=== PATIENT | female | born 1965 | race Caucasian/White ===

== ENCOUNTER → 2017-07-16 | Outpatient (CLI) | payer OTHER ==
--- NOTE | 2017-07-16 17:56 | XR ---
EXAMINATION TYPE: XR knee 4V LT DATE OF EXAM: 07/16/2017 COMPARISON: NONE HISTORY: Contusion and pain TECHNIQUE: 4 views FINDINGS: There is spurring on the patella. There is mild spurring of the medial femoral and tibial c ondyles. I see no fracture nor dislocation. There is no sign of joint effusion. IMPRESSION: Mild osteoarthritis. No fracture.
--- NOTE | 2017-07-16 17:57 | XR ---
EXAMINATION TYPE: XR hand complete RT DATE OF EXAM: 07/16/2017 COMPARISON: NONE HISTORY: Contusion TECHNIQUE: 3 views FINDINGS: I see no fracture nor dislocation. Metacarpals are intact. There is spurring at the first c arpal metacarpal joint. There are no erosions. There is mild spurring at the IP joints. IMPRESSION: Mild osteoarthritis. No fracture.
--- NOTE | 2017-07-16 17:58 | XR ---
EXAMINATION TYPE: XR wrist complete RT DATE OF EXAM: 07/16/2017 COMPARISON: NONE HISTORY: Pain TECHNIQUE: 4 views FINDINGS: I see no fracture nor dislocation. Scaphoid is intact. There is spurring at the first carpo metacarpal joint. IMPRESSION: Mild osteoarthritis. No fracture.
== END ==
LOC: RADXRMAIN 17:23
PROVIDERS: ATTEND Emergency Medicine
DX: M17.12 Unilateral primary osteoarthritis, left knee (principal); M19.041 Primary osteoarthritis, right hand; M19.031 Primary osteoarthritis, right wrist

== ENCOUNTER 2018-04-28 17:31 | Inpatient (IN) | payer BC, OTHER ==
[2018-04-28] MEDS ORDERED: IPRATROPIUM-ALBUTEROL 3 ML NEB INHALATION STA (17:50)
--- NOTE | 2018-04-28 17:51 | ED ---
General Adult HPI - General Stated complaint: ROMANA Time Seen by Provider: 04/28/18 17:35 Source: patient, EMS, RN notes reviewed Mode of arrival: EMS Limitations: no limitations - History of Present Illness Initial comments: Patient is a pleasant 52-year-old female presenting to the emergency department with difficulty in breathing. Patient did have some symptoms yesterday but worse today. Symptoms have progressively worsened. Symptoms are starting to become severe. Patient does have a history of smoking. Patient also has a history of previous PE and DVT. Patient stopped taking her medication secondary to noncompliance. Patient denies ever having any chest discomfort. Patient states she has felt somewhat feverish and had a temperature of 100 last night. Patient does have occasional cough. - Related Data Home Medications Medication Instructions Recorded Confirmed Ondansetron [Zofran] 4 mg PO Q8HR PRN 04/28/18 04/28/18 Previous Rx's Medication Instructions Recorded Aspirin 81 mg PO DAILY chew 04/15/16 Allergies Allergy/AdvReac Type Severity Reaction Status Date / Time acetaminophen [From Tylenol] Allergy Anaphylaxis Verified 04/28/18 18:53 morphine Allergy Swelling Verified 04/28/18 18:53 Penicillins Allergy Rash/Hives Verified 04/28/18 18:53 all citrus Allergy Anaphylaxis Uncoded 04/28/18 17:57 Review of Systems ROS Statement: Those systems with pertinent positive or pertinent negative responses have been documented in the HPI. ROS Other: All systems not noted in ROS Statement are negative. Constitutional: Reports: fever, chills Eyes: Denies: eye pain ENT: Denies: ear pain Respiratory: Reports: cough, dyspnea Cardiovascular: Denies: chest pain Endocrine: Reports: fatigue Gastrointestinal: Denies: abdominal pain Genitourinary: Denies: dysuria Musculoskeletal: Denies: back pain Skin: Denies: rash Neurological: Denies: weakness Past Medical History Past Medical History: Diabetes Mellitus, GERD/Reflux, Hypertension, Pulmonary Embolus (PE) Additional Past Medical History / Comment(s): BACK PAIN, STATES MULTIPLE PE'S History of Any Multi-Drug Resistant Organisms: None Reported Past Surgical History: Orthopedic Surgery Additional Past Surgical History / Comment(s): Rt shoulder rotator cuff repair Past Anesthesia/Blood Transfusion Reactions: No Reported Reaction Additional Past Anesthesia/Blood Transfusion Reaction / Comment(s): STATES HAS BEHAVIOR CHANGES POST OP Past Psychological History: No Psychological Hx Reported Smoking Status: Current every day smoker Past Alcohol Use History: None Reported Past Drug Use History: None Reported - Past Family History Father Family Medical History: No Reported History Mother Family Medical History: No Reported History General Exam Limitations: no limitations General appearance: alert, in distress (Patient does appear to be in mild respiratory distress) Head exam: Present: atraumatic Eye exam: Present: normal appearance, PERRL ENT exam: Present: normal oropharynx Neck exam: Present: normal inspection Respiratory exam: Present: decreased breath sounds Cardiovascular Exam: Present: tachycardia Expanded Peripheral pulses: 2+: Radial (R), Radial (L), Dorsalis Pedis (R), Dorsalis Pedis (L) GI/Abdominal exam: Present: soft. Absent: tenderness Extremities exam: Present: normal inspection. Absent: pedal edema, calf tenderness Back exam: Present: normal inspection Neurological exam: Present: alert Psychiatric exam: Present: anxious (Patient does appear somewhat anxious) Skin exam: Present: normal color. Absent: rash Course Vital Signs 04/28/18 04/28/18 04/28/18 17:54 18:03 18:08 Temperature 99.3 F Pulse Rate 120 H 117 H Respiratory 24 24 18 Rate Blood Pressure 160/93 O2 Sat by Pulse 93 L Oximetry 04/28/18 04/28/18 04/28/18 18:14 18:35 19:22 Temperature Pulse Rate 118 H 119 H 120 H Respiratory 18 23 22 Rate Blood Pressure 162/78 160/95 O2 Sat by Pulse 93 L 94 L Oximetry - Reevaluation(s) Reevaluation #1: 04/28/18 19:41 There is questionable infiltrate on computed tomography scan. Abnormal vital signs are felt to be related to pulmonary embolism and therefore patient does not meet sepsis criteria. EKG Findings - EKG Comments: EKG Findings:: Sinus tachycardia 120. FL 154. QRS 86. QT 334. QTC 472. Normal axis. Borderline inferior Q waves. Poor R-wave progression. No acute ST change. Medical Decision Making - Medical Decision Making Patient reevaluated and slightly improved. Heparin was started prior cT results. Patient and family are updated on results and plan and severity. Case was discussed with Dr. Galeana, who is covering for Dr. Vazquez, who admits for Dr. Butler. Case is also discussed in detail with Dr. Devries, who will admit to ICU. - Lab Data Result diagrams: 04/28/18 17:53 04/28/18 17:53 Lab Results 04/28/1818 04/28/18 Range/Units 17:53 17:53 17:53 WBC 15.4 H (3.8-10.6) k/uL RBC 4.98 (3.80-5.40) m/uL Hgb 13.7 (11.4-16.0) gm/dL Hct 41.2 (34.0-46.0) % MCV 82.7 (80.0-100.0) fL MCH 27.5 (25.0-35.0) pg MCHC 33.3 (31.0-37.0) g/dL RDW 15.5 (11.5-15.5) % Plt Count 141 L (150-450) k/uL Neutrophils % 82 % Lymphocytes % 10 % Monocytes % 6 % Eosinophils % 0 % Basophils % 0 % Neutrophils # 12.6 H (1.3-7.7) k/uL Lymphocytes # 1.5 (1.0-4.8) k/uL Monocytes # 0.9 (0-1.0) k/uL Eosinophils # 0.0 (0-0.7) k/uL Basophils # 0.0 (0-0.2) k/uL Hypochromasia Slight PT (9.0-12.0) sec INR (<1.2) APTT (22.0-30.0) sec Sodium 136 L (137-145) mmol/L Potassium 4.3 (3.5-5.1) mmol/L Chloride 98 (98-107) mmol/L Carbon Dioxide 26 (22-30) mmol/L Anion Gap 12 mmol/L BUN 24 H (7-17) mg/dL Creatinine 1.29 H (0.52-1.04) mg/dL Est GFR (CKD-EPI)AfAm 56 (>60 ml/min/1.73 sqM) Est GFR (CKD-EPI)NonAf 48 (>60 ml/min/1.73 sqM) Glucose 192 H (74-99) mg/dL Calcium 9.3 (8.4-10.2) mg/dL Total Bilirubin 0.6 (0.2-1.3) mg/dL AST 1357 H (14-36) U/L ALT 735 H (9-52) U/L Alkaline Phosphatase 115 (38-126) U/L Total Creatine Kinase 174 H (30-135) U/L CK-MB (CK-2) 5.4 H* (0.0-2.4) ng/mL CK-MB (CK-2) Rel Index 3.1 Troponin I 0.886 H* (0.000-0.034) ng/mL NT-Pro-B Natriuret Pep pg/mL Total Protein 7.3 (6.3-8.2) g/dL Albumin 3.7 (3.5-5.0) g/dL 04/28/18 04/28/18 Range/Units 17:53 17:53 WBC (3.8-10.6) k/uL RBC (3.80-5.40) m/uL Hgb (11.4-16.0) gm/dL Hct (34.0-46.0) % MCV (80.0-100.0) fL MCH (25.0-35.0) pg MCHC (31.0-37.0) g/dL RDW (11.5-15.5) % Plt Count (150-450) k/uL Neutrophils % % Lymphocytes % % Monocytes % % Eosinophils % % Basophils % % Neutrophils # (1.3-7.7) k/uL Lymphocytes # (1.0-4.8) k/uL Monocytes # (0-1.0) k/uL Eosinophils # (0-0.7) k/uL Basophils # (0-0.2) k/uL Hypochromasia PT 12.7 H (9.0-12.0) sec INR 1.3 H (<1.2) APTT 24.0 (22.0-30.0) sec Sodium (137-145) mmol/L Potassium (3.5-5.1) mmol/L Chloride (98-107) mmol/L Carbon Dioxide (22-30) mmol/L Anion Gap mmol/L BUN (7-17) mg/dL Creatinine (0.52-1.04) mg/dL Est GFR (CKD-EPI)AfAm (>60 ml/min/1.73 sqM) Est GFR (CKD-EPI)NonAf (>60 ml/min/1.73 sqM) Glucose (74-99) mg/dL Calcium (8.4-10.2) mg/dL Total Bilirubin (0.2-1.3) mg/dL AST (14-36) U/L ALT (9-52) U/L Alkaline Phosphatase (38-126) U/L Total Creatine Kinase (30-135) U/L CK-MB (CK-2) (0.0-2.4) ng/mL CK-MB (CK-2) Rel Index Troponin I (0.000-0.034) ng/mL NT-Pro-B Natriuret Pep 9880 pg/mL Total Protein (6.3-8.2) g/dL Albumin (3.5-5.0) g/dL - Radiology Data Radiology results: image reviewed (Computed tomography scan chest shows multiple pulmonary embolism and saddle embolism. Possible pulmonary infarct versus infiltrate.) Critical Care Time Critical Care Time: Yes Total Critical Care Time: 33 Disposition Clinical Impression: Saddle embolism of pulmonary artery Disposition: ADMITTED IP TO THIS HOSP Condition: Critical Is patient prescribed a controlled substance at d/c from ED?: No Referrals: Delbert Butler DO [Primary Care Provider] - 1-2 days Decision Time: 19:41
[2018-04-28] MEDS ORDERED: HEPARIN SODIUM,PORCINE 10,000 UNIT/ML 1 ML VIAL IV ONE (17:58)
[2018-04-28 18:11] LABS: Basophils % (A) 0 %; Eosinophils % (A) 0 %; HCT 41.2 % (34.0-46.0); HGB 13.7 gm/dL (11.4-16.0); Hypochromasia Slight; Lymphocytes # (A) 1.5 k/uL (1.0-4.8); Lymphocytes % (A) 10 %; MCH 27.5 pg (25.0-35.0); MCHC 33.3 g/dL (31.0-37.0); MCV 82.7 fL (80.0-100.0); Mean Platelet Volume 7.5; Monocytes # (A) 0.9 k/uL (0-1.0); Monocytes % (A) 6 %; Neutrophils # (A) 12.6 k/uL (1.3-7.7); Neutrophils % (A) 82 %; Platelet Count 141 k/uL (150-450); RBC 4.98 m/uL (3.80-5.40); RDW 15.5 % (11.5-15.5); WBC 15.4 k/uL (3.8-10.6)
[2018-04-28 18:18] LABS: INR 1.3 (<1.2); Prothrombin Time 12.7 sec (9.0-12.0)
[2018-04-28 18:23] LABS: Albumin 3.7 g/dL (3.5-5.0); Calcium 9.3 mg/dL (8.4-10.2); Potassium 4.3 mmol/L (3.5-5.1); Total Bilirubin 0.6 mg/dL (0.2-1.3); Total Protein 7.3 g/dL (6.3-8.2)
[2018-04-28] MEDS: HEPARIN SODIUM,PORCINE 5,000 UNIT/ML 1 ML VIAL IV PRN (18:23)
[2018-04-28] MEDS: HEPARIN SOD,PORK IN 0.45% NACL 25,000 UNIT in 0.45% NACL 1 500ML.BAG IV SCH (18:24)
[2018-04-28] MEDS ORDERED: SODIUM CHLORIDE 0.9% 500 ML IV ONE (18:32)
[2018-04-28 18:57] LABS: Creatine Kinase MB 5.4 ng/mL (0.0-2.4); Troponin I 0.886 ng/mL (0.000-0.034)
--- NOTE | 2018-04-28 19:34 | CT ---
EXAMINATION TYPE: CT angio chest DATE OF EXAM: 04/28/2018 7:21 PM COMPARISON: 05/13/2015 HISTORY: Shortness of breath. CT DLP: 607 mGycm Automated exposure control for dose reduction was used. CONTRAST: CTA scan of the thorax is performed with IV Contrast, patient injected with 80 mL of Isovue 370, pulm onary embolism protocol. There are 3-D post processed images.. FINDINGS: There is some patchy consolidation in the superior segment right lower lobe. There is some mild groun dglass interstitial density in the lungs. There are numerous large filling defects in the lower lobe pulmonary arteries bilaterally. Embolism e xtends across the main pulmonary artery. Thoracic aorta has normal size. The bony thorax is intact. IMPRESSION: EXTENSIVE BILATERAL PULMONARY EMBOLI WITH SADDLE EMBOLISM. THIS EXAM WAS DISCUSSED WITH ER PHYSICIAN AT 7:30 PM. RIGHT LOWER LOBE FOCAL CONSOLIDATION COULD RELATE TO PULMONARY INFARCT. EMBOLI APPEAR NEW COMPARED TO OLD EXAM. INTERSTITIAL PULMONARY FIBROTIC CHANGES.
[2018-04-28] MEDS ORDERED: NALOXONE 0.4 MG/ML 1 ML VIAL IV PRN (19:42)
[2018-04-28] MEDS ORDERED: IPRATROPIUM-ALBUTEROL 3 ML NEB INHALATION PRN (19:42)
[2018-04-28] MEDS ORDERED: PNEUMONIA PROTOCOL UTILIZED 1 EACH MISC PO PRN (19:44)
[2018-04-28] MEDS ORDERED: AZITHROMYCIN 500 MG in DEXTROSE 5% IN WATER 250 ML IVPB STA ×2 (19:45)
[2018-04-28] MEDS ORDERED: cefTRIAXone IN SWFI 1,000 MG/10 ML SYRINGE IVP STA (19:45)
[2018-04-28] MEDS: SODIUM CHLORIDE 0.9% 1,000 ML IV SCH (20:30)
--- NOTE | 2018-04-28 20:44 | US ---
EXAMINATION TYPE: US venous doppler duplex LE DATE OF EXAM: 04/28/2018 8:31 PM COMPARISON: NONE CLINICAL HISTORY: Dyspnea, rule out DVT. Hx of DVT has a PE from CT Scan tonight. SIDE PERFORMED: Bilateral TECHNIQUE: The lower extremity deep venous system is examined utilizing real time linear array sonog gege with graded compression, doppler sonography and color-flow sonography. VESSELS IMAGED: External Iliac Vein (EIV) Common Femoral Vein Deep Femoral Vein Greater Saphenous Vein * Femoral Vein Popliteal Vein Small Saphenous Vein * Proximal Calf Veins (* superficial vessels) Right Leg: Positive for DVT in distal Femoral Vein to the Popliteal Vein. Left Leg: Negative for DVT. Non occluding chronic thrombus seen in the Femoral and Popliteal Veins. IMPRESSION: There is evidence of chronic deep venous thrombosis in the left leg. No evidence of acute deep venous thrombosis in the left leg. There is acute deep venous thrombosis in the right femoral vein.
[2018-04-28] MEDS ORDERED: ALPRAZolam 0.25 MG TAB PO PRN (20:48)
[2018-04-28] MEDS ORDERED: traMADol 50 MG TAB PO PRN (20:50)
[2018-04-28] MEDS ORDERED: ONDANSETRON 4 MG TAB PO PRN (20:50)
[2018-04-28 21:10] LABS: Glucose,Whole Blood 220 mg/dL (75-99)
--- NOTE | 2018-04-28 21:16 | XR ---
EXAMINATION TYPE: XR chest 1V portable DATE OF EXAM: 04/28/2018 COMPARISON: 04/14/2016 HISTORY: Heart failure TECHNIQUE: Single frontal view of the chest is obtained. FINDINGS: Portable exam shows no heart failure. Heart appears enlarged. There is no pleural effusion . There are chest leads. IMPRESSION: No heart failure seen. There is probably cardiomegaly. No pleural effusion.
[2018-04-28] MEDS: NICOTINE 14MG/24HR PATCH TRANSDERM SCH (21:47)
[2018-04-28 21:56] VITALS: BMI 36.2
--- NOTE | 2018-04-28 22:16 | HP ---
HISTORY AND PHYSICAL CHIEF COMPLAINT: Shortness of breath. HISTORY OF PRESENT ILLNESS: This 52-year-old woman with a past medical history of diabetes mellitus, GERD, history of hypertension, history of pulmonary embolism, being followed by Dr. Butler in the outpatient setting, was apparently not taking anticoagulation. The patient does take some natural medications. Yesterday the patient had significant shortness of breath which has worsened today, and the patient came to [facility] and was admitted for further evaluation and treatment. The patient had troponin elevated up to 0.886. Patient also has a previous history of CHF and the patient underwent a chest CTA which showed extensive bilateral pulmonary emboli with saddle embolism and possibly pulmonary infarct, also. The patient was admitted for further evaluation and treatment. There is no history of any fever, rigors. No history of headache, loss of consciousness, seizures at this time. PAST MEDICAL HISTORY: 1. History of CHF. 2. History of diabetes mellitus. 3. GERD. 4. History of pulmonary embolism. 5. History of back pain. 6. DJD. HOME MEDICATIONS: 1. Zofran. 2. Aspirin 81 mg p.o. daily. ALLERGIES: 1. TYLENOL. 2. MORPHINE. 3. PENICILLIN. 4. ALL CITRUS. FAMILY HISTORY: No history of heart disease or strokes in the family. SOCIAL HISTORY: History of smoking. No history of alcohol intake. REVIEW OF SYSTEMS: ENT: No diminished hearing. No diminished vision. CARDIOVASCULAR SYSTEM: No angina, palpitations. RESPIRATORY SYSTEM: As mentioned earlier. GI: No nausea, vomiting. : No dysuria or retention. NERVOUS SYSTEM: No numbness, weakness. ALLERGY/IMMUNOLOGY: No asthma, hayfever. MUSCULOSKELETAL: As mentioned earlier. HEMATOLOGY/ONCOLOGY: No history of anemia. ENDOCRINE: No history of diabetes, hypothyroidism. CONSTITUTIONAL: As mentioned earlier. DERMATOLOGY: Negative. RHEUMATOLOGY: Negative. PSYCHIATRY: As mentioned earlier. PHYSICAL EXAMINATION: Patient is alert and oriented x3. Pulse 117, blood pressure 172/96, respiration 24, temperature 98.4, pulse ox 95% on 4 L. HEENT: Conjunctivae normal. Oral mucosa moist. NECK: No jugular venous distention. No carotid bruit. No lymph node enlargement. CARDIOVASCULAR SYSTEM: S1, S2 muffled. RESPIRATORY SYSTEM: Breath sounds diminished at the bases. A few scattered rhonchi and crackles. ABDOMEN: Soft, obese, nontender. No mass palpable. LEGS: No edema. No swelling. NERVOUS SYSTEM: Higher functions as mentioned earlier. Moves all 4 limbs. No focal motor or sensory deficit. LYMPHATICS: No lymph node palpable in neck, axillae or groin. SKIN: No ulcer, rash, bleeding. LABS AT THIS TIME: WBC 15.5, hemoglobin 13.7, platelets 141. Sodium is 136, creatinine 1.29. AST is 1357, ALT 735. CK-MB is 5.4, troponin 0.886. ASSESSMENT: 1. Shortness of breath with acute saddle embolism. 2. History of previous pulmonary embolism. 3. Increased creatinine with mild acute renal failure. 4. Increased AST, ALT, possibly hepatitis. 5. Increased white count. 6. Possible pneumonia. 7. History of hypertension. 8. History of gastroesophageal reflux disease. 9. Diabetes mellitus, type 2. 10.History of degenerative joint disease. 11.History of nicotine dependence. 12.Obesity with body mass index of 34.4. RECOMMENDATIONS AND DISCUSSION: In this 52-year-old woman who presented with multiple complex medical issues, we will monitor the patient closely, continue the current medications, continue with symptomatic treatment. We will initiate IV heparin. I recommend close monitoring in the ICU. Consult Dr. Devries. I would also recommend empiric antibiotics at this point. Will repeat chest x-ray. Monitor fluid/electrolyte balance closely. I would also recommend a cardiology consultation to rule out the possibility of CHF in this patient. The importance of compliance also was stressed with the patient. We will continue to monitor. The patient is probably a candidate for lifelong anticoagulation. See orders for further details. Further recommendations to follow. A copy of this dictation is being forwarded to Dr. Butler, who is the primary physician. MMODL / IJN: [id number] / JASMYNE
[2018-04-28] MEDS: INSULIN ASPART 100 UNIT/ML 1 ML 10 ML VIAL SQ SCH (22:17)
[2018-04-28] MEDS: TEMAZEPAM 15 MG CAP PO PRN (22:29)
[2018-04-29 05:04] LABS: Basophils % (A) 0 %; Eosinophils % (A) 0 %; HCT 44.8 % (34.0-46.0); HGB 13.7 gm/dL (11.4-16.0); Hypochromasia Moderate; Lymphocytes # (A) 1.3 k/uL (1.0-4.8); Lymphocytes % (A) 8 %; MCHC 30.6 g/dL (31.0-37.0); Mean Platelet Volume 8.2; Monocytes # (A) 0.8 k/uL (0-1.0); Monocytes % (A) 5 %; Neutrophils % (A) 86 %; Platelet Count 147 k/uL (150-450); RBC 5.27 m/uL (3.80-5.40); WBC 16.4 k/uL (3.8-10.6)
[2018-04-29 05:20] LABS: INR 1.5 (<1.2); Prothrombin Time 13.6 sec (9.0-12.0)
[2018-04-29 05:26] LABS: Albumin 3.6 g/dL (3.5-5.0); Calcium 8.7 mg/dL (8.4-10.2); Magnesium 2.2 mg/dL (1.6-2.3); Potassium 5.3 mmol/L (3.5-5.1); Total Bilirubin 0.6 mg/dL (0.2-1.3); Total Protein 7.3 g/dL (6.3-8.2)
--- NOTE | 2018-04-29 07:34 | XR ---
EXAMINATION TYPE: XR chest 1V DATE OF EXAM: 04/29/2018 COMPARISON: 04/28/2018 HISTORY: Shortness of breath TECHNIQUE: Single frontal view of the chest is obtained. FINDINGS: The heart is enlarged. There are subsegmental changes involving both lung. No pneumothorax . No pleural effusion. No failure. IMPRESSION: Cardiomegaly with subsegmental areas of atelectasis or infiltrate
[2018-04-29 07:42] LABS: Glucose,Whole Blood 210 mg/dL (75-99)
[2018-04-29] MEDS: HEPARIN SOD,PORK IN 0.45% NACL 25,000 UNIT in 0.45% NACL 1 500ML.BAG IV SCH ×2 (08:02→21:37)
[2018-04-29] MEDS: INSULIN ASPART 100 UNIT/ML 1 ML 10 ML VIAL SQ SCH ×4 (08:21→20:11)
[2018-04-29] MEDS ORDERED: AZITHROMYCIN 500 MG TAB PO SCH (09:00)
[2018-04-29] MEDS ORDERED: cefTRIAXone IN SWFI 1,000 MG/10 ML SYRINGE IVP SCH (09:00)
[2018-04-29] MEDS: PANTOPRAZOLE 40 MG/10 ML VIAL IV SCH (09:48)
[2018-04-29] MEDS: ASPIRIN 81 MG PO SCH (09:48)
[2018-04-29 10:09] LABS: Appearance,Urine Cloudy (Clear); Bacteria,Urine Few /hpf; Bilirubin,Urine Negative (Negative); Blood,Urine Moderate (Negative); Color,Urine Yellow; Glucose,Urine (UA) Negative (Negative); Hyaline Casts,Urine 36 /lpf (0-2); Ketones,Urine Negative (Negative); Leukocyte Esterase,Urine Large (Negative); Mucus,Urine Few /hpf; Nitrite,Urine Negative (Negative); Protein,Urine 2+ (Negative); RBC,Urine 137 /hpf (0-5); Specific Gravity,Urine 1.028 (1.001-1.035); Urobilinogen,Urine <2.0 mg/dL (<2.0); WBC,Urine >182 /hpf (0-5)
[2018-04-29] MEDS: guaiFENesin-DM 100-10MG/5ML 10 ML CUP PO PRN (11:58)
[2018-04-29 12:19] LABS: Glucose,Whole Blood 235 mg/dL (75-99)
--- NOTE | 2018-04-29 14:02 | ECHOF ---
Referral Reason:pe MEASUREMENTS -------- HEIGHT: 172.7 cm WEIGHT: 108.0 kg BP: 164/103 RVIDd: 3.5 cm (< 3.3) IVSd: 1.1 cm (0.6 - 1.1) LVIDd: 4.3 cm (3.9 - 5.3) LVPWd: 1.2 cm (0.6 - 1.1) IVSs: 1.9 cm LVIDs: 2.6 cm LVPWs: 1.5 cm Ao Diam: 3.1 cm (2.0 - 3.7) AV Cusp: 1.8 cm (1.5 - 2.6) LA Diam: 3.6 cm (2.7 - 3.8) MV EXCURSION: 16.659 mm (> 18.000) MV EF SLOPE: 41 mm/s (70 - 150) EPSS: 0.3 cm MV E Chaka: 1.11 m/s MV DecT: 204 ms MV A Chaka: 0.31 m/s MV E/A Ratio: 3.56 RAP: 5.00 mmHg RVSP: 47.82 mmHg FINDINGS -------- Resting tachycardia (HR>100bpm). This was a technically difficult study with suboptimal views. The left ventricular size is normal. There is borderline concentric left ventricular hypertrophy. There is moderate global hypokinesis of LV . Overall left ventricular systolic function is moderat e-severely impaired with, an EF between 30 - 35 %. The right ventricle is mildly enlarged. The left atrium is normal in size. The right atrium is normal in size. Lumason used Aortic valve is trileaflet and is mildly thickened. The mitral valve leaflets are mildly thickened. Mild mitral regurgitation is present. Mild tricuspid regurgitation present. There is mild pulmonary hypertension. The right ventricular systolic pressure, as measured by Doppler, is 47.82mmHg. Pulmonic valve appears structurally normal. CONCLUSIONS -------- 1. Resting tachycardia (HR>100bpm). 2. This was a technically difficult study with suboptimal views. 3. The left ventricular size is normal. 4. There is borderline concentric left ventricular hypertrophy. 5. There is moderate global hypokinesis of LV . 6. Overall left ventricular systolic function is moderate-severely impaired with, an EF between 30 - 35 %. 7. The right ventricle is mildly enlarged. 8. The left atrium is normal in size. 9. The right atrium is normal in size. 10. Lumason used 11. Aortic valve is trileaflet and is mildly thickened. 12. The mitral valve leaflets are mildly thickened. 13. Mild mitral regurgitation is present. 14. Mild tricuspid regurgitation present. 15. There is mild pulmonary hypertension. 16. The right ventricular systolic pressure, as measured by Doppler, is 47.82mmHg. 17. Pulmonic valve appears structurally normal. [employer]OR: Jeri Virgen RDCS
--- NOTE | 2018-04-29 14:20 | CONS ---
CONSULTATION Margaret Alves is a 52-year-old female who was admitted with shortness of breath. She was found to have pulmonary embolism. She does not take anticoagulants. She was taking some natural medications instead. Cardiology was consulted on account of abnormal troponin of 0.886. She is mildly short of breath at rest, but denies any chest discomfort. She has documented pulmonary embolism with extensive bilateral pulmonary emboli with saddle embolism and pulmonary infarct. PAST MEDICAL HISTORY: Past medical history of diabetes, GERD, pulmonary embolism, back pain, and noncompliance with medications with anticoagulation. HOME MEDICATIONS: Zofran and aspirin. ALLERGIES: Allergies to TYLENOL, MORPHINE, PENICILLIN. FAMILY HISTORY: Noncontributory. SOCIAL HISTORY: History of smoking. REVIEW OF SYSTEMS: Shortness of breath on exertion and shortness of breath at rest. No chest pain. No nausea, vomiting, or diarrhea. No hematuria or dysuria. No strokes or seizures. No skin lesions. No musculoskeletal complaints. PHYSICAL EXAMINATION: On examination, her blood pressure was initially elevated. Pulse, she had sinus tachycardia. Head and neck examinations was normal. Breath sounds are reduced bilaterally. Heart sounds tachycardic. Abdomen is soft. EXTREMITIES: Bilateral edema. IMPRESSION: Abnormal troponins in the setting of extensive bilateral pulmonary emboli including saddle embolus and pulmonary infarction. This is an expected finding and does not represent an acute myocardial infarction. From a cardiac standpoint, I will get a 2D echo and Doppler study to assess right ventricular size and function and PA pressures. No further cardiac workup indicated at this point. Thank you for the consultation. MMODL / IJN: [id number] /
--- NOTE | 2018-04-29 14:26 | P.CNPUL ---
History of Present Illness Consult date: 04/29/18 Reason for consult: pulmonary embolism History of present illness: 52-year-old female patient, obese with a BMI of 36.8, with known history of previous DVT and pulmonary embolism, as the patient had a bilateral pulmonary embolism back in 2013 treated with anticoagulation yet the patient opted to stop anticoagulation and proceed with homeopathic and natural products. Note that prior to 2013 the patient also has had previous history of DVTs. The patient came in yesterday because of an acute shortness of breath and pain across the right chest which was pleuritic in nature. CT angios the chest was done on admission and the patient was found to have extensive bilateral pulmonary embolism with incentive embolism. There was also right lower lobe consolidation related to the pulmonary infarction. Note that the time of admission the patient was normotensive. She was however tachycardic and she was in sinus tachycardia with a heart rate being as high as 120. She was hypoxic and she was placed on 4-6 L of oxygen nasal cannula to bring his saturation above 90%. She was started on IV heparin. Troponin was positive. Her proBNP level was 9880. The Doppler of the lower extremity showed a right sided DVT involving the distal femoral vein and the popliteal vein. Left lower extremity shows nonoccluding chronic thrombus and the femoral and popliteal vein. The patient stayed hemodynamically stable throughout the night and earlier this morning the patient was seen and evaluated in the intensive care unit. A echocardiogram was done this morning and it showed a left ventricle ejection fraction of 30-35% and the right ventricular is mildly enlarged and the right atrium is normal in size with a right ventricular systolic pressure of 47 mmHg. Note that the patient had a normal echocardiogram back in 2013. She also had a cardiac catheterization back in [address] Lira and the coronaries were also within normal limits. On today's evaluation she is less short of breath compared to yesterday. Her pleurisy has subsided. No active chest pain. Her PTT is therapeutic on IV heparin. Creatinine is up to 1.2. I've no also noted some abnormalities in liver function tests with AST is up to 1000. 75 and ALP is up to 1015. Normal ocular phosphatase. Normal bilirubin. Urinalysis is abnormal and the patient has extensive amount of white cells and the patient was given a dose of Rocephin. Cultures still pending for now. She is afebrile. Review of Systems Constitutional: Denies chills, Denies fever Eyes: denies blurred vision, denies bulging eye, denies decreased vision Ears: deny: decreased hearing, ear discharge, earache Ears, nose, mouth and throat: Denies headache, Denies sore throat Cardiovascular: Reports dyspnea on exertion, Reports shortness of breath Respiratory: Reports dyspnea, Reports pleurisy Gastrointestinal: Denies abdominal pain, Denies diarrhea, Denies nausea, Denies vomiting Genitourinary: Denies dysuria, Denies hematuria Menstruation: Reports as per HPI Musculoskeletal: Reports as per HPI Musculoskeletal: absent: ankle pain, ankle stiffness, ankle swelling Integumentary: Reports acne Neurological: Reports as per HPI Psychiatric: Reports as per HPI Endocrine: Reports as per HPI Hematologic/Lymphatic: Reports as per HPI Allergic/Immunologic: Reports as per HPI Past Medical History Past Medical History: Diabetes Mellitus, GERD/Reflux, Hypertension, Pulmonary Embolus (PE) Additional Past Medical History / Comment(s): Previous history of pulmonary embolism in 2013, obesity, previous history of DVT involving the left lower extremity, diabetes mellitus, hypertension, acid reflux, chronic back pain, normal coronaries based on a cardiac catheterization from June 2015 History of Any Multi-Drug Resistant Organisms: None Reported Past Surgical History: Orthopedic Surgery Additional Past Surgical History / Comment(s): Rt shoulder rotator cuff repair Past Anesthesia/Blood Transfusion Reactions: No Reported Reaction Additional Past Anesthesia/Blood Transfusion Reaction / Comment(s): STATES HAS BEHAVIOR CHANGES POST OP Past Psychological History: No Psychological Hx Reported Smoking Status: Current every day smoker Past Alcohol Use History: None Reported Past Drug Use History: None Reported - Past Family History Father Family Medical History: No Reported History Mother Family Medical History: No Reported History Medications and Allergies Home Medications Medication Instructions Recorded Confirmed Type Aspirin 81 mg PO DAILY chew 04/15/16 04/29/18 Rx Ondansetron [Zofran] 4 mg PO Q8HR PRN 04/28/18 04/29/18 History Cinnamon Bark [Cinnamon] 2,000 mg PO DAILY 04/29/18 04/29/18 History Reedy-3 Fatty Acids/Fish Oil [Fish 2,000 mg PO DAILY 04/29/18 04/29/18 History Oil 1,000 mg Softgel] Vitamin E 2,000 units PO DAILY 04/29/18 04/29/18 History Allergies Allergy/AdvReac Type Severity Reaction Status Date / Time acetaminophen [From Tylenol] Allergy Anaphylaxis Verified 04/28/18 18:53 morphine Allergy Swelling Verified 04/28/18 18:53 Penicillins Allergy Rash/Hives Verified 04/28/18 18:53 all citrus Allergy Anaphylaxis Uncoded 04/28/18 17:57 Physical Exam Vitals: Vital Signs Temp Pulse Resp BP Pulse Ox 04/29/18 13:00 109 H 33 H 162/90 94 L 04/29/18 12:00 105 H 30 H 169/92 93 L 04/29/18 11:00 103 H 20 179/92 91 L 04/29/18 10:00 111 H 23 111/78 93 L 04/29/18 09:00 107 H 29 H 155/85 92 L 04/29/18 08:00 97.6 F 103 H 21 165/97 93 L 04/29/18 07:32 92 L 04/29/18 07:00 104 H 25 H 164/103 92 L 04/29/18 06:30 102 H 21 137/83 98 04/29/18 06:00 106 H 24 137/83 83 L 04/29/18 05:30 106 H 42 H 137/85 100 04/29/18 05:00 107 H 44 H 137/85 100 04/29/18 04:30 108 H 28 H 150/94 99 04/29/18 04:00 98.4 F 109 H 32 H 150/94 100 04/29/18 03:30 107 H 31 H 128/77 93 L 04/29/18 03:00 112 H 22 128/77 100 04/29/18 02:30 112 H 32 H 158/93 90 L 04/29/18 02:00 110 H 18 136/76 97 04/29/18 01:30 114 H 36 H 136/76 91 L 04/29/18 01:00 100 33 H 136/76 96 04/29/18 00:30 115 H 33 H 142/57 93 L 04/29/18 00:00 99.2 F 116 H 36 H 142/57 91 L 04/28/18 23:30 111 H 28 H 161/75 81 L 04/28/18 23:00 108 H 35 H 161/75 97 04/28/18 22:30 109 H 31 H 199/93 95 04/28/18 22:00 111 H 31 H 173/110 93 L 04/28/18 21:30 112 H 40 H 155/76 94 L 04/28/18 21:00 115 H 178/79 93 L 04/28/18 20:57 0 L 94 L 04/28/18 20:33 98.5 F 117 H 24 172/96 95 04/28/18 19:22 120 H 22 160/95 94 L 04/28/18 18:35 119 H 23 162/78 93 L 04/28/18 18:14 118 H 18 04/28/18 18:08 117 H 18 04/28/18 18:03 24 04/28/18 17:54 99.3 F 120 H 24 160/93 93 L Intake and Output 04/28/18 04/29/18 04/29/18 22:59 06:59 14:59 Intake Total 410 840 Output Total 775 Balance 410 65 Intake: IV 160 140 Sodium Chloride 0.9% 1, 160 140 000 ml @ 20 mls/hr IV . Q24H FILOMENA Rx#:[id number] Intake, IV Titration 500 Amount Heparin Sod,Pork in 0.45% 500 NaCl 25,000 unit In 0.45 % NaCl 1 500ml.bag @ 18 UNITS/KG/HR 36.9 mls/hr IV .[id number] FILOMENA Rx#: [id number] Oral 250 200 Output: Urine 775 Other: Voiding Method Bedpan Indwelling Catheter # Voids 1 1 Weight 108.1 kg 108.1 kg 108.1 kg Obese, comfortable likely distress. Resting comfortably in bed. There is no use of accessory muscles of breathing. Head exam was generally normal. There was no scleral icterus or corneal arcus. Mucous membranes were moist. Neck is supple and there is no JVDs no goiter or neck masses at this point. There is significant crowding of the posterior oropharynx. Lungs sounds are diminished bilaterally especially lung bases otherwise breath sounds are equal and symmetrical. No wheezes or rhonchi. No crackles. Cardiac exam revealed the PMI to be normally situated and sized. The rhythm was regular and no extrasystoles were noted during several minutes of auscultation. The first and second heart sounds were normal and physiologic splitting of the second heart sound was noted. There were no murmurs, rubs, clicks, or gallops. Abdomen is obese and orders cannot be accurately palpated. There is no direct tenderness rebound tensile guarding. No ascites. Extremities revealed some swelling in the right lower extremity compared to the left. No was or ulceration. Trace edema. No cyanosis or clubbing. Neurologic awake and alert and is no focal neurological deficit. Examination of the skin revealed no evidence of significant rashes, suspicious appearing nevi or other concerning lesions. Results - Laboratory Findings CBC and BMP: 04/29/18 04:52 04/29/18 04:52 PT/INR, D-dimer PT 13.6 sec (9.0-12.0) H 04/29/18 04:52 INR 1.5 (<1.2) H 04/29/18 04:52 Abnormal lab findings: Abnormal Labs 04/28/18 04/28/18 04/28/18 17:53 17:53 17:53 WBC 15.4 H MCHC Plt Count 141 L Neutrophils # 12.6 H PT INR APTT Sodium 136 L Potassium Carbon Dioxide BUN 24 H Creatinine 1.29 H Glucose 192 H POC Glucose (mg/dL) Phosphorus AST 1357 H ALT 735 H Alkaline Phosphatase Total Creatine Kinase 174 H CK-MB (CK-2) 5.4 H* Troponin I 0.886 H* Urine Appearance Urine Protein Urine Blood Ur Leukocyte Esterase Urine RBC Urine WBC Urine WBC Clumps Urine Bacteria Hyaline Casts Urine Mucus 04/28/18 04/28/18 04/29/18 17:53 21:08 00:28 WBC MCHC Plt Count Neutrophils # PT 12.7 H INR 1.3 H APTT 60.7 H Sodium Potassium Carbon Dioxide BUN Creatinine Glucose POC Glucose (mg/dL) 220 H Phosphorus AST ALT Alkaline Phosphatase Total Creatine Kinase CK-MB (CK-2) Troponin I Urine Appearance Urine Protein Urine Blood Ur Leukocyte Esterase Urine RBC Urine WBC Urine WBC Clumps Urine Bacteria Hyaline Casts Urine Mucus 04/29/18 04/29/18 04/29/18 04:52 04:52 04:52 WBC 16.4 H MCHC 30.6 L Plt Count 147 L Neutrophils # 14.0 H PT 13.6 H INR 1.5 H APTT Sodium 136 L Potassium 5.3 H Carbon Dioxide 20 L BUN 28 H Creatinine 1.20 H Glucose 267 H POC Glucose (mg/dL) Phosphorus 5.0 H AST 1375 H ALT 1015 H Alkaline Phosphatase 136 H Total Creatine Kinase CK-MB (CK-2) Troponin I Urine Appearance Urine Protein Urine Blood Ur Leukocyte Esterase Urine RBC Urine WBC Urine WBC Clumps Urine Bacteria Hyaline Casts Urine Mucus 04/29/18 04/29/18 04/29/18 07:30 09:11 12:16 WBC MCHC Plt Count Neutrophils # PT INR APTT Sodium Potassium Carbon Dioxide BUN Creatinine Glucose POC Glucose (mg/dL) 210 H 235 H Phosphorus AST ALT Alkaline Phosphatase Total Creatine Kinase CK-MB (CK-2) Troponin I Urine Appearance Cloudy H Urine Protein 2+ H Urine Blood Moderate H Ur Leukocyte Esterase Large H Urine RBC 137 H Urine WBC >182 H Urine WBC Clumps Many H Urine Bacteria Few H Hyaline Casts 36 H Urine Mucus Few H - Diagnostic Findings Chest x-ray: image reviewed CT scan - chest: image reviewed Assessment and Plan Plan: Assessment 1 large massive pulmonary embolism, with extensive clotting of the right lung although the patient has bilateral pulmonary embolism with a saddle clot as visualized on the CT angios the chest. Hemodynamically stable. The patient is slightly tachycardic with sinus tachycardia in the low 100s. There is positive troponin and there is some mild to moderate pulmonary hypertension based on today's echocardiogram. The patient is currently at 4 L of oxygen nasal cannula saturations around 90-94%. The patient is currently on IV heparin. The patient has a femoral/popliteal DVT of the right lower extremity. This is a recurrent event. Less poor embolism was in 2013. Prior to that the patient has had DVTs of the lower extremity and the patient has a chronic nonocclusive clot in the left lower extremity. 2 troponin leak secondary to above 3 CHF with an ejection fraction of 30-35% 4 obesity 5 normal coronaries based on a catheterization from June 2015 6 abnormal LFTs, will need further investigation. AST and ALT are elevated and there is no obstructive pattern as the patient has a normal alkaline phosphatase and bilirubin levels. 7 diabetes mellitus currently on no treatment 8 hypertension 9 history of diverticulosis 10 acid reflux 11 smoker Plan Continue with IV heparin. Would run this case with the vascular surgeons add [facility] to see if she will be a candidate for EKOS, intra- arterial thrombolytic therapy. Meanwhile she'll be kept in the intensive care unit. Monitor hemodynamics. Continue IV heparin. Echocardiogram was noted. Doppler of lower extremity was noted. Proceed with ultrasound of the liver. Monitor liver function tests. Obtain a hepatitis profile. Rule out is a need long-term anticoagulation probably with a new agent oral anticoagulants and the patient will be transitioned to oral anticoagulation at a later stage once more stable. We'll continue to follow. We'll make further recommendations based on her progress.
[2018-04-29] MEDS: amLODIPine 5 MG TAB PO SCH (14:30)
[2018-04-29 17:22] LABS: Glucose,Whole Blood 181 mg/dL (75-99)
--- NOTE | 2018-04-29 18:31 | P.PN ---
Subjective Progress Note Date: 04/29/18 Progress note being dictated for Dr. Galeana. Interval history: A 52-year-old female admitted with acute saddle PE, history of noncompliance with prior DVTs and PEs. Maintained on IV heparin drip. Hypertensive. Telemetry sinus tachycardia. Currently on 4 L maintaining O2 sats in the low 90s. Complains of shortness of breath with minimal exertion. Denies chest pain. Echo reporting severely impaired LV function, EF 30-35, moderate global hypokinesis. Chest x-ray reporting cardiomegaly, subsegmental atelectasis/infiltrate. Elevated creatinine and LFTs. Afebrile. Urine culture pending. Review of systems: CONSTITUTIONAL: No fever, positive fatigue. HEENT: No recent visual problems or hearing problems. Denied any sore throat. CARDIOVASCULAR: No chest pain, no palpitations, no syncope. PULMONARY: Positive shortness of breath, no hemoptysis. GASTROINTESTINAL: No diarrhea, no nausea, no vomiting, no abdominal pain. Normoactive bowel sounds. NEUROLOGICAL: No headaches, no weakness, no numbness. HEMATOLOGICAL: Denies any bleeding or petechiae. GENITOURINARY: Denies any burning micturition, frequency, or urgency. MUSCULOSKELETAL/RHEUMATOLOGICAL: Denies any joint pain, or any muscle pain. ENDOCRINE: Denies any polyuria or polydipsia. PSYCHIATRIC: No anxiety, no depression The rest of the 14 point review of systems is negative Active Medications Generic Name Dose Route Start Last Admin Trade Name Freq PRN Reason Stop Dose Admin Albuterol/Ipratropium 3 ml 04/28/18 19:42 Duoneb 0.5 Mg-3 Mg/3 Ml Soln INHALATION RT-Q4H PRN Shortness Of Breath Or Wheezing Alprazolam 0.25 mg 04/28/18 20:48 Xanax PO TID PRN Anxiety Amlodipine Besylate 5 mg 04/29/18 13:30 04/29/18 14:30 Norvasc PO 5 mg DAILY FILOMENA Administration Aspirin 81 mg 04/29/18 09:00 04/29/18 09:48 Aspirin PO 81 mg DAILY FILOMENA Administration Guaifenesin/Dextromethorphan 10 ml 04/29/18 10:04 04/29/18 11:58 Robitussin Dm PO 10 ml Q6H PRN Administration Cough Heparin Sodium (Porcine) 0 unit 04/28/18 17:58 Heparin IV PER PROTOCOL PRN Low PTT Protocol Heparin Sodium/Sodium Chloride 500 mls @ 36.9 mls/hr 04/28/18 18:00 04/29/18 08:02 25,000 unit/ Sodium Chloride IV 18 units/kg/hr .[id number] FILOMENA 36.9 mls/hr Protocol Administration 18 UNITS/KG/HR Sodium Chloride 1,000 mls @ 20 mls/hr 04/28/18 19:45 04/28/18 20:30 Saline 0.9% IV 50 mls/hr .Q24H FILOMENA Administration Insulin Aspart 0 unit 04/28/18 22:00 04/29/18 12:55 Novolog SQ 5 unit ACHS FILOMENA Administration Protocol Miscellaneous Information 1 each 04/28/18 19:44 Pneumonia Protocol Utilized PO ONCE PRN Per Protocol Naloxone HCl 0.2 mg 04/28/18 19:42 Narcan IV Q2M PRN Opioid Reversal Nicotine 1 patch 04/28/18 21:00 04/28/18 21:47 Habitrol 14mg/24hr Patch TRANSDERM 1 patch HS FILOMENA Administration Ondansetron HCl 4 mg 04/28/18 20:50 Zofran PO Q8HR PRN Nausea Pantoprazole Sodium 40 mg 04/29/18 09:00 04/29/18 09:48 Protonix IV 40 mg DAILY FILOMENA Administration Temazepam 15 mg 04/28/18 20:48 04/28/18 22:29 Restoril PO 15 mg HS PRN Administration Insomnia Tramadol HCl 50 mg 04/28/18 20:50 Ultram PO QID PRN Breakthrough Pain Objective - Vital Signs Vital signs: Vital Signs Temp 97.6 F 04/29/18 08:00 Pulse 110 H 04/29/18 14:00 Resp 22 04/29/18 14:00 BP 151/80 04/29/18 14:00 Pulse Ox 93 L 04/29/18 14:00 Intake & Output 04/28/18 04/29/18 04/29/18 18:59 06:59 18:59 Intake Total 410 1100 Output Total 935 Balance 410 165 Weight 102.512 kg 108.1 kg 108.1 kg Intake: IV 160 200 Sodium Chloride 0.9% 1, 160 200 000 ml @ 20 mls/hr IV . Q24H FILOMENA Rx#:[id number] Intake, IV Titration 500 Amount Heparin Sod,Pork in 0.45% 500 NaCl 25,000 unit In 0.45 % NaCl 1 500ml.bag @ 18 UNITS/KG/HR 36.9 mls/hr IV .[id number] FILOMENA Rx#: [id number] Oral 250 400 Output: Urine 935 Other: Voiding Method Bedpan Indwelling Catheter # Voids 1 1 - Exam PHYSICAL EXAM: VITAL SIGNS: As above GENERAL: Sitting up in bed, respiratory effort increased HEENT: Conjunctivae normal. eyes normal. Oral mucosa dry NECK: No JVD. No thyroid enlargement. No LNs CARDIOVASCULAR: S1, S2 muffled. Tachycardic, No murmur RESPIRATION: Breath sounds diminished in the bases. No rhonchi or crackles. ABDOMEN: Obese, Soft, nontender . No guarding. no masses palpable.Bowel sounds heard. LEGS: Positive edema PSYCHIATRY: Alert and oriented -3, mood and affect normal. NERVOUS SYSTEM: Cranial N 2-12 grossly normal. Moves all 4 limbs. Diffuse weakness No focal deficits. Skin: no ulcer no rash Lymphatic system. No LN neck axilla or groin. - Labs CBC & Chem 7: 04/29/18 04:52 04/29/18 04:52 Labs: Abnormal Lab Results - Last 24 Hours (Table) 04/28/18 04/28/18 04/28/18 Range/Units 17:53 17:53 17:53 WBC 15.4 H (3.8-10.6) k/uL MCHC (31.0-37.0) g/dL Plt Count 141 L (150-450) k/uL Neutrophils # 12.6 H (1.3-7.7) k/uL PT (9.0-12.0) sec INR (<1.2) APTT (22.0-30.0) sec Sodium 136 L (137-145) mmol/L Potassium (3.5-5.1) mmol/L Carbon Dioxide (22-30) mmol/L BUN 24 H (7-17) mg/dL Creatinine 1.29 H (0.52-1.04) mg/dL Glucose 192 H (74-99) mg/dL POC Glucose (mg/dL) (75-99) mg/dL Phosphorus (2.5-4.5) mg/dL AST 1357 H (14-36) U/L ALT 735 H (9-52) U/L Alkaline Phosphatase (38-126) U/L Total Creatine Kinase 174 H (30-135) U/L CK-MB (CK-2) 5.4 H* (0.0-2.4) ng/mL Troponin I 0.886 H* (0.000-0.034) ng/mL Urine Appearance (Clear) Urine Protein (Negative) Urine Blood (Negative) Ur Leukocyte Esterase (Negative) Urine RBC (0-5) /hpf Urine WBC (0-5) /hpf Urine WBC Clumps (None) /hpf Urine Bacteria (None) /hpf Hyaline Casts (0-2) /lpf Urine Mucus (None) /hpf 04/28/18 04/28/18 04/29/18 Range/Units 17:53 21:08 00:28 WBC (3.8-10.6) k/uL MCHC (31.0-37.0) g/dL Plt Count (150-450) k/uL Neutrophils # (1.3-7.7) k/uL PT 12.7 H (9.0-12.0) sec INR 1.3 H (<1.2) APTT 60.7 H (22.0-30.0) sec Sodium (137-145) mmol/L Potassium (3.5-5.1) mmol/L Carbon Dioxide (22-30) mmol/L BUN (7-17) mg/dL Creatinine (0.52-1.04) mg/dL Glucose (74-99) mg/dL POC Glucose (mg/dL) 220 H (75-99) mg/dL Phosphorus (2.5-4.5) mg/dL AST (14-36) U/L ALT (9-52) U/L Alkaline Phosphatase (38-126) U/L Total Creatine Kinase (30-135) U/L CK-MB (CK-2) (0.0-2.4) ng/mL Troponin I (0.000-0.034) ng/mL Urine Appearance (Clear) Urine Protein (Negative) Urine Blood (Negative) Ur Leukocyte Esterase (Negative) Urine RBC (0-5) /hpf Urine WBC (0-5) /hpf Urine WBC Clumps (None) /hpf Urine Bacteria (None) /hpf Hyaline Casts (0-2) /lpf Urine Mucus (None) /hpf 04/29/18 04/29/18 04/29/18 Range/Units 04:52 04:52 04:52 WBC 16.4 H (3.8-10.6) k/uL MCHC 30.6 L (31.0-37.0) g/dL Plt Count 147 L (150-450) k/uL Neutrophils # 14.0 H (1.3-7.7) k/uL PT 13.6 H (9.0-12.0) sec INR 1.5 H (<1.2) APTT (22.0-30.0) sec Sodium 136 L (137-145) mmol/L Potassium 5.3 H (3.5-5.1) mmol/L Carbon Dioxide 20 L (22-30) mmol/L BUN 28 H (7-17) mg/dL Creatinine 1.20 H (0.52-1.04) mg/dL Glucose 267 H (74-99) mg/dL POC Glucose (mg/dL) (75-99) mg/dL Phosphorus 5.0 H (2.5-4.5) mg/dL AST 1375 H (14-36) U/L ALT 1015 H (9-52) U/L Alkaline Phosphatase 136 H (38-126) U/L Total Creatine Kinase (30-135) U/L CK-MB (CK-2) (0.0-2.4) ng/mL Troponin I (0.000-0.034) ng/mL Urine Appearance (Clear) Urine Protein (Negative) Urine Blood (Negative) Ur Leukocyte Esterase (Negative) Urine RBC (0-5) /hpf Urine WBC (0-5) /hpf Urine WBC Clumps (None) /hpf Urine Bacteria (None) /hpf Hyaline Casts (0-2) /lpf Urine Mucus (None) /hpf 04/29/18 04/29/18 04/29/18 Range/Units 07:30 09:11 12:16 WBC (3.8-10.6) k/uL MCHC (31.0-37.0) g/dL Plt Count (150-450) k/uL Neutrophils # (1.3-7.7) k/uL PT (9.0-12.0) sec INR (<1.2) APTT (22.0-30.0) sec Sodium (137-145) mmol/L Potassium (3.5-5.1) mmol/L Carbon Dioxide (22-30) mmol/L BUN (7-17) mg/dL Creatinine (0.52-1.04) mg/dL Glucose (74-99) mg/dL POC Glucose (mg/dL) 210 H 235 H (75-99) mg/dL Phosphorus (2.5-4.5) mg/dL AST (14-36) U/L ALT (9-52) U/L Alkaline Phosphatase (38-126) U/L Total Creatine Kinase (30-135) U/L CK-MB (CK-2) (0.0-2.4) ng/mL Troponin I (0.000-0.034) ng/mL Urine Appearance Cloudy H (Clear) Urine Protein 2+ H (Negative) Urine Blood Moderate H (Negative) Ur Leukocyte Esterase Large H (Negative) Urine RBC 137 H (0-5) /hpf Urine WBC >182 H (0-5) /hpf Urine WBC Clumps Many H (None) /hpf Urine Bacteria Few H (None) /hpf Hyaline Casts 36 H (0-2) /lpf Urine Mucus Few H (None) /hpf // Range/Units 17:21 WBC (3.8-10.6) k/uL MCHC (31.0-37.0) g/dL Plt Count (150-450) k/uL Neutrophils # (1.3-7.7) k/uL PT (9.0-12.0) sec INR (<1.2) APTT (22.0-30.0) sec Sodium (137-145) mmol/L Potassium (3.5-5.1) mmol/L Carbon Dioxide (22-30) mmol/L BUN (7-17) mg/dL Creatinine (0.52-1.04) mg/dL Glucose (74-99) mg/dL POC Glucose (mg/dL) 181 H (75-99) mg/dL Phosphorus (2.5-4.5) mg/dL AST (14-36) U/L ALT (9-52) U/L Alkaline Phosphatase (38-126) U/L Total Creatine Kinase (30-135) U/L CK-MB (CK-2) (0.0-2.4) ng/mL Troponin I (0.000-0.034) ng/mL Urine Appearance (Clear) Urine Protein (Negative) Urine Blood (Negative) Ur Leukocyte Esterase (Negative) Urine RBC (0-5) /hpf Urine WBC (0-5) /hpf Urine WBC Clumps (None) /hpf Urine Bacteria (None) /hpf Hyaline Casts (0-2) /lpf Urine Mucus (None) /hpf Microbiology - Last 24 Hours (Table) 04/29/18 09:11 Urine Culture - Preliminary Urine,Catheterized Assessment and Plan Assessment: 1. Acute saddle embolism 2. Troponin leak, secondary to the above. 3. History of previous PE, DVTs 4. Acute renal failure 5. Elevated LFTs, possibly hepatitis 6. Possible pneumonia 7. Obesity, BMI 36.2 8. Possible acute on chronic diastolic CHF, EF 30-35% 9. [id number] pulmonary hypertension Plan: Continue current medication regime ,monitoring and symptomatic treatment. Maintained on heparin drip; potential intra-arterial thrombolytic therapy currently being researched by concrete laborer in conjunction with Beatriz Grimm. Close monitoring of renal function and LFTs with repeat labs ordered for a.m. liver ultrasound pending hepatitis panel pending .urine culture pending. The impression and plan of care has been dictated as directed. : I performed a history and examination of this patient, discussed the same with the dictator. I agree with the dictator's note ,documented as a scribe. Any additional findings or plans will be noted.
[2018-04-29 19:35] LABS: Hepatitis A Antibody IgM Non-Reactive (Non-Reactive); Hepatitis B Core IgM Non-Reactive (Non-Reactive)
[2018-04-29] MEDS: SODIUM CHLORIDE 0.9% 1,000 ML IV SCH (20:00)
[2018-04-29] MEDS: NICOTINE 14MG/24HR PATCH TRANSDERM SCH (20:02)
[2018-04-29 20:05] LABS: Glucose,Whole Blood 180 mg/dL (75-99)
[2018-04-30] MEDS: HEPARIN SODIUM,PORCINE 5,000 UNIT/ML 1 ML VIAL IV PRN (02:37)
[2018-04-30] MEDS: guaiFENesin-DM 100-10MG/5ML 10 ML CUP PO PRN (04:51)
[2018-04-30 05:19] LABS: Basophils % (A) 0 %; Eosinophils # (A) 0.1 k/uL (0-0.7); Eosinophils % (A) 1 %; HCT 41.8 % (34.0-46.0); HGB 13.3 gm/dL (11.4-16.0); Hypochromasia Moderate; Lymphocytes # (A) 2.1 k/uL (1.0-4.8); Lymphocytes % (A) 13 %; MCHC 31.9 g/dL (31.0-37.0); MCV 84.7 fL (80.0-100.0); Monocytes # (A) 0.7 k/uL (0-1.0); Monocytes % (A) 4 %; Neutrophils # (A) 13.2 k/uL (1.3-7.7); Neutrophils % (A) 81 %; Platelet Count 158 k/uL (150-450); RBC 4.94 m/uL (3.80-5.40); RDW 15.5 % (11.5-15.5); WBC 16.4 k/uL (3.8-10.6)
[2018-04-30 05:26] LABS: INR 1.4 (<1.2); Prothrombin Time 12.8 sec (9.0-12.0)
[2018-04-30 05:35] LABS: Albumin 3.2 g/dL (3.5-5.0); Calcium 8.6 mg/dL (8.4-10.2); Magnesium 2.2 mg/dL (1.6-2.3); Phosphorus 2.4 mg/dL (2.5-4.5); Potassium 4.9 mmol/L (3.5-5.1); Total Bilirubin 0.4 mg/dL (0.2-1.3); Total Protein 6.6 g/dL (6.3-8.2)
[2018-04-30] MEDS: amLODIPine 5 MG TAB PO SCH ×2 (07:02→07:10)
--- NOTE | 2018-04-30 07:25 | XR ---
EXAMINATION TYPE: XR chest 1V DATE OF EXAM: 04/30/2018 COMPARISON: 04/29/2018 HISTORY: 52-year-old female patient with PE, ICU follow-up TECHNIQUE: Single frontal view of the chest is obtained. FINDINGS: Heart is borderline to mildly enlarged. Mild diffuse interstitial prominence. Some patchy right midlu ng opacity is stable to slightly increased. Additional strandy peripheral left midlung density. No si gnificant pleural effusion. IMPRESSION: Some scattered mild patchy densities in the peripheral lungs, similar to minimally increased, atelect asis versus small infiltrates possibly secondary to sequela of patient's pulmonary emboli.
[2018-04-30 07:34] LABS: Glucose,Whole Blood 123 mg/dL (75-99)
--- NOTE | 2018-04-30 08:49 | US ---
EXAMINATION TYPE: US liver DATE OF EXAM: 04/29/2018 COMPARISON: None CLINICAL HISTORY: 52-year-old female Elevated LFTs. NPO, No surgeries, elevated enzymes. TECHNIQUE: Multiple sonographic images of the right upper quadrant are obtained. FINDINGS: Exam was performed portable in the ICU EXAM MEASUREMENTS: Liver Length: 19.5 cm Gallbladder Wall: 0.3 cm CBD: 0.4 cm CHD: 0.4 cm Right Kidney: 11.0 x 5.0 x 4.6 cm Pancreas: Suboptimal visualization of the pancreatic tail secondary to shadowing from bowel gas. Liver: Mildly enlarged and echogenic. No focal lesion is seen. Gallbladder: Multiple mobile echogenic foci with shadowing. Nonshadowing 8mm mural-based echogenic focus anteriorly. No abnormal distention. Wall thickness is normal at 2.5 mm. Evidence for sonographic Ludwig's sign: neg CBD: wnl CHD: wnl Right Kidney: Medial echogenic focus near hilum with shadow = 1.6 x 1.1 cm . No hydronephrosis. IMPRESSION: 1. Hepatomegaly (19.5 cm) with echogenic appearance. Findings suggest hepatic steatosis. Correlate wi th LFTs, lipid profile, and patient risk factors. 2. Extensive cholelithiasis. No ancillary findings of acute cholecystitis. 3. Additional 8 mm echogenic nodule along the anterior gallbladder wall could represent an adherent c alculus or polyp. Six-month follow-up bladder ultrasound recommended. 4. Suspect a nonobstructive 1.6 cm mid right renal calculus.
[2018-04-30] MEDS ORDERED: FUROSEMIDE 10 MG/ML 2 ML VIAL IV ONE (09:24)
[2018-04-30] MEDS: INSULIN ASPART 100 UNIT/ML 1 ML 10 ML VIAL SQ SCH ×4 (09:48→20:02)
[2018-04-30] MEDS: ASPIRIN 81 MG PO SCH (09:49)
[2018-04-30] MEDS: cefTRIAXone IN SWFI 1,000 MG/10 ML SYRINGE IVP SCH (09:49)
[2018-04-30] MEDS: PANTOPRAZOLE 40 MG/10 ML VIAL IV SCH (09:49)
[2018-04-30] MEDS: METOPROLOL TARTRATE 25 MG TAB PO SCH ×2 (09:50→20:02)
[2018-04-30] MEDS: HEPARIN SOD,PORK IN 0.45% NACL 25,000 UNIT in 0.45% NACL 1 500ML.BAG IV SCH (10:31)
--- NOTE | 2018-04-30 11:56 | P.PN ---
Subjective Progress Note Date: 04/30/18 52-year-old female patient, obese with a BMI of 36.8, with known history of previous DVT and pulmonary embolism, as the patient had a bilateral pulmonary embolism back in 2013 treated with anticoagulation yet the patient opted to stop anticoagulation and proceed with homeopathic and natural products. Note that prior to 2013 the patient also has had previous history of DVTs. The patient came in yesterday because of an acute shortness of breath and pain across the right chest which was pleuritic in nature. CT angios the chest was done on admission and the patient was found to have extensive bilateral pulmonary embolism with incentive embolism. There was also right lower lobe consolidation related to the pulmonary infarction. Note that the time of admission the patient was normotensive. She was however tachycardic and she was in sinus tachycardia with a heart rate being as high as 120. She was hypoxic and she was placed on 4-6 L of oxygen nasal cannula to bring his saturation above 90%. She was started on IV heparin. Troponin was positive. Her proBNP level was 9880. The Doppler of the lower extremity showed a right sided DVT involving the distal femoral vein and the popliteal vein. Left lower extremity shows nonoccluding chronic thrombus and the femoral and popliteal vein. The patient stayed hemodynamically stable throughout the night and earlier this morning the patient was seen and evaluated in the intensive care unit. A echocardiogram was done this morning and it showed a left ventricle ejection fraction of 30-35% and the right ventricular is mildly enlarged and the right atrium is normal in size with a right ventricular systolic pressure of 47 mmHg. Note that the patient had a normal echocardiogram back in 2013. She also had a cardiac catheterization back in [address] Lira and the coronaries were also within normal limits. On today's evaluation she is less short of breath compared to yesterday. Her pleurisy has subsided. No active chest pain. Her PTT is therapeutic on IV heparin. Creatinine is up to 1.2. I've no also noted some abnormalities in liver function tests with AST is up to 1000. 75 and ALP is up to 1015. Normal ocular phosphatase. Normal bilirubin. Urinalysis is abnormal and the patient has extensive amount of white cells and the patient was given a dose of Rocephin. Cultures still pending for now. She is afebrile. On 04/30/2018 I'm seeing this patient for a follow-up. The patient is in intensive care unit for massive but the pulmonary embolism. The patient has a large clot burden. Echocardiac Lg showed a. LV function with an ejection fraction of 35% and some mild enlargement of the right ventricle with a PA pressure of 47. Discussed the case with the [employer] in [place] vascular surgery team and we decided to continue with anticoagulation and hold on localized intra-arterial thrombolytics. The patient is currently on IV heparin and the patient is currently on [address] by nasal cannula with a pulse ox of 94 -95%. Slightly tachycardic with a heart rate in the low 100s, sinus rhythm. No hypotension. In fact her blood pressure is elevated and needs to be under better control. Morning systolic blood pressure was around 170. No bleeding complications. The patient's renal function is stable with a creatinine of 0.9. No major edema lower extremities. She is a bit fatigued. No chest pain. No hemoptysis. No pleurisy. Urine cultures still pending for 9 the meanwhile the patient will be kept on IV Rocephin. We'll keep the patient IV heparin for another 24 hours and transition her within next 24-48 hours on oral anticoagulants for long-term and to coagulation. Objective - Vital Signs Vital signs: Vital Signs Temp 97.6 F 04/30/18 11:31 Pulse 104 H 04/30/18 11:00 Resp 26 H 04/30/18 11:00 BP 163/99 04/30/18 11:00 Pulse Ox 98 04/30/18 11:00 Intake & Output 04/29/18 04/30/18 04/30/18 18:59 06:59 18:59 Intake Total 1140 944.5 395.5 Output Total 1050 635 905 Balance 90 309.5 -509.5 Weight 108.1 kg 108.2 kg Intake: IV 240 260 80 Sodium Chloride 0.9% 1, 240 260 80 000 ml @ 20 mls/hr IV . Q24H FIL[facility] Rx#:[id number] Intake, IV Titration 500 684.5 315.5 Amount Heparin Sod,Pork in 0.45% 500 684.5 315.5 NaCl 25,000 unit In 0.45 % NaCl 1 500ml.bag @ 18 UNITS/KG/HR 36.9 mls/hr IV .[id number] [facility]OME[facility] Rx#: [id number] Oral 400 Output: Urine 1050 635 905 Other: Voiding Method Indwelling Catheter Indwelling Catheter Indwelling Catheter # Voids 1 - Exam Obese, comfortable likely distress. Resting comfortably in bed. There is no use of accessory muscles of breathing. Head exam was generally normal. There was no scleral icterus or corneal arcus. Mucous membranes were moist. Neck is supple and there is no JVDs no goiter or neck masses at this point. There is significant crowding of the posterior oropharynx. Lungs sounds are diminished bilaterally especially lung bases otherwise breath sounds are equal and symmetrical. No wheezes or rhonchi. No crackles. Cardiac exam revealed the PMI to be normally situated and sized. The rhythm was regular and no extrasystoles were noted during several minutes of auscultation. The first and second heart sounds were normal and physiologic splitting of the second heart sound was noted. There were no murmurs, rubs, clicks, or gallops. Abdomen is obese and orders cannot be accurately palpated. There is no direct tenderness rebound tensile guarding. No ascites. Extremities revealed some swelling in the right lower extremity compared to the left. No was or ulceration. Trace edema. No cyanosis or clubbing. Neurologic awake and alert and is no focal neurological deficit. Examination of the skin revealed no evidence of significant rashes, suspicious appearing nevi or other concerning lesions. - Labs CBC & Chem 7: 04/30/18 04:52 04/30/18 04:52 Labs: Abnormal Lab Results - Last 24 Hours (Table) 04/29/18 04/29/18 04/29/18 Range/Units 12:16 17:21 20:03 WBC (3.8-10.6) k/uL Neutrophils # (1.3-7.7) k/uL PT (9.0-12.0) sec INR (<1.2) APTT (22.0-30.0) sec BUN (7-17) mg/dL Glucose (74-99) mg/dL POC Glucose (mg/dL) 235 H 181 H 180 H (75-99) mg/dL Phosphorus (2.5-4.5) mg/dL AST (14-36) U/L ALT (9-52) U/L Alkaline Phosphatase (38-126) U/L Albumin (3.5-5.0) g/dL 04/30/18 04/30/18 04/30/18 Range/Units 01:31 04:52 04:52 WBC 16.4 H (3.8-10.6) k/uL Neutrophils # 13.2 H (1.3-7.7) k/uL PT 12.8 H (9.0-12.0) sec INR 1.4 H (<1.2) APTT 40.6 H (22.0-30.0) sec BUN (7-17) mg/dL Glucose (74-99) mg/dL POC Glucose (mg/dL) (75-99) mg/dL Phosphorus (2.5-4.5) mg/dL AST (14-36) U/L ALT (9-52) U/L Alkaline Phosphatase (38-126) U/L Albumin (3.5-5.0) g/dL 04/30/18 04/30/18 04/30/18 Range/Units 04:52 07:33 09:58 WBC (3.8-10.6) k/uL Neutrophils # (1.3-7.7) k/uL PT (9.0-12.0) sec INR (<1.2) APTT 53.7 H (22.0-30.0) sec BUN 35 H (7-17) mg/dL Glucose 113 H (74-99) mg/dL POC Glucose (mg/dL) 123 H (75-99) mg/dL Phosphorus 2.4 L (2.5-4.5) mg/dL AST 326 H (14-36) U/L ALT 596 H (9-52) U/L Alkaline Phosphatase 130 H (38-126) U/L Albumin 3.2 L (3.5-5.0) g/dL Microbiology - Last 24 Hours (Table) 04/29/18 09:11 Urine Culture - Final Urine,Catheterized 04/28/18 17:53 Blood Culture - Preliminary Blood No Growth after 24 hours Assessment and Plan Plan: Assessment 1 large massive pulmonary embolism, with extensive clotting of the right lung although the patient has bilateral pulmonary embolism with a saddle clot as visualized on the CT angios the chest. Hemodynamically stable. The patient is slightly tachycardic with sinus tachycardia in the low 100s. There is positive troponin and there is some mild to moderate pulmonary hypertension based on today's echocardiogram. The patient is currently at 4 L of oxygen nasal cannula saturations around 90-94%. The patient is currently on IV heparin. The patient has a femoral/popliteal DVT of the right lower extremity. This is a recurrent event. Less poor embolism was in 2013. Prior to that the patient has had DVTs of the lower extremity and the patient has a chronic nonocclusive clot in the left lower extremity. On today's evaluation of 04/30/2018. The patient is hemodynamically stable. Oxidation is slightly improved currently on 4 L oxygen nasal cannula and no hypotension and the patient has some mild sinus tachycardia. No other significant events overnight. The patient remains on IV heparin. PTT is therapeutic for now. Discussed the case with the vascular surgeons and we'll hold off on thrombolytic therapy at this point in time. 2 troponin leak secondary to above 3 CHF with an ejection fraction of 30-35% 4 obesity 5 normal coronaries based on a catheterization from June 2015 6 abnormal LFTs, will need further investigation. AST and ALT are elevated and there is no obstructive pattern as the patient has a normal alkaline phosphatase and bilirubin levels. The patient is showing improvement in liver function tests.The ultrasound of the liver showed hepatomegaly and this is consistent with hepatic steatosis. There is extensive cholelithiasis without evidence of any cholecystitis. 7 diabetes mellitus currently on no treatment 8 hypertension 9 history of diverticulosis 10 acid reflux 11 smoker Plan The patient will be kept on IV heparin. Start the patient metoprolol 25 mg by mouth twice a day. This will help the patient with blood pressure control and heart rate control. Continued IV Rocephin. Urine cultures. Incentive spirometer. Echocardiogram was noted. Doppler of lower extremity was noted. Long-term and to gargle which will be needed at a later stage. We'll give IV heparin for another 24 hours to be transitioned to oral anticoagulation probably within next 24 hours. Keep in ICU for 24 hours. Increased mobility and sit up on a chair. Given a dose of Lasix 20 mg IV push. We'll continue to follow.
[2018-04-30 12:00] LABS: Glucose,Whole Blood 184 mg/dL (75-99)
[2018-04-30 17:09] LABS: Glucose,Whole Blood 129 mg/dL (75-99)
--- NOTE | 2018-04-30 18:42 | PN ---
PROGRESS NOTE DATE OF SERVICE: 04/30/2018 This 52-year-old woman was admitted with massive saddle pulmonary embolism, is on IV heparin, and the patient also had some troponin leak. Patient also had liver ultrasound today which showed possibly hepatic steatosis and extensive cholelithiasis. An 8-mm echogenic nodule was noted in the anterior gallbladder wall. Right renal calculus was also noted. Dr. Devries is following the patient closely at this time. The patient is also on broad-spectrum IV antibiotics for possible UTI. No chest pain. No palpitations. The most recent chest x-ray which I reviewed presently showed some cardiomegaly and atelectasis. A 2D echo with Doppler was done yesterday, was reported as showing ejection fraction about 30%-35%, including chronic systolic dysfunction, mild valvular abnormalities also. PAST MEDICAL HISTORY: Reviewed. REVIEW OF SYSTEMS: CARDIOVASCULAR: As mentioned earlier. RESPIRATORY: As mentioned earlier. GI: No nausea or vomiting. : No dysuria. NERVOUS: No numbness or weakness. HEMATOLOGY/ONCOLOGY: As mentioned earlier. CURRENT MEDICATIONS: Reviewed, include: 1. DuoNeb q.i.d. and p.r.n. 2. Xanax 0.5 t.i.d. 3. Aspirin 81 mg. 4. Rocephin 1 g daily. 5. Guaifenesin. 6. Heparin 5 daily. 7. Heparin IV. 8. Lopressor 25 mg p.o. b.i.d. 9. Narcan. 11.Zofran. 12.Protonix. 13.Restoril. 14.Ultram. PHYSICAL EXAM: Patient is alert, oriented x3, pulse 106, blood pressure 140/82, respiration 27, temperature 98.9, pulse ox 94% on 3L. HEENT: Conjunctivae normal. Oral mucosa moist. NECK: No jugular venous distention. No carotid bruits. No lymph node enlargement. CARDIOVASCULAR: S1, S2 muffled. RESPIRATORY: Breath sounds diminished in the bases. Bilateral scattered rhonchi and crackles with wheezing also present. ABDOMEN: Soft, nontender. No mass palpable. Obese. LEGS: No edema. NERVOUS SYSTEM: Higher functions as mentioned earlier. Moves all 4 limbs. No focal motor or sensory deficits. LYMPHATIC: No lymphadenopathy in neck or axillae. SKIN: No ulcer, rash or bleeding. LABS: WBC 16.4 and glucose 129. AST is 326 and ALT is 596 and alkaline phosphatase is 130, which is improving at this time. ASSESSMENT: 1. Acute saddle pulmonary embolism with acute hypoxic respiratory failure, present on admission. 2. Indeterminate troponins. 3. Congestive heart failure with chronic systolic dysfunction, ejection fraction 30%- 35%. 4. Elevated liver function tests; undetermined etiology, improving. 5. History of previous pulmonary embolism, deep venous thrombosis. 6. History noncompliance. 7. Acute renal failure. 8. Urinary tract infection. 9. Obesity with body mass index of 36.2. 10.Mild to moderate pulmonary hypertension. RECOMMENDATION AND DISCUSSION: In this 52-year-old woman who presented with multiple complex medical issues, will monitor the patient closely, continue the current medical management and symptomatic treatment. Otherwise at this time, I would recommend continue with IV heparin, monitor fluid-electrolyte balance closely. Importance of compliance is being stressed to the patient because the patient had previously stopped medication on multiple occasions. The RV diameter was 3.5 cm, indicating some element of cor pulmonale, also. Otherwise, continue the antibiotics. Closely monitor with Dr. Devries. Guarded prognosis because of multiple complex medical issues and I would also recommend a cardiology consultation for CHF as well. Further recommendations to follow. MMODL / IJN: [id number] / JASMYNE
[2018-04-30 19:57] LABS: Glucose,Whole Blood 188 mg/dL (75-99)
[2018-04-30] MEDS: NICOTINE 14MG/24HR PATCH TRANSDERM SCH (20:02)
[2018-04-30] MEDS: TEMAZEPAM 15 MG CAP PO PRN (20:42)
[2018-05-01 04:55] LABS: INR 1.2 (<1.2); Partial Thromboplastin Time 47.4 sec (22.0-30.0); Prothrombin Time 11.8 sec (9.0-12.0)
[2018-05-01 04:57] LABS: Basophils % (A) 0 %; Calcium 8.3 mg/dL (8.4-10.2); Eosinophils # (A) 0.2 k/uL (0-0.7); Eosinophils % (A) 1 %; HCT 40.2 % (34.0-46.0); HGB 12.9 gm/dL (11.4-16.0); Hypochromasia Slight; Lymphocytes # (A) 2.5 k/uL (1.0-4.8); Lymphocytes % (A) 17 %; MCH 26.5 pg (25.0-35.0); MCHC 32.1 g/dL (31.0-37.0); MCV 82.5 fL (80.0-100.0); Magnesium 2.2 mg/dL (1.6-2.3); Mean Platelet Volume 8.7; Monocytes # (A) 1.2 k/uL (0-1.0); Monocytes % (A) 8 %; Neutrophils % (A) 72 %; Phosphorus 3.2 mg/dL (2.5-4.5); Platelet Count 170 k/uL (150-450); Potassium 4.7 mmol/L (3.5-5.1); RBC 4.88 m/uL (3.80-5.40); RDW 15.3 % (11.5-15.5); Total Bilirubin 0.4 mg/dL (0.2-1.3); Total Protein 6.3 g/dL (6.3-8.2); WBC 15.1 k/uL (3.8-10.6)
[2018-05-01] MEDS: SODIUM CHLORIDE 0.9% 1,000 ML IV SCH (06:29)
[2018-05-01] MEDS: HEPARIN SOD,PORK IN 0.45% NACL 25,000 UNIT in 0.45% NACL 1 500ML.BAG IV SCH (06:29)
[2018-05-01 07:19] LABS: Glucose,Whole Blood 114 mg/dL (75-99)
--- NOTE | 2018-05-01 07:19 | XR ---
EXAMINATION TYPE: XR chest 1V DATE OF EXAM: 05/01/2018 COMPARISON: 04/30/2018 HISTORY: 52-year-old female follow-up PE TECHNIQUE: Single frontal view of the chest is obtained. FINDINGS: Heart remains borderline to mildly enlarged. Similar chronic-appearing mild diffuse interstitial prom inence. Patchy right midlung opacity is unchanged. Probable perifissural atelectasis thickening the m inor fissure. Patchy density medial right base. Minimal strandy opacity peripheral left midlung shows some improvement. No significant pleural effusion. Stable bilateral hilar prominence. IMPRESSION: Relatively similar exam with minimal strandy and patchy areas of atelectasis or infiltrates, particul valdez on the right.
[2018-05-01] MEDS: INSULIN ASPART 100 UNIT/ML 1 ML 10 ML VIAL SQ SCH ×4 (07:35→20:48)
[2018-05-01] MEDS: ASPIRIN 81 MG PO SCH (08:44)
[2018-05-01] MEDS: PANTOPRAZOLE 40 MG/10 ML VIAL IV SCH (08:44)
[2018-05-01] MEDS: METOPROLOL TARTRATE 25 MG TAB PO SCH (08:44)
[2018-05-01] MEDS: cefTRIAXone IN SWFI 1,000 MG/10 ML SYRINGE IVP SCH (08:45)
[2018-05-01] MEDS ORDERED: FUROSEMIDE 10 MG/ML 2 ML VIAL IV ONE (09:50)
[2018-05-01] MEDS ORDERED: METOPROLOL TARTRATE 25 MG TAB PO ONE (10:00)
[2018-05-01] MEDS: APIXABAN 5 MG TAB PO SCH ×2 (10:14→20:48)
[2018-05-01] MEDS: guaiFENesin-DM 100-10MG/5ML 10 ML CUP PO PRN (11:47)
[2018-05-01] MEDS: IPRATROPIUM-ALBUTEROL 3 ML NEB INHALATION SCH ×3 (12:03→19:20)
[2018-05-01 12:16] LABS: Glucose,Whole Blood 202 mg/dL (75-99)
--- NOTE | 2018-05-01 14:05 | P.PN ---
Subjective Progress Note Date: 05/01/18 52-year-old female patient, obese with a BMI of 36.8, with known history of previous DVT and pulmonary embolism, as the patient had a bilateral pulmonary embolism back in 2013 treated with anticoagulation yet the patient opted to stop anticoagulation and proceed with homeopathic and natural products. Note that prior to 2013 the patient also has had previous history of DVTs. The patient came in yesterday because of an acute shortness of breath and pain across the right chest which was pleuritic in nature. CT angios the chest was done on admission and the patient was found to have extensive bilateral pulmonary embolism with incentive embolism. There was also right lower lobe consolidation related to the pulmonary infarction. Note that the time of admission the patient was normotensive. She was however tachycardic and she was in sinus tachycardia with a heart rate being as high as 120. She was hypoxic and she was placed on 4-6 L of oxygen nasal cannula to bring his saturation above 90%. She was started on IV heparin. Troponin was positive. Her proBNP level was 9880. The Doppler of the lower extremity showed a right sided DVT involving the distal femoral vein and the popliteal vein. Left lower extremity shows nonoccluding chronic thrombus and the femoral and popliteal vein. The patient stayed hemodynamically stable throughout the night and earlier this morning the patient was seen and evaluated in the intensive care unit. A echocardiogram was done this morning and it showed a left ventricle ejection fraction of 30-35% and the right ventricular is mildly enlarged and the right atrium is normal in size with a right ventricular systolic pressure of 47 mmHg. Note that the patient had a normal echocardiogram back in 2013. She also had a cardiac catheterization back in [address] Lira and the coronaries were also within normal limits. On today's evaluation she is less short of breath compared to yesterday. Her pleurisy has subsided. No active chest pain. Her PTT is therapeutic on IV heparin. Creatinine is up to 1.2. I've no also noted some abnormalities in liver function tests with AST is up to 1000. 75 and ALP is up to 1015. Normal ocular phosphatase. Normal bilirubin. Urinalysis is abnormal and the patient has extensive amount of white cells and the patient was given a dose of Rocephin. Cultures still pending for now. She is afebrile. On 04/30/2018 I'm seeing this patient for a follow-up. The patient is in intensive care unit for massive but the pulmonary embolism. The patient has a large clot burden. Echocardiac Lg showed a. LV function with an ejection fraction of 35% and some mild enlargement of the right ventricle with a PA pressure of 47. Discussed the case with the [employer] in [place] vascular surgery team and we decided to continue with anticoagulation and hold on localized intra-arterial thrombolytics. The patient is currently on IV heparin and the patient is currently on [address] by nasal cannula with a pulse ox of 94 -95%. Slightly tachycardic with a heart rate in the low 100s, sinus rhythm. No hypotension. In fact her blood pressure is elevated and needs to be under better control. Morning systolic blood pressure was around 170. No bleeding complications. The patient's renal function is stable with a creatinine of 0.9. No major edema lower extremities. She is a bit fatigued. No chest pain. No hemoptysis. No pleurisy. Urine cultures still pending for 9 the meanwhile the patient will be kept on IV Rocephin. We'll keep the patient IV heparin for another 24 hours and transition her within next 24-48 hours on oral anticoagulants for long-term and to coagulation. On 05/01/2018, the patient is stable in the intensive care unit still on IV heparin. Doing well. No specific complaints. Less tachycardic compared to yesterday. Less short of breath compared to yesterday. Still on oxygen at 3 L with a saturation around 94%. No chest pain. No bleeding complications. No nausea or vomiting. She is obese with a BMI of 35.8 with obvious features of sleep apnea. She is feeling somnolent and sleepy. The patient will be moved to oral anticoagulants today. No other significant events overnight. Urine culture been negative. Objective - Vital Signs Vital signs: Vital Signs Temp 98.4 F 05/01/18 12:00 Pulse 98 05/01/18 13:00 Resp 13 05/01/18 13:00 BP 115/74 05/01/18 13:00 Pulse Ox 96 05/01/18 13:00 Intake & Output 04/30/18 05/01/18 05/01/18 18:59 06:59 18:59 Intake Total 1185.5 740 580 Output Total 8594 965 5088 Balance -399.5 110 -505 Weight 106.7 kg Intake: IV 220 240 80 Sodium Chloride 0.9% 1, 220 240 80 000 ml @ 20 mls/hr IV . Q24H FILOMENA Rx#:[id number] Intake, IV Titration 315.5 500 Amount Heparin Sod,Pork in 0.45% 315.5 500 NaCl 25,000 unit In 0.45 % NaCl 1 500ml.bag @ 18 UNITS/KG/HR 36.9 mls/hr IV .[id number] FILOMENA Rx#: [id number] Oral 650 500 Output: Urine 9571 411 7519 Other: Voiding Method Indwelling Catheter Indwelling Catheter Toilet # Voids 1 - Exam Obese, comfortable likely distress. Resting comfortably in bed. There is no use of accessory muscles of breathing. Head exam was generally normal. There was no scleral icterus or corneal arcus. Mucous membranes were moist. Neck is supple and there is no JVDs no goiter or neck masses at this point. There is significant crowding of the posterior oropharynx. Lungs sounds are diminished bilaterally especially lung bases otherwise breath sounds are equal and symmetrical. No wheezes or rhonchi. No crackles. Cardiac exam revealed the PMI to be normally situated and sized. The rhythm was regular and no extrasystoles were noted during several minutes of auscultation. The first and second heart sounds were normal and physiologic splitting of the second heart sound was noted. There were no murmurs, rubs, clicks, or gallops. Abdomen is obese and orders cannot be accurately palpated. There is no direct tenderness rebound tensile guarding. No ascites. Extremities revealed some swelling in the right lower extremity compared to the left. No was or ulceration. Trace edema. No cyanosis or clubbing. Neurologic awake and alert and is no focal neurological deficit. Examination of the skin revealed no evidence of significant rashes, suspicious appearing nevi or other concerning lesions. - Labs CBC & Chem 7: 05/01/18 04:21 05/01/18 04:21 Labs: Abnormal Lab Results - Last 24 Hours (Table) 04/30/18 04/30/18 05/01/18 Range/Units 17:07 19:55 04:21 WBC 15.1 H (3.8-10.6) k/uL Neutrophils # 11.0 H (1.3-7.7) k/uL Monocytes # 1.2 H (0-1.0) k/uL INR (<1.2) APTT (22.0-30.0) sec BUN (7-17) mg/dL Glucose (74-99) mg/dL POC Glucose (mg/dL) 129 H 188 H (75-99) mg/dL Calcium (8.4-10.2) mg/dL AST (14-36) U/L ALT (9-52) U/L Albumin (3.5-5.0) g/dL 05/01/18 05/01/18 05/01/18 Range/Units 04:21 04:21 07:17 WBC (3.8-10.6) k/uL Neutrophils # (1.3-7.7) k/uL Monocytes # (0-1.0) k/uL INR 1.2 H (<1.2) APTT 47.4 H (22.0-30.0) sec BUN 29 H (7-17) mg/dL Glucose 113 H (74-99) mg/dL POC Glucose (mg/dL) 114 H (75-99) mg/dL Calcium 8.3 L (8.4-10.2) mg/dL AST 113 H (14-36) U/L ALT 385 H (9-52) U/L Albumin 3.0 L (3.5-5.0) g/dL 05/01/18 05/01/18 Range/Units 09:43 12:14 WBC (3.8-10.6) k/uL Neutrophils # (1.3-7.7) k/uL Monocytes # (0-1.0) k/uL INR (<1.2) APTT 43.2 H (22.0-30.0) sec BUN (7-17) mg/dL Glucose (74-99) mg/dL POC Glucose (mg/dL) 202 H (75-99) mg/dL Calcium (8.4-10.2) mg/dL AST (14-36) U/L ALT (9-52) U/L Albumin (3.5-5.0) g/dL Microbiology - Last 24 Hours (Table) 04/28/18 17:53 Blood Culture - Preliminary Blood No Growth after 48 hours 04/29/18 09:11 Urine Culture - Final Urine,Catheterized Assessment and Plan Plan: Assessment 1 large massive pulmonary embolism, with extensive clotting of the right lung although the patient has bilateral pulmonary embolism with a saddle clot as visualized on the CT angios the chest. Hemodynamically stable. The patient is slightly tachycardic with sinus tachycardia in the low 100s. There is positive troponin and there is some mild to moderate pulmonary hypertension based on today's echocardiogram. The patient is currently at 4 L of oxygen nasal cannula saturations around 90-94%. The patient is currently on IV heparin. The patient has a femoral/popliteal DVT of the right lower extremity. This is a recurrent event. Less poor embolism was in 2013. Prior to that the patient has had DVTs of the lower extremity and the patient has a chronic nonocclusive clot in the left lower extremity. On today's evaluation of 04/30/2018. The patient is hemodynamically stable. Oxidation is slightly improved currently on 4 L oxygen nasal cannula and no hypotension and the patient has some mild sinus tachycardia. No other significant events overnight. The patient remains on IV heparin. PTT is therapeutic for now. Discussed the case with the vascular surgeons and we'll hold off on thrombolytic therapy at this point in time. 2 troponin leak secondary to above On today's evaluation of 05/01/2018, the patient remains stable. Some improvement in the oxygenation and the hemodynamics. Patient is less tachycardic compared to yesterday. Oxygen is down to 3 L and the patient remains on IV heparin. No bleeding complications. 3 CHF with an ejection fraction of 30-35% 4 obesity 5 normal coronaries based on a catheterization from June 2015 6 abnormal LFTs, will need further investigation. AST and ALT are elevated and there is no obstructive pattern as the patient has a normal alkaline phosphatase and bilirubin levels. The patient is showing ongoing improvement in liver function tests.The ultrasound of the liver showed hepatomegaly and this is consistent with hepatic steatosis. There is extensive cholelithiasis without evidence of any cholecystitis. There is a further drop in the liver function test on today's evaluation. 7 diabetes mellitus currently on no treatment 8 hypertension 9 history of diverticulosis 10 acid reflux 11 smoker Plan The patient will stop the IV heparin and started on Eliquis 10 mg by mouth twice a day. The patient will receive a dose of Lasix 20 mg IV push. Wean down the FiO2 as tolerated. Monitor liver function tests. Monitor hemoglobin. Monitor hematologic profile. We'll continue to follow.
[2018-05-01 17:21] LABS: Glucose,Whole Blood 143 mg/dL (75-99)
--- NOTE | 2018-05-01 17:55 | PN ---
PROGRESS NOTE DATE OF SERVICE: 05/01/2018 This 52-year-old woman who was admitted with acute massive pulmonary embolism, saddle pulmonary embolism is being closely monitored at this time. The chest x-ray was reviewed. The patient is followed closely by Dr. Devries at this time. The patient has been transitioned to Eliquis 10 mg p.o. b.i.d. currently. PAST MEDICAL HISTORY: Reviewed. REVIEW OF SYSTEMS: CARDIOVASCULAR: No angina. RESPIRATORY: As mentioned. GI: As mentioned. : No dysuria. NERVOUS SYSTEM: No numbness, weakness. CURRENT MEDICATIONS: Current medications are reviewed and include: 1. DuoNeb q.i.d. and p.r.n. 2. Xanax 0.5 t.i.d. 3. Eliquis 10 mg p.o. b.i.d. 4. Aspirin 81 mg daily. 5. Rocephin 1 g daily. 6. Robitussin. 7. Lomotil. 8. Lopressor 50 mg p.o. b.i.d. 9. Narcan 0.2 q.2h p.r.n. 10.Habitrol 14. 11.Zofran. 12.Protonix 40 mg daily. 13.Zestril 50 mg q.h.s. p.r.n. 14.Ultram 50 mg q.i.d. p.r.n. PHYSICAL EXAM: Patient is alert, oriented x3, pulse 102, blood pressure is 140/80, respiration 11, temperature 99.1, pulse ox 94% on 3 L. HEENT: Conjunctivae normal. Oral mucosa moist. Neck is no jugular venous distention. No carotid bruit. No lymph node enlargement CARDIOVASCULAR: S1, S2 normal. RESPIRATORY: Breath sounds diminished in the bases. Bilateral scattered rhonchi and crackles. Expiratory wheezing also present. ABDOMEN: noted. LEGS: No edema, no swelling. NERVOUS SYSTEM: Higher functions as mentioned. Moves all four limbs. No focal motor sensory deficit. LYMPHATICS: No lymphadenopathy in the neck, axillae, groin.. SKIN: No ulcer, rash, bleeding. LABS: Labs are at this time shows WBC 15.2, hemoglobin is 12.9, and INR is 1.2. Sodium 137, potassium 4.7, and AST is 139, ALT 385. ASSESSMENT: 1. Acute saddle pulmonary embolism with acute hypoxic respiratory failure, present on admission. 2. Indeterminate troponin. 3. Congestive heart failure with chronic systolic dysfunction, ejection fraction 30 to 35%. 4. Elevated LFTs, undetermined etiology, improving. 5. History of previous pulmonary embolus and deep venous thrombosis. 6. History of noncompliance. 7. Acute renal failure. 8. Urinary tract infection. 9. Obesity with body mass index of 36.2. 10.Mild to moderate pulmonary hypertension. RECOMMENDATIONS AND DISCUSSION: I recommend to continue current management and symptomatic treatment. Continue with Eliquis. Continue the bronchodilators. Increase ambulation. Prognosis guarded because of multiple complex medical issues. Further recommendations to follow. MMODL / IJN: [id number] / JASMYNE
[2018-05-01 20:42] LABS: Glucose,Whole Blood 187 mg/dL (75-99)
[2018-05-01] MEDS: NICOTINE 14MG/24HR PATCH TRANSDERM SCH (20:47)
[2018-05-01] MEDS: METOPROLOL TARTRATE 50 MG TAB PO SCH (20:48)
[2018-05-01] MEDS: TEMAZEPAM 15 MG CAP PO PRN (21:20)
[2018-05-02 05:52] LABS: INR 1.3 (<1.2); Prothrombin Time 12.4 sec (9.0-12.0)
[2018-05-02 05:53] LABS: Partial Thromboplastin Time 26.3 sec (22.0-30.0)
[2018-05-02 05:58] LABS: Basophils # (A) 0.1 k/uL (0-0.2); Basophils % (A) 0 %; Eosinophils # (A) 0.2 k/uL (0-0.7); Eosinophils % (A) 2 %; HCT 38.7 % (34.0-46.0); HGB 12.6 gm/dL (11.4-16.0); Hypochromasia Slight; Lymphocytes # (A) 1.8 k/uL (1.0-4.8); Lymphocytes % (A) 12 %; MCH 27.5 pg (25.0-35.0); MCHC 32.6 g/dL (31.0-37.0); MCV 84.3 fL (80.0-100.0); Mean Platelet Volume 8.4; Monocytes # (A) 1.1 k/uL (0-1.0); Monocytes % (A) 7 %; Neutrophils # (A) 11.7 k/uL (1.3-7.7); Neutrophils % (A) 77 %; Platelet Count 176 k/uL (150-450); RBC 4.59 m/uL (3.80-5.40); RDW 15.9 % (11.5-15.5); WBC 15.1 k/uL (3.8-10.6)
[2018-05-02 05:59] LABS: ALT 231 U/L (9-52); AST 40 U/L (14-36); Albumin 2.8 g/dL (3.5-5.0); Alkaline Phosphatase 106 U/L (38-126); Anion Gap 6 mmol/L; Blood Urea Nitrogen 21 mg/dL (7-17); Calcium 8.1 mg/dL (8.4-10.2); Carbon Dioxide 27 mmol/L (22-30); Chloride 103 mmol/L (98-107); Glucose 131 mg/dL (74-99); Magnesium 2.2 mg/dL (1.6-2.3); Phosphorus 3.1 mg/dL (2.5-4.5); Potassium 4.3 mmol/L (3.5-5.1); Sodium 136 mmol/L (137-145); Total Bilirubin 0.4 mg/dL (0.2-1.3); Total Protein 6.1 g/dL (6.3-8.2)
[2018-05-02 06:55] LABS: Glucose,Whole Blood 121 mg/dL (75-99)
--- NOTE | 2018-05-02 07:37 | XR ---
EXAMINATION TYPE: XR chest 1V DATE OF EXAM: 05/02/2018 COMPARISON: Prior chest 05/01/2018 HISTORY: Pulmonary embolism, abnormal chest x-ray TECHNIQUE: Single frontal view of the chest is obtained. FINDINGS: Similar findings, patient is rotated, patent shows an enlarged heart. Patchy density prese nt in the mid lungs, right lower lobe. Lung volumes are low, no evident pneumothorax or pleural effus ion. Central vascularity is prominent, interstitium is increased. There are overlying cardiac leads. IMPRESSION: Atelectasis, cardiomegaly, correlate for possible pulmonary artery hypertension. Correla te to exclude pneumonia.
[2018-05-02] MEDS: IPRATROPIUM-ALBUTEROL 3 ML NEB INHALATION SCH ×3 (07:45→15:48)
[2018-05-02] MEDS: INSULIN ASPART 100 UNIT/ML 1 ML 10 ML VIAL SQ SCH ×3 (08:00→16:37)
[2018-05-02] MEDS: ASPIRIN 81 MG PO SCH (09:07)
[2018-05-02] MEDS: cefTRIAXone IN SWFI 1,000 MG/10 ML SYRINGE IVP SCH (09:07)
[2018-05-02] MEDS: PANTOPRAZOLE 40 MG/10 ML VIAL IV SCH (09:08)
[2018-05-02] MEDS: METOPROLOL TARTRATE 50 MG TAB PO SCH (09:08)
[2018-05-02] MEDS: APIXABAN 5 MG TAB PO SCH (09:08)
[2018-05-02] MEDS ORDERED: methylPREDNISolone SOD SUCCI 125 MG/2 ML VIAL IV STA (10:22)
[2018-05-02] MEDS ORDERED: DOCUSATE 100 MG CAP PO SCH (11:00)
[2018-05-02] MEDS ORDERED: HYDROmorphone 0.5 MG/0.5 ML SYRINGE IVP STA (11:25)
--- NOTE | 2018-05-02 11:49 | XR ---
EXAMINATION TYPE: XR chest 1V portable DATE OF EXAM: 05/02/2018 COMPARISON: Prior chest 05/02/2018 and earlier time HISTORY: Shortness of breath TECHNIQUE: Single frontal view of the chest is obtained. FINDINGS: Findings are similar to prior exam. Central vascularity is prominent, interstitium is slig htly increased. Heart is enlarged. Patchy bilateral density is noted. IMPRESSION: Findings may represent atelectasis, correlate for possible pulmonary infarct. Cardiomega ly. There may be a component of pulmonary venous hypertension and interstitial edema. Consider pulmon pawan artery hypertension.
[2018-05-02 11:50] LABS: Glucose,Whole Blood 247 mg/dL (75-99)
[2018-05-02] MEDS ORDERED: HEPARIN SODIUM,PORCINE 10,000 UNIT/ML 1 ML VIAL IV ONE (12:11)
[2018-05-02] MEDS ORDERED: HEPARIN SODIUM,PORCINE 5,000 UNIT/ML 1 ML VIAL IV PRN (12:11)
[2018-05-02] MEDS ORDERED: HEPARIN SOD,PORK IN 0.45% NACL 25,000 UNIT in 0.45% NACL 1 500ML.BAG IV SCH (12:30)
--- NOTE | 2018-05-02 12:32 | P.PN ---
Subjective Progress Note Date: 05/02/18 Principal diagnosis: Acute pulmonary embolism 52-year-old female patient, obese with a BMI of 36.8, with known history of previous DVT and pulmonary embolism, as the patient had a bilateral pulmonary embolism back in 2013 treated with anticoagulation yet the patient opted to stop anticoagulation and proceed with homeopathic and natural products. Note that prior to 2013 the patient also has had previous history of DVTs. The patient came in yesterday because of an acute shortness of breath and pain across the right chest which was pleuritic in nature. CT angios the chest was done on admission and the patient was found to have extensive bilateral pulmonary embolism with incentive embolism. There was also right lower lobe consolidation related to the pulmonary infarction. Note that the time of admission the patient was normotensive. She was however tachycardic and she was in sinus tachycardia with a heart rate being as high as 120. She was hypoxic and she was placed on 4-6 L of oxygen nasal cannula to bring his saturation above 90%. She was started on IV heparin. Troponin was positive. Her proBNP level was 9880. The Doppler of the lower extremity showed a right sided DVT involving the distal femoral vein and the popliteal vein. Left lower extremity shows nonoccluding chronic thrombus and the femoral and popliteal vein. The patient stayed hemodynamically stable throughout the night and earlier this morning the patient was seen and evaluated in the intensive care unit. A echocardiogram was done this morning and it showed a left ventricle ejection fraction of 30-35% and the right ventricular is mildly enlarged and the right atrium is normal in size with a right ventricular systolic pressure of 47 mmHg. Note that the patient had a normal echocardiogram back in 2013. She also had a cardiac catheterization back in [address] Lira and the coronaries were also within normal limits. On today's evaluation she is less short of breath compared to yesterday. Her pleurisy has subsided. No active chest pain. Her PTT is therapeutic on IV heparin. Creatinine is up to 1.2. I've no also noted some abnormalities in liver function tests with AST is up to 1000. 75 and ALP is up to 1015. Normal ocular phosphatase. Normal bilirubin. Urinalysis is abnormal and the patient has extensive amount of white cells and the patient was given a dose of Rocephin. Cultures still pending for now. She is afebrile. On 04/30/2018 I'm seeing this patient for a follow-up. The patient is in intensive care unit for massive but the pulmonary embolism. The patient has a large clot burden. Echocardiac Lg showed a. LV function with an ejection fraction of 35% and some mild enlargement of the right ventricle with a PA pressure of 47. Discussed the case with the [employer] in [place] vascular surgery team and we decided to continue with anticoagulation and hold on localized intra-arterial thrombolytics. The patient is currently on IV heparin and the patient is currently on [address] by nasal cannula with a pulse ox of 94 -95%. Slightly tachycardic with a heart rate in the low 100s, sinus rhythm. No hypotension. In fact her blood pressure is elevated and needs to be under better control. Morning systolic blood pressure was around 170. No bleeding complications. The patient's renal function is stable with a creatinine of 0.9. No major edema lower extremities. She is a bit fatigued. No chest pain. No hemoptysis. No pleurisy. Urine cultures still pending for 9 the meanwhile the patient will be kept on IV Rocephin. We'll keep the patient IV heparin for another 24 hours and transition her within next 24-48 hours on oral anticoagulants for long-term and to coagulation. On 05/01/2018, the patient is stable in the intensive care unit still on IV heparin. Doing well. No specific complaints. Less tachycardic compared to yesterday. Less short of breath compared to yesterday. Still on oxygen at 3 L with a saturation around 94%. No chest pain. No bleeding complications. No nausea or vomiting. She is obese with a BMI of 35.8 with obvious features of sleep apnea. She is feeling somnolent and sleepy. The patient will be moved to oral anticoagulants today. No other significant events overnight. Urine culture been negative. On 05/02/2018, patient was doing quite well earlier this morning, however shortly after I walked out of the ICU, I was called back with the patient complaining of right sided pleuritic right upper quadrant pain and pain in the area of the lower chest. Follow-up chest x-ray showed slight area worsening atelectasis, and possibly pulmonary infarct involving the right lower lobe. Hence I recommended that the patient goes back on heparin, and the meantime she had an episode of hematuria hence I consulted urology for hematuria. Patient had previously on ultrasound a right renal calculus. That is most likely the source of her bleeding. Labs including CBC and basic metabolic profile renal profile were noted to be normal. Objective - Vital Signs Vital signs: Vital Signs Temp 99.3 F 05/02/18 08:00 Pulse 97 05/02/18 12:01 Resp 16 05/02/18 11:00 BP 158/100 05/02/18 11:00 Pulse Ox 94 L 05/02/18 11:00 Intake & Output 05/01/18 05/02/18 05/02/18 18:59 06:59 18:59 Intake Total 580 780 200 Output Total 1485 150 0 Balance -905 630 200 Weight 105.2 kg 105.2 kg Intake: IV 80 0 0 Sodium Chloride 0.9% 1, 80 0 0 000 ml @ 20 mls/hr IV . Q24H [facility] Rx#:[id number] Oral 500 780 200 Output: Urine 1485 150 0 Other: Voiding Method Toilet Toilet Toilet # Voids 2 0 - Exam Physical Exam: Revealed a 52-year-old female in mild distress secondary to pain However shortly after she developed right-sided chest pain, she was noted to be a bit more short of breath, and kept having pleuritic pain on the right side. Head: Atraumatic, normocephalic. HEENT:[Neck is supple.] [No neck masses.] [No thyromegaly.] [No JVD.] Chest: [Clear throughout, no crackles, no rhonchi, no wheezes.] Cardiac Exam: [Normal S1 and S2, no S3 gallop, no murmur.] Abdomen: [Soft, nontender, no megaly, no rebound, no guarding, normal bowel sounds.] Minimal tenderness noted in the right upper quadrant, not reproducing the pain that she is having. Extremities: [No clubbing, no edema, no cyanosis.] Neurological Exam: [No focal neurologic deficit.] Lymphatics: No lymphadenopathy. Psychiatric: Normal mood affect and mental status exam. - Labs CBC & Chem 7: 05/02/18 05:16 05/02/18 05:16 Labs: Abnormal Lab Results - Last 24 Hours (Table) 05/01/18 05/01/18 05/02/18 Range/Units 17:19 20:40 05:16 WBC 15.1 H (3.8-10.6) k/uL RDW 15.9 H (11.5-15.5) % Neutrophils # 11.7 H (1.3-7.7) k/uL Monocytes # 1.1 H (0-1.0) k/uL PT (9.0-12.0) sec INR (<1.2) Sodium (137-145) mmol/L BUN (7-17) mg/dL Glucose (74-99) mg/dL POC Glucose (mg/dL) 143 H 187 H (75-99) mg/dL Calcium (8.4-10.2) mg/dL AST (14-36) U/L ALT (9-52) U/L Total Protein (6.3-8.2) g/dL Albumin (3.5-5.0) g/dL 05/02/18 05/02/18 05/02/18 Range/Units 05:16 05:16 06:53 WBC (3.8-10.6) k/uL RDW (11.5-15.5) % Neutrophils # (1.3-7.7) k/uL Monocytes # (0-1.0) k/uL PT 12.4 H (9.0-12.0) sec INR 1.3 H (<1.2) Sodium 136 L (137-145) mmol/L BUN 21 H (7-17) mg/dL Glucose 131 H (74-99) mg/dL POC Glucose (mg/dL) 121 H (75-99) mg/dL Calcium 8.1 L (8.4-10.2) mg/dL AST 40 H (14-36) U/L ALT 231 H (9-52) U/L Total Protein 6.1 L (6.3-8.2) g/dL Albumin 2.8 L (3.5-5.0) g/dL 05/02/18 Range/Units 11:48 WBC (3.8-10.6) k/uL RDW (11.5-15.5) % Neutrophils # (1.3-7.7) k/uL Monocytes # (0-1.0) k/uL PT (9.0-12.0) sec INR (<1.2) Sodium (137-145) mmol/L BUN (7-17) mg/dL Glucose (74-99) mg/dL POC Glucose (mg/dL) 247 H (75-99) mg/dL Calcium (8.4-10.2) mg/dL AST (14-36) U/L ALT (9-52) U/L Total Protein (6.3-8.2) g/dL Albumin (3.5-5.0) g/dL Microbiology - Last 24 Hours (Table) 04/28/18 17:53 Blood Culture - Preliminary Blood No Growth after 72 hours Assessment and Plan Assessment: 1 large massive pulmonary embolism, with extensive clotting of the right lung although the patient has bilateral pulmonary embolism with a saddle clot as visualized on the CT angios the chest. Hemodynamically stable. The patient is slightly tachycardic with sinus tachycardia in the low 100s. There is positive troponin and there is some mild to moderate pulmonary hypertension based on today's echocardiogram. The patient is currently at 4 L of oxygen nasal cannula saturations around 90-94%. The patient is currently on IV heparin. The patient has a femoral/popliteal DVT of the right lower extremity. This is a recurrent event. Less poor embolism was in 2013. Prior to that the patient has had DVTs of the lower extremity and the patient has a chronic nonocclusive clot in the left lower extremity. On today's evaluation of 04/30/2018. The patient is hemodynamically stable. Oxidation is slightly improved currently on 4 L oxygen nasal cannula and no hypotension and the patient has some mild sinus tachycardia. No other significant events overnight. The patient remains on IV heparin. PTT is therapeutic for now. Discussed the case with the vascular surgeons and we'll hold off on thrombolytic therapy at this point in time. 2 troponin leak secondary to above On today's evaluation of 05/01/2018, the patient remains stable. Some improvement in the oxygenation and the hemodynamics. Patient is less tachycardic compared to yesterday. Oxygen is down to 3 L and the patient remains on IV heparin. No bleeding complications. On today's evaluation 05/02/2018, patient seems to be complaining of more pain at the right side, pain is pleuritic, I believe we must be dealing with a component of right sided pulmonary infarct considering her size of clot involving the right lung. Hence I recommended that the patient goes back on heparin, will hold eliquis for now, 3 CHF with an ejection fraction of 30-35% 4 obesity 5 normal coronaries based on a catheterization from June 2015 6 abnormal LFTs, will need further investigation. AST and ALT are elevated and there is no obstructive pattern as the patient has a normal alkaline phosphatase and bilirubin levels. The patient is showing ongoing improvement in liver function tests.The ultrasound of the liver showed hepatomegaly and this is consistent with hepatic steatosis. There is extensive cholelithiasis without evidence of any cholecystitis. There is a further drop in the liver function test on today's evaluation. 7 diabetes mellitus currently on no treatment 8 hypertension 9 history of diverticulosis 10 acid reflux 11 smoker 12 right renal calculus and hematuria, urology was consulted. Recommendation: Placed back on heparin, hold eliquis, patient is not a candidate for thrombolytics, will consult Dr. Meek to evaluate, possibly consider transferring the patient to [facility] in [place]. Critical care time 35 minutes Time with Patient: Greater than 30
[2018-05-02 13:00] LABS: INR 1.3 (<1.2); Partial Thromboplastin Time 26.3 sec (22.0-30.0); Prothrombin Time 12.3 sec (9.0-12.0)
--- NOTE | 2018-05-02 16:16 | P.GSCN ---
History of Present Illness Consult date: 05/02/18 Reason for Consult: Gross hematuria History of present illness: The patient is a 52-year-old female admitted on 04/28 for evaluation of shortness of breath. She has a history of recurrent episodes of deep venous thrombosis was confirmed to have a saddle pulmonary embolus as well as several other emboli on a chest CT arteriogram and admitted for further evaluation. She was initially placed on heparin and then switched to Eliquis. She developed more chest pain and was felt to have additional emboli and has been restarted on heparin. Earlier today she developed gross hematuria and I was asked to see her for further evaluation. The patient says that she has had gross hematuria in the past when she has been started on anticoagulants. She has a history of a pulmonary embolus secondary to deep venous thrombosis which occurred in 2013 and had been on Coumadin up until approximately 1 year ago when she apparently was a not able to afford it anymore. She says she's had no hematuria since 2013 that she could recall. She has no history of urolithiasis and a computed tomography scan of the abdomen and pelvis in 03/2014 showed no evidence of renal or bladder abnormality. She usually voids every 2-3 hours during the day and every hour at night. He does not have a history of recurrent urinary tract infections. She currently does not have an indwelling catheter and bladder scans have shown no evidence of incomplete bladder emptying. Review of Systems - Constitutional Reports as per HPI - Cardiovascular Reports chest pain, Reports shortness of breath - Gastrointestinal Denies abdominal pain - Genitourinary Genitourinary: Reports as per HPI Past Medical History Past Medical History: Diabetes Mellitus, GERD/Reflux, Hypertension, Pulmonary Embolus (PE) Additional Past Medical History / Comment(s): Previous history of pulmonary embolism in 2013, obesity, previous history of DVT involving the left lower extremity, diabetes mellitus, hypertension, acid reflux, chronic back pain, normal coronaries based on a cardiac catheterization from June 2015 History of Any Multi-Drug Resistant Organisms: None Reported Past Surgical History: Orthopedic Surgery (Right rotator cuff repair) Additional Past Surgical History / Comment(s): Rt shoulder rotator cuff repair Past Anesthesia/Blood Transfusion Reactions: No Reported Reaction Additional Past Anesthesia/Blood Transfusion Reaction / Comm: STATES HAS BEHAVIOR CHANGES POST OP Past Psychological History: No Psychological Hx Reported Smoking Status: Current every day smoker Past Alcohol Use History: None Reported Past Drug Use History: None Reported - Past Family History Father Family Medical History: No Reported History Mother Family Medical History: No Reported History Medications and Allergies Home Medications Medication Instructions Recorded Confirmed Type Aspirin 81 mg PO DAILY chew 04/15/16 04/29/18 Rx Ondansetron [Zofran] 4 mg PO Q8HR PRN 04/28/18 04/29/18 History Cinnamon Bark [Cinnamon] 2,000 mg PO DAILY 04/29/18 04/29/18 History [place]-3 Fatty Acids/Fish Oil [Fish 2,000 mg PO DAILY 04/29/18 04/29/18 History Oil 1,000 mg Softgel] Vitamin E 2,000 units PO DAILY 04/29/18 04/29/18 History Allergies Allergy/AdvReac Type Severity Reaction Status Date / Time acetaminophen [From Tylenol] Allergy Anaphylaxis Verified 04/28/18 18:53 morphine Allergy Swelling Verified 04/28/18 18:53 Penicillins Allergy Rash/Hives Verified 04/28/18 18:53 all citrus Allergy Anaphylaxis Uncoded 04/28/18 17:57 Surgical - Exam Vital Signs Temp Pulse Resp BP Pulse Ox 99.3 F 120 H 24 160/93 93 L 04/28/18 17:54 04/28/18 17:54 04/28/18 17:54 04/28/18 17:54 04/28/18 17:54 - General well developed, well nourished, no distress, obese - Neck no masses - Respiratory normal respiratory effort - Abdomen Abdomen: soft, non tender, no organomegaly Results - Labs 05/02/18 05:16 05/02/18 05:16 Abnormal Lab Results - Last 24 Hours (Table) 05/01/18 05/01/18 05/02/18 Range/Units 17:19 20:40 05:16 WBC 15.1 H (3.8-10.6) k/uL RDW 15.9 H (11.5-15.5) % Neutrophils # 11.7 H (1.3-7.7) k/uL Monocytes # 1.1 H (0-1.0) k/uL PT (9.0-12.0) sec INR (<1.2) Sodium (137-145) mmol/L BUN (7-17) mg/dL Glucose (74-99) mg/dL POC Glucose (mg/dL) 143 H 187 H (75-99) mg/dL Calcium (8.4-10.2) mg/dL AST (14-36) U/L ALT (9-52) U/L Total Protein (6.3-8.2) g/dL Albumin (3.5-5.0) g/dL 05/02/18 05/02/18 05/02/18 Range/Units 05:16 05:16 06:53 WBC (3.8-10.6) k/uL RDW (11.5-15.5) % Neutrophils # (1.3-7.7) k/uL Monocytes # (0-1.0) k/uL PT 12.4 H (9.0-12.0) sec INR 1.3 H (<1.2) Sodium 136 L (137-145) mmol/L BUN 21 H (7-17) mg/dL Glucose 131 H (74-99) mg/dL POC Glucose (mg/dL) 121 H (75-99) mg/dL Calcium 8.1 L (8.4-10.2) mg/dL AST 40 H (14-36) U/L ALT 231 H (9-52) U/L Total Protein 6.1 L (6.3-8.2) g/dL Albumin 2.8 L (3.5-5.0) g/dL 05/02/18 05/02/18 Range/Units 11:48 12:22 WBC (3.8-10.6) k/uL RDW (11.5-15.5) % Neutrophils # (1.3-7.7) k/uL Monocytes # (0-1.0) k/uL PT 12.3 H (9.0-12.0) sec INR 1.3 H (<1.2) Sodium (137-145) mmol/L BUN (7-17) mg/dL Glucose (74-99) mg/dL POC Glucose (mg/dL) 247 H (75-99) mg/dL Calcium (8.4-10.2) mg/dL AST (14-36) U/L ALT (9-52) U/L Total Protein (6.3-8.2) g/dL Albumin (3.5-5.0) g/dL Microbiology - Last 24 Hours (Table) 04/28/18 17:53 Blood Culture - Preliminary Blood No Growth after 72 hours Diabetes panel 05/02/18 Range/Units 05:16 Sodium 136 L (137-145) mmol/L Potassium 4.3 (3.5-5.1) mmol/L Chloride 103 (98-107) mmol/L Carbon Dioxide 27 (22-30) mmol/L BUN 21 H (7-17) mg/dL Creatinine 0.80 (0.52-1.04) mg/dL Glucose 131 H (74-99) mg/dL Calcium 8.1 L (8.4-10.2) mg/dL AST 40 H (14-36) U/L ALT 231 H (9-52) U/L Alkaline Phosphatase 106 (38-126) U/L Total Protein 6.1 L (6.3-8.2) g/dL Albumin 2.8 L (3.5-5.0) g/dL Calcium panel 05/02/18 Range/Units 05:16 Calcium 8.1 L (8.4-10.2) mg/dL Phosphorus 3.1 (2.5-4.5) mg/dL Albumin 2.8 L (3.5-5.0) g/dL Pituitary panel 05/02/18 Range/Units 05:16 Sodium 136 L (137-145) mmol/L Potassium 4.3 (3.5-5.1) mmol/L Chloride 103 (98-107) mmol/L Carbon Dioxide 27 (22-30) mmol/L BUN 21 H (7-17) mg/dL Creatinine 0.80 (0.52-1.04) mg/dL Glucose 131 H (74-99) mg/dL Calcium 8.1 L (8.4-10.2) mg/dL Adrenal panel 05/02/18 Range/Units 05:16 Sodium 136 L (137-145) mmol/L Potassium 4.3 (3.5-5.1) mmol/L Chloride 103 (98-107) mmol/L Carbon Dioxide 27 (22-30) mmol/L BUN 21 H (7-17) mg/dL Creatinine 0.80 (0.52-1.04) mg/dL Glucose 131 H (74-99) mg/dL Calcium 8.1 L (8.4-10.2) mg/dL Total Bilirubin 0.4 (0.2-1.3) mg/dL AST 40 H (14-36) U/L ALT 231 H (9-52) U/L Alkaline Phosphatase 106 (38-126) U/L Total Protein 6.1 L (6.3-8.2) g/dL Albumin 2.8 L (3.5-5.0) g/dL Assessment and Plan (1) Gross hematuria Narrative/Plan: The source of the patient's gross hematuria is not clear. The patient says that this has occurred previously when she was started on heparin. She has a 40 pack smoking history and is at increased risk for urothelial cancer but unfortunately due to her recent pulmonary embolus any type of surgical intervention would not be possible at this time. At some point the patient should have a CT urogram and cystoscopy for further evaluation of the hematuria. For the time being as long as the patient is able to void and her post void residuals are not excessive no specific treatment for the gross hematuria will be possible. Current Visit: Yes Status: Acute Code(s): R31.0 - GROSS HEMATURIA SNOMED Code(s): 332336261
[2018-05-02 16:35] LABS: Glucose,Whole Blood 230 mg/dL (75-99)
[2018-05-02 16:55] VITALS: TEMP 98.3
--- NOTE | 2018-05-02 17:23 | DS ---
DISCHARGE SUMMARY DATE OF SERVICE: 05/02/2018 FINAL DIAGNOSES: 1. Acute static pulmonary embolism with acute hypoxic respiratory failure, present on admission. 2. Indeterminate troponin. 3. Right-sided chest pain with pulmonary infarct. 4. Congestive heart failure with chronic systolic dysfunction, ejection fraction 30- 35%. 5. Elevated LFTs undetermined etiology. 6. Previous pulmonary embolism and deep venous thrombosis. 7. History of noncompliance. 8. Acute renal failure. 9. Urinary tract infection. 10.Obesity with body mass index of 36.2. 11.Mild to moderate pulmonary hypertension. 12.Cholelithiasis. DISCHARGE DISPOSITION: The patient will be transferred to [facility] for further evaluation and treatment. Total time taken 35 minutes. HISTORY OF PRESENT ILLNESS: This 52-year-old woman with a past medical history of multiple medical problems admitted with acute massive pulmonary embolism. Patient initially was treated with IV heparin and subsequently switched to Eliquis, but however the patient increasing shortness of breath and right-sided chest pain. Dr. Ramirez evaluated the patient. Recommend the patient be transferred to [facility] for further evaluation including thrombolysis. The prognosis remained extremely guarded throughout hospitalization and please refer Dr. Ramirez's notes and multiple progress notes for further information. The patient was noncompliant previously, but the importance of compliance also is being stressed with the patient. The patient also had cholelithiasis. Recommended close follow up with Dr. Butler after discharge. MMKRISL / TIFFANIEN: [id number] /
--- NOTE | 2018-05-02 17:46 | P.GSCN ---
History of Present Illness Consult date: 05/02/18 Reason for Consult: Cholelithiasis History of present illness: 52-year-old female admitted to the hospital with shortness of breath. Found to have recurrent pulmonary embolism. Currently being transferred to a tertiary care center for possible embolectomy. The patient on admission was found to have elevated liver enzymes. No history of known liver problems that we are aware of. Was found on ultrasound to have gallstones. Was having some sharp pain in the right upper quadrant earlier today but that has resolved. Denies nausea or vomiting. Liver enzymes have improved since admission. I do not see that a pancreatic enzyme evaluation was performed. Denies any change in the color of her skin urine or stool. Bile duct size normal on recent ultrasound. Review of Systems The patient denies any acute changes in vision or hearing, no dysphagia or odynophagia, no dysuria or hematuria, no headache, no runny nose, no rectal bleeding or melena, no unexplained weight loss Past Medical History Past Medical History: Diabetes Mellitus, GERD/Reflux, Hypertension, Pulmonary Embolus (PE) Additional Past Medical History / Comment(s): Previous history of pulmonary embolism in 2013, obesity, previous history of DVT involving the left lower extremity, diabetes mellitus, hypertension, acid reflux, chronic back pain, normal coronaries based on a cardiac catheterization from June 2015 History of Any Multi-Drug Resistant Organisms: None Reported Past Surgical History: Orthopedic Surgery (Right rotator cuff repair) Additional Past Surgical History / Comment(s): Rt shoulder rotator cuff repair Past Anesthesia/Blood Transfusion Reactions: No Reported Reaction Additional Past Anesthesia/Blood Transfusion Reaction / Comm: STATES HAS BEHAVIOR CHANGES POST OP Past Psychological History: No Psychological Hx Reported Smoking Status: Current every day smoker Past Alcohol Use History: None Reported Past Drug Use History: None Reported - Past Family History Father Family Medical History: No Reported History Mother Family Medical History: No Reported History Medications and Allergies Home Medications Medication Instructions Recorded Confirmed Type Aspirin 81 mg PO DAILY chew 04/15/16 04/29/18 Rx Ondansetron [Zofran] 4 mg PO Q8HR PRN 04/28/18 04/29/18 History Cinnamon Bark [Cinnamon] 2,000 mg PO DAILY 04/29/18 04/29/18 History [place]-3 Fatty Acids/Fish Oil [Fish 2,000 mg PO DAILY 04/29/18 04/29/18 History Oil 1,000 mg Softgel] Vitamin E 2,000 units PO DAILY 04/29/18 04/29/18 History Allergies Allergy/AdvReac Type Severity Reaction Status Date / Time acetaminophen [From Tylenol] Allergy Anaphylaxis Verified 04/28/18 18:53 morphine Allergy Swelling Verified 04/28/18 18:53 Penicillins Allergy Rash/Hives Verified 04/28/18 18:53 all citrus Allergy Anaphylaxis Uncoded 04/28/18 17:57 Surgical - Exam Vital Signs Temp Pulse Resp BP Pulse Ox 99.3 F 120 H 24 160/93 93 L 04/28/18 17:54 04/28/18 17:54 04/28/18 17:54 04/28/18 17:54 04/28/18 17:54 Physical exam: General: Well-developed, well-nourished HEENT: Normocephalic, sclerae nonicteric Abdomen: Nontender, nondistended Extremities: No edema Neuro: Alert and oriented Results - Labs 05/02/18 05:16 05/02/18 05:16 Abnormal Lab Results - Last 24 Hours (Table) 05/01/18 05/02/18 05/02/18 Range/Units 20:40 05:16 05:16 WBC 15.1 H (3.8-10.6) k/uL RDW 15.9 H (11.5-15.5) % Neutrophils # 11.7 H (1.3-7.7) k/uL Monocytes # 1.1 H (0-1.0) k/uL PT 12.4 H (9.0-12.0) sec INR 1.3 H (<1.2) Sodium (137-145) mmol/L BUN (7-17) mg/dL Glucose (74-99) mg/dL POC Glucose (mg/dL) 187 H (75-99) mg/dL Calcium (8.4-10.2) mg/dL AST (14-36) U/L ALT (9-52) U/L Total Protein (6.3-8.2) g/dL Albumin (3.5-5.0) g/dL 05/02/18 05/02/18 05/02/18 Range/Units 05:16 06:53 11:48 WBC (3.8-10.6) k/uL RDW (11.5-15.5) % Neutrophils # (1.3-7.7) k/uL Monocytes # (0-1.0) k/uL PT (9.0-12.0) sec INR (<1.2) Sodium 136 L (137-145) mmol/L BUN 21 H (7-17) mg/dL Glucose 131 H (74-99) mg/dL POC Glucose (mg/dL) 121 H 247 H (75-99) mg/dL Calcium 8.1 L (8.4-10.2) mg/dL AST 40 H (14-36) U/L ALT 231 H (9-52) U/L Total Protein 6.1 L (6.3-8.2) g/dL Albumin 2.8 L (3.5-5.0) g/dL 05/02/18 05/02/18 Range/Units 12:22 16:33 WBC (3.8-10.6) k/uL RDW (11.5-15.5) % Neutrophils # (1.3-7.7) k/uL Monocytes # (0-1.0) k/uL PT 12.3 H (9.0-12.0) sec INR 1.3 H (<1.2) Sodium (137-145) mmol/L BUN (7-17) mg/dL Glucose (74-99) mg/dL POC Glucose (mg/dL) 230 H (75-99) mg/dL Calcium (8.4-10.2) mg/dL AST (14-36) U/L ALT (9-52) U/L Total Protein (6.3-8.2) g/dL Albumin (3.5-5.0) g/dL Microbiology - Last 24 Hours (Table) 04/28/18 17:53 Blood Culture - Preliminary Blood No Growth after 72 hours Diabetes panel 05/02/18 Range/Units 05:16 Sodium 136 L (137-145) mmol/L Potassium 4.3 (3.5-5.1) mmol/L Chloride 103 (98-107) mmol/L Carbon Dioxide 27 (22-30) mmol/L BUN 21 H (7-17) mg/dL Creatinine 0.80 (0.52-1.04) mg/dL Glucose 131 H (74-99) mg/dL Calcium 8.1 L (8.4-10.2) mg/dL AST 40 H (14-36) U/L ALT 231 H (9-52) U/L Alkaline Phosphatase 106 (38-126) U/L Total Protein 6.1 L (6.3-8.2) g/dL Albumin 2.8 L (3.5-5.0) g/dL Calcium panel 05/02/18 Range/Units 05:16 Calcium 8.1 L (8.4-10.2) mg/dL Phosphorus 3.1 (2.5-4.5) mg/dL Albumin 2.8 L (3.5-5.0) g/dL Pituitary panel 05/02/18 Range/Units 05:16 Sodium 136 L (137-145) mmol/L Potassium 4.3 (3.5-5.1) mmol/L Chloride 103 (98-107) mmol/L Carbon Dioxide 27 (22-30) mmol/L BUN 21 H (7-17) mg/dL Creatinine 0.80 (0.52-1.04) mg/dL Glucose 131 H (74-99) mg/dL Calcium 8.1 L (8.4-10.2) mg/dL Adrenal panel 05/02/18 Range/Units 05:16 Sodium 136 L (137-145) mmol/L Potassium 4.3 (3.5-5.1) mmol/L Chloride 103 (98-107) mmol/L Carbon Dioxide 27 (22-30) mmol/L BUN 21 H (7-17) mg/dL Creatinine 0.80 (0.52-1.04) mg/dL Glucose 131 H (74-99) mg/dL Calcium 8.1 L (8.4-10.2) mg/dL Total Bilirubin 0.4 (0.2-1.3) mg/dL AST 40 H (14-36) U/L ALT 231 H (9-52) U/L Alkaline Phosphatase 106 (38-126) U/L Total Protein 6.1 L (6.3-8.2) g/dL Albumin 2.8 L (3.5-5.0) g/dL Assessment and Plan (1) Cholelithiasis Narrative/Plan: Patient with admission for shortness of breath and evidence of pulmonary embolism on CAT scan. Liver enzyme elevation found at that time as well. May be on the basis of hepatic congestion particularly given the ultrasound findings from the pulmonary embolism itself. Patient does have evidence of gallstones. No indication at this time to proceed with any surgical intervention. Patient can follow-up with me in the office once her PE is managed appropriately. Current Visit: Yes Status: Acute Code(s): K80.20 - CALCULUS OF GALLBLADDER W /O CHOLECYSTITIS W/O OBSTRUCTION SNOMED Code(s): 949630528
[2018-05-02 18:33] VITALS: BP 147/85; PULSE 97; RESP 14
== END 2018-05-02 19:00 | disposition short-term general hospital (02) | DRG 175 ==
LOC: EC 17:31 → 6ICU 19:43
PROVIDERS: ADMIT Hospitalist; ATTEND Hospitalist
DX: I26.02 Saddle embolus of pulmonary artery with acute cor pulmonale (principal); J96.01 Acute respiratory failure with hypoxia; N17.9 Acute kidney failure, unspecified; I50.22 Chronic systolic (congestive) heart failure; N39.0 Urinary tract infection, site not specified; I82.511 Chronic embolism and thrombosis of right femoral vein; I82.531 Chronic embolism and thrombosis of right popliteal vein; F17.210 Nicotine dependence, cigarettes, uncomplicated; E11.9 Type 2 diabetes mellitus without complications; M19.90 Unspecified osteoarthritis, unspecified site; E66.9 Obesity, unspecified; G47.30 Sleep apnea, unspecified; I11.0 Hypertensive heart disease with heart failure; I27.20 Pulmonary hypertension, unspecified; K21.9 Gastro-esophageal reflux disease without esophagitis; K76.0 Fatty (change of) liver, not elsewhere classified; N20.0 Calculus of kidney; R31.0 Gross hematuria; K80.20 Calculus of gallbladder without cholecystitis without obstruction; R79.89 Other specified abnormal findings of blood chemistry; Z86.711 Personal history of pulmonary embolism; Z79.82 Long term (current) use of aspirin; Z79.899 Other long term (current) drug therapy; Z88.6 Allergy status to analgesic agent; Z88.5 Allergy status to narcotic agent; Z88.0 Allergy status to penicillin; Z91.018 Allergy to other foods; Z68.36 Body mass index [BMI] 36.0-36.9, adult; Z91.19 Patient's noncompliance with other medical treatment and regimen; Z87.442 Personal history of urinary calculi; Z86.718 Personal history of other venous thrombosis and embolism
CPT/HCPCS: 36415; 71045; 71275; 76705; 80053; 80074; 81001; 82550; 82553; 83735; 83880; 84100; 84484; 85025; 85610; 85730; 87040; 87086; 93005; 93306; 93970; 94640; 96365; 96366; 96375; 96376; 99291

== ENCOUNTER → 2018-05-18 | Outpatient (CLI) | payer OTHER ==
--- NOTE | 2018-05-18 17:30 | US ---
EXAMINATION TYPE: US lower ext pseudo artery RT DATE OF EXAM: 05/18/2018 COMPARISON: NONE CLINICAL HISTORY: I97.89 psuedoanureysm post catherization. EXAM PERFORMED: Grayscale and color Doppler duplex imaging performed of the groin, post cardiac morris ter to assess for pseudoaneurysm. SIDE PERFORMED: Color and Waveform Doppler performed to assess for the presence of pseudoaneurysm; Is there ultrasound evidence of a pseudoaneurysm: no Is there evidence of AV shunting: no Is there a fluid collection present: no IMPRESSION: No evidence of a pseudoaneurysm. There is normal triphasic waveform in the right femoral artery. Ther e is patency of the femoral vein.
--- NOTE | 2018-05-18 17:58 | XR ---
EXAMINATION TYPE: XR Hip Complete RT DATE OF EXAM: 05/18/2018 COMPARISON: NONE HISTORY: Groin pain TECHNIQUE: 2 views FINDINGS: I see no fracture nor dislocation. Hip joint spaces fairly normal. IMPRESSION: Negative right hip exam.
== END | disposition home or self-care (01) ==
LOC: RADUSMAIN 16:15
PROVIDERS: ATTEND Internal Medicine Critical Care Medicine
DX: I97.89 Other postprocedural complications and disorders of the circulatory system, not elsewhere classified (principal); M25.551 Pain in right hip
CPT/HCPCS: 73502; 93975

== ENCOUNTER → 2018-06-07 | Outpatient (CLI) | payer OTHER ==
--- NOTE | 2018-06-07 15:39 | CT ---
EXAMINATION TYPE: CT abdomen pelvis wo con DATE OF EXAM: 06/07/2018 COMPARISON: 03/26/2014 INDICATION: Right lower quadrant and pelvic pain. DLP: 1207 mGycm, Automated exposure control for dose reduction was used. CONTRAST: 0 mL of Isovue 300. Study performed without Oral Contrast TECHNIQUE: Axial images were obtained from above the diaphragm to the pubic rami in the axial plane a t 5 mm thick sections. Reconstructed images are reviewed on the computer in the coronal plane. FINDINGS: Limited CT sections are obtained the lung bases. There is a 0.5 cm nodule posterior lateral left sher g base. This was present previously and stable. Coronary artery calcifications present. CT ABDOMEN: Liver: Normal Spleen: Normal Pancreas: Normal Adrenal glands: The adrenal glands are normal. Gallbladder: Normal Kidneys: No masses are evident. There is moderate right hydronephrosis. There is a new 1.0 cm calcifi cation in the right renal pelvis. Hydroureter is present extending to the pelvic inlet. Distal ureter al stones are not clearly identified phleboliths are present. No cysts are present. Aorta: Vascular calcification is within the aorta. Inferior vena cava: Normal. CT PELVIS: Loops of bowel within the abdomen and pelvis are normal. Scattered diverticuli are within the sigmo id colon. Study is without oral contrast. Appendix: Normal as visualized. Urinary bladder: Normal. Genitourinary structures: Uterus and adnexal regions are normal. No free fluid is within the pelvis. Osseous structures: No suspicious lytic or sclerotic lesions. Facet hypertrophy is present. IMPRESSIONS: 1. One cm calcification right renal pelvis with moderate right hydronephrosis. 2. Proximal ureteral dilatation without evidence of obstructing etiology.
== END | disposition home or self-care (01) ==
LOC: RADCTMAIN 14:49
PROVIDERS: ATTEND Internal Medicine
DX: N13.30 Unspecified hydronephrosis (principal); N28.82 Megaloureter; R93.41 Abnormal radiologic findings on diagnostic imaging of renal pelvis, ureter, or bladder; Z88.0 Allergy status to penicillin; Z88.5 Allergy status to narcotic agent
CPT/HCPCS: 74176

== ENCOUNTER → 2018-06-29 | Outpatient (CLI) | payer OTHER ==
--- NOTE | 2018-06-29 08:11 | CT ---
EXAMINATION TYPE: CT hip RT wo con DATE OF EXAM: 06/29/2018 COMPARISON: None HISTORY: Rt hip pain, stress fracture CT DLP: 612 mGycm Automated exposure control for dose reduction was used. Unenhanced CT of the right hip was performed with bone and soft tissue window settings submitted. Coronal and sagittal reconstructions also obtain ed. FINDINGS: I do not see evidence for displaced or impacted fracture. Mild degenerative narrowing right hip joint space. No evidence for soft tissue mass. No bony destructive process identified. No unusual collecti ons seen. IMPRESSION: NO EVIDENCE FOR ACUTE FRACTURE OR DISLOCATION OF THE RIGHT HIP AT THIS TIME.
== END | disposition home or self-care (01) ==
LOC: RADCTMAIN 06:33
PROVIDERS: ATTEND Orthopaedic Surgery
DX: M25.551 Pain in right hip (principal)

== ENCOUNTER → 2018-08-15 | Outpatient (CLI) | payer OTHER ==
--- NOTE | 2018-08-16 12:08 | ECHOF ---
Referral Reason:I50.20 SYSTOLIC HEART FAILURE MEASUREMENTS -------- HEIGHT: 172.7 cm WEIGHT: 98.0 kg BP: RVIDd: 3.3 cm (< 3.3) IVSd: 1.3 cm (0.6 - 1.1) LVIDd: 3.5 cm (3.9 - 5.3) LVPWd: 1.2 cm (0.6 - 1.1) IVSs: 1.3 cm LVIDs: 2.4 cm LVPWs: 1.3 cm LAESV Index (A-L): 23.89 ml/m Ao Diam: 3.0 cm (2.0 - 3.7) AV Cusp: 1.7 cm (1.5 - 2.6) LA Diam: 3.3 cm (2.7 - 3.8) MV EXCURSION: 13.536 mm (> 18.000) MV EF SLOPE: 45 mm/s (70 - 150) EPSS: 0.5 cm MV E Chaka: 1.47 m/s MV DecT: 129 ms MV A Chaka: 0.00 m/s MV E/A Ratio: 1567 RAP: 5.00 mmHg RVSP: 36.63 mmHg FINDINGS -------- Sinus rhythm. This was a technically adequate study. The left ventricular size is normal. There is mild concentric left ventricular hypertrophy. Overa ll left ventricular systolic function is low-normal with, an EF between 50 - 55 %. The right ventricle is mildly enlarged. Normal LA size by volume 22+/-6 ml/m2. RA appears enlarged. Aortic valve is trileaflet and is mildly thickened. There is no evidence of aortic regurgitation. There is no evidence of aortic stenosis. The mitral valve leaflets are mildly thickened. There is trace to mild mitral regurgitation. Mild tricuspid regurgitation present. There is borderline pulmonary hypertension. The right ventr icular systolic pressure, as measured by Doppler, is 36.63mmHg. Trace/mild (physiologic) pulmonic regurgitation. The aortic root size is normal. Normal inferior vena cava with normal inspiratory collapse consistent with estimated right atrial pre ssure of 5 mmHg. There is no pericardial effusion. CONCLUSIONS -------- 1. Sinus rhythm. 2. This was a technically adequate study. 3. The left ventricular size is normal. 4. There is mild concentric left ventricular hypertrophy. 5. Overall left ventricular systolic function is low-normal with, an EF between 50 - 55 %. 6. The right ventricle is mildly enlarged. 7. Normal LA size by volume 22+/-6 ml/m2. 8. RA appears enlarged. 9. Aortic valve is trileaflet and is mildly thickened. 10. The mitral valve leaflets are mildly thickened. 11. There is trace to mild mitral regurgitation. 12. Mild tricuspid regurgitation present. 13. There is borderline pulmonary hypertension. 14. The right ventricular systolic pressure, as measured by Doppler, is 36.63mmHg. 15. Trace/mild (physiologic) pulmonic regurgitation. 16. The aortic root size is normal. 17. There is no pericardial effusion. NURSING HOME PHYSICIAN: Nakul Condon RDCS
== END | disposition home or self-care (01) ==
LOC: RADECHMAIN 15:30
PROVIDERS: ATTEND Internal Medicine Critical Care Medicine
DX: I08.3 Combined rheumatic disorders of mitral, aortic and tricuspid valves (principal); I27.20 Pulmonary hypertension, unspecified; I50.20 Unspecified systolic (congestive) heart failure
CPT/HCPCS: 93306

== ENCOUNTER → 2021-06-12 | Outpatient (CLI) | payer OTHER ==
[2021-06-12 12:46] LABS: Appearance,Urine Turbid (Clear); Bacteria,Urine Rare /hpf; Bilirubin,Urine Negative (Negative); Blood,Urine Moderate (Negative); Color,Urine Yellow; Glucose,Urine (UA) Negative (Negative); Ketones,Urine Negative (Negative); Leukocyte Esterase,Urine Large (Negative); Mucus,Urine Few /hpf; Nitrite,Urine Negative (Negative); Protein,Urine 1+ (Negative); RBC,Urine 51 /hpf (0-5); Squamous Epithelial Cell,Urine 6 /hpf (0-4); Urobilinogen,Urine <2.0 mg/dL (<2.0); WBC,Urine >182 /hpf (0-5)
== END | disposition home or self-care (01) ==
LOC: LABPAT 10:11
PROVIDERS: ATTEND Urology
DX: Z01.812 Encounter for preprocedural laboratory examination (principal); N20.0 Calculus of kidney; N39.0 Urinary tract infection, site not specified
CPT/HCPCS: 81001; 87086

== ENCOUNTER 2021-06-16 06:35 | Day surgery (SDC) | payer OTHER ==
--- NOTE | 2021-06-12 13:55 | P.HPIHPCON ---
History of Present Illness H&P Date: 06/12/21 Chief Complaint: Right-sided flank pain This is a 55-year-old female, history of a 1.7 cm right-sided renal pelvis stone, and multiple nonobstructive lower pole stone. She is on chronic anticoagulation due to history of PEs. Discussed with her the option of stage ureteroscopy versus a PCNL. Discussed the benefit and risk of each approach. Discussed given her history of recurrent PEs we can perform stage ureteroscopy and she can continue anticoagulation during surgery. Discussed given the location of the lower pole stone it might be difficult to remove stone using ureteroscopy, but given the nonobstructive nature they can be observed. But discussed with her given the size of her renal pelvis done this will need to be a staged procedure. Discussed the risk from anesthesia which includes but not limited to heart attack, stroke, blood clots. Discussed the risk of bleeding, infection, injury to the ureter. She understood all the risk and agreed to proceed as with a stage right-sided ureteroscopy, with holmium laser lithotripsy, stone basketing and stent insertion Consent for Procedure: I have explained the operation/procedure to the patient, including the risks, benefits, side effects, alternative therapies (including not receiving the proposed treatment or service), the likelihood of the patient achieving his/her goals, and potential recuperation problems for the procedure/sedation/analgesia, as well as any blood products, if indicated. I also explained to the patient the risks, benefits and side effects of the alternatives, as well as the risks related to not receiving the proposed procedure, care, treatment, or services. Past Medical History Past Medical History: Diabetes Mellitus, GERD/Reflux, Hypertension, Pulmonary Embolus (PE) Additional Past Medical History / Comment(s): Previous history of pulmonary embolism in 2013, obesity, previous history of DVT involving the left lower extremity, diabetes mellitus, hypertension, acid reflux, chronic back pain, normal coronaries based on a cardiac catheterization from June 2015 History of Any Multi-Drug Resistant Organisms: None Reported Past Surgical History: Orthopedic Surgery (Right rotator cuff repair) Additional Past Surgical History / Comment(s): Rt shoulder rotator cuff repair Past Anesthesia/Blood Transfusion Reactions: No Reported Reaction Additional Past Anesthesia/Blood Transfusion Reaction / Comment(s): STATES HAS BEHAVIOR CHANGES POST OP Past Psychological History: No Psychological Hx Reported Past Alcohol Use History: None Reported Past Drug Use History: None Reported - Past Family History Father Family Medical History: No Reported History Mother Family Medical History: No Reported History Medications and Allergies Home Medications Medication Instructions Recorded Confirmed Type Aspirin 81 mg PO DAILY chew 04/15/16 04/29/18 Rx Ondansetron [Zofran] 4 mg PO Q8HR PRN 04/28/18 04/29/18 History Cinnamon Bark [Cinnamon] 2,000 mg PO DAILY 04/29/18 04/29/18 History [place]-3 Fatty Acids/Fish Oil [Fish 2,000 mg PO DAILY 04/29/18 04/29/18 History Oil 1,000 mg Softgel] Vitamin E (Dl,Tocopheryl Acet) 2,000 units PO DAILY 04/29/18 04/29/18 History [Vitamin E] Allergies Allergy/AdvReac Type Severity Reaction Status Date / Time acetaminophen [From Tylenol] Allergy Anaphylaxis Verified 06/11/21 15:48 morphine Allergy Swelling Verified 06/11/21 15:48 Penicillins Allergy Rash/Hives Verified 06/11/21 15:48 all citrus Allergy Anaphylaxis Uncoded 06/11/21 15:48 Surgical - Exam - General well developed, well nourished, no distress, moderate pain - Eyes PERRL, normal ocular movement - ENT normal nares, normal mucosa - Abdomen Abdomen: soft, non tender - Psychiatric oriented to time, oriented to person, oriented to place Assessment and Plan Assessment: OR for right-sided ureteroscopy, holmium laser lithotripsy, stone basketing and stent insertion
[2021-06-12 16:19] VITALS: BMI 33.5
[~2021-06-16 06:35] MED LIST: CIPROFLOXACIN/DEXTROSE PMX 400 MG in DEXTROSE/WATER 1 200ML.BAG IVPB PRN; DEXAMETHASONE SOD PHOSPHATE 4 MG/ML 1 ML VIAL IV ONE; HYDROmorphone 0.5 MG/0.5 ML SYRINGE IVP PRN; LACTATED RINGERS 1,000 ML IV SCH; LIDOCAINE 1% (10MG/ML) FOR IV START INTRADERMA PRN; MIDAZOLAM 2 MG/2 ML VIAL IV PRN; ONDANSETRON 4 MG/2 ML VIAL IVP ONE
--- NOTE | 2021-06-16 06:58 | XR ---
EXAMINATION TYPE: XR KUB DATE OF EXAM: 06/16/2021 COMPARISON: NONE HISTORY: Preop renal stone surgery TECHNIQUE: 2 views supine FINDINGS: There is 1.7 cm calculus over the right kidney. There is probably other smaller calculi. Oc wel gas pattern is normal. There is no sign of intestinal obstruction or pneumoperitoneum. Fecal yenny nancy is normal. IMPRESSION: Large right renal calculus. Calculus appears increased compared to CT scan of 06/07/2018.
[2021-06-16 07:46] LABS: Glucose,Whole Blood 79 mg/dL (75-99)
[2021-06-16 07:53] LABS: Basophils # (A) 0.1 k/uL (0-0.2); Basophils % (A) 1 %; Eosinophils # (A) 0.3 k/uL (0-0.7); Eosinophils % (A) 3 %; HCT 51.3 % (34.0-46.0); HGB 16.5 gm/dL (11.4-16.0); Lymphocytes # (A) 1.7 k/uL (1.0-4.8); Lymphocytes % (A) 18 %; MCH 28.9 pg (25.0-35.0); MCHC 32.2 g/dL (31.0-37.0); MCV 89.8 fL (80.0-100.0); Mean Platelet Volume 9.7; Monocytes # (A) 0.6 k/uL (0-1.0); Monocytes % (A) 6 %; Neutrophils # (A) 6.7 k/uL (1.3-7.7); Neutrophils % (A) 70 %; Platelet Count 197 k/uL (150-450); RBC 5.71 m/uL (3.80-5.40); RDW 14.3 % (11.5-15.5); WBC 9.5 k/uL (3.8-10.6)
[2021-06-16 08:14] LABS: Albumin 3.9 g/dL (3.5-5.0); Calcium 9.3 mg/dL (8.4-10.2); Potassium 4.7 mmol/L (3.5-5.1); Total Bilirubin 0.6 mg/dL (0.2-1.3); Total Protein 7.3 g/dL (6.3-8.2)
[2021-06-16] MEDS ORDERED: MIDAZOLAM 2 MG/2 ML VIAL ONE (09:26)
[2021-06-16] MEDS ORDERED: LIDOCAINE 1% INJ 10MG/ML (20 ML MDV) ONE (09:26)
[2021-06-16] MEDS ORDERED: PROPOFOL 10 MG/ML 20 ML VIAL IV ONE (09:26)
[2021-06-16] MEDS ORDERED: KETOROLAC 15 MG/ML 1 ML VIAL ONE (09:26)
[2021-06-16] MEDS ORDERED: fentaNYL (PF) 50 MCG/ML 2 ML AMP ONE (09:26)
[2021-06-16] MEDS ORDERED: SUCCINYLCHOLINE CHLORIDE 100 MG/5 ML SYR IV ONE (09:26)
[2021-06-16] MEDS ORDERED: LACTATED RINGERS 1,000 ML IV ONE ×2 (09:54)
--- NOTE | 2021-06-16 11:08 | FL ---
EXAMINATION TYPE: FL guidance operating room DATE OF EXAM: 06/16/2021 HISTORY: Fluoroscopy time 14 seconds of fluoroscopy provided. IMPRESSION: 1. Fluoroscopy time.
--- NOTE | 2021-06-16 11:13 | P.OP ---
Date of Procedure: 06/16/21 Preoperative Diagnosis: Right renal stone Postoperative Diagnosis: Same Procedure(s) Performed: Cystoscopy, right ureteroscopy, holmium laser lithotripsy, stone basketing and stent insertion Implants: 6-M[place]onian by 26 cm stent Anesthesia: FRANCO Surgeon: Mani Olivo Estimated Blood Loss (ml): 10 Pathology: other (right renal stone) Condition: stable Disposition: PACU Indications for Procedure: This is a 55-year-old female, history of a 1.7 cm right-sided renal pelvis stone, and multiple nonobstructive lower pole stone. She is on chronic anticoagulation due to history of PEs. Discussed with her the option of stage ureteroscopy versus a PCNL. Discussed the benefit and risk of each approach. Discussed given her history of recurrent PEs we can perform stage ureteroscopy and she can continue anticoagulation during surgery. Discussed given the l ocation of the lower pole stone it might be difficult to remove stone using ureteroscopy, but given the nonobstructive nature they can be observed. But discussed with her given the size of her renal pelvis done this will need to be a staged procedure. Discussed the risk from anesthesia which includes but not limited to heart attack, stroke, blood clots. Discussed the risk of bleeding, infection, injury to the ureter. She Operative Findings: Large hyperdense stone within the right renal pelvis Description of Procedure: Patient was brought to the operating room, general anesthesia was induced. She was prepped and draped in sterile fashion and placed in a dorsal lithotomy position. Cystoscopy fitted with a 21-[place] sheath was inserted per urethra, cystoscopy was performed which showed no abnormality within the bladder. Attention was then carried to the right ureteral orifice which was intubated with a sensor wire. Next under fluoroscopy 1113 [place] access sheath was passed over the wire into the proximal ureter. Next the flexible ureteroscope was inserted through the access sheath, renoscopy was performed which showed a large stone within the renal pelvis. Using the holmium laser the stone was initially dusted and then fragmented into small fragments. Given the size of the stone, there was significant stone fragment. Some of the sizable fragments were removed using the stone basket, repeat renoscopy showed no significant large fragments, but of note patient had significant amount of dust within the kidney given the size of the stone which limited the visualization. At this time, the ureteroscope was withdrawn, pullback ureteroscopy was performed showed no injury to ureter. As the ureteroscope was withdrawn aa sensor wire was advanced through. Next a ureteral stent was passed over the wire, the proximal curl was visualized on fluoroscopy and the distal curl was visualized using the cystoscope. The bladder was emptied at the end of the case. Patient tolerated the procedure well was taken to PACU in stable condition. At this time, she will follow up in few weeks for second stage ureteroscopy.
[2021-06-16 11:21] VITALS: TEMP 97
[2021-06-16 11:28] LABS: Glucose,Whole Blood 124 mg/dL (75-99)
[2021-06-16] MEDS ORDERED: LABETALOL 5 MG/ML VIAL MDV IVP ONE (11:41)
[2021-06-16] MEDS ORDERED: ONDANSETRON 4 MG/2 ML VIAL ONE (11:50)
[2021-06-16] MEDS ORDERED: ONDANSETRON 4 MG/2 ML VIAL IVP ONE (11:54)
[2021-06-16 12:21] VITALS: RESP 16
[2021-06-16] MEDS ORDERED: hydrALAZINE HCL 20 MG/ML 1 ML VIAL ONE (12:27)
[2021-06-16] MEDS ORDERED: hydrALAZINE HCL 20 MG/ML 1 ML VIAL IVP ONE (12:30)
[2021-06-16] MEDS ORDERED: traMADol 50 MG TAB ONE (14:13)
[2021-06-16] MEDS ORDERED: traMADol 50 MG TAB PO ONE (14:16)
[2021-06-16 14:51] VITALS: BP 128/78; PULSE 90
== END 2021-06-16 15:45 | disposition home or self-care (01) ==
LOC: OR 06:35
PROVIDERS: ATTEND Urology
DX: N20.0 Calculus of kidney (principal); E11.40 Type 2 diabetes mellitus with diabetic neuropathy, unspecified; I11.0 Hypertensive heart disease with heart failure; I50.9 Heart failure, unspecified; K21.9 Gastro-esophageal reflux disease without esophagitis; F17.210 Nicotine dependence, cigarettes, uncomplicated; Z86.711 Personal history of pulmonary embolism; Z86.718 Personal history of other venous thrombosis and embolism; G89.29 Other chronic pain; M54.9 Dorsalgia, unspecified; Z98.890 Other specified postprocedural states; Z97.2 Presence of dental prosthetic device (complete) (partial); Z79.82 Long term (current) use of aspirin; Z79.84 Long term (current) use of oral hypoglycemic drugs; Z79.891 Long term (current) use of opiate analgesic; Z79.01 Long term (current) use of anticoagulants; Z79.899 Other long term (current) drug therapy; Z88.6 Allergy status to analgesic agent; Z88.5 Allergy status to narcotic agent; Z88.0 Allergy status to penicillin; Z91.09 Other allergy status, other than to drugs and biological substances
CPT/HCPCS: 80053; 85025; 82365; 74018; 52356; C2625; C1769; J2250; J0360; J1100; J2405; J2001; J3010; J0744; J1885; J0330; J2704; J1170

== ENCOUNTER 2021-06-18 10:50 | Inpatient (IN) | payer SELFPAY ==
[2021-06-18 11:06] LABS: Glucose,Whole Blood 150 mg/dL (75-99)
[2021-06-18] MEDS ORDERED: IPRATROPIUM-ALBUTEROL 3 ML NEB INHALATION STA (11:12)
[2021-06-18] MEDS ORDERED: SODIUM CHLORIDE 0.9% 1,000 ML IV STA (11:12)
[2021-06-18] MEDS ORDERED: SODIUM CHLORIDE 0.9% 500 ML 500 ML IV STA (11:12)
--- NOTE | 2021-06-18 11:34 | ED ---
SOB HPI - General Chief Complaint: Shortness of Breath Stated Complaint: ROMANA Time Seen by Provider: 06/18/21 10:50 Source: patient, RN notes reviewed Mode of arrival: EMS Limitations: no limitations - History of Present Illness Initial Comments: 55-year-old female presents with complains of shortness of breath she states since she had a kidney stone surgery last week but is been getting progressively worse today. She reportedly had a pulse ox of 80% on room air. She is a former smoker. No diagnosed history of COPD or asthma. She denies any overt fevers chills or sweats. No chest pain MD Complaint: shortness of breath - Related Data Home Medications Medication Instructions Recorded Confirmed Apixaban [Eliquis] 5 mg PO BID 06/12/21 06/16/21 Cholecalciferol [Vitamin D3 (25 50 mcg PO DAILY 06/12/21 06/16/21 Mcg = 1000 Iu)] Fenofibrate 160 mg PO HS 06/12/21 06/16/21 Ferrous Sulfate [Iron] 325 mg PO DAILY 06/12/21 06/16/21 Metoprolol Tartrate [Lopressor] 75 mg PO BID 06/12/21 06/16/21 Pregabalin [Lyrica] 200 mg PO BID 06/12/21 06/16/21 lisinopriL 20 mg PO DAILY 06/12/21 06/16/21 metFORMIN HCL [Glucophage] 500 mg PO BID 06/12/21 06/16/21 traMADol HCL [Ultram] 50 mg PO HS PRN 06/12/21 06/16/21 Previous Rx's Medication Instructions Recorded traMADol HCL [Ultram] 50 mg PO Q6HR PRN 3 Days #12 tab 06/16/21 Allergies Allergy/AdvReac Type Severity Reaction Status Date / Time bee venom protein (honey bee) Allergy Severe Swelling Verified 06/18/21 11:00 acetaminophen [From Tylenol] Allergy Anaphylaxis Verified 06/18/21 11:00 morphine Allergy Swelling Verified 06/18/21 11:00 Penicillins Allergy Rash/Hives Verified 06/18/21 11:00 all citrus Allergy Anaphylaxis Uncoded 06/18/21 11:00 Review of Systems ROS Statement: Those systems with pertinent positive or pertinent negative responses have been documented in the HPI. ROS Other: All systems not noted in ROS Statement are negative. Past Medical History Past Medical History: Diabetes Mellitus, GERD/Reflux, Hypertension, Pulmonary Embolus (PE) Additional Past Medical History / Comment(s): Previous history of pulmonary embolism in 2013, obesity, previous history of DVT involving the left lower extremity, diabetes mellitus, hypertension, acid reflux, chronic back pain, normal coronaries based on a cardiac catheterization from June 2015 History of Any Multi-Drug Resistant Organisms: None Reported Past Surgical History: Orthopedic Surgery Additional Past Surgical History / Comment(s): Rt shoulder rotator cuff repair Past Anesthesia/Blood Transfusion Reactions: No Reported Reaction Additional Past Anesthesia/Blood Transfusion Reaction / Comment(s): STATES HAS BEHAVIOR CHANGES POST OP Past Psychological History: No Psychological Hx Reported Smoking Status: Current every day smoker Past Alcohol Use History: None Reported Past Drug Use History: None Reported - Past Family History Father Family Medical History: No Reported History Mother Family Medical History: No Reported History General Exam - General Exam Comments Initial Comments: Is a well-developed well-nourished somewhat confused female. The patient thought was October 14 Limitations: no limitations General appearance: alert, anxious, in distress Head exam: Present: atraumatic, normocephalic, normal inspection Eye exam: Present: normal appearance, PERRL, EOMI. Absent: scleral icterus, conjunctival injection, periorbital swelling ENT exam: Present: mucous membranes dry Neck exam: Present: normal inspection. Absent: tenderness, meningismus, lymphadenopathy Respiratory exam: Present: rhonchi (Left lower lobe), decreased breath sounds. Absent: respiratory distress, wheezes, rales, stridor Cardiovascular Exam: Present: normal rhythm, tachycardia, normal heart sounds. Absent: systolic murmur, diastolic murmur, rubs, gallop, clicks GI/Abdominal exam: Present: soft, normal bowel sounds. Absent: distended, tenderness, guarding, rebound, rigid Extremities exam: Present: normal inspection, full ROM, normal capillary refill. Absent: tenderness, pedal edema, joint swelling, calf tenderness Back exam: Present: normal inspection Neurological exam: Present: alert, oriented X3, CN II-XII intact Psychiatric exam: Present: normal affect, normal mood Skin exam: Present: warm, dry, intact, normal color. Absent: rash Course Vital Signs 06/18/21 06/18/21 06/18/21 10:54 11:22 11:28 Temperature 99.5 F Pulse Rate 125 H 116 H Respiratory 18 Rate Blood Pressure 115/77 O2 Sat by Pulse 99 Oximetry 06/18/21 06/18/21 06/18/21 11:30 11:36 12:00 Temperature Pulse Rate 125 H 120 H 122 H Respiratory 24 18 Rate Blood Pressure 100/68 O2 Sat by Pulse 97 97 Oximetry 06/18/21 13:03 Temperature Pulse Rate 122 H Respiratory 18 Rate Blood Pressure 145/74 O2 Sat by Pulse 94 L Oximetry - Reevaluation(s) Reevaluation #1: 06/18/21 13:56 Patient did get some relief from the nebulizer treatment. Medical Decision Making - Medical Decision Making I did discuss findings with the patient family members is demonstrated evidence of an STEMI as well as CHF patient will be admitted I did discuss case with Dr. Mata who did come to see the patient in emergency department - Lab Data Result diagrams: 06/18/21 11:16 06/18/21 11:16 Lab Results 06/18/21 06/18/21 06/18/21 Range/Units 11:04 11:16 11:16 WBC 17.5 H (3.8-10.6) k/uL RBC 4.68 (3.80-5.40) m/uL Hgb 13.1 D (11.4-16.0) gm/dL Hct 40.8 (34.0-46.0) % MCV 87.2 (80.0-100.0) fL MCH 28.1 (25.0-35.0) pg MCHC 32.2 (31.0-37.0) g/dL RDW 15.1 (11.5-15.5) % Plt Count 189 (150-450) k/uL MPV 9.8 Neutrophils % 85 % Lymphocytes % 7 % Monocytes % 5 % Eosinophils % 0 % Basophils % 0 % Neutrophils # 14.9 H (1.3-7.7) k/uL Lymphocytes # 1.3 (1.0-4.8) k/uL Monocytes # 0.9 (0-1.0) k/uL Eosinophils # 0.1 (0-0.7) k/uL Basophils # 0.1 (0-0.2) k/uL PT 12.4 H (9.0-12.0) sec INR 1.2 H (<1.2) APTT 25.7 (22.0-30.0) sec D-Dimer 0.95 H (<0.60) mg/L FEU Sodium (137-145) mmol/L Potassium (3.5-5.1) mmol/L Chloride (98-107) mmol/L Carbon Dioxide (22-30) mmol/L Anion Gap mmol/L BUN (7-17) mg/dL Creatinine (0.52-1.04) mg/dL Est GFR (CKD-EPI)AfAm (>60 ml/min/1.73 sqM) Est GFR (CKD-EPI)NonAf (>60 ml/min/1.73 sqM) Glucose (74-99) mg/dL POC Glucose (mg/dL) 150 H (75-99) mg/dL POC Glu Fitness Specialist ID AdamaorlandoLizbeth colon Plasma Lactic Acid Vincent (0.7-2.0) mmol/L Calcium (8.4-10.2) mg/dL Magnesium (1.6-2.3) mg/dL Total Bilirubin (0.2-1.3) mg/dL AST (14-36) U/L ALT (4-34) U/L Alkaline Phosphatase (38-126) U/L Creatine Kinase (30-135) U/L Troponin I (0.000-0.034) ng/mL NT-Pro-B Natriuret Pep pg/mL Total Protein (6.3-8.2) g/dL Albumin (3.5-5.0) g/dL 06/18/21 06/18/21 06/18/21 Range/Units 11:16 11:16 11:16 WBC (3.8-10.6) k/uL RBC (3.80-5.40) m/uL Hgb (11.4-16.0) gm/dL Hct (34.0-46.0) % MCV (80.0-100.0) fL MCH (25.0-35.0) pg MCHC (31.0-37.0) g/dL RDW (11.5-15.5) % Plt Count (150-450) k/uL MPV Neutrophils % % Lymphocytes % % Monocytes % % Eosinophils % % Basophils % % Neutrophils # (1.3-7.7) k/uL Lymphocytes # (1.0-4.8) k/uL Monocytes # (0-1.0) k/uL Eosinophils # (0-0.7) k/uL Basophils # (0-0.2) k/uL PT (9.0-12.0) sec INR (<1.2) APTT (22.0-30.0) sec D-Dimer (<0.60) mg/L FEU Sodium 134 L (137-145) mmol/L Potassium 4.4 (3.5-5.1) mmol/L Chloride 102 (98-107) mmol/L Carbon Dioxide 22 (22-30) mmol/L Anion Gap 10 mmol/L BUN 46 H (7-17) mg/dL Creatinine 1.59 H (0.52-1.04) mg/dL Est GFR (CKD-EPI)AfAm 42 (>60 ml/min/1.73 sqM) Est GFR (CKD-EPI)NonAf 37 (>60 ml/min/1.73 sqM) Glucose 149 H (74-99) mg/dL POC Glucose (mg/dL) (75-99) mg/dL POC Glu Fitness Specialist ID Plasma Lactic Acid Vincent 1.7 (0.7-2.0) mmol/L Calcium 8.8 (8.4-10.2) mg/dL Magnesium 2.1 (1.6-2.3) mg/dL Total Bilirubin 1.6 H (0.2-1.3) mg/dL AST 48 H (14-36) U/L ALT 19 (4-34) U/L Alkaline Phosphatase 58 (38-126) U/L Creatine Kinase 535 H (30-135) U/L Troponin I 1.290 H* (0.000-0.034) ng/mL NT-Pro-B Natriuret Pep pg/mL Total Protein 6.8 (6.3-8.2) g/dL Albumin 3.4 L (3.5-5.0) g/dL 06/18/21 Range/Units 11:16 WBC (3.8-10.6) k/uL RBC (3.80-5.40) m/uL Hgb (11.4-16.0) gm/dL Hct (34.0-46.0) % MCV (80.0-100.0) fL MCH (25.0-35.0) pg MCHC (31.0-37.0) g/dL RDW (11.5-15.5) % Plt Count (150-450) k/uL MPV Neutrophils % % Lymphocytes % % Monocytes % % Eosinophils % % Basophils % % Neutrophils # (1.3-7.7) k/uL Lymphocytes # (1.0-4.8) k/uL Monocytes # (0-1.0) k/uL Eosinophils # (0-0.7) k/uL Basophils # (0-0.2) k/uL PT (9.0-12.0) sec INR (<1.2) APTT (22.0-30.0) sec D-Dimer (<0.60) mg/L FEU Sodium (137-145) mmol/L Potassium (3.5-5.1) mmol/L Chloride (98-107) mmol/L Carbon Dioxide (22-30) mmol/L Anion Gap mmol/L BUN (7-17) mg/dL Creatinine (0.52-1.04) mg/dL Est GFR (CKD-EPI)AfAm (>60 ml/min/1.73 sqM) Est GFR (CKD-EPI)NonAf (>60 ml/min/1.73 sqM) Glucose (74-99) mg/dL POC Glucose (mg/dL) (75-99) mg/dL POC Glu Fitness Specialist ID Plasma Lactic Acid Vincent (0.7-2.0) mmol/L Calcium (8.4-10.2) mg/dL Magnesium (1.6-2.3) mg/dL Total Bilirubin (0.2-1.3) mg/dL AST (14-36) U/L ALT (4-34) U/L Alkaline Phosphatase (38-126) U/L Creatine Kinase (30-135) U/L Troponin I (0.000-0.034) ng/mL NT-Pro-B Natriuret Pep 04436 pg/mL Total Protein (6.3-8.2) g/dL Albumin (3.5-5.0) g/dL - EKG Data -: EKG Interpreted by Ak EKG shows normal: sinus rhythm EKG Comments: Sinus tachycardia rate 129 [place] interval 150 to QRS 88 QT/QTC 294/4:30 possible left atrial enlargement low-voltage abnormal QRS-T angle - Radiology Data Radiology results: report reviewed (Evidence of venous congestion complete report), image reviewed Critical Care Time Critical Care Time: Yes Total Critical Care Time: 35 Critical Care Time: Critical care time including initial presentation with history physical labs x-rays multiple reevaluation patient responsive therapy review of old charting discussed with the patient family regarding findings discussed with the admitting physician admission orders and documentation of the above Disposition Clinical Impression: Systolic congestive heart failure, Non-STEMI (non-ST elevated myocardial infarction), Sinus tachycardia Disposition: ADMITTED IP TO THIS HOSP Condition: Fair Referrals: None,Stated [Primary Care Provider] - 1-2 days
[2021-06-18 11:45] LABS: Basophils # (A) 0.1 k/uL (0-0.2); Basophils % (A) 0 %; Eosinophils # (A) 0.1 k/uL (0-0.7); Eosinophils % (A) 0 %; HCT 40.8 % (34.0-46.0); Lymphocytes # (A) 1.3 k/uL (1.0-4.8); Lymphocytes % (A) 7 %; MCH 28.1 pg (25.0-35.0); MCHC 32.2 g/dL (31.0-37.0); MCV 87.2 fL (80.0-100.0); Mean Platelet Volume 9.8; Monocytes # (A) 0.9 k/uL (0-1.0); Monocytes % (A) 5 %; Neutrophils # (A) 14.9 k/uL (1.3-7.7); Neutrophils % (A) 85 %; Platelet Count 189 k/uL (150-450); RBC 4.68 m/uL (3.80-5.40); RDW 15.1 % (11.5-15.5); WBC 17.5 k/uL (3.8-10.6)
[2021-06-18 11:48] LABS: HGB 13.1 gm/dL (11.4-16.0)
[2021-06-18 11:50] LABS: Albumin 3.4 g/dL (3.5-5.0); Calcium 8.8 mg/dL (8.4-10.2); Magnesium 2.1 mg/dL (1.6-2.3); Potassium 4.4 mmol/L (3.5-5.1); Total Bilirubin 1.6 mg/dL (0.2-1.3); Total Protein 6.8 g/dL (6.3-8.2)
[2021-06-18 12:04] LABS: INR 1.2 (<1.2); Partial Thromboplastin Time 25.7 sec (22.0-30.0); Prothrombin Time 12.4 sec (9.0-12.0)
--- NOTE | 2021-06-18 12:32 | XR ---
EXAMINATION TYPE: XR chest 2V DATE OF EXAM: 06/18/2021 COMPARISON: 05/12/2018 TECHNIQUE: PA and lateral views submitted. HISTORY: Shortness of breath FINDINGS: There are patchy bilateral interstitial infiltrates. Heart size normal. No pleural effusion or pneumo thorax. Diffuse osteopenia and arthropathy of the shoulders. IMPRESSION: 1. Correlate for interstitial pneumonitis versus venous congestion.
[2021-06-18] MEDS ORDERED: FUROSEMIDE 10 MG/ML 4 ML VIAL IV STA (12:41)
[2021-06-18] MEDS ORDERED: NITROGLYCERIN SL TABS 0.4 MG TAB SUBLINGUAL PRN (13:59)
[2021-06-18] MEDS ORDERED: traMADol 50 MG TAB PO PRN (14:01)
[2021-06-18] MEDS: SODIUM CHLORIDE 0.9% 1,000 ML IV SCH (14:39)
[2021-06-18] MEDS ORDERED: METOPROLOL TARTRATE 5 MG/5 ML VIAL IVP STA (14:50)
[2021-06-18] MEDS ORDERED: IPRATROPIUM-ALBUTEROL 3 ML NEB INHALATION PRN (14:59)
--- NOTE | 2021-06-18 15:03 | P.HPIM ---
History of Present Illness H&P Date: 06/18/21 Chief Complaint: Shortness of breath This is a 55-year-old female with past medical history noted below significant for history of pulmonary emboli on anticoagulation with Eliquis that presented to the hospital with worsening shortness of breath. Patient said that couple of days ago she had the laser lithotripsy and stent placement to the right ureter and afterward she started feeling shortness of breath when she got home. This is being getting progressively worse for the past 2 days. Patient denies any orthopnea or chest pain. No cough or fever. No recent sick contact. Patient was evaluated in the ER and was found to be hypoxic requiring 4 L of oxygen via nasal cannula. Chest x-ray showed bilateral infiltrate and BNP was significantly elevated. Patient was also noted to have elevated troponin that twelve-lead EKG showed no acute ischemic changes. She was noted to be in sinus tachycardia. Patient will be admitted to the hospital for further management. When I asked the patient if she smokes she told me not enough and she would like to have a cigarettes right now. Her family members told me that she smokes one and a half pack per day. Review of Systems Review of system: 14 points review of systems were obtained and were negative except to what were mentioned in the HPI. Past Medical History Past Medical History: Diabetes Mellitus, GERD/Reflux, Hypertension, Pulmonary Embolus (PE) Additional Past Medical History / Comment(s): Previous history of pulmonary embolism in 2013, obesity, previous history of DVT involving the left lower extremity, diabetes mellitus, hypertension, acid reflux, chronic back pain, normal coronaries based on a cardiac catheterization from June 2015 History of Any Multi-Drug Resistant Organisms: None Reported Past Surgical History: Orthopedic Surgery Additional Past Surgical History / Comment(s): Rt shoulder rotator cuff repair Past Anesthesia/Blood Transfusion Reactions: No Reported Reaction Additional Past Anesthesia/Blood Transfusion Reaction / Comment(s): STATES HAS BEHAVIOR CHANGES POST OP Past Psychological History: No Psychological Hx Reported Smoking Status: Current every day smoker Past Alcohol Use History: None Reported Past Drug Use History: None Reported - Past Family History Father Family Medical History: No Reported History Mother Family Medical History: No Reported History Medications and Allergies Home Medications Medication Instructions Recorded Confirmed Type Apixaban [Eliquis] 5 mg PO BID 06/12/21 06/18/21 History Cholecalciferol [Vitamin D3 (25 50 mcg PO DAILY 06/12/21 06/18/21 History Mcg = 1000 Iu)] Fenofibrate 160 mg PO HS 06/12/21 06/18/21 History Ferrous Sulfate [Iron] 325 mg PO DAILY 06/12/21 06/18/21 History Metoprolol Tartrate [Lopressor] 75 mg PO BID 06/12/21 06/18/21 History Pregabalin [Lyrica] 200 mg PO BID 06/12/21 06/18/21 History lisinopriL 20 mg PO DAILY 06/12/21 06/18/21 History metFORMIN HCL [Glucophage] 500 mg PO BID 06/12/21 06/18/21 History traMADol HCL [Ultram] 50 mg PO Q6HR PRN 3 Days #12 tab 06/16/21 06/18/21 Rx Furosemide [Lasix] 40 mg PO DAILY 06/18/21 06/18/21 History Allergies Allergy/AdvReac Type Severity Reaction Status Date / Time bee venom protein (honey bee) Allergy Severe Swelling Verified 06/18/21 14:28 acetaminophen [From Tylenol] Allergy Anaphylaxis Verified 06/18/21 14:28 morphine Allergy Swelling Verified 06/18/21 14:28 Penicillins Allergy Rash/Hives Verified 06/18/21 14:28 all citrus Allergy Anaphylaxis Uncoded 06/18/21 14:28 Physical Exam Vitals: Vital Signs Temp Pulse Resp BP Pulse Ox 06/18/21 14:30 128 H 130/80 96 06/18/21 14:00 124 H 22 145/74 95 06/18/21 13:30 125 H 24 145/74 99 06/18/21 13:03 122 H 18 145/74 94 L 06/18/21 13:00 122 H 22 148/75 94 L 06/18/21 12:00 122 H 18 97 06/18/21 11:36 120 H 06/18/21 11:30 125 H 24 100/68 97 06/18/21 11:28 116 H 06/18/21 11:22 99.5 F 06/18/21 10:54 125 H 18 115/77 99 Intake and Output 06/18/21 06/18/21 06/18/21 06:59 14:59 22:59 Output Total 275 Balance -275 Output: Urine 275 Other: Weight 100.244 kg General: The patient is awake and alert, in no distress Eye: there is normal conjunctiva bilaterally. Neck: The neck is supple, there is no JVD. Cardiovascular: Normal S1-S2, no S3-S4, no murmurs. Respiratory: Lungs clear to auscultation bilaterally Gastrointestinal: Abdomen is soft, nontender Musculoskeletal: There is no pedal edema. Neurological:. Speech is normal. Skin: Skin is warm and dry Results CBC & Chem 7: 06/18/21 11:16 06/18/21 11:16 Labs: Abnormal Lab Results - Last 24 Hours (Table) 06/18/21 06/18/21 06/18/21 Range/Units 11:04 11:16 11:16 WBC 17.5 H (3.8-10.6) k/uL Neutrophils # 14.9 H (1.3-7.7) k/uL PT 12.4 H (9.0-12.0) sec INR 1.2 H (<1.2) D-Dimer 0.95 H (<0.60) mg/L FEU Sodium (137-145) mmol/L BUN (7-17) mg/dL Creatinine (0.52-1.04) mg/dL Glucose (74-99) mg/dL POC Glucose (mg/dL) 150 H (75-99) mg/dL Total Bilirubin (0.2-1.3) mg/dL AST (14-36) U/L Creatine Kinase (30-135) U/L Troponin I (0.000-0.034) ng/mL Albumin (3.5-5.0) g/dL 06/18/21 06/18/21 Range/Units 11:16 11:16 WBC (3.8-10.6) k/uL Neutrophils # (1.3-7.7) k/uL PT (9.0-12.0) sec INR (<1.2) D-Dimer (<0.60) mg/L FEU Sodium 134 L (137-145) mmol/L BUN 46 H (7-17) mg/dL Creatinine 1.59 H (0.52-1.04) mg/dL Glucose 149 H (74-99) mg/dL POC Glucose (mg/dL) (75-99) mg/dL Total Bilirubin 1.6 H (0.2-1.3) mg/dL AST 48 H (14-36) U/L Creatine Kinase 535 H (30-135) U/L Troponin I 1.290 H* (0.000-0.034) ng/mL Albumin 3.4 L (3.5-5.0) g/dL Assessment and Plan Assessment: 1. Acute exacerbation of congestive heart failure: I would start IV Lasix 40 mg twice daily. Obtain echocardiogram for further evaluation. 2. Acute hypoxic respiratory failure: Currently on 4 L of oxygen. Wean off O2 as tolerated 3. Troponin elevation: Most likely thrombotic troponin leak secondary to hypo jose d. We will continue telemetry monitoring and trend troponin 4. History of pulmonary emboli on anticoagulation with Eliquis: Patient reported being compliant with her medication. She said that she did not stop her Eliquis prior to urologic procedure on the 5. History of moderate pulmonary hypertension 6. History of medication noncompliance Today, I reviewed her medication list and lab work results. Cardiology consulted for further evaluation. I would obtain pro-calcitonin. Strict I's and O was otherwise and daily weights. Repeat chest x-ray and BNP within the next day or 2.
[2021-06-18 16:46] LABS: Glucose,Whole Blood 140 mg/dL (75-99)
[2021-06-18] MEDS: AZITHROMYCIN 500 MG TAB PO SCH (17:53)
[2021-06-18] MEDS: INSULIN ASPART (NovoLOG) 100 UNIT/ML VIAL SQ SCH ×2 (18:12→20:42)
[2021-06-18] MEDS: NITROGLYCERIN OINT 1 INCH/GM PACKET TOPICAL SCH ×2 (18:48→22:57)
[2021-06-18 18:49] LABS: Appearance,Urine Cloudy (Clear); Bacteria,Urine Rare /hpf; Bilirubin,Urine Negative (Negative); Blood,Urine Large (Negative); Color,Urine Yellow; Glucose,Urine (UA) Negative (Negative); Hyaline Casts,Urine 9 /lpf (0-2); Ketones,Urine Negative (Negative); Leukocyte Esterase,Urine Large (Negative); Mucus,Urine Rare /hpf; Nitrite,Urine Negative (Negative); PH, Urine 5.5 (5.0-8.0); Protein,Urine 1+ (Negative); RBC,Urine 90 /hpf (0-5); Specific Gravity,Urine 1.013 (1.001-1.035); Squamous Epithelial Cell,Urine 1 /hpf (0-4); WBC,Urine >182 /hpf (0-5)
[2021-06-18] MEDS: PREGABALIN 100 MG CAP PO SCH (19:40)
[2021-06-18] MEDS: METOPROLOL TARTRATE 25 MG TAB PO SCH (19:40)
[2021-06-18] MEDS: APIXABAN 5 MG TAB PO SCH (19:41)
[2021-06-18] MEDS: FUROSEMIDE 10 MG/ML 4 ML VIAL IV SCH (19:41)
[2021-06-18 20:26] LABS: Glucose,Whole Blood 110 mg/dL (75-99)
[2021-06-18] MEDS ORDERED: FENOFIBRATE 160 MG TAB PO SCH (21:00)
[2021-06-18] MEDS ORDERED: metFORMIN 500 MG TAB PO SCH (21:00)
[2021-06-19] MEDS: NITROGLYCERIN OINT 1 INCH/GM PACKET TOPICAL SCH (06:14)
[2021-06-19 06:17] LABS: Glucose,Whole Blood 92 mg/dL (75-99)
[2021-06-19] MEDS: INSULIN ASPART (NovoLOG) 100 UNIT/ML VIAL SQ SCH ×4 (06:25→20:24)
[2021-06-19 08:06] LABS: Calcium 8.6 mg/dL (8.4-10.2); Magnesium 2.3 mg/dL (1.6-2.3); Potassium 4.6 mmol/L (3.5-5.1)
--- NOTE | 2021-06-19 08:55 | XR ---
EXAMINATION TYPE: XR chest 1V portable DATE OF EXAM: 06/19/2021 COMPARISON: 06/18/2021 HISTORY: Shortness of breath TECHNIQUE: Single frontal view of the chest is obtained. FINDINGS: Patchy perihilar infiltrates persist with mild improvement. Elevated hemidiaphragm. Promin ence the right hilum again noted. Heart size stable. No pneumothorax. Diffuse osteopenia. Exam limite d by reduced inspiration. IMPRESSION: 1. Improving bilateral perihilar infiltrates. Correlate for improving interstitial pneumonia versus C HF. 2. Prominence of the right hilum consider follow-up CT chest.
[2021-06-19] MEDS ORDERED: ASPIRIN 325 MG TAB PO SCH (09:00)
[2021-06-19] MEDS ORDERED: lisinopriL 20 MG TAB PO SCH (09:00)
[2021-06-19] MEDS: traMADol 50 MG TAB PO PRN (09:13)
[2021-06-19] MEDS ORDERED: LACTULOSE 20 GM/30 ML CUP PO ONE (09:18)
[2021-06-19] MEDS: CHOLECALCIFEROL 25 MCG (1000 IU) TABLET PO SCH (09:59)
[2021-06-19] MEDS: FERROUS SULFATE 325 MG TAB PO SCH (09:59)
[2021-06-19] MEDS: METOPROLOL TARTRATE 25 MG TAB PO SCH ×2 (09:59→20:32)
[2021-06-19] MEDS: PREGABALIN 100 MG CAP PO SCH ×2 (09:59→20:33)
[2021-06-19] MEDS: APIXABAN 5 MG TAB PO SCH ×2 (09:59→20:33)
--- NOTE | 2021-06-19 10:20 | US ---
EXAMINATION TYPE: US kidneys/renal and bladder DATE OF EXAM: 06/19/2021 COMPARISON: NONE CLINICAL HISTORY: ZARA recent stent. known right renal stone, obese patient with right flank pain, thomas nt placed 4 days ago EXAM MEASUREMENTS: Right Kidney: 12.3 x 5.2 x 6.0cm cm Left Kidney: not seen Right Kidney: 2.3cm echogenic foci with slight shadowing may represent known stone, limited views due to habitus Left Kidney: bowel gas obscures kidney Bladder: de souza limits assessment. No obvious hydronephrosis. IMPRESSION: 2.3 cm right renal calculus with no definite hydronephrosis
[2021-06-19] MEDS ORDERED: HYDROmorphone 1 MG/ML 1 ML SYRINGE IVP STA (10:58)
[2021-06-19 11:41] LABS: Glucose,Whole Blood 99 mg/dL (75-99)
--- NOTE | 2021-06-19 14:16 | P.PN ---
Subjective Progress Note Date: 06/19/21 Patient is complaining of worsening right lower quadrant pain. She denies shortness breath today. No blood in her urine noted in the Bland catheter bag. Objective - Vital Signs Vital signs: Vital Signs Temp 99.7 F H 06/19/21 08:00 Pulse 90 06/19/21 11:39 Resp 20 06/19/21 11:39 BP 113/59 06/19/21 11:39 Pulse Ox 96 06/19/21 11:39 Intake & Output 06/18/21 06/19/21 06/19/21 18:59 06:59 18:59 Output Total 775 1000 Balance -775 -1000 Weight 100.244 kg 92 kg Output: Urine 775 1000 Other: Voiding Method Indwelling Catheter Indwelling Catheter Indwelling Catheter - Exam General: The patient is awake and alert, in no distress Eye: there is normal conjunctiva bilaterally. Neck: The neck is supple, there is no JVD. Cardiovascular: Normal S1-S2, no S3-S4, no murmurs. Respiratory: Lungs clear to auscultation bilaterally Gastrointestinal: Abdomen is soft, nontender Musculoskeletal: There is no pedal edema. Neurological:. Speech is normal. Skin: Skin is warm and dry - Labs CBC & Chem 7: 06/18/21 11:16 06/19/21 07:13 Labs: Abnormal Lab Results - Last 24 Hours (Table) 06/18/21 06/18/21 06/18/21 Range/Units 11:16 14:22 16:34 Sodium (137-145) mmol/L BUN (7-17) mg/dL Creatinine (0.52-1.04) mg/dL Glucose (74-99) mg/dL POC Glucose (mg/dL) 140 H (75-99) mg/dL Troponin I 1.580 H* (0.000-0.034) ng/mL Procalcitonin 0.95 H (0.02-0.09) ng/mL Urine Appearance (Clear) Urine Protein (Negative) Urine Blood (Negative) Ur Leukocyte Esterase (Negative) Urine RBC (0-5) /hpf Urine WBC (0-5) /hpf Urine WBC Clumps (None) /hpf Urine Bacteria (None) /hpf Hyaline Casts (0-2) /lpf Urine Mucus (None) /hpf 08/09/2806/18/21 06/18/21 Range/Units 17:21 18:00 20:25 Sodium (137-145) mmol/L BUN (7-17) mg/dL Creatinine (0.52-1.04) mg/dL Glucose (74-99) mg/dL POC Glucose (mg/dL) 110 H (75-99) mg/dL Troponin I 1.640 H* (0.000-0.034) ng/mL Procalcitonin (0.02-0.09) ng/mL Urine Appearance Cloudy H (Clear) Urine Protein 1+ H (Negative) Urine Blood Large H (Negative) Ur Leukocyte Esterase Large H (Negative) Urine RBC 90 H (0-5) /hpf Urine WBC >182 H (0-5) /hpf Urine WBC Clumps Moderate H (None) /hpf Urine Bacteria Rare H (None) /hpf Hyaline Casts 9 H (0-2) /lpf Urine Mucus Rare H (None) /hpf 06/19/21 Range/Units 07:13 Sodium 136 L (137-145) mmol/L BUN 53 H (7-17) mg/dL Creatinine 1.73 H (0.52-1.04) mg/dL Glucose 105 H (74-99) mg/dL POC Glucose (mg/dL) (75-99) mg/dL Troponin I (0.000-0.034) ng/mL Procalcitonin (0.02-0.09) ng/mL Urine Appearance (Clear) Urine Protein (Negative) Urine Blood (Negative) Ur Leukocyte Esterase (Negative) Urine RBC (0-5) /hpf Urine WBC (0-5) /hpf Urine WBC Clumps (None) /hpf Urine Bacteria (None) /hpf Hyaline Casts (0-2) /lpf Urine Mucus (None) /hpf Microbiology - Last 24 Hours (Table) 06/18/21 18:00 Urine Culture - Preliminary Urine,Clean Catch Assessment and Plan Assessment: 1. Acute exacerbation of congestive heart failure: Unclear type. Awaiting echocardiogram reading. Improved with IV Lasix. Now transitioned to oral Lasix. Seen and evaluated by cardiology. 2. Acute hypoxic respiratory failure: Wean off O2 as tolerated 3. Troponin elevation: Most likely thrombotic troponin leak secondary to hypoxia. We will continue telemetry monitoring. Awaiting cardiology evaluation 4. History of pulmonary emboli on anticoagulation with Eliquis: Patient rep orted being compliant with her medication. She said that she did not stop her Eliquis prior to urologic procedure on the 5. History of moderate pulmonary hypertension 6. History of medication noncompliance 7. Recent cystoscopy with laser lithotripsy and stent insertion to right ureter, now with worsening right lower quadrant pain. Ultrasound showed 2.3 cm right renal calculus with no definite hydronephrosis. Urology consulted for further evaluation. 8. Bilateral pneumonia, with elevated pro-calcitonin. Started on IV ceftriaxone and azithromycin day #2 Today, I reviewed her medication list and lab work results. Strict I's and O was otherwise and daily weights. Repeat BNP tomorrow
[2021-06-19 15:05] LABS: Chol/HDL Ratio 8.5
[2021-06-19] MEDS: AZITHROMYCIN 500 MG TAB PO SCH (16:31)
--- NOTE | 2021-06-19 16:32 | CONS ---
CONSULTATION Mrs. Alves is a 55-year-old female with history of pulmonary embolism, history of mild coronary artery disease by cardiac catheterization in 2014, history of chronic tobacco use, diabetes and hypertension who presented to the emergency room with symptoms of progressive dyspnea, abdominal pain. She had recent lithotripsy and stent placement of the right ureter and started to complain of progressive dyspnea. She denied any chest discomfort. In the emergency room, she was noted to have symptoms of heart failure as well as elevation of her troponin and worsening renal function and she was admitted. She was last seen in our office in 2014. She has underwent cardiac catheterization in June 2015. At that time, had mild obstructive disease. Her systolic function was preserved. The patient denies any symptoms of chest discomfort. She has the dyspnea but no peripheral edema. She denies any dizziness or palpitation. Her main complaint this morning his right-sided discomfort. She has no PND or orthopnea. She smokes over a pack a day. Has dyspnea on exertion chronically. She denies any recent cough or fever, although she was febrile in the hospital. Her coronary risk factors remarkable for the history of diabetes, hypertension and hyperlipidemia. MEDICATION: Her medications at home include Eliquis 5 mg twice a day, fenofibrate 160 mg daily, Lasix 40 mg daily, metoprolol tartrate 75 mg twice a day, Lyrica 200 mg twice a day, lisinopril 20 mg daily, metformin 5 mg twice a day, and tramadol. REVIEW OF SYSTEMS: Respiratory system: She had dyspnea on exertion, chronic tobacco use. GI system: She has no nausea or vomiting. No GI bleeding. system: She recently underwent ureteral stenting and has renal calculus. She has abdominal discomfort on the right flank. She denies any hematuria. She has a Bland catheter at this time and she has no hematuria noted. Nervous system: No stroke or seizure. PHYSICAL EXAMINATION: 55-year-old female, alert, oriented, in mild discomfort. Obese. Blood pressure 109/50 with a heart rate in the 90s. She had a temperature of a 100.4 earlier. HEAD: Normocephalic. Eyes: Sclerae anicteric. NECK: Good carotid upstroke. No bruit. No jugular venous distention. LUNGS: Clear to auscultation. HEART: Regular rate and rhythm S1, S2. No S3 with systolic murmur at the base. No diastolic murmur. No rub. ABDOMEN: Soft, tenderness on the right flank. No rebound. Positive bowel sounds. No organomegaly. EXTREMITIES: No edema. Intact distal pulses. LAB DATA: Revealed a white blood cell of 17.5. Her D-dimer 0.95. Hemoglobin of 13.1, BUN and creatinine of 46 and 1.59. Her troponin 1.2, 1.5 [place] [address]. Her procalcitonin was 0.95. Her BUN and creatinine this morning are 53 and 1.73. Her potassium 4.6. She has a large amount of leuko esterase in the urine and moderate white blood cells. Her EKG showed a sinus tachycardia with nonspecific ST-T wave changes. Her chest x-ray yesterday revealed evidence of congestion with a repeat x-ray this morning showing improvement in the congestion with a prominence of the right hilum that could reflect mass. IMPRESSION: 1. Symptoms of progressive dyspnea with evidence of congestive heart failure, the systolic function in the past was preserved . 2. Troponin elevated, most likely related to secondary event a type 2 myocardial infarction secondary to probable urinary tract infection and worsening renal function. 3. History of pulmonary embolism, anticoagulated. 4. History of hypertension. 5. Diabetes mellitus. 6. Chronic tobacco use. RECOMMENDATIONS: I will cut down the dose of her BELEN inhibitor at this time because of the blood pressure being on the low side. I will change her to oral diuretics and an echocardiogram with Doppler will be obtained. I will stop the fenofibrate and add a statin to her regimen. We will await the input of the urologist. Depending on her progress, further recommendation will be made. Thank you for this consult. We will follow with you. MMODL / IJN: [id number] / JASMYNE
[2021-06-19] MEDS: SODIUM CHLORIDE 0.9% 1,000 ML IV SCH (16:33)
[2021-06-19 16:39] LABS: Glucose,Whole Blood 97 mg/dL (75-99)
--- NOTE | 2021-06-19 17:57 | ECHOF ---
Referral Reason:CHF MEASUREMENTS -------- HEIGHT: 172.7 cm WEIGHT: 100.2 kg BP: 115/77 RVIDd: 3.1 cm (< 3.3) IVSd: 1.7 cm (0.6 - 1.1) LVIDd: 3.0 cm (3.9 - 5.3) LVPWd: 1.7 cm (0.6 - 1.1) IVSs: 2.1 cm LVIDs: 1.6 cm LVPWs: 2.3 cm LAESV Index (A-L): 32.22 ml/m Ao Diam: 3.2 cm (2.0 - 3.7) AV Cusp: 1.8 cm (1.5 - 2.6) LA Diam: 3.4 cm (2.7 - 3.8) FINDINGS -------- Resting tachycardia (HR>100bpm). This was a technically difficult study with suboptimal apical views. The left ventricular size is normal. There is severe concentric left ventricular hypertrophy. Ove rall left ventricular systolic function is normal with, an EF between 65 - 70 %. The right ventricle is normal in size. LA is midly dilated 29-33ml/m2. The right atrial size is normal. Lumason used Interatrial and interventricular septum intact. The aortic valve was not well visualized. There is no evidence of aortic regurgitation. There is no evidence of aortic stenosis. Mild mitral regurgitation is present. Mild tricuspid regurgitation present. There is no evidence of pulmonary hypertension. The right v entricular systolic pressure, as measured by Doppler, is {RVSP}. There is no pulmonic regurgitation present. The aortic root size is normal. IVC Not well visulized. There is no pericardial effusion. CONCLUSIONS -------- 1. The left ventricular size is normal. 2. There is severe concentric left ventricular hypertrophy. 3. Overall left ventricular systolic function is normal with, an EF between 65 - 70 %. 4. LA is midly dilated 29-33ml/m2. 5. Mild mitral regurgitation is present. 6. Mild tricuspid regurgitation present. DIRECTOR: Adrianne Lynne [facility]
[2021-06-19 20:19] LABS: Glucose,Whole Blood 130 mg/dL (75-99)
[2021-06-19] MEDS: polyethylene glycoL 3350 17 GM POWD.PACK PO SCH (20:32)
[2021-06-19] MEDS: FUROSEMIDE 20 MG TAB PO SCH (20:33)
[2021-06-19] MEDS: FUROSEMIDE 10 MG/ML 4 ML VIAL IV SCH (21:01)
[2021-06-20] MEDS: MORPHINE SULFATE 2 MG/ML SYRINGE IVP STA ×2 (00:21→01:03)
[2021-06-20] MEDS ORDERED: HYDROmorphone 0.5 MG/0.5 ML SYRINGE IVP STA (00:44)
[2021-06-20 06:02] LABS: Glucose,Whole Blood 98 mg/dL (75-99)
[2021-06-20] MEDS: INSULIN ASPART (NovoLOG) 100 UNIT/ML VIAL SQ SCH ×4 (06:03→20:12)
[2021-06-20 08:14] LABS: Basophils % (A) 0 %; Eosinophils # (A) 0.2 k/uL (0-0.7); Eosinophils % (A) 2 %; HCT 39.3 % (34.0-46.0); HGB 12.2 gm/dL (11.4-16.0); Hypochromasia Slight; Lymphocytes # (A) 1.5 k/uL (1.0-4.8); Lymphocytes % (A) 14 %; MCH 28.7 pg (25.0-35.0); MCHC 31.1 g/dL (31.0-37.0); Monocytes # (A) 0.7 k/uL (0-1.0); Monocytes % (A) 7 %; Neutrophils # (A) 7.3 k/uL (1.3-7.7); Neutrophils % (A) 73 %; Platelet Count 172 k/uL (150-450); RBC 4.25 m/uL (3.80-5.40); RDW 14.8 % (11.5-15.5); WBC 10.1 k/uL (3.8-10.6)
[2021-06-20 08:27] LABS: MCV 92.4 fL (80.0-100.0)
[2021-06-20 08:39] LABS: Potassium 5.1 mmol/L (3.5-5.1)
[2021-06-20 08:40] LABS: Calcium 8.5 mg/dL (8.4-10.2); Magnesium 2.5 mg/dL (1.6-2.3)
[2021-06-20] MEDS: PREGABALIN 100 MG CAP PO SCH ×2 (10:02→20:18)
[2021-06-20] MEDS: FUROSEMIDE 20 MG TAB PO SCH ×2 (10:03→20:18)
[2021-06-20] MEDS: CHOLECALCIFEROL 25 MCG (1000 IU) TABLET PO SCH (10:03)
[2021-06-20] MEDS: ASPIRIN 81 MG PO SCH (10:03)
[2021-06-20] MEDS: FERROUS SULFATE 325 MG TAB PO SCH (10:03)
[2021-06-20] MEDS: METOPROLOL TARTRATE 25 MG TAB PO SCH ×2 (10:03→20:17)
[2021-06-20] MEDS: APIXABAN 5 MG TAB PO SCH ×2 (10:03→20:19)
[2021-06-20] MEDS: lisinopriL 5 MG TAB PO SCH (10:03)
--- NOTE | 2021-06-20 10:26 | P.PN ---
Subjective Progress Note Date: 06/20/21 This a pleasant 55-year-old female patient with a history of pulmonary embolism, mild CAD by cardiac catheterization in 2015 and history of chronic tobacco use, diabetes and hypertension. Presented to the emergency department with symptoms of progressive dyspnea and abdominal pain. She has a recent lithotripsy and stent placement of the right ureter and following that started complaining of progressive dyspnea. She denied any chest discomfort. In the emergency room she was noted to have symptoms of heart failure as well as elevation of her troponin and worsening renal function. Echocardiogram with Doppler study done this admission normal LV systolic function. She continues to complain of pain but overall is feeling a bit better. Blood pressure stable since decreasing her BELEN inhibitor. She is afebrile. Shows some improvement in renal function with a creatinine of 1.57. NT proBNP is down from 22,800 to 5,850. She is breathing better. Objective - Vital Signs Vital signs: Vital Signs Temp 99 F 06/20/21 08:00 Pulse 87 06/20/21 08:00 Resp 20 06/20/21 08:00 BP 105/52 06/20/21 08:00 Pulse Ox 92 L 06/20/21 08:00 Intake & Output 06/19/21 06/20/21 06/20/21 18:59 06:59 18:59 Intake Total 360 240 Output Total 500 Balance 360 -500 240 Intake: Oral 360 240 Output: Urine 500 Other: Voiding Method Indwelling Catheter Indwelling Catheter # Voids 1 # Bowel Movements 0 - Exam PHYSICAL EXAMINATION: HEENT: Head is atraumatic, normocephalic. Pupils equal, round. Neck is supple. There is no elevated jugular venous pressure. HEART EXAMINATION: Heart sounds regular, S1 and S2 with systolic murmur at the base. CHEST EXAMINATION: Lungs are clear to auscultation. No chest wall tenderness is noted on palpation or with deep breathing. ABDOMEN: Soft, nontender. Bowel sounds are heard. No organomegaly noted. EXTREMITIES: 2+ peripheral pulses with no evidence of peripheral edema and no calf tenderness noted. NEUROLOGIC patient is awake, alert and oriented x3. . - Labs CBC & Chem 7: 06/20/21 07:58 06/20/21 07:58 Labs: Abnormal Lab Results - Last 24 Hours (Table) 06/19/21 06/19/21 06/20/21 Range/Units 07:13 20:16 07:58 Sodium 135 L (137-145) mmol/L BUN 63 H (7-17) mg/dL Creatinine 1.57 H (0.52-1.04) mg/dL POC Glucose (mg/dL) 130 H (75-99) mg/dL Magnesium 2.5 H (1.6-2.3) mg/dL Triglycerides 340.0 H (0.0-149.0) mg/dL VLDL Cholesterol, Calc 68.00 H (5.00-40.00) mg/dL HDL Cholesterol 16.0 L (40.0-60.0) mg/dL Microbiology - Last 24 Hours (Table) 06/18/21 23:34 Blood Culture - Preliminary Blood No Growth after 24 hours 06/18/21 18:00 Urine Culture - Final Urine,Clean Catch 06/18/21 11:16 Blood Culture - Preliminary Blood No Growth after 24 hours Assessment and Plan Assessment: #1 symptoms of progressive dyspnea with evidence of congestive heart failure wi th preserved systolic function, improving with improvement of NT-proBNP #2 troponin elevation, most likely related to secondary, type II NE secondary probable urinary tract infection and worsening renal function #3 history of pulmonary embolism, anticoagulated #4 history of hypertension #5 diabetes mellitus #6 chronic tobacco use Plan: From cardiology's perspective medications reviewed and we will continue the same. Awaiting input from urology. Continue to follow the patient with you and provide further recommendations accordingly. TE[facility]ORATORY ASST note has been reviewed, I agree with a documented findings and plan of care. Patient was seen and examined.
[2021-06-20 11:39] LABS: Glucose,Whole Blood 117 mg/dL (75-99)
--- NOTE | 2021-06-20 12:31 | P.PN ---
Subjective Progress Note Date: 06/20/21 Patient reported that her pain is slightly better compared to yesterday. There is no blood in the urine back. Patient was very unsteady on her feet and significant imbalance when she worked with physical therapy earlier. Objective - Vital Signs Vital signs: Vital Signs Temp 99 F 06/20/21 08:00 Pulse 87 06/20/21 08:00 Resp 20 06/20/21 08:00 BP 105/52 06/20/21 08:00 Pulse Ox 92 L 06/20/21 08:00 Intake & Output 06/19/21 06/20/21 06/20/21 18:59 06:59 18:59 Intake Total 360 240 Output Total 500 Balance 360 -500 240 Intake: Oral 360 240 Output: Urine 500 Other: Voiding Method Indwelling Catheter Indwelling Catheter # Voids 1 # Bowel Movements 0 - Exam General: The patient is awake and alert, in no distress Eye: there is normal conjunctiva bilaterally. Neck: The neck is supple, there is no JVD. Cardiovascular: Normal S1-S2, no S3-S4, no murmurs. Respiratory: Lungs clear to auscultation bilaterally Gastrointestinal: Abdomen is soft, nontender Musculoskeletal: There is no pedal edema. Neurological:. Speech is normal. Skin: Skin is warm and dry - Labs CBC & Chem 7: 06/20/21 07:58 06/20/21 07:58 Labs: Abnormal Lab Results - Last 24 Hours (Table) 06/19/21 06/19/21 06/20/21 Range/Units 07:13 20:16 07:58 Sodium 135 L (137-145) mmol/L BUN 63 H (7-17) mg/dL Creatinine 1.57 H (0.52-1.04) mg/dL POC Glucose (mg/dL) 130 H (75-99) mg/dL Magnesium 2.5 H (1.6-2.3) mg/dL Triglycerides 340.0 H (0.0-149.0) mg/dL VLDL Cholesterol, Calc 68.00 H (5.00-40.00) mg/dL HDL Cholesterol 16.0 L (40.0-60.0) mg/dL 06/20/21 Range/Units 11:38 Sodium (137-145) mmol/L BUN (7-17) mg/dL Creatinine (0.52-1.04) mg/dL POC Glucose (mg/dL) 117 H (75-99) mg/dL Magnesium (1.6-2.3) mg/dL Triglycerides (0.0-149.0) mg/dL VLDL Cholesterol, Calc (5.00-40.00) mg/dL HDL Cholesterol (40.0-60.0) mg/dL Microbiology - Last 24 Hours (Table) 06/18/21 23:34 Blood Culture - Preliminary Blood No Growth after 24 hours 06/18/21 18:00 Urine Culture - Final Urine,Clean Catch 06/18/21 11:16 Blood Culture - Preliminary Blood No Growth after 24 hours Assessment and Plan Assessment: This is a 55-year-old female with past medical history noted below that presented to the emergency room with worsening shortness of breath and right l ower quadrant pain. Patient was evaluated in the ER and admitted to the hospital for further management of her medical problems noted below. 1. Acute exacerbation of diastolic congestive heart failure: Echocardiogram showed preserved ejection fraction. Improved with IV Lasix. Now transitioned t o oral Lasix. Seen and evaluated by cardiology. BNP improved significantly 2. Acute hypoxic respiratory failure: Wean off O2 as tolerated 3. Troponin elevation: Most likely thrombotic troponin leak secondary to hypoxia. We will continue telemetry monitoring. No further testing recommended by cardiology 4. History of pulmonary emboli on anticoagulation with Eliquis: Patient reported being compliant with her medication at home 5. History of moderate pulmonary hypertension 6. History of medication noncompliance 7. Recent cystoscopy with laser lithotripsy and stent insertion to right ur eter, now with worsening right lower quadrant pain. Ultrasound showed 2.3 cm right renal calculus with no definite hydronephrosis. Urology consulted for further evaluation. 8. Bilateral pneumonia, with elevated pro-calcitonin. Started on IV ceftriaxone and azithromycin day #3. I would discontinue azithromycin tomorrow Today, I reviewed her medication list and lab work results. Patient is very unsteady on her feet and was seen and evaluated by PT/OT. May need placement. Discussed with social work.
[2021-06-20 16:17] LABS: Glucose,Whole Blood 112 mg/dL (75-99)
[2021-06-20] MEDS: AZITHROMYCIN 500 MG TAB PO SCH (17:55)
[2021-06-20] MEDS: traMADol 50 MG TAB PO PRN (19:19)
[2021-06-20 20:04] LABS: Glucose,Whole Blood 146 mg/dL (75-99)
[2021-06-20] MEDS: polyethylene glycoL 3350 17 GM POWD.PACK PO SCH (20:18)
[2021-06-20] MEDS ORDERED: MORPHINE SULFATE 2 MG/ML SYRINGE IVP STA (20:46)
[2021-06-21] MEDS: SODIUM CHLORIDE 0.9% 1,000 ML IV SCH ×2 (00:55→12:15)
[2021-06-21 05:56] LABS: Glucose,Whole Blood 119 mg/dL (75-99)
[2021-06-21] MEDS: INSULIN ASPART (NovoLOG) 100 UNIT/ML VIAL SQ SCH ×4 (07:02→20:50)
--- NOTE | 2021-06-21 07:48 | P.GSCN ---
History of Present Illness Consult date: 06/20/21 Reason for Consult: Renal calculus Requesting physician: Nicole Lira History of present illness: The patient is a 55-year-old female with a 1.7 cm right-sided renal pelvis calculus and multiple nonobstructive lower pole calculi. She is on chronic anticoagulation due to history of PEs. In view of this, it was decided to perform staged ureteroscopy rather than PCNL (given the large stone burden, it was not anticipated that a single procedure would render her stone free). She underwent cystoscopy, right ureteroscopy with Holmium laser lithotripsy and stone basketing, right ureteral stent insertion on 06/16/2021. Her calculi were composed of calcium oxalate, and she is scheduled to undergo a secondary proced ure on 07/03/2021. She is currently admitted with shortness of breath. She reports mild right-sided abdominal and flank discomfort. Review of Systems - Constitutional Denies chills, Denies fever - Genitourinary Genitourinary: Reports flank pain, Reports kidney stones Past Medical History Past Medical History: Diabetes Mellitus, GERD/Reflux, Hypertension, Pulmonary Embolus (PE) Additional Past Medical History / Comment(s): Previous history of pulmonary embolism in 2013, obesity, previous history of DVT involving the left lower extremity, diabetes mellitus, hypertension, acid reflux, chronic back pain, normal coronaries based on a cardiac catheterization from June 2015 History of Any Multi-Drug Resistant Organisms: None Reported Past Surgical History: Orthopedic Surgery Additional Past Surgical History / Comment(s): Rt shoulder rotator cuff repair Past Anesthesia/Blood Transfusion Reactions: No Reported Reaction Additional Past Anesthesia/Blood Transfusion Reaction / Comm: STATES HAS BEHAVIOR CHANGES POST OP Smoking Status: Former smoker - Past Family History Father Family Medical History: No Reported History Mother Family Medical History: No Reported History Medications and Allergies Home Medications Medication Instructions Recorded Confirmed Type Apixaban [Eliquis] 5 mg PO BID 06/12/21 06/18/21 History Cholecalciferol [Vitamin D3 (25 50 mcg PO DAILY 06/12/21 06/18/21 History Mcg = 1000 Iu)] Fenofibrate 160 mg PO HS 06/12/21 06/18/21 History Ferrous Sulfate [Iron] 325 mg PO DAILY 06/12/21 06/18/21 History Metoprolol Tartrate [Lopressor] 75 mg PO BID 06/12/21 06/18/21 History Pregabalin [Lyrica] 200 mg PO BID 06/12/21 06/18/21 History lisinopriL 20 mg PO DAILY 06/12/21 06/18/21 History metFORMIN HCL [Glucophage] 500 mg PO BID 06/12/21 06/18/21 History traMADol HCL [Ultram] 50 mg PO Q6HR PRN 3 Days #12 tab 06/16/21 06/18/21 Rx Furosemide [Lasix] 40 mg PO DAILY 06/18/21 06/18/21 History Allergies Allergy/AdvReac Type Severity Reaction Status Date / Time bee venom protein (honey bee) Allergy Severe Swelling Verified 06/18/21 14:28 acetaminophen [From Tylenol] Allergy Anaphylaxis Verified 06/18/21 14:28 morphine Allergy Swelling Verified 06/18/21 14:28 Penicillins Allergy Rash/Hives Verified 06/18/21 14:28 all citrus Allergy Anaphylaxis Uncoded 06/18/21 14:28 Surgical - Exam Vital Signs Pulse Resp BP Pulse Ox 125 H 18 115/77 99 06/18/21 10:54 06/18/21 10:54 06/18/21 10:54 06/18/21 10:54 - General well developed, well nourished, moderate distress - Respiratory normal respiratory effort - Abdomen Abdomen: soft, non tender, no masses - Psychiatric oriented to time, oriented to person, oriented to place, speech is normal, memory intact Results - Labs 06/20/21 07:58 06/20/21 07:58 Abnormal Lab Results - Last 24 Hours (Table) 06/19/21 06/19/21 Range/Units 07:13 20:16 Sodium 136 L (137-145) mmol/L BUN 53 H (7-17) mg/dL Creatinine 1.73 H (0.52-1.04) mg/dL Glucose 105 H (74-99) mg/dL POC Glucose (mg/dL) 130 H (75-99) mg/dL Triglycerides 340.0 H (0.0-149.0) mg/dL VLDL Cholesterol, Calc 68.00 H (5.00-40.00) mg/dL HDL Cholesterol 16.0 L (40.0-60.0) mg/dL Microbiology - Last 24 Hours (Table) 06/18/21 23:34 Blood Culture - Preliminary Blood No Growth after 24 hours 06/18/21 18:00 Urine Culture - Final Urine,Clean Catch 06/18/21 11:16 Blood Culture - Preliminary Blood No Growth after 24 hours Diabetes panel 06/19/21 Range/Units 07:13 Sodium 136 L (137-145) mmol/L Potassium 4.6 (3.5-5.1) mmol/L Chloride 104 (98-107) mmol/L Carbon Dioxide 27 (22-30) mmol/L BUN 53 H (7-17) mg/dL Creatinine 1.73 H (0.52-1.04) mg/dL Glucose 105 H (74-99) mg/dL Calcium 8.6 (8.4-10.2) mg/dL Triglycerides 340.0 H (0.0-149.0) mg/dL HDL Cholesterol 16.0 L (40.0-60.0) mg/dL Calcium panel 06/19/21 Range/Units 07:13 Calcium 8.6 (8.4-10.2) mg/dL Pituitary panel 06/19/21 Range/Units 07:13 Sodium 136 L (137-145) mmol/L Potassium 4.6 (3.5-5.1) mmol/L Chloride 104 (98-107) mmol/L Carbon Dioxide 27 (22-30) mmol/L BUN 53 H (7-17) mg/dL Creatinine 1.73 H (0.52-1.04) mg/dL Glucose 105 H (74-99) mg/dL Calcium 8.6 (8.4-10.2) mg/dL Adrenal panel 06/19/21 Range/Units 07:13 Sodium 136 L (137-145) mmol/L Potassium 4.6 (3.5-5.1) mmol/L Chloride 104 (98-107) mmol/L Carbon Dioxide 27 (22-30) mmol/L BUN 53 H (7-17) mg/dL Creatinine 1.73 H (0.52-1.04) mg/dL Glucose 105 H (74-99) mg/dL Calcium 8.6 (8.4-10.2) mg/dL - Imaging US - kidney/bladder: report reviewed Assessment and Plan (1) Calculus of kidney Current Visit: Yes Status: Acute Code(s): N20.0 - CALCULUS OF KIDNEY SNOMED Code(s): 95892555 Plan: I explained to the patient the rationale for a staged approach to removing her right renal calculi. I reiterated that because of her anticoagulants she is not a candidate for a percutaneous nephrolithotomy. She stated she would not undergo another ureteroscopic procedure, and I made clear to her that she has an indwelling ureteral stent and that if she fails to follow through with the treatment plan the health and function of her right kidney is at jeopardy. There is no indication for intervention at this time. As stated, she is scheduled to undergo secondary ureteroscopy with laser lithotripsy on 07/03/2021. Please notify me if we can be of any further assistance.
[2021-06-21 08:13] LABS: Calcium 8.8 mg/dL (8.4-10.2); Potassium 4.7 mmol/L (3.5-5.1)
[2021-06-21] MEDS: lisinopriL 5 MG TAB PO SCH (08:45)
[2021-06-21] MEDS: APIXABAN 5 MG TAB PO SCH ×2 (08:45→19:25)
[2021-06-21] MEDS: CHOLECALCIFEROL 25 MCG (1000 IU) TABLET PO SCH (08:46)
[2021-06-21] MEDS: METOPROLOL TARTRATE 25 MG TAB PO SCH ×2 (08:46→19:25)
[2021-06-21] MEDS: ASPIRIN 81 MG PO SCH (08:46)
[2021-06-21] MEDS: FUROSEMIDE 20 MG TAB PO SCH ×2 (08:46→19:25)
[2021-06-21] MEDS: PREGABALIN 100 MG CAP PO SCH ×2 (08:46→19:25)
[2021-06-21] MEDS: FERROUS SULFATE 325 MG TAB PO SCH (08:46)
[2021-06-21] MEDS ORDERED: LACTULOSE 20 GM/30 ML CUP PO ONE (11:14)
[2021-06-21 12:07] LABS: Glucose,Whole Blood 136 mg/dL (75-99)
--- NOTE | 2021-06-21 12:08 | P.PN ---
Subjective Progress Note Date: 06/21/21 Patient is doing fairly well today. She denies any complaints this morning. Objective - Vital Signs Vital signs: Vital Signs Temp 97.7 F 06/21/21 11:12 Pulse 77 06/21/21 11:12 Resp 18 06/21/21 11:12 BP 119/56 06/21/21 11:12 Pulse Ox 90 L 06/21/21 11:12 Intake & Output 06/20/21 06/21/21 06/21/21 18:59 06:59 18:59 Intake Total 480 470 Output Total 250 Balance 480 220 Weight 100.1 kg Intake: Intake, IV Titration 290 Amount Sodium Chloride 0.9% 1, 240 000 ml @ 20 mls/hr IV . Q24H FILOMENA Rx#:[id number] cefTRIAXone 2 gm In 50 Sodium Chloride 0.9% 50 ml @ 100 mls/hr IVPB Q24HR FILOMENA Rx#:[id number] Oral 480 180 Output: Urine 250 Other: Voiding Method Toilet Toilet # Voids 1 1 1 - Exam General: The patient is awake and alert, in no distress Eye: there is normal conjunctiva bilaterally. Neck: The neck is supple, there is no JVD. Cardiovascular: Normal S1-S2, no S3-S4, no murmurs. Respiratory: Lungs clear to auscultation bilaterally Gastrointestinal: Abdomen is soft, nontender Musculoskeletal: There is no pedal edema. Neurological:. Speech is normal. Skin: Skin is warm and dry - Labs CBC & Chem 7: 06/20/21 07:58 06/21/21 07:09 Labs: Abnormal Lab Results - Last 24 Hours (Table) 06/20/21 06/20/21 06/21/21 Range/Units 16:16 20:03 05:54 BUN (7-17) mg/dL Creatinine (0.52-1.04) mg/dL Glucose (74-99) mg/dL POC Glucose (mg/dL) 112 H 146 H 119 H (75-99) mg/dL 06/21/21 Range/Units 07:09 BUN 61 H (7-17) mg/dL Creatinine 1.41 H (0.52-1.04) mg/dL Glucose 113 H (74-99) mg/dL POC Glucose (mg/dL) (75-99) mg/dL Microbiology - Last 24 Hours (Table) 06/18/21 23:34 Blood Culture - Preliminary Blood No Growth after 48 hours 06/18/21 11:16 Blood Culture - Preliminary Blood No Growth after 48 hours Assessment and Plan Assessment: This is a 55-year-old female with past medical history noted below that presented to the emergency room with worsening shortness of breath and right lower quadrant pain. Patient was evaluated in the ER and admitted to the hospital for further management of her medical problems noted below. 1. Acute exacerbation of diastolic congestive heart failure: Echocardiogram showed preserved ejection fraction. Improved with IV Lasix. Now transitioned to oral Lasix. Seen and evaluated by cardiology. BNP improved significantly 2. Acute hypoxic respiratory failure: Wean off O2 as tolerated 3. Troponin elevation: Most likely thrombotic troponin leak secondary to hypoxia. We will continue telemetry monitoring. No further testing recommended by cardiology 4. History of pulmonary emboli on anticoagulation with Eliquis: Patient reported being compliant with her medication at home 5. History of moderate pulmonary hypertension 6. History of medication noncompliance 7. Recent cystoscopy with laser lithotripsy and stent insertion to right ureter, now with worsening right lower quadrant pain. Ultrasound showed 2.3 cm right renal calculus with no definite hydronephrosis. Urology consulted for further evaluation. Advised to follow up outpatient as directed 8. Bilateral pneumonia, with elevated pro-calcitonin. Started on IV ceftriaxone and azithromycin day #4. Finish 3 days course of azithromycin Today, I reviewed her medication list and lab work results. Patient is very unsteady on her feet and was seen and evaluated by PT/OT. Will need placement on Wednesday. Discussed with social work.
[2021-06-21 16:37] LABS: Glucose,Whole Blood 182 mg/dL (75-99)
[2021-06-21] MEDS: polyethylene glycoL 3350 17 GM POWD.PACK PO SCH (19:25)
[2021-06-21 20:33] LABS: Glucose,Whole Blood 122 mg/dL (75-99)
[2021-06-21] MEDS: traMADol 50 MG TAB PO PRN (22:52)
[2021-06-22 06:08] LABS: Glucose,Whole Blood 106 mg/dL (75-99)
[2021-06-22] MEDS: INSULIN ASPART (NovoLOG) 100 UNIT/ML VIAL SQ SCH ×4 (06:10→20:33)
[2021-06-22] MEDS: PREGABALIN 100 MG CAP PO SCH ×2 (08:40→20:33)
[2021-06-22] MEDS: CHOLECALCIFEROL 25 MCG (1000 IU) TABLET PO SCH (08:40)
[2021-06-22] MEDS: METOPROLOL TARTRATE 25 MG TAB PO SCH ×2 (08:41→20:33)
[2021-06-22] MEDS: ASPIRIN 81 MG PO SCH (08:41)
[2021-06-22] MEDS: lisinopriL 5 MG TAB PO SCH (08:41)
[2021-06-22] MEDS: FUROSEMIDE 20 MG TAB PO SCH ×2 (08:41→20:33)
[2021-06-22] MEDS: APIXABAN 5 MG TAB PO SCH ×2 (08:41→20:33)
[2021-06-22] MEDS: FERROUS SULFATE 325 MG TAB PO SCH (08:41)
[2021-06-22 11:57] LABS: Glucose,Whole Blood 127 mg/dL (75-99)
[2021-06-22] MEDS: traMADol 50 MG TAB PO PRN ×2 (15:54→22:08)
[2021-06-22] MEDS: SODIUM CHLORIDE 0.9% 1,000 ML IV SCH (15:56)
--- NOTE | 2021-06-22 16:48 | P.PN ---
Subjective Progress Note Date: 06/22/21 No acute events overnight. Patient is feeling fairly well. She is requesting to be discharged. We had a prolonged discussion today regarding her imbalance and very high risk of her falling. Physical therapy seen patient and recommended subacute rehab. Patient unfortunately does not have insurance. A waiting social work to return tomorrow. Objective - Vital Signs Vital signs: Vital Signs Temp 96.3 F L 06/22/21 11:15 Pulse 72 06/22/21 11:15 Resp 16 06/22/21 11:15 BP 109/56 06/22/21 11:15 Pulse Ox 93 L 06/22/21 11:15 Intake & Output 06/21/21 06/22/21 06/22/21 18:59 06:59 18:59 Intake Total 950 120 480 Output Total 450 450 450 Balance 500 -330 30 Weight 99.3 kg Intake: Intake, IV Titration 290 Amount Sodium Chloride 0.9% 1, 240 000 ml @ 20 mls/hr IV . Q24H FILOMENA Rx#:[id number] cefTRIAXone 2 gm In 50 Sodium Chloride 0.9% 50 ml @ 100 mls/hr IVPB Q24HR FILOMENA Rx#:[id number] Oral 660 120 480 Output: Urine 450 450 450 Other: Voiding Method Toilet Toilet Toilet # Voids 1 # Bowel Movements 1 - Exam General: The patient is awake and alert, in no distress Eye: there is normal conjunctiva bilaterally. Neck: The neck is supple, there is no JVD. Cardiovascular: Normal S1-S2, no S3-S4, no murmurs. Respiratory: Lungs clear to auscultation bilaterally Gastrointestinal: Abdomen is soft, nontender Musculoskeletal: There is no pedal edema. Neurological:. Speech is normal. Skin: Skin is warm and dry - Labs CBC & Chem 7: 06/20/21 07:58 06/21/21 07:09 Labs: Abnormal Lab Results - Last 24 Hours (Table) 06/21/21 06/22/21 06/22/21 Range/Units 20:31 06:07 11:45 POC Glucose (mg/dL) 122 H 106 H 127 H (75-99) mg/dL Microbiology - Last 24 Hours (Table) 06/18/21 11:16 Blood Culture - Preliminary Blood No Growth after 96 hours 06/18/21 23:34 Blood Culture - Preliminary Blood No Growth after 72 hours Assessment and Plan Assessment: This is a 55-year-old female with past medical history noted below that presented to the emergency room with worsening shortness of breath and right lower quadrant pain. Patient was evaluated in the ER and admitted to the hospital for further management of her medical problems noted below. 1. Acute exacerbation of diastolic congestive heart failure: Echocardiogram showed preserved ejection fraction. Improved with IV Lasix. Now transitioned to oral Lasix. Seen and evaluated by cardiology. BNP improved significantly 2. Acute hypoxic respiratory failure: Wean off O2 as tolerated 3. Troponin elevation: Most likely thrombotic troponin leak secondary to hypoxia. We will continue telemetry monitoring. No further testing recommended by cardiology 4. History of pulmonary emboli on anticoagulation with Eliquis: Patient reported being compliant with her medication at home 5. History of moderate pulmonary hypertension 6. History of medication noncompliance 7. Recent cystoscopy with laser lithotripsy and stent insertion to right ureter, now with worsening right lower quadrant pain. Ultrasound showed 2.3 cm right renal calculus with no definite hydronephrosis. Urology consulted for further evaluation. Advised to follow up outpatient as directed 8. Bilateral pneumonia, with elevated pro-calcitonin. Finish 5 days of IV ceftriaxone and 3 days course of azithromycin Today, I reviewed her medication list and lab work results. Patient is very unsteady on her feet and was seen and evaluated by PT/OT. Will need placement on Wednesday. Discussed with social work.
[2021-06-22 16:49] LABS: Glucose,Whole Blood 128 mg/dL (75-99)
[2021-06-22 20:28] LABS: Glucose,Whole Blood 153 mg/dL (75-99)
[2021-06-22] MEDS: polyethylene glycoL 3350 17 GM POWD.PACK PO SCH (20:33)
[2021-06-23 06:12] LABS: Glucose,Whole Blood 126 mg/dL (75-99)
[2021-06-23] MEDS: INSULIN ASPART (NovoLOG) 100 UNIT/ML VIAL SQ SCH ×2 (06:31→12:11)
--- NOTE | 2021-06-23 08:37 | XR ---
EXAMINATION TYPE: XR chest 2V DATE OF EXAM: 06/23/2021 COMPARISON: A 1221 TECHNIQUE: PA and lateral views submitted. HISTORY: Hypoxia FINDINGS: The lungs are clear and there is no pneumothorax, pleural effusion, or focal pneumonia. Coarsened i nterstitium with peripheral areas of infiltrate. Prominent pulmonary hilum. Heart size normal. Degene rative change of the spine. IMPRESSION: 1. Bilateral patchy infiltrates. 2. Correlate for pulmonary arterial hypertension. Underlying adenopathy not excluded.
--- NOTE | 2021-06-23 09:43 | P.PN ---
Subjective Progress Note Date: 06/23/21 No acute overnight event, denies any flank pain. She is scheduled for surgery on July 03 to address her residual stone. Medically she is improved. Urine culture on presentation was negative. She is on ceftrixone Objective - Vital Signs Vital signs: Vital Signs Temp 98.3 F 06/23/21 04:00 Pulse 90 06/23/21 04:00 Resp 18 06/23/21 04:00 BP 120/78 06/23/21 04:00 Pulse Ox 90 L 06/23/21 04:00 Intake & Output 06/22/21 06/23/21 06/23/21 18:59 06:59 18:59 Intake Total 480 240 Output Total 850 Balance -370 240 Weight 99.8 kg Intake: Oral 480 240 Output: Urine 850 Other: Voiding Method Toilet Toilet # Voids 1 - Constitutional General appearance: Present: no acute distress - Gastrointestinal General gastrointestinal: Present: soft. Absent: distended - Psychiatric Psychiatric: Present: A&O x's 3 - Labs CBC & Chem 7: 06/20/21 07:58 06/21/21 07:09 Labs: Abnormal Lab Results - Last 24 Hours (Table) 06/22/21 06/22/21 06/22/21 Range/Units 11:45 16:37 20:26 POC Glucose (mg/dL) 127 H 128 H 153 H (75-99) mg/dL 06/23/21 Range/Units 06:11 POC Glucose (mg/dL) 126 H (75-99) mg/dL Microbiology - Last 24 Hours (Table) 06/18/21 23:34 Blood Culture - Preliminary Blood No Growth after 96 hours 06/18/21 11:16 Blood Culture - Preliminary Blood No Growth after 96 hours Assessment and Plan Assessment: 55 yo female S/P right sided staged ureteroscopy on june 16 to address her renal stone. Admitted to the hospital with CHF exacerbation, imbalance and respiratory failure. Medically she is improving. She scheduled for a second stage right-sided ureteroscopy on July 03. Discussed with her if she continues to medically progress then will plan on proceeding with right sided ureteroscopy on that day. We'll repeat urine culture today to ensure negative culture for her jhonny surgery on 07/03
--- NOTE | 2021-06-23 10:03 | P.DS ---
Providers Date of admission: 06/18/21 13:59 Expected date of discharge: 06/23/21 Attending physician: Lou Mata Consults: 06/18/21 13:59 Consult Physician Urgent Consulting Provider: Vikas Martinez Consult Reason/Comments: NSTEMI, CHF Do you want consulting provider notified?: Yes 06/19/21 09:17 Consult Physician Routine Consulting Provider: Mani Olivo Consult Reason/Comments: h/o renal calculus, recent procedure Do you want consulting provider notified?: Yes Primary care physician: Stated None Hospital Course: This is a 55-year-old female with past medical history noted below that presented to the emergency room with worsening shortness of breath and right lower quadrant pain. Patient was evaluated in the ER and admitted to the hospital for further management of her medical problems noted below. 1. Acute exacerbation of diastolic congestive heart failure: Echocardiogram showed preserved ejection fraction. Improved with IV Lasix. Now transitioned to oral Lasix. Seen and evaluated by cardiology. BNP improved significantly 2. Acute hypoxic respiratory failure: Weaned off of O2 supplement 3. Troponin elevation: Most likely thrombotic troponin leak secondary to hypoxia. We will continue telemetry monitoring. No further testing recommended by cardiology. Started on aspirin 81 mg daily 4. History of pulmonary emboli on anticoagulation with Eliquis: Patient reported being compliant with her medication at home 5. History of moderate pulmonary hypertension 6. History of medication noncompliance 7. Recent cystoscopy with laser lithotripsy and stent insertion to right ureter, now with worsening right lower quadrant pain. Ultrasound showed 2.3 cm right renal calculus with no definite hydronephrosis. Urology consulted for f urther evaluation. Advised to follow up outpatient as directed 8. Bilateral pneumonia, with elevated pro-calcitonin. Finished 5 days of IV ceftriaxone and 3 days course of azithromycin Patient was seen and evaluated by me on the day of discharge. She is doing fairly well. She was able to ambulate 80 feet in the hallway. She already has a wheelchair and a walker at home. Patient does not have any insurance to qualify for subacute rehab. This was discussed with the social insurance administrator. Patient will be discharged home in a stable condition. Patient Condition at Discharge: Fair Plan - Discharge Summary Discharge Rx Participant: Yes New Discharge Prescriptions: New Furosemide [Lasix] 40 mg PO BID #60 tab Aspirin 81 mg PO DAILY #30 chew polyethylene glycoL 3350 [Miralax] 17 gm PO HS #30 powd.pack lisinopriL [Zestril] 5 mg PO DAILY #30 tab Continue Cholecalciferol [Vitamin D3 (25 Mcg = 1000 Iu)] 50 mcg PO DAILY Apixaban [Eliquis] 5 mg PO BID Pregabalin [Lyrica] 200 mg PO BID Ferrous Sulfate [Iron] 325 mg PO DAILY metFORMIN HCL [Glucophage] 500 mg PO BID Metoprolol Tartrate [Lopressor] 75 mg PO BID traMADol HCL [Ultram] 50 mg PO Q6HR PRN 3 Days #12 tab PRN Reason: Pain Discontinued Furosemide [Lasix] 40 mg PO DAILY Fenofibrate 160 mg PO HS lisinopriL 20 mg PO DAILY Discharge Medication List Apixaban [Eliquis] 5 mg PO BID 06/12/21 [History] Cholecalciferol [Vitamin D3 (25 Mcg = 1000 Iu)] 50 mcg PO DAILY 06/12/21 [History] Ferrous Sulfate [Iron] 325 mg PO DAILY 06/12/21 [History] Metoprolol Tartrate [Lopressor] 75 mg PO BID 06/12/21 [History] Pregabalin [Lyrica] 200 mg PO BID 06/12/21 [History] metFORMIN HCL [Glucophage] 500 mg PO BID 06/12/21 [History] traMADol HCL [Ultram] 50 mg PO Q6HR PRN 3 Days #12 tab 06/16/21 [Rx] Aspirin 81 mg PO DAILY #30 chew 06/23/21 [Rx] Furosemide [Lasix] 40 mg PO BID #60 tab 06/23/21 [Rx] lisinopriL [Zestril] 5 mg PO DAILY #30 tab 06/23/21 [Rx] polyethylene glycoL 3350 [Miralax] 17 gm PO HS #30 powd.pack 06/23/21 [Rx] Follow up Appointment(s)/Referral(s): [facility] [REFERRING] - [facility] [REFERRING] - Mani Olivo MD [STAFF PHYSICIAN] - 07/03/21 [facility] [NON-STAFF] - 07/01/21 10:00 am [facility] [NON-STAFF] - Discharge Disposition: HOME SELF-CARE
[2021-06-23] MEDS: METOPROLOL TARTRATE 25 MG TAB PO SCH (10:05)
[2021-06-23] MEDS: FERROUS SULFATE 325 MG TAB PO SCH (10:05)
[2021-06-23] MEDS: lisinopriL 5 MG TAB PO SCH (10:05)
[2021-06-23] MEDS: PREGABALIN 100 MG CAP PO SCH (10:05)
[2021-06-23] MEDS: CHOLECALCIFEROL 25 MCG (1000 IU) TABLET PO SCH (10:06)
[2021-06-23] MEDS: APIXABAN 5 MG TAB PO SCH (10:06)
[2021-06-23] MEDS: ASPIRIN 81 MG PO SCH (10:06)
[2021-06-23] MEDS: FUROSEMIDE 20 MG TAB PO SCH (10:06)
[2021-06-23 11:12] VITALS: RESP 16
[2021-06-23 11:52] LABS: Glucose,Whole Blood 103 mg/dL (75-99)
[2021-06-23 12:45] LABS: Appearance,Urine Cloudy (Clear); Bacteria,Urine Rare /hpf; Bilirubin,Urine Negative (Negative); Blood,Urine Moderate (Negative); Budding Yeast,Urine Few /hpf; Color,Urine Yellow; Glucose,Urine (UA) Trace (Negative); Hyaline Casts,Urine 1 /lpf (0-2); Ketones,Urine Negative (Negative); Leukocyte Esterase,Urine Large (Negative); Mucus,Urine Rare /hpf; Nitrite,Urine Negative (Negative); PH, Urine 5.5 (5.0-8.0); Protein,Urine 1+ (Negative); RBC,Urine 45 /hpf (0-5); Specific Gravity,Urine 1.019 (1.001-1.035); Squamous Epithelial Cell,Urine <1 /hpf (0-4); Urobilinogen,Urine <2.0 mg/dL (<2.0); WBC,Urine 63 /hpf (0-5)
[2021-06-23 14:33] VITALS: BP 106/62; PULSE 75; TEMP 97.8
== END 2021-06-23 13:27 | disposition home or self-care (01) | DRG 280 ==
LOC: EC 10:50 → 3SCARD 13:59
PROVIDERS: ADMIT Internal Medicine; ATTEND Internal Medicine
PROC: 3E0F7SF Introduction of Other Gas into Respiratory Tract, Via Natural or Artificial Opening (ICD-10-PCS; principal; 2021-06-18)
DX: I11.0 Hypertensive heart disease with heart failure (principal); J96.01 Acute respiratory failure with hypoxia; I21.A1 Myocardial infarction type 2; J18.9 Pneumonia, unspecified organism; N39.0 Urinary tract infection, site not specified; I50.33 Acute on chronic diastolic (congestive) heart failure; I27.20 Pulmonary hypertension, unspecified; E11.9 Type 2 diabetes mellitus without complications; R00.0 Tachycardia, unspecified; N20.0 Calculus of kidney; R26.81 Unsteadiness on feet; K21.9 Gastro-esophageal reflux disease without esophagitis; F17.210 Nicotine dependence, cigarettes, uncomplicated; E78.5 Hyperlipidemia, unspecified; Z20.822 Contact with and (suspected) exposure to COVID-19; E66.9 Obesity, unspecified; G89.29 Other chronic pain; M54.9 Dorsalgia, unspecified; Z91.14 Patient's other noncompliance with medication regimen; Z68.33 Body mass index [BMI] 33.0-33.9, adult; Z79.01 Long term (current) use of anticoagulants; Z91.018 Allergy to other foods; Z88.0 Allergy status to penicillin; Z88.5 Allergy status to narcotic agent; Z91.030 Bee allergy status; Z79.899 Other long term (current) drug therapy; Z79.84 Long term (current) use of oral hypoglycemic drugs; Z86.711 Personal history of pulmonary embolism; Z86.718 Personal history of other venous thrombosis and embolism; Z87.442 Personal history of urinary calculi; I25.10 Atherosclerotic heart disease of native coronary artery without angina pectoris
CPT/HCPCS: 36415; 71045; 71046; 76770; 80048; 80053; 80061; 81001; 82550; 83605; 83735; 83880; 84145; 84484; 85025; 85379; 85610; 85730; 87040; 87086; 93005; 93306; 94640; 96361; 96374; 96375; 99291

== ENCOUNTER 2021-06-23 23:59 | Emergency (ER) | payer OTHER ==
[2021-06-24 00:10] LABS: Glucose,Whole Blood 81 mg/dL (75-99)
[2021-06-24 01:01] LABS: Basophils # (A) 0.1 k/uL (0-0.2); Basophils % (A) 1 %; Eosinophils # (A) 0.4 k/uL (0-0.7); Eosinophils % (A) 2 %; HGB 12.2 gm/dL (11.4-16.0); Lymphocytes # (A) 2.4 k/uL (1.0-4.8); Lymphocytes % (A) 14 %; MCHC 31.3 g/dL (31.0-37.0); MCV 89.7 fL (80.0-100.0); Mean Platelet Volume 9.7; Monocytes # (A) 1.1 k/uL (0-1.0); Monocytes % (A) 6 %; Neutrophils # (A) 12.8 k/uL (1.3-7.7); Neutrophils % (A) 74 %; Platelet Count 307 k/uL (150-450); RBC 4.35 m/uL (3.80-5.40); RDW 14.9 % (11.5-15.5); WBC 17.3 k/uL (3.8-10.6)
--- NOTE | 2021-06-24 01:01 | XR ---
EXAMINATION TYPE: XR chest 2V DATE OF EXAM: 06/24/2021 COMPARISON: 06/23/2021 HISTORY: Short of breath TECHNIQUE: FINDINGS: There is some mild patchy subsegmental atelectasis in both lungs. There is no gross heart f ailure. Bony vascularity however is increased. Heart size is normal. There is no pleural effusion. Oc ny thorax is intact. There are chest leads. IMPRESSION: Subsegmental atelectasis without change compared to yesterday. Pulmonary congestion incre ased compared to yesterday but no obvious failure.
[2021-06-24 01:03] LABS: INR 1.2 (<1.2); Partial Thromboplastin Time 25.2 sec (22.0-30.0); Prothrombin Time 12.5 sec (9.0-12.0)
[2021-06-24 01:11] VITALS: TEMP 97.7
[2021-06-24 01:48] LABS: Appearance,Urine Cloudy (Clear); Bacteria,Urine Rare /hpf; Bilirubin,Urine Negative (Negative); Blood,Urine Large (Negative); Budding Yeast,Urine Few /hpf; Color,Urine Yellow; Glucose,Urine (UA) Negative (Negative); Hyaline Casts,Urine 3 /lpf (0-2); Ketones,Urine Negative (Negative); Leukocyte Esterase,Urine Large (Negative); Mucus,Urine Occasional /hpf; Nitrite,Urine Negative (Negative); PH, Urine 5.5 (5.0-8.0); Protein,Urine 1+ (Negative); RBC,Urine 115 /hpf (0-5); Specific Gravity,Urine 1.019 (1.001-1.035); Squamous Epithelial Cell,Urine 5 /hpf (0-4); Urobilinogen,Urine <2.0 mg/dL (<2.0); WBC,Urine 160 /hpf (0-5)
[2021-06-24 01:51] LABS: Amphetamine Screen,Urine Not Detected (NotDetected); Barbiturate Screen,Urine Not Detected (NotDetected); Benzodiazepines Screen,Urine Not Detected (NotDetected); Cocaine Screen,Urine Not Detected (NotDetected); Methadone Screen, Urine Not Detected (NotDetected); Opiate Screen,Urine Not Detected (NotDetected); Oxycodone Screen, Urine Not Detected (NotDetected); Phencyclidine Screen,Urine Not Detected (NotDetected); Tricyclic Antidepressant,Urine Not Detected (NotDetected); Urn Cannabinoid Scrn Not Detected (NotDetected)
[2021-06-24 02:02] LABS: ALT 21 U/L (4-34); AST 40 U/L (14-36); African American GFR (CKD) 55 (>60 ml/min/1.73 sqM); Albumin 3.1 g/dL (3.5-5.0); Alcohol <10 mg/dL; Alkaline Phosphatase 77 U/L (38-126); Anion Gap 4 mmol/L; Blood Urea Nitrogen 41 mg/dL (7-17); Calcium 8.8 mg/dL (8.4-10.2); Carbon Dioxide 30 mmol/L (22-30); Chloride 103 mmol/L (98-107); Glucose 86 mg/dL (74-99); Non-African American GFR(CKD) 48 (>60 ml/min/1.73 sqM); Sodium 137 mmol/L (137-145); Total Bilirubin 0.8 mg/dL (0.2-1.3); Total Protein 6.5 g/dL (6.3-8.2)
[2021-06-24 02:06] LABS: VBG PH 7.42 (7.31-7.41)
[2021-06-24 02:11] LABS: Potassium 4.1 mmol/L (3.5-5.1)
--- NOTE | 2021-06-24 02:54 | ED ---
Altered Mental Status HPI - General Chief Complaint: Altered Mental Status Stated Complaint: AMS Time Seen by Provider: 06/24/21 00:02 Source: patient, EMS Mode of arrival: EMS Limitations: no limitations - Related Data Home Medications Medication Instructions Recorded Confirmed Apixaban [Eliquis] 5 mg PO BID 06/12/21 06/18/21 Cholecalciferol [Vitamin D3 (25 50 mcg PO DAILY 06/12/21 06/18/21 Mcg = 1000 Iu)] Ferrous Sulfate [Iron] 325 mg PO DAILY 06/12/21 06/18/21 Metoprolol Tartrate [Lopressor] 75 mg PO BID 06/12/21 06/18/21 Pregabalin [Lyrica] 200 mg PO BID 06/12/21 06/18/21 metFORMIN HCL [Glucophage] 500 mg PO BID 06/12/21 06/18/21 Previous Rx's Medication Instructions Recorded traMADol HCL [Ultram] 50 mg PO Q6HR PRN 3 Days #12 tab 06/16/21 Aspirin 81 mg PO DAILY #30 chew 06/23/21 Furosemide [Lasix] 40 mg PO BID #60 tab 06/23/21 lisinopriL [Zestril] 5 mg PO DAILY #30 tab 06/23/21 polyethylene glycoL 3350 [Miralax] 17 gm PO HS #30 powd.pack 06/23/21 Allergies Allergy/AdvReac Type Severity Reaction Status Date / Time bee venom protein (honey bee) Allergy Severe Swelling Verified 06/24/21 00:06 acetaminophen [From Tylenol] Allergy Anaphylaxis Verified 06/24/21 00:06 morphine Allergy Swelling Verified 06/24/21 00:06 Penicillins Allergy Rash/Hives Verified 06/24/21 00:06 all citrus Allergy Anaphylaxis Uncoded 06/24/21 00:06 Review of Systems ROS Statement: Those systems with pertinent positive or pertinent negative responses have been documented in the HPI. ROS Other: All systems not noted in ROS Statement are negative. Past Medical History Past Medical History: Diabetes Mellitus, GERD/Reflux, Hypertension, Myocardial Infarction (ME), Pulmonary Embolus (PE) Additional Past Medical History / Comment(s): Previous history of pulmonary embolism in 2013, obesity, previous history of DVT involving the left lower extremity, diabetes mellitus, hypertension, acid reflux, chronic back pain, normal coronaries based on a cardiac catheterization from June 2015 History of Any Multi-Drug Resistant Organisms: None Reported Past Surgical History: Orthopedic Surgery Additional Past Surgical History / Comment(s): Rt shoulder rotator cuff repair Past Anesthesia/Blood Transfusion Reactions: No Reported Reaction Additional Past Anesthesia/Blood Transfusion Reaction / Comment(s): STATES HAS BEHAVIOR CHANGES POST OP Past Psychological History: No Psychological Hx Reported Smoking Status: Former smoker - Past Family History Father Family Medical History: No Reported History Mother Family Medical History: No Reported History General Exam Limitations: no limitations Course Vital Signs 06/24/21 06/24/21 06/24/21 00:01 01:11 01:53 Temperature 97.7 F Pulse Rate 110 H 85 Respiratory 18 22 Rate Blood Pressure 136/94 134/69 O2 Sat by Pulse 97 95 Oximetry Medical Decision Making - Lab Data Result diagrams: 06/24/21 00:28 06/24/21 00:28 Lab Results 06/24/21 06/24/21 06/24/21 Range/Units 00:09 00:28 00:28 WBC 17.3 H (3.8-10.6) k/uL RBC 4.35 (3.80-5.40) m/uL Hgb 12.2 (11.4-16.0) gm/dL Hct 39.0 (34.0-46.0) % MCV 89.7 (80.0-100.0) fL MCH 28.0 (25.0-35.0) pg MCHC 31.3 (31.0-37.0) g/dL RDW 14.9 (11.5-15.5) % Plt Count 307 (150-450) k/uL MPV 9.7 Neutrophils % 74 % Lymphocytes % 14 % Monocytes % 6 % Eosinophils % 2 % Basophils % 1 % Neutrophils # 12.8 H (1.3-7.7) k/uL Lymphocytes # 2.4 (1.0-4.8) k/uL Monocytes # 1.1 H (0-1.0) k/uL Eosinophils # 0.4 (0-0.7) k/uL Basophils # 0.1 (0-0.2) k/uL PT 12.5 H (9.0-12.0) sec INR 1.2 H (<1.2) APTT 25.2 (22.0-30.0) sec VBG pH (7.31-7.41) VBG pCO2 (37-51) mmHg VBG HCO3 (24-28) mmol/L Sodium (137-145) mmol/L Potassium (3.5-5.1) mmol/L Chloride (98-107) mmol/L Carbon Dioxide (22-30) mmol/L Anion Gap mmol/L BUN (7-17) mg/dL Creatinine (0.52-1.04) mg/dL Est GFR (CKD-EPI)AfAm (>60 ml/min/1.73 sqM) Est GFR (CKD-EPI)NonAf (>60 ml/min/1.73 sqM) Glucose (74-99) mg/dL POC Glucose (mg/dL) 81 (75-99) mg/dL POC Glu Communication Skills Instructor ID Fetterly, Henrietta Calcium (8.4-10.2) mg/dL Total Bilirubin (0.2-1.3) mg/dL AST (14-36) U/L ALT (4-34) U/L Alkaline Phosphatase (38-126) U/L Ammonia (<30) umol/L Troponin I (0.000-0.034) ng/mL Total Protein (6.3-8.2) g/dL Albumin (3.5-5.0) g/dL Urine Color Urine Appearance (Clear) Urine pH (5.0-8.0) Ur Specific [place] (1.001-1.035) Urine Protein (Negative) Urine Glucose (UA) (Negative) Urine Ketones (Negative) Urine Blood (Negative) Urine Nitrite (Negative) Urine Bilirubin (Negative) Urine Urobilinogen (<2.0) mg/dL Ur Leukocyte Esterase (Negative) Urine RBC (0-5) /hpf Urine WBC (0-5) /hpf Urine WBC Clumps (None) /hpf Ur Squamous Epith Cells (0-4) /hpf Urine Bacteria (None) /hpf Hyaline Casts (0-2) /lpf Urine Mucus (None) /hpf Urine Yeast (Budding) (None) /hpf Urine Opiates Screen (NotDetected) Ur Oxycodone Screen (NotDetected) Urine Methadone Screen (NotDetected) Ur Propoxyphene Screen (NotDetected) Ur Barbiturates Screen (NotDetected) U Tricyclic Antidepress (NotDetected) Ur Phencyclidine Scrn (NotDetected) Ur Amphetamines Screen (NotDetected) U Methamphetamines Scrn (NotDetected) U Benzodiazepines Scrn (NotDetected) Urine Cocaine Screen (NotDetected) U Marijuana (THC) Screen (NotDetected) Serum Alcohol mg/dL 06/24/21 06/24/21 06/24/21 Range/Units 00:28 00:28 00:28 WBC (3.8-10.6) k/uL RBC (3.80-5.40) m/uL Hgb (11.4-16.0) gm/dL Hct (34.0-46.0) % MCV (80.0-100.0) fL MCH (25.0-35.0) pg MCHC (31.0-37.0) g/dL RDW (11.5-15.5) % Plt Count (150-450) k/uL MPV Neutrophils % % Lymphocytes % % Monocytes % % Eosinophils % % Basophils % % Neutrophils # (1.3-7.7) k/uL Lymphocytes # (1.0-4.8) k/uL Monocytes # (0-1.0) k/uL Eosinophils # (0-0.7) k/uL Basophils # (0-0.2) k/uL PT (9.0-12.0) sec INR (<1.2) APTT (22.0-30.0) sec VBG pH (7.31-7.41) VBG pCO2 (37-51) mmHg VBG HCO3 (24-28) mmol/L Sodium 137 (137-145) mmol/L Potassium 4.1 (3.5-5.1) mmol/L Chloride 103 (98-107) mmol/L Carbon Dioxide 30 (22-30) mmol/L Anion Gap 4 mmol/L BUN 41 H (7-17) mg/dL Creatinine 1.28 H (0.52-1.04) mg/dL Est GFR (CKD-EPI)AfAm 55 (>60 ml/min/1.73 sqM) Est GFR (CKD-EPI)NonAf 48 (>60 ml/min/1.73 sqM) Glucose 86 (74-99) mg/dL POC Glucose (mg/dL) (75-99) mg/dL POC Glu Communication Skills Instructor ID Calcium 8.8 (8.4-10.2) mg/dL Total Bilirubin 0.8 (0.2-1.3) mg/dL AST 40 H (14-36) U/L ALT 21 (4-34) U/L Alkaline Phosphatase 77 (38-126) U/L Ammonia (<30) umol/L Troponin I 0.083 H* (0.000-0.034) ng/mL Total Protein 6.5 (6.3-8.2) g/dL Albumin 3.1 L (3.5-5.0) g/dL Urine Color Yellow Urine Appearance Cloudy H (Clear) Urine pH 5.5 (5.0-8.0) Ur Specific [place] 1.019 (1.001-1.035) Urine Protein 1+ H (Negative) Urine Glucose (UA) Negative (Negative) Urine Ketones Negative (Negative) Urine Blood Large H (Negative) Urine Nitrite Negative (Negative) Urine Bilirubin Negative (Negative) Urine Urobilinogen <2.0 (<2.0) mg/dL Ur Leukocyte Esterase Large H (Negative) Urine RBC 115 H (0-5) /hpf Urine WBC 160 H (0-5) /hpf Urine WBC Clumps Moderate H (None) /hpf Ur Squamous Epith Cells 5 H (0-4) /hpf Urine Bacteria Rare H (None) /hpf Hyaline Casts 3 H (0-2) /lpf Urine Mucus Occasional H (None) /hpf Urine Yeast (Budding) Few H (None) /hpf Urine Opiates Screen Not Detected (NotDetected) Ur Oxycodone Screen Not Detected (NotDetected) Urine Methadone Screen Not Detected (NotDetected) Ur Propoxyphene Screen Not Detected (NotDetected) Ur Barbiturates Screen Not Detected (NotDetected) U Tricyclic Antidepress Not Detected (NotDetected) Ur Phencyclidine Scrn Not Detected (NotDetected) Ur Amphetamines Screen Not Detected (NotDetected) U Methamphetamines Scrn Not Detected (NotDetected) U Benzodiazepines Scrn Not Detected (NotDetected) Urine Cocaine Screen Not Detected (NotDetected) U Marijuana (THC) Screen Not Detected (NotDetected) Serum Alcohol <10 mg/dL 06/24/21 06/24/21 Range/Units 00:28 01:50 WBC (3.8-10.6) k/uL RBC (3.80-5.40) m/uL Hgb (11.4-16.0) gm/dL Hct (34.0-46.0) % MCV (80.0-100.0) fL MCH (25.0-35.0) pg MCHC (31.0-37.0) g/dL RDW (11.5-15.5) % Plt Count (150-450) k/uL MPV Neutrophils % % Lymphocytes % % Monocytes % % Eosinophils % % Basophils % % Neutrophils # (1.3-7.7) k/uL Lymphocytes # (1.0-4.8) k/uL Monocytes # (0-1.0) k/uL Eosinophils # (0-0.7) k/uL Basophils # (0-0.2) k/uL PT (9.0-12.0) sec INR (<1.2) APTT (22.0-30.0) sec VBG pH 7.42 H (7.31-7.41) VBG pCO2 47 (37-51) mmHg VBG HCO3 30 H (24-28) mmol/L Sodium (137-145) mmol/L Potassium (3.5-5.1) mmol/L Chloride (98-107) mmol/L Carbon Dioxide (22-30) mmol/L Anion Gap mmol/L BUN (7-17) mg/dL Creatinine (0.52-1.04) mg/dL Est GFR (CKD-EPI)AfAm (>60 ml/min/1.73 sqM) Est GFR (CKD-EPI)NonAf (>60 ml/min/1.73 sqM) Glucose (74-99) mg/dL POC Glucose (mg/dL) (75-99) mg/dL POC Glu Communication Skills Instructor ID Calcium (8.4-10.2) mg/dL Total Bilirubin (0.2-1.3) mg/dL AST (14-36) U/L ALT (4-34) U/L Alkaline Phosphatase (38-126) U/L Ammonia <9 (<30) umol/L Troponin I (0.000-0.034) ng/mL Total Protein (6.3-8.2) g/dL Albumin (3.5-5.0) g/dL Urine Color Urine Appearance (Clear) Urine pH (5.0-8.0) Ur Specific [place] (1.001-1.035) Urine Protein (Negative) Urine Glucose (UA) (Negative) Urine Ketones (Negative) Urine Blood (Negative) Urine Nitrite (Negative) Urine Bilirubin (Negative) Urine Urobilinogen (<2.0) mg/dL Ur Leukocyte Esterase (Negative) Urine RBC (0-5) /hpf Urine WBC (0-5) /hpf Urine WBC Clumps (None) /hpf Ur Squamous Epith Cells (0-4) /hpf Urine Bacteria (None) /hpf Hyaline Casts (0-2) /lpf Urine Mucus (None) /hpf Urine Yeast (Budding) (None) /hpf Urine Opiates Screen (NotDetected) Ur Oxycodone Screen (NotDetected) Urine Methadone Screen (NotDetected) Ur Propoxyphene Screen (NotDetected) Ur Barbiturates Screen (NotDetected) U Tricyclic Antidepress (NotDetected) Ur Phencyclidine Scrn (NotDetected) Ur Amphetamines Screen (NotDetected) U Methamphetamines Scrn (NotDetected) U Benzodiazepines Scrn (NotDetected) Urine Cocaine Screen (NotDetected) U Marijuana (THC) Screen (NotDetected) Serum Alcohol mg/dL - EKG Data -: EKG Interpreted by [place] EKG shows normal: sinus rhythm, axis (Normal), intervals (Normal), QRS complexes (Low voltage), ST-T waves (Normal) Rate: normal (Rate 78 bpm) Disposition Clinical Impression: Altered mental status Disposition: HOME SELF-CARE Condition: Good Instructions (If sedation given, give patient instructions): Altered Mental Status (ED) Is patient prescribed a controlled substance at d/c from ED?: No Referrals: [facility] [Primary Care Provider] - 1-2 days
[2021-06-24 03:08] VITALS: BP 124/78; PULSE 82; RESP 16
== END 2021-06-24 03:08 | disposition home or self-care (01) ==
LOC: EC 23:59
DX: R41.82 Altered mental status, unspecified (principal); I10 Essential (primary) hypertension; I25.2 Old myocardial infarction; E11.9 Type 2 diabetes mellitus without complications; E66.9 Obesity, unspecified; K21.9 Gastro-esophageal reflux disease without esophagitis; Z86.711 Personal history of pulmonary embolism; Z86.73 Personal history of transient ischemic attack (TIA), and cerebral infarction without residual deficits; Z87.891 Personal history of nicotine dependence; Z79.01 Long term (current) use of anticoagulants; Z79.82 Long term (current) use of aspirin; Z79.84 Long term (current) use of oral hypoglycemic drugs; Z88.0 Allergy status to penicillin; Z68.36 Body mass index [BMI] 36.0-36.9, adult
CPT/HCPCS: 36415; 71046; 80053; 80306; 80320; 81001; 82140; 82803; 84484; 85025; 85610; 85730; 87086; 93005; 99285

== ENCOUNTER 2021-06-27 16:13 | Inpatient (IN) | payer OTHER ==
[2021-06-27] MEDS ORDERED: SODIUM CHLORIDE 0.9% 1,000 ML IV ONE (18:30)
[2021-06-27] MEDS ORDERED: KETOROLAC 15 MG/ML 1 ML VIAL IVP STA (18:40)
[2021-06-27 19:14] LABS: Basophils # (A) 0.1 k/uL (0-0.2); Basophils % (A) 1 %; Eosinophils # (A) 0.3 k/uL (0-0.7); Eosinophils % (A) 2 %; HCT 38.9 % (34.0-46.0); HGB 12.1 gm/dL (11.4-16.0); Hypochromasia Slight; Lymphocytes # (A) 2.2 k/uL (1.0-4.8); Lymphocytes % (A) 13 %; MCH 28.1 pg (25.0-35.0); MCV 90.7 fL (80.0-100.0); Mean Platelet Volume 9.4; Monocytes # (A) 0.9 k/uL (0-1.0); Monocytes % (A) 6 %; Neutrophils # (A) 13.1 k/uL (1.3-7.7); Neutrophils % (A) 77 %; Platelet Count 366 k/uL (150-450); RBC 4.29 m/uL (3.80-5.40); RDW 15.2 % (11.5-15.5)
[2021-06-27 19:22] LABS: Appearance,Urine Cloudy (Clear); Bilirubin,Urine Negative (Negative); Blood,Urine Small (Negative); Budding Yeast,Urine Moderate /hpf; Color,Urine Yellow; Glucose,Urine (UA) Negative (Negative); Ketones,Urine Negative (Negative); Leukocyte Esterase,Urine Large (Negative); Mucus,Urine Rare /hpf; Nitrite,Urine Negative (Negative); PH, Urine 5.5 (5.0-8.0); Protein,Urine 1+ (Negative); RBC,Urine 17 /hpf (0-5); Specific Gravity,Urine 1.021 (1.001-1.035); Squamous Epithelial Cell,Urine 1 /hpf (0-4); WBC,Urine 124 /hpf (0-5)
[2021-06-27] MEDS: DAPTOmycin 500 MG in SODIUM CHLORIDE 0.9% 50 ML IVPB SCH (19:23)
[2021-06-27 19:34] LABS: Calcium 8.6 mg/dL (8.4-10.2); Magnesium 2.1 mg/dL (1.6-2.3); Potassium 4.6 mmol/L (3.5-5.1); Total Bilirubin 0.8 mg/dL (0.2-1.3); Total Protein 6.7 g/dL (6.3-8.2)
[2021-06-27] MEDS ORDERED: traMADol 50 MG TAB PO STA (19:44)
[2021-06-27] MEDS ORDERED: NALOXONE 0.4 MG/ML 1 ML VIAL IV PRN ×2 (20:43→20:44)
[2021-06-27] MEDS: FUROSEMIDE 20 MG TAB PO SCH (23:54)
[2021-06-27] MEDS: PREGABALIN 100 MG CAP PO SCH (23:54)
[2021-06-27] MEDS: APIXABAN 5 MG TAB PO SCH (23:55)
[2021-06-27] MEDS: polyethylene glycoL 3350 17 GM POWD.PACK PO SCH (23:56)
[2021-06-27] MEDS: METOPROLOL TARTRATE 25 MG TAB PO SCH (23:56)
[2021-06-28] MEDS ORDERED: FLUCONAZOLE 150 MG TAB PO STA (00:02)
[2021-06-28] MEDS: metFORMIN 500 MG TAB PO SCH ×2 (00:02→07:52)
--- NOTE | 2021-06-28 00:04 | ED ---
General Adult HPI - General Chief complaint: Dizziness Stated complaint: Dizziness Time Seen by Provider: 06/27/21 18:11 Source: patient, RN notes reviewed, old records reviewed Mode of arrival: wheelchair Limitations: no limitations - History of Present Illness Initial comments: I evaluated the patient when she was placed in a room. Patient is a 55-year-old female with past medical history remarkable for GERD, hypertension, prior MT, diabetes, PE on [place], who recently presents emergency Department earlier this week was diagnosed with UTI. Patient was discharged home on oral antibiotics. Patient was called today by the hospital as her urine culture returned and it was only susceptible to IV antibiotics. Patient returns today for admission for IV antibiotics. She states that she has been having persistent suprapubic abdominal pain as well as some mild CVA tenderness. She endorses chills and mild fevers are subjective. Denies any shortness of breath, chest pain, nausea, vomiting. Denies any diarrhea or change in bowel habits. She still endorses mild dysuria. Denies any hematuria. Patient has no other acute complaints at this time. She denies any new sick contacts. Patient understands that she needs to be readmitted for IV antibiotics. - Related Data Home Medications Medication Instructions Recorded Confirmed Apixaban [Eliquis] 5 mg PO BID 06/12/21 06/27/21 Cholecalciferol [Vitamin D3 (25 50 mcg PO DAILY 06/12/21 06/27/21 Mcg = 1000 Iu)] Ferrous Sulfate [Iron] 325 mg PO DAILY 06/12/21 06/27/21 Metoprolol Tartrate [Lopressor] 75 mg PO BID 06/12/21 06/27/21 Pregabalin [Lyrica] 200 mg PO BID 06/12/21 06/27/21 metFORMIN HCL [Glucophage] 500 mg PO BID 06/12/21 06/27/21 Previous Rx's Medication Instructions Recorded traMADol HCL [Ultram] 50 mg PO Q6HR PRN 3 Days #12 tab 06/16/21 Aspirin 81 mg PO DAILY #30 chew 06/23/21 Furosemide [Lasix] 40 mg PO BID #60 tab 06/23/21 lisinopriL [Zestril] 5 mg PO DAILY #30 tab 06/23/21 polyethylene glycoL 3350 [Miralax] 17 gm PO HS #30 powd.pack 06/23/21 Allergies Allergy/AdvReac Type Severity Reaction Status Date / Time bee venom protein (honey bee) Allergy Severe Swelling Verified 06/27/21 16:45 acetaminophen [From Tylenol] Allergy Anaphylaxis Verified 06/27/21 16:45 morphine Allergy Swelling Verified 06/27/21 16:45 Penicillins Allergy Rash/Hives Verified 06/27/21 16:45 all citrus Allergy Anaphylaxis Uncoded 06/27/21 16:45 Review of Systems ROS Statement: Those systems with pertinent positive or pertinent negative responses have been documented in the HPI. Review of Systems: CONST: Endorses subjective fevers EYES: Denies blurry vision ENT: Denies nasal congestion C/V: Denies Chest pain RESP: Denies shortness of breath GI: Endorses abdominal pain : Endorses dysuria SKIN: Denies rash. MSK: Denies joint pain. NEURO: Denies headache ROS Other: All systems not noted in ROS Statement are negative. Past Medical History Past Medical History: Diabetes Mellitus, GERD/Reflux, Hypertension, Myocardial Infarction ([place]), Pulmonary Embolus ([place]) Additional Past Medical History / Comment(s): Previous history of pulmonary embolism in 2013, obesity, previous history of DVT involving the left lower extremity, diabetes mellitus, hypertension, acid reflux, chronic back pain, normal coronaries based on a cardiac catheterization from June 2015 History of Any Multi-Drug Resistant Organisms: None Reported Past Surgical History: Orthopedic Surgery Additional Past Surgical History / Comment(s): Rt shoulder rotator cuff repair Past Anesthesia/Blood Transfusion Reactions: No Reported Reaction Additional Past Anesthesia/Blood Transfusion Reaction / Comment(s): STATES HAS BEHAVIOR CHANGES POST OP Past Psychological History: No Psychological Hx Reported Smoking Status: Former smoker Past Alcohol Use History: None Reported Past Drug Use History: None Reported - Past Family History Father Family Medical History: No Reported History Mother Family Medical History: No Reported History General Exam - General Exam Comments Initial Comments: General: Appears in no acute distress. HEAD: Normal with no signs of head trauma. EYES: PERRLA, EOMI, conjunctiva normal, no discharge. ENT: Hearing grossly intact, normal oropharynx. RESPIRATORY: Clear breath sounds bilaterally. No wheezes, rales, or rhonchi. C/V: Regular rate and rhythm. S1 and S2 auscultated, no edema, peripheral pulses 2+ and intact throughout ABD: Abdomen is soft, nondistended. Patient's spinal tenderness palpation in the suprapubic region. She has left-sided CVA tenderness. There is no rebound tenderness. There are no peritoneal signs. EXT: Normal range of motion, no obvious deformity SKIN: No rashes or lesions observed on exposed skin. NEURO: Alert and oriented 4. No focal sensory strength deficits. Limitations: no limitations Course Vital Signs 06/27/21 06/27/21 06/27/21 16:41 19:15 20:45 Temperature 100.3 F H Pulse Rate 84 80 85 Respiratory 22 20 18 Rate Blood Pressure 131/60 112/73 119/85 O2 Sat by Pulse 91 L 93 L 97 Oximetry 06/27/21 21:43 Temperature 98.3 F Pulse Rate 80 Respiratory 18 Rate Blood Pressure O2 Sat by Pulse 97 Oximetry Medical Decision Making - Medical Decision Making Based on the patient's presentation and physical exam, she has a worsening UTI and her home antibiotics apparently are not working based on the urinary cultures as well as her subjective symptoms are not improved. Therefore we will repeat some basic laboratory studies and start the patient on daptomycin which was reviewed as a antibiotic that the urine culture deemed is susceptible. She'll be given a 1 L fluid bolus as well as a dose of Ultram for pain. She was in agreement this plan. Patient will be admitted to the hospital. Patient's laboratory studies are remarkable for leukocytosis of 17.0. Patient has a mildly elevated creatinine of 1.10. Patient's urine is still suspicious for an acute urinary tract infection with 124 WBCs, large amount of leukocyte esterase. Patient does have moderate amount of yeast present in she'll receive a one-time dose of fluconazole as well. I informed the patient results of laboratory studies and informed her that I would like to admitted to the hospital. She was in agreement this plan. Patient was also administered Toradol for pain as well as a mild fever. I consulted MARY, Dr. Bruce evaluate the patient tomorrow. I spoke with the admitting team under Dr. Duncan who accepted the patient. Therefore patient was admitted and serous condition to observation for IV antibiotics. - Lab Data Result diagrams: 06/27/21 18:56 06/27/21 18:56 Lab Results 06/27/21 06/27/21 06/27/21 Range/Units 18:56 18:56 18:56 WBC 17.0 H (3.8-10.6) k/uL RBC 4.29 (3.80-5.40) m/uL Hgb 12.1 (11.4-16.0) gm/dL Hct 38.9 (34.0-46.0) % MCV 90.7 (80.0-100.0) fL MCH 28.1 (25.0-35.0) pg MCHC 31.0 (31.0-37.0) g/dL RDW 15.2 (11.5-15.5) % Plt Count 366 (150-450) k/uL MPV 9.4 Neutrophils % 77 % Lymphocytes % 13 % Monocytes % 6 % Eosinophils % 2 % Basophils % 1 % Neutrophils # 13.1 H (1.3-7.7) k/uL Lymphocytes # 2.2 (1.0-4.8) k/uL Monocytes # 0.9 (0-1.0) k/uL Eosinophils # 0.3 (0-0.7) k/uL Basophils # 0.1 (0-0.2) k/uL Hypochromasia Slight Sodium 137 (137-145) mmol/L Potassium 4.6 (3.5-5.1) mmol/L Chloride 105 (98-107) mmol/L Carbon Dioxide 24 (22-30) mmol/L Anion Gap 8 mmol/L BUN 30 H (7-17) mg/dL Creatinine 1.10 H (0.52-1.04) mg/dL Est GFR (CKD-EPI)AfAm 66 (>60 ml/min/1.73 sqM) Est GFR (CKD-EPI)NonAf 57 (>60 ml/min/1.73 sqM) Glucose 76 (74-99) mg/dL Calcium 8.6 (8.4-10.2) mg/dL Magnesium 2.1 (1.6-2.3) mg/dL Total Bilirubin 0.8 (0.2-1.3) mg/dL AST 36 (14-36) U/L ALT 18 (4-34) U/L Alkaline Phosphatase 87 (38-126) U/L Total Protein 6.7 (6.3-8.2) g/dL Albumin 3.0 L (3.5-5.0) g/dL Urine Color Yellow Urine Appearance Cloudy H (Clear) Urine pH 5.5 (5.0-8.0) Ur Specific [place] 1.021 (1.001-1.035) Urine Protein 1+ H (Negative) Urine Glucose (UA) Negative (Negative) Urine Ketones Negative (Negative) Urine Blood Small H (Negative) Urine Nitrite Negative (Negative) Urine Bilirubin Negative (Negative) Urine Urobilinogen 2.0 (<2.0) mg/dL Ur Leukocyte Esterase Large H (Negative) Urine RBC 17 H (0-5) /hpf Urine WBC 124 H (0-5) /hpf Ur Squamous Epith Cells 1 (0-4) /hpf Urine Mucus Rare H (None) /hpf Urine Yeast (Budding) Moderate H (None) /hpf Disposition Clinical Impression: UTI (urinary tract infection), Febrile, Pyelonephritis Disposition: ADMITTED IP TO THIS HOSP Condition: Serious
[2021-06-28] MEDS: FUROSEMIDE 20 MG TAB PO SCH ×2 (07:52→20:53)
[2021-06-28] MEDS: PREGABALIN 100 MG CAP PO SCH ×2 (07:52→20:52)
[2021-06-28] MEDS: APIXABAN 5 MG TAB PO SCH ×2 (07:53→20:52)
[2021-06-28] MEDS: ASPIRIN 81 MG PO SCH (07:53)
[2021-06-28] MEDS: lisinopriL 5 MG TAB PO SCH (07:53)
[2021-06-28] MEDS: METOPROLOL TARTRATE 25 MG TAB PO SCH ×2 (07:53→20:53)
[2021-06-28] MEDS: traMADol 50 MG TAB PO PRN ×2 (11:34→23:44)
[2021-06-28] MEDS ORDERED: KETOROLAC 15 MG/ML 1 ML VIAL IVP PRN (12:22)
[2021-06-28 13:35] LABS: Appearance,Urine Clear (Clear); Bacteria,Urine Rare /hpf; Bilirubin,Urine Negative (Negative); Blood,Urine Small (Negative); Budding Yeast,Urine Occasional /hpf; Color,Urine Yellow; Glucose,Urine (UA) Negative (Negative); Hyaline Casts,Urine 19 /lpf (0-2); Ketones,Urine Negative (Negative); Leukocyte Esterase,Urine Large (Negative); Mucus,Urine Rare /hpf; Nitrite,Urine Negative (Negative); Protein,Urine Negative (Negative); RBC,Urine 18 /hpf (0-5); Specific Gravity,Urine 1.008 (1.001-1.035); Squamous Epithelial Cell,Urine 2 /hpf (0-4); Urobilinogen,Urine <2.0 mg/dL (<2.0); WBC,Urine 29 /hpf (0-5)
--- NOTE | 2021-06-28 15:43 | P.HPIM ---
History of Present Illness H&P Date: 06/28/21 55 years old patient of [facility] with past medical history of diastolic congestive heart failure, history of pulmonary embolism in 2013, previous history of DVT involving left lower extremity, diabetes, hypertension, GERD, chronic back pain on Eliquis, moderate pulmonary hypertension, history of medication noncompliance, recently admitted for bilateral pneumonia and discharged on June 23 with history of right renal stone for which patient underwent staged right ureteroscopy on June 16 with further plan of surgery on July 03. Repeat urine culture were obtained on June 23 to see if patient has cleared her infection during her last hospitalization. Patient was noted to have VRE on June 24 urine culture in the patient's recent ER visit , was treated with oral antibiotics. Since the bacteria was only susceptible to IV antibiotic patient was called by the hospital to get admitted for IV antibiotics. On assessment today patient complains of significant pain in the right flank. She does document fever, chills but denies any burning micturition. Patient denies any blood in the urine. Denies any abdominal pain, nausea or vomiting. Urine cultures were not obtained in the ER. Repeat urine cultures and blood culture ordered. Patient initiated on daptomycin followed by the culture findings. Patient is afebrile pulse 78 and respiratory rate 16 blood pressure 1:15/71 oxygen saturation 92% on room air. Labs suggestive leukocytosis of 17, BUN 30 creatinine 1.1, UA suggestive of large leukocyte esterase and 124 WBC patient initiated on daptomycin. Renal ultrasound ordered. Patient is ALLERGIC to morphine with swelling involving mouth and tongue. Patient has tolerated Toradol but is currently on Eliquis and has high risk of bleeding on it. Patient initiated on tramadol every 6 hour which patient is able to tolerate. Urology consult placed ROS Constitutional: Endorses chills, endorses fever, Denies lethargy, Denies malaise, Denies poor appetite, Denies weakness, Denies weight loss Eyes: denies decreased vision, denies diplopia, denies discharge, denies pain Ears: deny: decreased hearing Ears, nose, mouth and throat: Denies dental pain, Denies headache, Denies nasal discharge, Denies nose pain Cardiovascular: Denies chest pain, Denies decreased exercise tolerance, Denies edema, Denies high blood pressure, Denies irregular heart beat, Denies palpitations, Denies paroxysmal nocturnal dyspnea, Denies rapid heart beat, Denies shortness of breath Respiratory: Denies congestion, Denies cough, Denies cough with sputum, Denies dyspnea, Denies home oxygen, Denies wheezing Gastrointestinal: Denies abdominal pain, Denies change in bowel habits, Denies coffee ground emesis, Denies early satiety, Denies excessive gas, Denies heartburn, Denies hematemesis, Denies hematochezia, Denies loss of appetite, Denies nausea, Denies vomiting Genitourinary: Denies dysuria, endorses flank pain, endorses kidney stones, Denies menorrhagia, Denies urgency, Denies urinary frequency Musculoskeletal: Denies gait dysfunction, Denies limitation of motion, Denies morning stiffness, Denies muscle cramps Integumentary: Denies rash, Denies wounds, Denies brittle nails, Denies change in hair/nails, Denies darkening of skin Neurological: Denies balance difficulties, Denies change in speech, Denies doub le vision, Denies gait dysfunction, Denies loss of vision, Denies motor disturbance, Denies numbness, Denies paralysis, Denies paresthesias, Denies seizures Psychiatric: Denies anxiety, Denies depression Endocrine: Denies excessive sweating, Denies excessive thirst, Denies high blood sugars, Denies palpitations Hematologic/Lymphatic: Denies easy bruising, Denies lymphadenopathy Social history Patient is a former smoker denies alcohol use normal no illicit drug use Family history No significant medical history in mother is still living at age 888) history involving [facility] medical condition living at age 86 no brother or sister patient has a daughter who is 33 no medical condition Physical exam - Constitutional General appearance: cooperative, mild acute distress, obese - EENT Eyes: anicteric sclerae, PERRLA, normal appearance ENT: hearing grossly normal - Neck Neck: no lymphadenopathy, normal ROM, no other, no rigidity, no stridor, no thyromegaly - Respiratory Respiratory: bilateral: CTA, negative: diminished, dullness, rales, rhonchi - Cardiovascular Rhythm: regular Heart sounds: normal: S1, S2 Abnormal Heart Sounds: no systolic murmur, no diastolic murmur, no rub, no S3 Gallop, no S4 Gallop, no click, peripheral edema 1+ with purplish discolored discoloration of the toes pulses are palpable A - Gastrointestinal General gastrointestinal: normal bowel sounds, soft tender in the right flank - Integumentary Integumentary: no rash - Neurologic Neurologic: CNII-XII intact - Musculoskeletal Musculoskeletal: gait normal, strength equal bilaterally - Psychiatric Psychiatric: A&O x's 3, appropriate affect Assessment and plan #1 acute UTI with sepsis on daptomycin. Urine culture and blood culture pending. Renal ultrasound ordered to rule out complicated UTI. Urology and infectious disease consulted. IV fluids initiated 75 mL/h #2 history of renal stones status post right ureterostomy, June 16. Plan to repeat on July 03. Urology consult placed #3 history of diastolic congestive heart failure continue furosemide 40 mg twice a day. Continue I&O monitoring daily weights #4 type 2 diabetes hold metformin continue insulin sliding scale #5 GERD continue Pepcid 20 twice a day #6 history of DVT and pulmonary embolism on Eliquis DuoNeb as needed for shortness of breath #7 hypertension continue lisinopril 5 mg twice a day continue metoprolol 75 twice a day #8 mild CAD on aspirin and metoprolol 75 twice a day #9 chronic back pain controlled on 50 Every 6 Hours #10 DVT prophylaxis on Eliquis for pulmonary embolism #11 GI prophylaxis Pepcid 20 twice a day #12 disposition patient need 1-2 hospitalized for stabilization Past Medical History Past Medical History: Diabetes Mellitus, GERD/Reflux, Hypertension, Myocardial Infarction ([place]), Pulmonary Embolus ([place]) Additional Past Medical History / Comment(s): Previous history of pulmonary embolism in 2013, obesity, previous history of DVT involving the left lower extremity, diabetes mellitus, hypertension, acid reflux, chronic back pain, normal coronaries based on a cardiac catheterization from June 2015 Last Myocardial Infarction Date:: 06/16/2021 History of Any Multi-Drug Resistant Organisms: None Reported Past Surgical History: Orthopedic Surgery Additional Past Surgical History / Comment(s): Rt shoulder rotator cuff repair Past Anesthesia/Blood Transfusion Reactions: No Reported Reaction Additional Past Anesthesia/Blood Transfusion Reaction / Comment(s): STATES HAS BEHAVIOR CHANGES POST OP Past Psychological History: No Psychological Hx Reported Smoking Status: Former smoker Past Alcohol Use History: None Reported Past Drug Use History: None Reported - Past Family History Father Family Medical History: No Reported History Mother Family Medical History: No Reported History Medications and Allergies Home Medications Medication Instructions Recorded Confirmed Type Apixaban [Eliquis] 5 mg PO BID 06/12/21 06/27/21 History Cholecalciferol [Vitamin D3 (25 50 mcg PO DAILY 06/12/21 06/27/21 History Mcg = 1000 Iu)] Ferrous Sulfate [Iron] 325 mg PO DAILY 06/12/21 06/27/21 History Metoprolol Tartrate [Lopressor] 75 mg PO BID 06/12/21 06/27/21 History Pregabalin [Lyrica] 200 mg PO BID 06/12/21 06/27/21 History metFORMIN HCL [Glucophage] 500 mg PO BID 06/12/21 06/27/21 History traMADol HCL [Ultram] 50 mg PO Q6HR PRN 3 Days #12 tab 06/16/21 06/27/21 Rx Aspirin 81 mg PO DAILY #30 chew 06/23/21 06/27/21 Rx Furosemide [Lasix] 40 mg PO BID #60 tab 06/23/21 06/27/21 Rx lisinopriL [Zestril] 5 mg PO DAILY #30 tab 06/23/21 06/27/21 Rx polyethylene glycoL 3350 [Miralax] 17 gm PO HS #30 powd.pack 06/23/21 06/27/21 Rx Allergies Allergy/AdvReac Type Severity Reaction Status Date / Time bee venom protein (honey bee) Allergy Severe Swelling Verified 06/27/21 16:45 acetaminophen [From Tylenol] Allergy Anaphylaxis Verified 06/27/21 16:45 morphine Allergy Swelling Verified 06/27/21 16:45 Penicillins Allergy Rash/Hives Verified 06/27/21 16:45 all citrus Allergy Anaphylaxis Uncoded 06/27/21 16:45 Physical Exam Vitals: Vital Signs Temp Pulse Pulse Resp BP BP Pulse Ox 06/28/21 05:52 97.8 F 79 18 122/78 90 L 06/28/21 03:39 18 06/27/21 22:40 97.6 F 77 18 103/64 94 L 06/27/21 21:43 98.3 F 80 18 97 06/27/21 20:45 85 18 119/85 97 06/27/21 19:15 80 20 112/73 93 L 06/27/21 16:41 100.3 F H 84 22 131/60 91 L Intake and Output 06/27/21 06/28/21 06/28/21 22:59 06:59 14:59 Intake Total 540 Balance 540 Intake: Oral 540 Other: Voiding Method Toilet Weight 99.337 kg Results CBC & Chem 7: 06/27/21 18:56 06/27/21 18:56 Labs: Abnormal Lab Results - Last 24 Hours (Table) 06/27/21 06/27/21 06/27/21 Range/Units 18:56 18:56 18:56 WBC 17.0 H (3.8-10.6) k/uL Neutrophils # 13.1 H (1.3-7.7) k/uL BUN 30 H (7-17) mg/dL Creatinine 1.10 H (0.52-1.04) mg/dL Albumin 3.0 L (3.5-5.0) g/dL Urine Appearance Cloudy H (Clear) Urine Protein 1+ H (Negative) Urine Blood Small H (Negative) Ur Leukocyte Esterase Large H (Negative) Urine RBC 17 H (0-5) /hpf Urine WBC 124 H (0-5) /hpf Urine Mucus Rare H (None) /hpf Urine Yeast (Budding) Moderate H (None) /hpf Thrombosis Risk Factor Assmnt - Choose All That Apply Any of the Below Risk Factors Present?: Yes Each Factor Represents 1 point: Age 41-60 years, Obesity (BMI >25) Other Risk Factors: Yes Each Risk Factor Represents 3 Points: History of DVT/PE Other congenital or acquired thrombophilia - If yes, enter type in comment: No Thrombosis Risk Factor Assessment Total Risk Factor Score: 5 Thrombosis Risk Factor Assessment Level: High Risk
[2021-06-28] MEDS: SODIUM CHLORIDE 0.9% 1,000 ML IV SCH (15:45)
[2021-06-28] MEDS ORDERED: ONDANSETRON 4 MG/2 ML VIAL IVP PRN (15:45)
[2021-06-28] MEDS ORDERED: IPRATROPIUM-ALBUTEROL 3 ML NEB INHALATION PRN (15:45)
[2021-06-28] MEDS: FAMOTIDINE 20 MG TAB PO SCH (15:56)
[2021-06-28 17:23] LABS: Glucose,Whole Blood 134 mg/dL (75-99)
[2021-06-28] MEDS: INSULIN ASPART (NovoLOG) 100 UNIT/ML VIAL SQ SCH ×2 (17:53→21:12)
[2021-06-28] MEDS: polyethylene glycoL 3350 17 GM POWD.PACK PO SCH (20:56)
[2021-06-28] MEDS: DAPTOmycin 500 MG in SODIUM CHLORIDE 0.9% 50 ML IVPB SCH (21:07)
[2021-06-28 21:13] LABS: Glucose,Whole Blood 129 mg/dL (75-99)
--- NOTE | 2021-06-28 21:13 | US ---
EXAMINATION TYPE: US renals and bladder DATE OF EXAM: 06/28/2021 COMPARISON: Ultrasound 06/19/2021. CLINICAL HISTORY: recent kidney issue, worsening pain. History of kidney stone, right renal stent , r ight flank pain EXAM MEASUREMENTS: Right Kidney: 11.6 x 4.8 x 4.4 cm Left Kidney: 11.6 x 6.1 x 6.3 cm Right Kidney: stone lower pole = 2.1cm. possible complex fluid surrounding anteriorly Left Kidney: no evidence of hydronephrosis Bladder: not visualized There is no evidence for hydronephrosis at this point in time. No nephrolithiasis is seen. No karen s are identified. The urinary bladder is anechoic. Bilateral ureteral jets are seen. IMPRESSION: 1. There is a 2.1cm stone in the lower pole of the right kidney. There is a moderate amount of mild ly complex perinephric fluid. The right renal stent is not well seen. Recommend CT for better visuali zation. 2. No hydronephrosis of either kidney. 3. Bladder is not visualized.
--- NOTE | 2021-06-28 22:03 | P.CONS ---
History of Present Illness - Reason for Consult Consult date: 06/28/21 VRE UTI Requesting physician: Deepali Bryan - Chief Complaint Wekaness and nausea x few days - History of Present Illness History of present illness : Patient is a 55-year-old female with multiple comorbidity in this patient with recent diagnosis of right renal stone for the patient underwent Right ureteroscopy laser lithotripsy stone basketing and stent insertion with the procedure was performed on 06/16/2021 subsequently patient was admitted to the hospital for his history of exacerbation patient did have a UA and urine culture was obtained on 24 June which came back positive with Lesa glabrata and VRE patient was admitted to hospital patient did have a white count of 17,000 creatinine was 1.10 patient did have positive UA started on daptomycin i nfectious was consulted for further management of antibiotic therapy, patient denies having any fever or chills has been complaining of feeling weak no energy and some shortness of breath did have some urinary frequency but no significant burning suprapubic or flank pain did have some nausea but no vomiting and no diarrhea Review of system: CONSTITUTIONAL: Positive for weakness denies high-grade fever. EYES: No complaint. ENT: No complaint. RESPIRATORY: As per history of present illness CARDIOVASCULAR: No complaint. GENITOURINARY: As per history of present illness. GASTROINTESTINAL: No complaint. MUSCULOSKELETAL: No complaint. INTEGUMENTARY: No complaint. PSYCHOLOGIC: No complaint. ENDOCRINE: No complaint. NEUROLOGIC: No complaint. Past medical history : Reviewed, documented below Past surgical history : Reviewed, documented below Social history: Reviewed, documented below Medications: Reviewed, as documented below GENERAL DESCRIPTION: Middle-aged female lying in bed, no distress. No tachypnea or accessory muscle of respiration use. HEENT: Shows Pallor , no scleral icterus. Oral mucous membrane is dry. NECK: Trachea central, no thyromegaly. LUNGS: Unlabored breathing. Decrease intensity of breath sounds. No wheeze or crackle. HEART: S1, S2, regular rate and rhythm. ABDOMEN: Soft, no tenderness , guarding or rigidity EXTREMITIES: No edema of feet. SKIN: No rash, no masses palpable. NEUROLOGICAL: The patient is awake, alert, oriented x3, mood and affect normal. LABS AND RADIOLOGY: Reviewed results see below Assessment : Patient with recent cystoscopy and right ureteral stent placement for renal stone in this patient who did have evidence of residual stone for the patient is scheduled to have procedure on 07/03/2021 did have a positive UA with culture positive for VRE and Lesa glabrata concerning for a complicated UTI Plan: 1-daptomycin 4 mg/kg daily 2-we will add voriconazole to cover for the Lesa glabrata 3-gentle IV fluid We will follow on clinical condition and cultures to further adjust medication if needed Thank you for this consultation we will follow the patient along with you Past Medical History Past Medical History: Diabetes Mellitus, GERD/Reflux, Hypertension, Myocardial Infarction ([place]), Pulmonary Embolus ([place]) Additional Past Medical History / Comment(s): Previous history of pulmonary embolism in 2013, obesity, previous history of DVT involving the left lower extremity, diabetes mellitus, hypertension, acid reflux, chronic back pain, normal coronaries based on a cardiac catheterization from June 2015 Last Myocardial Infarction Date:: 06/16/2021 History of Any Multi-Drug Resistant Organisms: None Reported Past Surgical History: Orthopedic Surgery Additional Past Surgical History / Comment(s): Rt shoulder rotator cuff repair Past Anesthesia/Blood Transfusion Reactions: No Reported Reaction Additional Past Anesthesia/Blood Transfusion Reaction / Comm: STATES HAS BEHAVIOR CHANGES POST OP Past Psychological History: No Psychological Hx Reported Smoking Status: Former smoker Past Alcohol Use History: None Reported Past Drug Use History: None Reported - Past Family History Father Family Medical History: No Reported History Mother Family Medical History: No Reported History Medications and Allergies Home Medications Medication Instructions Recorded Confirmed Type Apixaban [Eliquis] 5 mg PO BID 06/12/21 06/27/21 History Cholecalciferol [Vitamin D3 (25 50 mcg PO DAILY 06/12/21 06/27/21 History Mcg = 1000 Iu)] Ferrous Sulfate [Iron] 325 mg PO DAILY 06/12/21 06/27/21 History Metoprolol Tartrate [Lopressor] 75 mg PO BID 06/12/21 06/27/21 History Pregabalin [Lyrica] 200 mg PO BID 06/12/21 06/27/21 History metFORMIN HCL [Glucophage] 500 mg PO BID 06/12/21 06/27/21 History traMADol HCL [Ultram] 50 mg PO Q6HR PRN 3 Days #12 tab 06/16/21 06/27/21 Rx Aspirin 81 mg PO DAILY #30 chew 06/23/21 06/27/21 Rx Furosemide [Lasix] 40 mg PO BID #60 tab 06/23/21 06/27/21 Rx lisinopriL [Zestril] 5 mg PO DAILY #30 tab 06/23/21 06/27/21 Rx polyethylene glycoL 3350 [Miralax] 17 gm PO HS #30 powd.pack 06/23/21 06/27/21 Rx Allergies Allergy/AdvReac Type Severity Reaction Status Date / Time bee venom protein (honey bee) Allergy Severe Swelling Verified 06/27/21 16:45 acetaminophen [From Tylenol] Allergy Anaphylaxis Verified 06/27/21 16:45 morphine Allergy Swelling Verified 06/27/21 16:45 Penicillins Allergy Rash/Hives Verified 06/27/21 16:45 all citrus Allergy Anaphylaxis Uncoded 06/27/21 16:45 Physical Exam Vitals: Vital Signs Temp Pulse Pulse Resp BP BP Pulse Ox 06/28/21 05:52 97.8 F 79 18 122/78 90 L 06/28/21 03:39 18 06/27/21 22:40 97.6 F 77 18 103/64 94 L 06/27/21 21:43 98.3 F 80 18 97 06/27/21 20:45 85 18 119/85 97 06/27/21 19:15 80 20 112/73 93 L 06/27/21 16:41 100.3 F H 84 22 131/60 91 L Intake and Output 06/27/21 06/28/21 06/28/21 22:59 06:59 14:59 Intake Total 540 Balance 540 Intake: Oral 540 Other: Voiding Method Toilet Weight 99.337 kg Results CBC & Chem 7: 06/27/21 18:56 06/27/21 18:56 Labs: Abnormal Lab Results - Last 24 Hours (Table) 06/27/21 06/27/21 06/27/21 Range/Units 18:56 18:56 18:56 WBC 17.0 H (3.8-10.6) k/uL Neutrophils # 13.1 H (1.3-7.7) k/uL BUN 30 H (7-17) mg/dL Creatinine 1.10 H (0.52-1.04) mg/dL Albumin 3.0 L (3.5-5.0) g/dL Urine Appearance Cloudy H (Clear) Urine Protein 1+ H (Negative) Urine Blood Small H (Negative) Ur Leukocyte Esterase Large H (Negative) Urine RBC 17 H (0-5) /hpf Urine WBC 124 H (0-5) /hpf Urine Mucus Rare H (None) /hpf Urine Yeast (Budding) Moderate H (None) /hpf
[2021-06-28] MEDS: VORICONAZOLE 200 MG TAB PO SCH (23:40)
[2021-06-29] MEDS: traMADol 50 MG TAB PO PRN ×2 (04:30→16:04)
[2021-06-29] MEDS: SODIUM CHLORIDE 0.9% 1,000 ML IV SCH (05:42)
[2021-06-29 06:15] LABS: Basophils # (A) 0.1 k/uL (0-0.2); Basophils % (A) 1 %; Eosinophils # (A) 0.2 k/uL (0-0.7); Eosinophils % (A) 1 %; HCT 34.7 % (34.0-46.0); HGB 10.7 gm/dL (11.4-16.0); Hypochromasia Moderate; Lymphocytes # (A) 2.1 k/uL (1.0-4.8); Lymphocytes % (A) 17 %; MCH 28.3 pg (25.0-35.0); MCHC 30.9 g/dL (31.0-37.0); MCV 91.5 fL (80.0-100.0); Mean Platelet Volume 9.8; Monocytes # (A) 0.7 k/uL (0-1.0); Monocytes % (A) 5 %; Neutrophils # (A) 9.4 k/uL (1.3-7.7); Neutrophils % (A) 75 %; Platelet Count 301 k/uL (150-450); RBC 3.79 m/uL (3.80-5.40); RDW 15.2 % (11.5-15.5); WBC 12.4 k/uL (3.8-10.6)
[2021-06-29 06:27] LABS: ALT 14 U/L (4-34); AST 25 U/L (14-36); African American GFR (CKD) 39 (>60 ml/min/1.73 sqM); Albumin 2.8 g/dL (3.5-5.0); Albumin/Globulin Ratio 0.8; Alkaline Phosphatase 79 U/L (38-126); Anion Gap 6 mmol/L; Blood Urea Nitrogen 33 mg/dL (7-17); Calcium 8.3 mg/dL (8.4-10.2); Carbon Dioxide 26 mmol/L (22-30); Chloride 104 mmol/L (98-107); Globulin 3.5 g/dL; Glucose 100 mg/dL (74-99); Non-African American GFR(CKD) 34 (>60 ml/min/1.73 sqM); Potassium 4.3 mmol/L (3.5-5.1); Sodium 136 mmol/L (137-145); Total Bilirubin 0.9 mg/dL (0.2-1.3); Total Protein 6.3 g/dL (6.3-8.2)
[2021-06-29 07:08] LABS: Glucose,Whole Blood 91 mg/dL (75-99)
[2021-06-29] MEDS: INSULIN ASPART (NovoLOG) 100 UNIT/ML VIAL SQ SCH ×4 (07:12→20:22)
[2021-06-29] MEDS: APIXABAN 5 MG TAB PO SCH ×2 (07:13→20:21)
[2021-06-29] MEDS: ASPIRIN 81 MG PO SCH (07:13)
[2021-06-29] MEDS: FAMOTIDINE 20 MG TAB PO SCH (07:13)
[2021-06-29] MEDS: METOPROLOL TARTRATE 25 MG TAB PO SCH ×2 (07:14→20:21)
[2021-06-29] MEDS: lisinopriL 5 MG TAB PO SCH (07:14)
[2021-06-29] MEDS: PREGABALIN 100 MG CAP PO SCH ×2 (07:14→20:20)
[2021-06-29] MEDS: FUROSEMIDE 20 MG TAB PO SCH ×2 (07:14→20:21)
[2021-06-29] MEDS: VORICONAZOLE 200 MG TAB PO SCH ×2 (07:15→20:22)
--- NOTE | 2021-06-29 10:13 | P.GSCN ---
History of Present Illness Consult date: 06/29/21 Reason for Consult: right ureteral stone History of present illness: Ms Alves is a 55 years old female with multiple comorbidities. She has history of right renal stone for which patient underwent staged right ureteroscopy on June 16, she is currently scheduled to undergo second stage surgery on July 03. She presented back with fevers and chills, right flank pain. On presentation her white count was 17,000. Urine culture from June 24 showed VRE on June 24. Patient is currently on daptomycin. Renal bladder ultrasound was obtained which showed no hydronephrosis. Denies any dysuria or gross hematuria at this time, but still complains of flank pain which is stable. Review of Systems - Constitutional Reports chills, Reports fever, Reports weakness - EENT Ears, nose, mouth and throat: Denies dysphagia - Cardiovascular Denies chest pain, Denies shortness of breath - Respiratory Denies cough, Denies 7 - Gastrointestinal Reports as per HPI - Genitourinary Genitourinary: Reports flank pain, Denies dysuria, Denies hematuria - Integumentary Denies rash, Denies unusual bruising - Neurological Denies headaches, Denies syncope - Hematologic/Lymphatic Denies easy bleeding, Denies easy bruising Past Medical History Past Medical History: Diabetes Mellitus, GERD/Reflux, Hypertension, Myocardial Infarction ([place]), Pulmonary Embolus ([place]) Additional Past Medical History / Comment(s): Previous history of pulmonary embolism in 2013, obesity, previous history of DVT involving the left lower extremity, diabetes mellitus, hypertension, acid reflux, chronic back pain, normal coronaries based on a cardiac catheterization from June 2015 Last Myocardial Infarction Date:: 06/16/2021 History of Any Multi-Drug Resistant Organisms: None Reported Past Surgical History: Orthopedic Surgery Additional Past Surgical History / Comment(s): Rt shoulder rotator cuff repair Past Anesthesia/Blood Transfusion Reactions: No Reported Reaction Additional Past Anesthesia/Blood Transfusion Reaction / Comm: STATES HAS BEHAVIOR CHANGES POST OP Past Psychological History: No Psychological Hx Reported Smoking Status: Former smoker Past Alcohol Use History: None Reported Past Drug Use History: None Reported - Past Family History Father Family Medical History: No Reported History Mother Family Medical History: No Reported History Medications and Allergies Home Medications Medication Instructions Recorded Confirmed Type Apixaban [Eliquis] 5 mg PO BID 06/12/21 06/27/21 History Cholecalciferol [Vitamin D3 (25 50 mcg PO DAILY 06/12/21 06/27/21 History Mcg = 1000 Iu)] Ferrous Sulfate [Iron] 325 mg PO DAILY 06/12/21 06/27/21 History Metoprolol Tartrate [Lopressor] 75 mg PO BID 06/12/21 06/27/21 History Pregabalin [Lyrica] 200 mg PO BID 06/12/21 06/27/21 History metFORMIN HCL [Glucophage] 500 mg PO BID 06/12/21 06/27/21 History traMADol HCL [Ultram] 50 mg PO Q6HR PRN 3 Days #12 tab 06/16/21 06/27/21 Rx Aspirin 81 mg PO DAILY #30 chew 06/23/21 06/27/21 Rx Furosemide [Lasix] 40 mg PO BID #60 tab 06/23/21 06/27/21 Rx lisinopriL [Zestril] 5 mg PO DAILY #30 tab 06/23/21 06/27/21 Rx polyethylene glycoL 3350 [Miralax] 17 gm PO HS #30 powd.pack 06/23/21 06/27/21 Rx Allergies Allergy/AdvReac Type Severity Reaction Status Date / Time bee venom protein (honey bee) Allergy Severe Swelling Verified 06/27/21 16:45 acetaminophen [From Tylenol] Allergy Anaphylaxis Verified 06/27/21 16:45 morphine Allergy Swelling Verified 06/27/21 16:45 Penicillins Allergy Rash/Hives Verified 06/27/21 16:45 all citrus Allergy Anaphylaxis Uncoded 06/27/21 16:45 Surgical - Exam Vital Signs Temp Pulse Resp BP Pulse Ox 100.3 F H 84 22 131/60 91 L 06/27/21 16:41 06/27/21 16:41 06/27/21 16:41 06/27/21 16:41 06/27/21 16:41 - General no distress, moderate pain - Eyes PERRL, normal ocular movement - ENT normal nares, normal mucosa - Respiratory normal expansion, normal respiratory effort - Abdomen Abdomen: soft, non tender - Psychiatric oriented to time, oriented to person, oriented to place, speech is normal Results - Labs 06/29/21 05:17 06/29/21 05:17 Abnormal Lab Results - Last 24 Hours (Table) 06/28/21 06/28/21 06/28/21 Range/Units 13:20 17:22 21:11 WBC (3.8-10.6) k/uL RBC (3.80-5.40) m/uL Hgb (11.4-16.0) gm/dL MCHC (31.0-37.0) g/dL Neutrophils # (1.3-7.7) k/uL Sodium (137-145) mmol/L BUN (7-17) mg/dL Creatinine (0.52-1.04) mg/dL Glucose (74-99) mg/dL POC Glucose (mg/dL) 134 H 129 H (75-99) mg/dL Calcium (8.4-10.2) mg/dL Albumin (3.5-5.0) g/dL Urine Blood Small H (Negative) Ur Leukocyte Esterase Large H (Negative) Urine RBC 18 H (0-5) /hpf Urine WBC 29 H (0-5) /hpf Urine Bacteria Rare H (None) /hpf Hyaline Casts 19 H (0-2) /lpf Urine Mucus Rare H (None) /hpf Urine Yeast (Budding) Occasional H (None) /hpf 06/29/21 06/29/21 Range/Units 05:17 05:17 WBC 12.4 H (3.8-10.6) k/uL RBC 3.79 L (3.80-5.40) m/uL Hgb 10.7 L (11.4-16.0) gm/dL MCHC 30.9 L (31.0-37.0) g/dL Neutrophils # 9.4 H (1.3-7.7) k/uL Sodium 136 L (137-145) mmol/L BUN 33 H (7-17) mg/dL Creatinine 1.70 H (0.52-1.04) mg/dL Glucose 100 H (74-99) mg/dL POC Glucose (mg/dL) (75-99) mg/dL Calcium 8.3 L (8.4-10.2) mg/dL Albumin 2.8 L (3.5-5.0) g/dL Urine Blood (Negative) Ur Leukocyte Esterase (Negative) Urine RBC (0-5) /hpf Urine WBC (0-5) /hpf Urine Bacteria (None) /hpf Hyaline Casts (0-2) /lpf Urine Mucus (None) /hpf Urine Yeast (Budding) (None) /hpf Microbiology - Last 24 Hours (Table) 06/28/21 13:20 Urine Culture - Preliminary Urine,Voided Diabetes panel 06/29/21 Range/Units 05:17 Sodium 136 L (137-145) mmol/L Potassium 4.3 (3.5-5.1) mmol/L Chloride 104 (98-107) mmol/L Carbon Dioxide 26 (22-30) mmol/L BUN 33 H (7-17) mg/dL Creatinine 1.70 H (0.52-1.04) mg/dL Glucose 100 H (74-99) mg/dL Calcium 8.3 L (8.4-10.2) mg/dL AST 25 (14-36) U/L ALT 14 (4-34) U/L Alkaline Phosphatase 79 (38-126) U/L Total Protein 6.3 (6.3-8.2) g/dL Albumin 2.8 L (3.5-5.0) g/dL Calcium panel 06/29/21 Range/Units 05:17 Calcium 8.3 L (8.4-10.2) mg/dL Albumin 2.8 L (3.5-5.0) g/dL Pituitary panel 06/29/21 Range/Units 05:17 Sodium 136 L (137-145) mmol/L Potassium 4.3 (3.5-5.1) mmol/L Chloride 104 (98-107) mmol/L Carbon Dioxide 26 (22-30) mmol/L BUN 33 H (7-17) mg/dL Creatinine 1.70 H (0.52-1.04) mg/dL Glucose 100 H (74-99) mg/dL Calcium 8.3 L (8.4-10.2) mg/dL Adrenal panel 06/29/21 Range/Units 05:17 Sodium 136 L (137-145) mmol/L Potassium 4.3 (3.5-5.1) mmol/L Chloride 104 (98-107) mmol/L Carbon Dioxide 26 (22-30) mmol/L BUN 33 H (7-17) mg/dL Creatinine 1.70 H (0.52-1.04) mg/dL Glucose 100 H (74-99) mg/dL Calcium 8.3 L (8.4-10.2) mg/dL Total Bilirubin 0.9 (0.2-1.3) mg/dL AST 25 (14-36) U/L ALT 14 (4-34) U/L Alkaline Phosphatase 79 (38-126) U/L Total Protein 6.3 (6.3-8.2) g/dL Albumin 2.8 L (3.5-5.0) g/dL Assessment and Plan Assessment: 55-year-old female status post staged right-sided ureteroscopy on June 16. Admitted to the hospital with VRE UTI, currently on daptomycin. ID is onboard. She scheduled to undergo a second stage ureteroscopy on July 03. From urology standpoint okay to proceed with surgery on July 03, but she will need to be on antibiotics at least until Wednesday, July 04. Okay to continue Eliquis and aspirin for surgery. We'll obtain a KUB to assess stent location, as a stent was not clearly visualized on ultrasound
[2021-06-29 11:27] LABS: Glucose,Whole Blood 99 mg/dL (75-99)
--- NOTE | 2021-06-29 13:13 | XR ---
History EXAMINATION TYPE: XR KUB DATE OF EXAM: 06/29/2021 HISTORY: Pain Comparison: 06/16/2021 Single KUB is submitted for interpretation. Findings: Right renal calculi: Calculus noted along the proximal component of the stent measuring approximately 8 mm. Additional smaller calculi suggested overlying the lower pole of the right kidney measuring up to 1.1 cm. Right ureteral calculi: Right ureteral stent noted.Pigtail component is straightened proximally. Left renal calculi: None Visualized. Left ureteral calculi: None Visualized. Pelvic calcifications: None Visualized. Bowel gas pattern is unremarkable. No free air. No mass effects. IMPRESSION: 1. As above.
--- NOTE | 2021-06-29 13:47 | P.PN ---
Subjective Progress Note Date: 06/29/21 55 years old patient of [facility] with past medical history of diastolic congestive heart failure, history of pulmonary embolism in 2013, previous history of DVT involving left lower extremity, diabetes, hypertension, GERD, chronic back pain on Eliquis, moderate pulmonary hypertension, history of medication noncompliance, recently admitted for bilateral pneumonia and discharged on June 23 with history of right renal stone for which patient underwent staged right ureteroscopy on June 16 with further plan of surgery on July 03. Repeat urine culture were obtained on June 23 to see if patient has cleared her infection during her last hospitalization. Patient was noted to have VRE on June 24 urine culture in the patient's recent ER visit , was treated with oral antibiotics. Since the bacteria was only susceptible to IV antibiotic patient was called by the hospital to get admitted for IV antibiotics. On assessment today patient complains of significant pain in the right flank. She does document fever, chills but denies any burning micturition. Patient denies any blood in the urine. Denies any abdominal pain, nausea or vomiting. Urine cultures were not obtained in the ER. Repeat urine cultures and blood culture ordered. Patient initiated on daptomycin followed by the culture findings. Patient is afebrile pulse 78 and respiratory rate 16 blood pressure 1:15/71 oxygen saturation 92% on room air. Labs suggestive leukocytosis of 17, BUN 30 creatinine 1.1, UA suggestive of large leukocyte esterase and 124 WBC patient initiated on daptomycin. Renal ultrasound ordered. Patient is ALLERGIC to morphine with swelling involving mouth and tongue. Patient has tolerated Toradol but is currently on Eliquis and has high risk of bleeding on it. Patient initiated on tramadol every 6 hour which patient is able to tolerate. Urology consult placed 06/29 patient examined bedside. Patient denies any significant discomfort in the lower back. No fever or chills overnight. Vitals are stable temperature is 90 pulse 81 respiratory rate 16 blood pressure 153/978 oxygen saturation 91% on room air labs are reviewed patient has a creatinine 1.7 increased from 1.1 BUN 33 WBC has improved to 12 from 17th hemoglobins are decreased from 12 to 10.7. Urine cultures are currently pending renal ultrasound was negative for any high- dose nephrosis. Urology has seen the patient recommend patient staying in the hospital to get IV antibiotics and the patient is scheduled for the procedure on the July 03. Infectious disease consulted for IV antibiotic recommendation continue patient on daptomycin and voriconazole for VRE and Lesa glabrata. We will discontinue IV fluids today and encourage oral intake of fluids. KUB O ordered by urology to assess the stent ROS Constitutional: Endorses chills, endorses fever, Denies lethargy, Denies malaise, Denies poor appetite, Denies weakness, Denies weight loss Eyes: denies decreased vision, denies diplopia, denies discharge, denies pain Ears: deny: decreased hearing Ears, nose, mouth and throat: Denies dental pain, Denies headache, Denies nasal discharge, Denies nose pain Cardiovascular: Denies chest pain, Denies decreased exercise tolerance, Denies edema, Denies high blood pressure, Denies irregular heart beat, Denies palpitations, Denies paroxysmal nocturnal dyspnea, Denies rapid heart beat, Denies shortness of breath Respiratory: Denies congestion, Denies cough, Denies cough with sputum, Denies dyspnea, Denies home oxygen, Denies wheezing Gastrointestinal: Denies abdominal pain, Denies change in bowel habits, Denies coffee ground emesis, Denies early satiety, Denies excessive gas, Denies heartburn, Denies hematemesis, Denies hematochezia, Denies loss of appetite, Denies nausea, Denies vomiting Genitourinary: Denies dysuria, endorses flank pain, endorses kidney stones, Denies menorrhagia, Denies urgency, Denies urinary frequency Musculoskeletal: Denies gait dysfunction, Denies limitation of motion, Denies m orning stiffness, Denies muscle cramps Integumentary: Denies rash, Denies wounds, Denies brittle nails, Denies change in hair/nails, Denies darkening of skin Neurological: Denies balance difficulties, Denies change in speech, Denies double vision, Denies gait dysfunction, Denies loss of vision, Denies motor disturbance, Denies numbness, Denies paralysis, Denies paresthesias, Denies seizures Psychiatric: Denies anxiety, Denies depression Endocrine: Denies excessive sweating, Denies excessive thirst, Denies high blood sugars, Denies palpitations Hematologic/Lymphatic: Denies easy bruising, Denies lymphadenopathy Physical exam - Constitutional General appearance: cooperative, mild acute distress, obese - EENT Eyes: anicteric sclerae, PERRLA, normal appearance ENT: hearing grossly normal - Neck Neck: no lymphadenopathy, normal ROM, no other, no rigidity, no stridor, no thyromegaly - Respiratory Respiratory: bilateral: CTA, negative: diminished, dullness, rales, rhonchi - Cardiovascular Rhythm: regular Heart sounds: normal: S1, S2 Abnormal Heart Sounds: no systolic murmur, no diastolic murmur, no rub, no S3 Gallop, no S4 Gallop, no click, peripheral edema 1+ with purplish discolored discoloration of the toes pulses are palpable A - Gastrointestinal General gastrointestinal: normal bowel sounds, soft tender in the right flank - Integumentary Integumentary: no rash - Neurologic Neurologic: CNII-XII intact - Musculoskeletal Musculoskeletal: gait normal, strength equal bilaterally - Psychiatric Psychiatric: A&O x's 3, appropriate affect Assessment and plan #1 acute complicated UTI with sepsis on daptomycin and voriconazole. Urine culture suggestive of VRE and blood culture pending. Renal ultrasound negative for hydronephrosis continue daptomycin and voriconazole. Discontinue IV fluids patient continue IV antibiotic as she is growing VRE and Lesa glabrata. #2 history of renal stones status post right ureterostomy, June 16. Plan to repeat on July 03. Urology consult placed. Repeat KUB #3 history of diastolic congestive heart failure continue furosemide 40 mg twice a day. Continue I&O monitoring daily weights #4 type 2 diabetes hold metformin continue insulin sliding scale #5 GERD continue Pepcid 20 twice a day #6 history of DVT and pulmonary embolism on Eliquis DuoNeb as needed for shortness of breath #7 hypertension continue lisinopril 5 mg twice a day continue metoprolol 75 twice a day #8 mild CAD on aspirin and metoprolol 75 twice a day #9 chronic back pain controlled on 50 Every 6 Hours #10 DVT prophylaxis on Eliquis for pulmonary embolism #11 GI prophylaxis Pepcid 20 twice a day #12 disposition patient need to be hospitalized for IV antibiotics Objective - Vital Signs Vital signs: Vital Signs Temp 99.2 F 06/29/21 11:31 Pulse 76 06/29/21 11:31 Resp 18 06/29/21 11:31 BP 135/87 06/29/21 11:31 Pulse Ox 93 L 06/29/21 11:31 Intake & Output 06/28/21 06/29/2121 18:59 06:59 18:59 Intake Total 1974 Balance 1974 Intake: Intake, IV Titration 875 Amount DAPTOmycin 500 mg In 50 Sodium Chloride 0.9% 50 ml @ 100 mls/hr IVPB Q24H [facility] Rx#:[id number] Sodium Chloride 0.9% 1, 825 000 ml @ 75 mls/hr IV . [id number] [facility] Rx#:[id number] Oral 1100 Other: Voiding Method Toilet Toilet Toilet # Voids 1 3 - Labs CBC & Chem 7: 06/29/21 05:17 06/29/21 05:17 Labs: Abnormal Lab Results - Last 24 Hours (Table) 06/28/21 06/28/21 06/29/21 Range/Units 17:22 21:11 05:17 WBC 12.4 H (3.8-10.6) k/uL RBC 3.79 L (3.80-5.40) m/uL Hgb 10.7 L (11.4-16.0) gm/dL MCHC 30.9 L (31.0-37.0) g/dL Neutrophils # 9.4 H (1.3-7.7) k/uL Sodium (137-145) mmol/L BUN (7-17) mg/dL Creatinine (0.52-1.04) mg/dL Glucose (74-99) mg/dL POC Glucose (mg/dL) 134 H 129 H (75-99) mg/dL Calcium (8.4-10.2) mg/dL Albumin (3.5-5.0) g/dL 06/29/21 Range/Units 05:17 WBC (3.8-10.6) k/uL RBC (3.80-5.40) m/uL Hgb (11.4-16.0) gm/dL MCHC (31.0-37.0) g/dL Neutrophils # (1.3-7.7) k/uL Sodium 136 L (137-145) mmol/L BUN 33 H (7-17) mg/dL Creatinine 1.70 H (0.52-1.04) mg/dL Glucose 100 H (74-99) mg/dL POC Glucose (mg/dL) (75-99) mg/dL Calcium 8.3 L (8.4-10.2) mg/dL Albumin 2.8 L (3.5-5.0) g/dL Microbiology - Last 24 Hours (Table) 06/28/21 13:20 Urine Culture - Preliminary Urine,Voided
[2021-06-29 17:30] LABS: Glucose,Whole Blood 154 mg/dL (75-99)
--- NOTE | 2021-06-29 17:36 | PN ---
PROGRESS NOTE DATE OF SERVICE: 06/29/2021 REASON FOR FOLLOWUP: Complicated urinary tract infection. INTERVAL HISTORY: The patient is afebrile. The patient is currently breathing comfortably. Denies having any chest pain or shortness of breath or cough. Some pain to the right flank area. No vomiting or diarrhea. PHYSICAL EXAMINATION: Blood pressure 135/87 with a pulse of 76, temperature 98.2. She is 93% on room air. GENERAL DESCRIPTION: General description is a middle-aged female lying in bed in no distress. RESPIRATORY SYSTEM: Unlabored breathing. Clear to auscultation anteriorly. HEART: S1, S2. Regular rate and rhythm. ABDOMEN: Soft. No tenderness. EXTREMITIES: No edema of the feet. LABS: Hemoglobin is 10.7, white count 12.4, BUN of 33, creatinine 1.70. DIAGNOSTIC IMPRESSION AND PLAN: Patient with a complicated urinary tract infection with urine positive for VRE and Lesa , covered with daptomycin and voriconazole; to continue and monitor clinical course closely. Continue with supportive care. MMODL / IJN: [id number] /
[2021-06-29 20:06] LABS: Glucose,Whole Blood 98 mg/dL (75-99)
[2021-06-29] MEDS: DAPTOmycin 500 MG in SODIUM CHLORIDE 0.9% 50 ML IVPB SCH (20:19)
[2021-06-29] MEDS: polyethylene glycoL 3350 17 GM POWD.PACK PO SCH (20:24)
[2021-06-30 07:26] LABS: Glucose,Whole Blood 81 mg/dL (75-99)
[2021-06-30] MEDS: INSULIN ASPART (NovoLOG) 100 UNIT/ML VIAL SQ SCH ×4 (07:34→20:15)
[2021-06-30] MEDS: ASPIRIN 81 MG PO SCH (10:08)
[2021-06-30] MEDS: lisinopriL 5 MG TAB PO SCH (10:08)
[2021-06-30] MEDS: FUROSEMIDE 20 MG TAB PO SCH ×2 (10:08→20:15)
[2021-06-30] MEDS: FAMOTIDINE 20 MG TAB PO SCH (10:08)
[2021-06-30] MEDS: PREGABALIN 100 MG CAP PO SCH ×2 (10:09→20:16)
[2021-06-30] MEDS: METOPROLOL TARTRATE 25 MG TAB PO SCH ×2 (10:09→20:16)
[2021-06-30] MEDS: APIXABAN 5 MG TAB PO SCH ×2 (10:09→20:15)
[2021-06-30] MEDS: VORICONAZOLE 200 MG TAB PO SCH ×2 (10:10→20:16)
[2021-06-30 11:40] LABS: Glucose,Whole Blood 119 mg/dL (75-99)
--- NOTE | 2021-06-30 13:47 | PN ---
PROGRESS NOTE DATE OF SERVICE: 06/30/2021 REASON FOR FOLLOWUP: Complicated urinary tract infection. INTERVAL HISTORY: Patient is afebrile. The patient is feeling better. The patient's right flank pain has improved. Denies having any chest pain. No shortness of breath or cough. No nausea, vomiting, abdominal pain or diarrhea. PHYSICAL EXAMINATION: Blood pressure 125/71 with a pulse of 71, temperature 97.9. She is 94% on room air. General description is a middle-aged female up in the bed in no distress. Respiratory system: Unlabored breathing, clear to auscultation anteriorly. Heart S1-S2 regular rate and rhythm. Abdomen: Soft, no tenderness. LABS: No new labs have been obtained today. Repeat urine showing yeast. DIAGNOSTIC IMPRESSION AND PLAN: Patient with a complicated urinary tract infection. Urine culture has been positive for VRE, Elsa glabrata. Patient is covered with daptomycin and voriconazole waiting for urological procedures. Continue supportive care. MMODL / IJN: [id number] /
--- NOTE | 2021-06-30 16:09 | P.PN ---
Subjective Progress Note Date: 06/30/21 55 years old patient of [facility] with past medical history of diastolic congestive heart failure, history of pulmonary embolism in 2013, previous history of DVT involving left lower extremity, diabetes, hypertension, GERD, chronic back pain on Eliquis, moderate pulmonary hypertension, history of medication noncompliance, recently admitted for bilateral pneumonia and discharged on June 23 with history of right renal stone for which patient underwent staged right ureteroscopy on June 16 with further plan of surgery on July 03. Repeat urine culture were obtained on June 23 to see if patient has cleared her infection during her last hospitalization. Patient was noted to have VRE on June 24 urine culture in the patient's recent ER visit , was treated with oral antibiotics. Since the bacteria was only susceptible to IV antibiotic patient was called by the hospital to get admitted for IV antibiotics. On assessment today patient complains of significant pain in the right flank. She does document fever, chills but denies any burning micturition. Patient denies any blood in the urine. Denies any abdominal pain, nausea or vomiting. Urine cultures were not obtained in the ER. Repeat urine cultures and blood culture ordered. Patient initiated on daptomycin followed by the culture findings. Patient is afebrile pulse 78 and respiratory rate 16 blood pressure 1:15/71 oxygen saturation 92% on room air. Labs suggestive leukocytosis of 17, BUN 30 creatinine 1.1, UA suggestive of large leukocyte esterase and 124 WBC patient initiated on daptomycin. Renal ultrasound ordered. Patient is ALLERGIC to morphine with swelling involving mouth and tongue. Patient has tolerated Toradol but is currently on Eliquis and has high risk of bleeding on it. Patient initiated on tramadol every 6 hour which patient is able to tolerate. Urology consult placed 06/29 patient examined bedside. Patient denies any significant discomfort in the lower back. No fever or chills overnight. Vitals are stable temperature is 90 pulse 81 respiratory rate 16 blood pressure 153/978 oxygen saturation 91% on room air labs are reviewed patient has a creatinine 1.7 increased from 1.1 BUN 33 WBC has improved to 12 from 17th hemoglobins are decreased from 12 to 10.7. Urine cultures are currently pending renal ultrasound was negative for any high- dose nephrosis. Urology has seen the patient recommend patient staying in the hospital to get IV antibiotics and the patient is scheduled for the procedure on the July 03. Infectious disease consulted for IV antibiotic recommendation continue patient on daptomycin and voriconazole for VRE and Lesa glabrata. We will discontinue IV fluids today and encourage oral intake of fluids. KUB O ordered by urology to assess the stent 06/30 patient examined bedside. She denies any nausea or vomiting or abdominal pain. She does have flank pain on the right. Patient denies any chest pain or breathing difficulty. Vitals are stable with a temperature 98.4 pulse 67 and respiratory rate 16 blood pressure 125/71 oxygen saturation 93% on room air. No new labs to compare. Continue his to receive daptomycin and worried, resolved. No side effects noted. Blood pressure controlled on the current regimen of lisinopril and metoprolol. Continue Lasix 40 twice a day. KUB revealed suggestive of 8 mm calculi proximal to the stent additional smaller calculi suggesting underlying lower pole of the right kidney measuring 1.1 cm. Plan for Ureteroscopy with Dr. Olivo on jul 03 ROS Constitutional: Endorses chills, endorses fever, Denies lethargy, Denies malaise, Denies poor appetite, Denies weakness, Denies weight loss Eyes: denies decreased vision, denies diplopia, denies discharge, denies pain Ears: deny: decreased hearing Ears, nose, mouth and throat: Denies dental pain, Denies headache, Denies nasal discharge, Denies nose pain Cardiovascular: Denies chest pain, Denies decreased exercise tolerance, Denies edema, Denies high blood pressure, Denies irregular heart beat, Denies palpitations, Denies paroxysmal nocturnal dyspnea, Denies rapid heart beat, [place] es shortness of breath Respiratory: Denies congestion, Denies cough, Denies cough with sputum, Denies dyspnea, Denies home oxygen, Denies wheezing Gastrointestinal: Denies abdominal pain, Denies change in bowel habits, Denies coffee ground emesis, Denies early satiety, Denies excessive gas, Denies h eartburn, Denies hematemesis, Denies hematochezia, Denies loss of appetite, Denies nausea, Denies vomiting Genitourinary: Denies dysuria, endorses flank pain, endorses kidney stones, Denies menorrhagia, Denies urgency, Denies urinary frequency Musculoskeletal: Denies gait dysfunction, Denies limitation of motion, Denies morning stiffness, Denies muscle cramps Integumentary: Denies rash, Denies wounds, Denies brittle nails, Denies change in hair/nails, Denies darkening of skin Neurological: Denies balance difficulties, Denies change in speech, Denies double vision, Denies gait dysfunction, Denies loss of vision, Denies motor disturbance, Denies numbness, Denies paralysis, Denies paresthesias, Denies seizures Psychiatric: Denies anxiety, Denies depression Endocrine: Denies excessive sweating, Denies excessive thirst, Denies high blood sugars, Denies palpitations Hematologic/Lymphatic: Denies easy bruising, Denies lymphadenopathy Physical exam - Constitutional General appearance: cooperative, mild acute distress, obese - EENT Eyes: anicteric sclerae, PERRLA, normal appearance ENT: hearing grossly normal - Neck Neck: no lymphadenopathy, normal ROM, no other, no rigidity, no stridor, no thyromegaly - Respiratory Respiratory: bilateral: CTA, negative: diminished, dullness, rales, rhonchi - Cardiovascular Rhythm: regular Heart sounds: normal: S1, S2 Abnormal Heart Sounds: no systolic murmur, no diastolic murmur, no rub, no S3 Gallop, no S4 Gallop, no click, peripheral edema 1+ with purplish discolored discoloration of the toes pulses are palpable A - Gastrointestinal General gastrointestinal: normal bowel sounds, soft tender in the right flank - Integumentary Integumentary: no rash - Neurologic Neurologic: CNII-XII intact - Musculoskeletal Musculoskeletal: gait normal, strength equal bilaterally - Psychiatric Psychiatric: A&O x's 3, appropriate affect Assessment and plan #1 acute complicated UTI with sepsis on daptomycin and voriconazole initiated on . Urine culture suggestive of VRE and blood culture negtiv eRenal ultraso und negative for hydronephrosis continue daptomycin and voriconazole. Discontinue IV fluids patient continue IV antibiotic as she is growing VRE and Lesa glabrata. #2 history of renal stones status post right ureterostomy, June 16. Plan to repeat on July 03. Urology consult placed. Repeat KUB- 8 mm calculi right proximal to stent and additional stone in the lower pole of the kidney #3 history of diastolic congestive heart failure continue furosemide 40 mg twice a day. Continue I&O monitoring daily weights #4 type 2 diabetes hold metformin continue insulin sliding scale #5 GERD continue Pepcid 20 twice a day #6 history of DVT and pulmonary embolism on Eliquis DuoNeb as needed for shortness of breath #7 hypertension continue lisinopril 5 mg twice a day continue metoprolol 75 twice a day #8 mild CAD on aspirin and metoprolol 75 twice a day #9 chronic back pain controlled on 50 Every 6 Hours #10 DVT prophylaxis on Eliquis for pulmonary embolism #11 GI prophylaxis Pepcid 20 twice a day #12 disposition patient need to be hospitalized for IV antibiotics Objective - Vital Signs Vital signs: Vital Signs Temp 97.9 F 06/30/21 12:12 Pulse 71 06/30/21 12:12 Resp 17 06/30/21 12:12 BP 125/71 06/30/21 12:12 Pulse Ox 94 L 06/30/21 12:12 Intake & Output 06/29/21 06/30/21 06/30/21 18:59 06:59 18:59 Intake Total 3500 1077 Balance 3500 1077 Intake: Intake, IV Titration 400 300 Amount Sodium Chloride 0.9% 1, 400 300 000 ml @ 75 mls/hr IV . [id number] [facility] Rx#:[id number] Oral [id number] 777 Other: Voiding Method Toilet Toilet Toilet # Voids 2 4 - Labs CBC & Chem 7: 06/29/21 05:17 06/29/21 05:17 Labs: Abnormal Lab Results - Last 24 Hours (Table) 06/29/21 06/30/21 Range/Units 17:29 11:39 POC Glucose (mg/dL) 154 H 119 H (75-99) mg/dL Microbiology - Last 24 Hours (Table) 06/28/21 12:29 Blood Culture - Preliminary Blood No Growth after 48 hours 06/28/21 13:20 Urine Culture - Preliminary Urine,Voided Yeast species
[2021-06-30 17:27] LABS: Basophils # (A) 0.1 k/uL (0-0.2); Basophils % (A) 1 %; Eosinophils # (A) 0.1 k/uL (0-0.7); Eosinophils % (A) 1 %; HCT 37.1 % (34.0-46.0); HGB 11.6 gm/dL (11.4-16.0); Hypochromasia Moderate; Lymphocytes # (A) 1.7 k/uL (1.0-4.8); Lymphocytes % (A) 15 %; MCH 28.3 pg (25.0-35.0); MCHC 31.2 g/dL (31.0-37.0); MCV 90.6 fL (80.0-100.0); Mean Platelet Volume 9.9; Monocytes # (A) 0.6 k/uL (0-1.0); Monocytes % (A) 5 %; Neutrophils # (A) 8.3 k/uL (1.3-7.7); Neutrophils % (A) 76 %; Platelet Count 294 k/uL (150-450); RDW 15.3 % (11.5-15.5); WBC 10.9 k/uL (3.8-10.6)
[2021-06-30 17:31] LABS: Glucose,Whole Blood 101 mg/dL (75-99)
[2021-06-30 17:39] LABS: ALT 13 U/L (4-34); AST 26 U/L (14-36); African American GFR (CKD) 44 (>60 ml/min/1.73 sqM); Albumin/Globulin Ratio 0.8; Alkaline Phosphatase 89 U/L (38-126); Anion Gap 6 mmol/L; Blood Urea Nitrogen 33 mg/dL (7-17); Calcium 8.8 mg/dL (8.4-10.2); Carbon Dioxide 30 mmol/L (22-30); Chloride 102 mmol/L (98-107); Globulin 3.9 g/dL; Glucose 120 mg/dL (74-99); Non-African American GFR(CKD) 38 (>60 ml/min/1.73 sqM); Potassium 4.2 mmol/L (3.5-5.1); Sodium 138 mmol/L (137-145); Total Bilirubin 0.9 mg/dL (0.2-1.3); Total Protein 6.9 g/dL (6.3-8.2)
[2021-06-30] MEDS: DAPTOmycin 500 MG in SODIUM CHLORIDE 0.9% 50 ML IVPB SCH (18:19)
[2021-06-30] MEDS: polyethylene glycoL 3350 17 GM POWD.PACK PO SCH (20:16)
[2021-06-30 20:47] LABS: Glucose,Whole Blood 140 mg/dL (75-99)
[2021-06-30] MEDS: traMADol 50 MG TAB PO PRN (21:53)
[2021-07-01] MEDS: traMADol 50 MG TAB PO PRN ×2 (05:39→19:40)
[2021-07-01 07:18] LABS: Glucose,Whole Blood 97 mg/dL (75-99)
[2021-07-01] MEDS: lisinopriL 5 MG TAB PO SCH (08:22)
[2021-07-01] MEDS: FAMOTIDINE 20 MG TAB PO SCH (08:22)
[2021-07-01] MEDS: FUROSEMIDE 20 MG TAB PO SCH ×2 (08:22→19:33)
[2021-07-01] MEDS: PREGABALIN 100 MG CAP PO SCH ×2 (08:23→19:34)
[2021-07-01] MEDS: APIXABAN 5 MG TAB PO SCH ×2 (08:23→19:33)
[2021-07-01] MEDS: ASPIRIN 81 MG PO SCH (08:23)
[2021-07-01] MEDS: METOPROLOL TARTRATE 25 MG TAB PO SCH ×2 (08:23→19:33)
[2021-07-01] MEDS: INSULIN ASPART (NovoLOG) 100 UNIT/ML VIAL SQ SCH ×4 (08:25→21:54)
[2021-07-01] MEDS: VORICONAZOLE 200 MG TAB PO SCH ×2 (09:34→22:01)
[2021-07-01] MEDS ORDERED: DOCUSATE 100 MG CAP PO PRN (11:08)
[2021-07-01 12:22] LABS: Glucose,Whole Blood 101 mg/dL (75-99)
--- NOTE | 2021-07-01 15:43 | PN ---
PROGRESS NOTE DATE OF SERVICE: 07/01/2021 REASON FOR FOLLOWUP: Complicated urinary tract infection. INTERVAL HISTORY: The patient is currently afebrile. The patient is breathing comfortably. The patient denies having any chest pain or shortness of breath. Still complaining of pain to the right flank area. No vomiting or diarrhea. PHYSICAL EXAMINATION: Her blood pressure is 127/66, pulse of 77, temperature 98.8. She is 92% on room air. GENERAL DESCRIPTION: General description is a middle-aged female up in the bed in no distress. RESPIRATORY SYSTEM: Unlabored breathing. Decreased intensity of breath sounds. No wheeze. HEART: S1, S2. Regular rate and rhythm. ABDOMEN: Soft. No tenderness. LABS: No new labs have been obtained today. DIAGNOSTIC IMPRESSION AND PLAN: Patient with a complicated urinary tract infection with urine showing a VRE and Lesa glabrata. Patient is covered with daptomycin and voriconazole, waiting for possible surgery. Continue with supportive care. MMODL / IJN: [id number] /
--- NOTE | 2021-07-01 15:48 | P.PN ---
Subjective Progress Note Date: 07/01/21 55 years old patient of [facility] with past medical history of diastolic congestive heart failure, history of pulmonary embolism in 2013, previous history of DVT involving left lower extremity, diabetes, hypertension, GERD, chronic back pain on Eliquis, moderate pulmonary hypertension, history of medication noncompliance, recently admitted for bilateral pneumonia and discharged on June 23 with history of right renal stone for which patient underwent staged right ureteroscopy on June 16 with further plan of surgery on July 03. Repeat urine culture were obtained on June 23 to see if patient has cleared her infection during her last hospitalization. Patient was noted to have VRE on June 24 urine culture in the patient's recent ER visit , was treated with oral antibiotics. Since the bacteria was only susceptible to IV antibiotic patient was called by the hospital to get admitted for IV antibiotics. On assessment today patient complains of significant pain in the right flank. She does document fever, chills but denies any burning micturition. Patient denies any blood in the urine. Denies any abdominal pain, nausea or vomiting. Urine cultures were not obtained in the ER. Repeat urine cultures and blood culture ordered. Patient initiated on daptomycin followed by the culture findings. Patient is afebrile pulse 78 and respiratory rate 16 blood pressure 1:15/71 oxygen saturation 92% on room air. Labs suggestive leukocytosis of 17, BUN 30 creatinine 1.1, UA suggestive of large leukocyte esterase and 124 WBC patient initiated on daptomycin. Renal ultrasound ordered. Patient is ALLERGIC to morphine with swelling involving mouth and tongue. Patient has tolerated Toradol but is currently on Eliquis and has high risk of bleeding on it. Patient initiated on tramadol every 6 hour which patient is able to tolerate. Urology consult placed 06/29 patient examined bedside. Patient denies any significant discomfort in the lower back. No fever or chills overnight. Vitals are stable temperature is 90 pulse 81 respiratory rate 16 blood pressure 153/978 oxygen saturation 91% on room air labs are reviewed patient has a creatinine 1.7 increased from 1.1 BUN 33 WBC has improved to 12 from 17th hemoglobins are decreased from 12 to 10.7. Urine cultures are currently pending renal ultrasound was negative for any high- dose nephrosis. Urology has seen the patient recommend patient staying in the hospital to get IV antibiotics and the patient is scheduled for the procedure on the July 03. Infectious disease consulted for IV antibiotic recommendation continue patient on daptomycin and voriconazole for VRE and Lesa glabrata. We will discontinue IV fluids today and encourage oral intake of fluids. KUB O ordered by urology to assess the stent 06/30 patient examined bedside. She denies any nausea or vomiting or abdominal pain. She does have flank pain on the right. Patient denies any chest pain or breathing difficulty. Vitals are stable with a temperature 98.4 pulse 67 and respiratory rate 16 blood pressure 125/71 oxygen saturation 93% on room air. No new labs to compare. Continue his to receive daptomycin and worried, resolved. No side effects noted. Blood pressure controlled on the current regimen of lisinopril and metoprolol. Continue Lasix 40 twice a day. KUB revealed suggestive of 8 mm calculi proximal to the stent additional smaller calculi suggesting underlying lower pole of the right kidney measuring 1.1 cm. Plan for Ureteroscopy with Dr. Olivo on jul 0307/01 patient examined bedside. She denies any fever or chills overnight. Patient still have tenderness involving the right upper quadrant. Denies anymore nausea or vomiting or abdominal pain. Bowel movements are affected. Patient has constipation for the past 3 days. Bowel regimen is initiated. Vitals reviewed suggested to 98.3 pulse 77 respiratory rate 18 blood pressure 138/91. No labs to review we'll repeat labs ordered for tomorrow. Continue daptomycin and voriconazole. Patient is a [facility] patient and may need assistance with medication. She would need voriconazole and Zyvox on discharge for 10 days. If management consult ROS Constitutional: Endorses chills, endorses fever, Denies lethargy, Denies malaise, Denies poor appetite, Denies weakness, Denies weight loss Eyes: denies decreased vision, denies diplopia, denies discharge, denies pain Ears: deny: decreased hearing Ears, nose, mouth and throat: Denies dental pain, Denies headache, Denies nasal discharge, Denies nose pain Cardiovascular: Denies chest pain, Denies decreased exercise tolerance, Denies edema, Denies high blood pressure, Denies irregular heart beat, Denies palpitations, Denies paroxysmal nocturnal dyspnea, Denies rapid heart beat, Denies shortness of breath Respiratory: Denies congestion, Denies cough, Denies cough with sputum, Denies dyspnea, Denies home oxygen, Denies wheezing Gastrointestinal: Denies abdominal pain, Denies change in bowel habits, Denies coffee ground emesis, Denies early satiety, Denies excessive gas, Denies heartburn, Denies hematemesis, Denies hematochezia, Denies loss of appetite, Denies nausea, Denies vomiting Genitourinary: Denies dysuria, endorses flank pain, endorses kidney stones, Denies menorrhagia, Denies urgency, Denies urinary frequency Musculoskeletal: Denies gait dysfunction, Denies limitation of motion, Denies morning stiffness, Denies muscle cramps Integumentary: Denies rash, Denies wounds, Denies brittle nails, Denies change in hair/nails, Denies darkening of skin Neurological: Denies balance difficulties, Denies change in speech, Denies double vision, Denies gait dysfunction, Denies loss of vision, Denies motor disturbance, Denies numbness, Denies paralysis, Denies paresthesias, Denies seizures Psychiatric: Denies anxiety, Denies depression Endocrine: Denies excessive sweating, Denies excessive thirst, Denies high blood sugars, Denies palpitations Hematologic/Lymphatic: Denies easy bruising, Denies lymphadenopathy Physical exam - Constitutional General appearance: cooperative, mild acute distress, obese - EENT Eyes: anicteric sclerae, PERRLA, normal appearance ENT: hearing grossly normal - Neck Neck: no lymphadenopathy, normal ROM, no other, no rigidity, no stridor, no thyromegaly - Respiratory Respiratory: bilateral: CTA, negative: diminished, dullness, rales, rhonchi - Cardiovascular Rhythm: regular Heart sounds: normal: S1, S2 Abnormal Heart Sounds: no systolic murmur, no diastolic murmur, no rub, no S3 Gallop, no S4 Gallop, no click, peripheral edema 1+ with purplish discolored discoloration of the toes pulses are palpable A - Gastrointestinal General gastrointestinal: normal bowel sounds, soft tender in the right flank - Integumentary Integumentary: no rash - Neurologic Neurologic: CNII-XII intact - Musculoskeletal Musculoskeletal: gait normal, strength equal bilaterally - Psychiatric Psychiatric: A&O x's 3, appropriate affect Assessment and plan #1 acute complicated UTI with sepsis on daptomycin and voriconazole initiated on . Urine culture suggestive of VRE and blood culture negtiv eRenal ultrasound negative for hydronephrosis continue daptomycin and voriconazole. Discontinue IV fluids patient continue IV antibiotic as she is growing VRE and Lesa glabrata. #2 history of renal stones status post right ureterostomy, June 16. Plan to repeat on July 03. Urology consult placed. Repeat KUB- 8 mm calculi right proximal to stent and additional stone in the lower pole of the kidney #3 history of diastolic congestive heart failure continue furosemide 40 mg twice a day. Continue I&O monitoring daily weights #4 type 2 diabetes hold metformin continue insulin sliding scale #5 GERD continue Pepcid 20 twice a day #6 history of DVT and pulmonary embolism on Eliquis DuoNeb as needed for shortness of breath #7 hypertension continue lisinopril 5 mg twice a day continue metoprolol 75 twice a day #8 mild CAD on aspirin and metoprolol 75 twice a day #9 chronic back pain controlled on 50 Every 6 Hours #10 DVT prophylaxis on Eliquis for pulmonary embolism #11 GI prophylaxis Pepcid 20 twice a day #12 disposition patient need to be hospitalized for IV antibiotics until the procedure for ureterostomy Objective - Vital Signs Vital signs: Vital Signs Temp 98.3 F 07/01/21 12:46 Pulse 77 07/01/21 12:46 Resp 18 07/01/21 12:46 BP 138/91 07/01/21 12:46 Pulse Ox 98 07/01/21 12:46 Intake & Output 06/30/21 07/01/21 07/01/21 18:59 06:59 18:59 Intake Total 240 50 Balance 240 50 Intake: Intake, IV Titration 50 Amount DAPTOmycin 500 mg In 50 Sodium Chloride 0.9% 50 ml @ 100 mls/hr IVPB Q24H [facility] Rx#:[id number] Oral 240 Other: Voiding Method Toilet Toilet Toilet # Voids 4 - Labs CBC & Chem 7: 06/30/21 17:00 06/30/21 17:00 Labs: Abnormal Lab Results - Last 24 Hours (Table) 06/30/21 06/30/21 06/30/21 Range/Units 17:00 17:00 17:29 WBC 10.9 H (3.8-10.6) k/uL Neutrophils # 8.3 H (1.3-7.7) k/uL BUN 33 H (7-17) mg/dL Creatinine 1.54 H (0.52-1.04) mg/dL Glucose 120 H (74-99) mg/dL POC Glucose (mg/dL) 101 H (75-99) mg/dL Albumin 3.0 L (3.5-5.0) g/dL 06/30/21 07/01/21 Range/Units 20:34 12:18 WBC (3.8-10.6) k/uL Neutrophils # (1.3-7.7) k/uL BUN (7-17) mg/dL Creatinine (0.52-1.04) mg/dL Glucose (74-99) mg/dL POC Glucose (mg/dL) 140 H 101 H (75-99) mg/dL Albumin (3.5-5.0) g/dL Microbiology - Last 24 Hours (Table) 06/28/21 12:29 Blood Culture - Preliminary Blood No Growth after 72 hours
[2021-07-01] MEDS: SENNOSIDES 8.6 MG TAB PO SCH ×2 (16:24→19:39)
[2021-07-01 17:16] LABS: Glucose,Whole Blood 177 mg/dL (75-99)
[2021-07-01] MEDS: DAPTOmycin 500 MG in SODIUM CHLORIDE 0.9% 50 ML IVPB SCH (19:31)
[2021-07-01] MEDS: polyethylene glycoL 3350 17 GM POWD.PACK PO SCH (19:32)
[2021-07-01 20:31] LABS: Glucose,Whole Blood 132 mg/dL (75-99)
[2021-07-02 06:09] LABS: Basophils # (A) 0.1 k/uL (0-0.2); Basophils % (A) 1 %; Eosinophils # (A) 0.2 k/uL (0-0.7); Eosinophils % (A) 2 %; HCT 36.2 % (34.0-46.0); HGB 11.4 gm/dL (11.4-16.0); Hypochromasia Slight; Lymphocytes # (A) 2.1 k/uL (1.0-4.8); Lymphocytes % (A) 18 %; MCH 28.3 pg (25.0-35.0); MCHC 31.5 g/dL (31.0-37.0); MCV 89.8 fL (80.0-100.0); Mean Platelet Volume 9.1; Monocytes # (A) 0.8 k/uL (0-1.0); Monocytes % (A) 7 %; Neutrophils % (A) 70 %; Platelet Count 290 k/uL (150-450); RBC 4.03 m/uL (3.80-5.40); RDW 15.4 % (11.5-15.5); WBC 11.4 k/uL (3.8-10.6)
[2021-07-02 06:33] LABS: ALT 11 U/L (4-34); AST 27 U/L (14-36); African American GFR (CKD) 29 (>60 ml/min/1.73 sqM); Albumin/Globulin Ratio 0.8; Alkaline Phosphatase 90 U/L (38-126); Anion Gap 6 mmol/L; Blood Urea Nitrogen 35 mg/dL (7-17); Calcium 8.8 mg/dL (8.4-10.2); Carbon Dioxide 31 mmol/L (22-30); Chloride 99 mmol/L (98-107); Globulin 3.8 g/dL; Glucose 116 mg/dL (74-99); Non-African American GFR(CKD) 25 (>60 ml/min/1.73 sqM); Sodium 136 mmol/L (137-145); Total Bilirubin 1.2 mg/dL (0.2-1.3); Total Protein 6.8 g/dL (6.3-8.2)
[2021-07-02 07:23] LABS: Glucose,Whole Blood 100 mg/dL (75-99)
[2021-07-02] MEDS: APIXABAN 5 MG TAB PO SCH ×2 (07:23→20:23)
[2021-07-02] MEDS: VORICONAZOLE 200 MG TAB PO SCH ×2 (07:23→20:22)
[2021-07-02] MEDS: lisinopriL 5 MG TAB PO SCH (07:24)
[2021-07-02] MEDS: METOPROLOL TARTRATE 25 MG TAB PO SCH ×2 (07:24→20:23)
[2021-07-02] MEDS: SENNOSIDES 8.6 MG TAB PO SCH ×2 (07:24→20:22)
[2021-07-02] MEDS: FAMOTIDINE 20 MG TAB PO SCH (07:24)
[2021-07-02] MEDS: INSULIN ASPART (NovoLOG) 100 UNIT/ML VIAL SQ SCH ×4 (07:25→20:17)
[2021-07-02] MEDS: FUROSEMIDE 20 MG TAB PO SCH (07:25)
[2021-07-02] MEDS: PREGABALIN 100 MG CAP PO SCH ×2 (07:25→20:22)
[2021-07-02] MEDS: ASPIRIN 81 MG PO SCH (07:25)
[2021-07-02] MEDS ORDERED: bisacodyL 10 MG SUPP RECTAL STA (11:14)
[2021-07-02 12:03] LABS: Glucose,Whole Blood 105 mg/dL (75-99)
[2021-07-02] MEDS: traMADol 50 MG TAB PO PRN ×2 (14:30→23:10)
--- NOTE | 2021-07-02 17:21 | P.PN ---
Subjective Progress Note Date: 07/02/21 55 years old patient of [facility] [place] with past medical history of diastolic congestive heart failure, history of pulmonary embolism in 2013, previous history of DVT involving left lower extremity, diabetes, hypertension, GERD, chronic back pain on Eliquis, moderate pulmonary hypertension, history of medication noncompliance, recently admitted for bilateral pneumonia and discharged on June 23 with history of right renal stone for which patient underwent staged right ureteroscopy on June 16 with further plan of surgery on July 03. Repeat urine culture were obtained on June 23 to see if patient has cleared her infection during her last hospitalization. Patient was noted to have VRE on June 24 urine culture in the patient's recent ER visit , was treated with oral antibiotics. Since the bacteria was only susceptible to IV antibiotic patient was called by the hospital to get admitted for IV antibiotics. On assessment today patient complains of significant pain in the right flank. She does document fever, chills but denies any burning micturition. Patient denies any blood in the urine. Denies any abdominal pain, nausea or vomiting. Urine cultures were not obtained in the ER. Repeat urine cultures and blood culture ordered. Patient initiated on daptomycin followed by the culture findings. Patient is afebrile pulse 78 and respiratory rate 16 blood pressure 1:15/71 oxygen saturation 92% on room air. Labs suggestive leukocytosis of 17, BUN 30 creatinine 1.1, UA suggestive of large leukocyte esterase and 124 WBC patient initiated on daptomycin. Renal ultrasound ordered. Patient is ALLERGIC to morphine with swelling involving mouth and tongue. Patient has tolerated Toradol but is currently on Eliquis and has high risk of bleeding on it. Patient initiated on tramadol every 6 hour which patient is able to tolerate. Urology consult placed 06/29 patient examined bedside. Patient denies any significant discomfort in the lower back. No fever or chills overnight. Vitals are stable temperature is 90 pulse 81 respiratory rate 16 blood pressure 153/978 oxygen saturation 91% on room air labs are reviewed patient has a creatinine 1.7 increased from 1.1 BUN 33 WBC has improved to 12 from 17th hemoglobins are decreased from 12 to 10.7. Urine cultures are currently pending renal ultrasound was negative for any high- dose nephrosis. Urology has seen the patient recommend patient staying in the hospital to get IV antibiotics and the patient is scheduled for the procedure on the July 03. Infectious disease consulted for IV antibiotic recommendation continue patient on daptomycin and voriconazole for VRE and Lesa glabrata. We will discontinue IV fluids today and encourage oral intake of fluids. KUB O ordered by urology to assess the stent 06/30 patient examined bedside. She denies any nausea or vomiting or abdominal pain. She does have flank pain on the right. Patient denies any chest pain or breathing difficulty. Vitals are stable with a temperature 98.4 pulse 67 and respiratory rate 16 blood pressure 125/71 oxygen saturation 93% on room air. No new labs to compare. Continue his to receive daptomycin and worried, resolved. No side effects noted. Blood pressure controlled on the current regimen of lisinopril and metoprolol. Continue Lasix 40 twice a day. KUB revealed suggestive of 8 mm calculi proximal to the stent additional smaller calculi suggesting underlying lower pole of the right kidney measuring 1.1 cm. Plan for Ureteroscopy with Dr. Olivo on jul 0307/01 patient examined bedside. She denies any fever or chills overnight. Patient still have tenderness involving the right upper quadrant. Denies anymore nausea or vomiting or abdominal pain. Bowel movements are affected. Patient has constipation for the past 3 days. Bowel regimen is initiated. Vitals reviewed suggested to 98.3 pulse 77 respiratory rate 18 blood pressure 138/91. No labs to review we'll repeat labs ordered for tomorrow. Continue daptomycin and voriconazole. Patient is [facility] and may need assistance with medication. She would need voriconazole and Zyvox on discharge for 10 days. If management consult 07/02 patient examined at bedside. Endorses constipation even on the bowel regimen initiated. Didn't denies any nausea vomiting still has some tenderness involving the right upper quadrant. Patient has been afebrile pulse 75 respirat ory rate 18 blood pressure 97/61 oxygen saturation 93% on room air. Patient continues to have leukocytosis sodium 136 potassium 4 BUN 31 creatinine 0.18 slightly increased from baseline. We will reduce Lasix to 40 once a day and hold lisinopril. Urine culture positive for Lesa VRE not seen. Blood cultures negative ROS Constitutional: Endorses chills, endorses fever, Denies lethargy, Denies malaise, Denies poor appetite, Denies weakness, Denies weight loss Eyes: denies decreased vision, denies diplopia, denies discharge, denies pain Ears: deny: decreased hearing Ears, nose, mouth and throat: Denies dental pain, Denies headache, Denies nasal discharge, Denies nose pain Cardiovascular: Denies chest pain, Denies decreased exercise tolerance, Denies edema, Denies high blood pressure, Denies irregular heart beat, Denies palpitations, Denies paroxysmal nocturnal dyspnea, Denies rapid heart beat, Denies shortness of breath Respiratory: Denies congestion, Denies cough, Denies cough with sputum, Denies dyspnea, Denies home oxygen, Denies wheezing Gastrointestinal: Denies abdominal pain, Denies change in bowel habits, Denies coffee ground emesis, Denies early satiety, Denies excessive gas, Denies heartburn, Denies hematemesis, Denies hematochezia, Denies loss of appetite, Denies nausea, Denies vomiting Genitourinary: Denies dysuria, endorses flank pain, endorses kidney stones, Denies menorrhagia, Denies urgency, Denies urinary frequency Musculoskeletal: Denies gait dysfunction, Denies limitation of motion, Denies morning stiffness, Denies muscle cramps Integumentary: Denies rash, Denies wounds, Denies brittle nails, Denies change in hair/nails, Denies darkening of skin Neurological: Denies balance difficulties, Denies change in speech, Denies john ble vision, Denies gait dysfunction, Denies loss of vision, Denies motor disturbance, Denies numbness, Denies paralysis, Denies paresthesias, Denies seizures Psychiatric: Denies anxiety, Denies depression Endocrine: Denies excessive sweating, Denies excessive thirst, Denies high blood sugars, Denies palpitations Hematologic/Lymphatic: Denies easy bruising, Denies lymphadenopathy Physical exam - Constitutional General appearance: cooperative, mild acute distress, obese - EENT Eyes: anicteric sclerae, PERRLA, normal appearance ENT: hearing grossly normal - Neck Neck: no lymphadenopathy, normal ROM, no other, no rigidity, no stridor, no thyromegaly - Respiratory Respiratory: bilateral: CTA, negative: diminished, dullness, rales, rhonchi - Cardiovascular Rhythm: regular Heart sounds: normal: S1, S2 Abnormal Heart Sounds: no systolic murmur, no diastolic murmur, no rub, no S3 Gallop, no S4 Gallop, no click, peripheral edema 1+ with purplish discolored discoloration of the toes pulses are palpable A - Gastrointestinal General gastrointestinal: normal bowel sounds, soft tender in the right flank - Integumentary Integumentary: no rash - Neurologic Neurologic: CNII-XII intact - Musculoskeletal Musculoskeletal: gait normal, strength equal bilaterally - Psychiatric Psychiatric: A&O x's 3, appropriate affect Assessment and plan #1 acute complicated UTI with sepsis on daptomycin and voriconazole initiated on . Urine culture suggestive of VRE and blood culture negtiv eRenal ultrasound negative for hydronephrosis continue daptomycin and voriconazole. Discontinue IV fluids patient continue IV antibiotic as she is growing VRE and Lesa glabrata. #2 history of renal stones status post right ureterostomy, June 16. Plan to repeat on July 03. Urology consult placed. Repeat KUB- 8 mm calculi right proximal to stent and additional stone in the lower pole of the kidney #3 history of diastolic congestive heart failure continue furosemide 40 mg twice a day. Continue I&O monitoring daily weights #4 type 2 diabetes hold metformin continue insulin sliding scale #5 GERD continue Pepcid 20 twice a day #6 history of DVT and pulmonary embolism on Eliquis DuoNeb as needed for shortness of breath #7 hypertension continue lisinopril 5 mg twice a day continue metoprolol 75 twice a day #8 mild CAD on aspirin and metoprolol 75 twice a day #9 chronic back pain controlled on 50 Every 6 Hours #10 DVT prophylaxis on Eliquis for pulmonary embolism #11 GI prophylaxis Pepcid 20 twice a day #12 disposition patient need to be hospitalized for IV antibiotics until the procedure for ureterostomy with plan to discharge on oral antibiotics which are very expensive. We'll discuss with infectious disease the alternative to the medications. As it caused patient $2300 as she is gasping patient Objective - Vital Signs Vital signs: Vital Signs Temp 99 F 07/02/21 12:51 Pulse 75 07/02/21 12:51 Resp 18 07/02/21 12:51 BP 97/61 07/02/21 12:51 Pulse Ox 93 L 07/02/21 12:51 Intake & Output 07/01/21 07/02/21 07/02/21 18:59 06:59 18:59 Intake Total 590 2580 Balance 590 2580 Intake: Intake, IV Titration 50 Amount DAPTOmycin 500 mg In 50 Sodium Chloride 0.9% 50 ml @ 100 mls/hr IVPB Q24H [facility] Rx#:[id number] Oral 540 2580 Other: Voiding Method Toilet Toilet Toilet # Voids 2 4 - Labs CBC & Chem 7: 07/02/21 05:25 07/02/21 05:25 Labs: Abnormal Lab Results - Last 24 Hours (Table) 07/01/21 07/02/21 07/02/21 Range/Units 20:29 05:25 05:25 WBC 11.4 H (3.8-10.6) k/uL Neutrophils # 8.0 H (1.3-7.7) k/uL Sodium 136 L (137-145) mmol/L Carbon Dioxide 31 H (22-30) mmol/L BUN 35 H (7-17) mg/dL Creatinine 2.18 H (0.52-1.04) mg/dL Glucose 116 H (74-99) mg/dL POC Glucose (mg/dL) 132 H (75-99) mg/dL Albumin 3.0 L (3.5-5.0) g/dL 07/02/21 07/02/21 Range/Units 07:14 11:37 WBC (3.8-10.6) k/uL Neutrophils # (1.3-7.7) k/uL Sodium (137-145) mmol/L Carbon Dioxide (22-30) mmol/L BUN (7-17) mg/dL Creatinine (0.52-1.04) mg/dL Glucose (74-99) mg/dL POC Glucose (mg/dL) 100 H 105 H (75-99) mg/dL Albumin (3.5-5.0) g/dL Microbiology - Last 24 Hours (Table) 06/28/21 12:29 Blood Culture - Preliminary Blood No Growth after 96 hours 06/28/21 13:20 Urine Culture - Final Urine,Voided Lesa glabrata
[2021-07-02 17:45] LABS: Glucose,Whole Blood 143 mg/dL (75-99)
[2021-07-02 20:12] LABS: Glucose,Whole Blood 139 mg/dL (75-99)
[2021-07-02] MEDS: DAPTOmycin 500 MG in SODIUM CHLORIDE 0.9% 50 ML IVPB SCH (20:22)
[2021-07-02] MEDS: polyethylene glycoL 3350 17 GM POWD.PACK PO SCH (20:23)
--- NOTE | 2021-07-03 07:07 | PN ---
PROGRESS NOTE DATE OF SERVICE: 07/02/2021. REASON FOR FOLLOWUP: Complicated urinary tract infection. INTERVAL HISTORY: The patient is afebrile. The patient is currently breathing comfortably. Denies having any chest pain, shortness of breath or cough. No abdominal pain or diarrhea. PHYSICAL EXAMINATION: Blood pressure 110/65 with a pulse of 67, temperature 98.7. General description is a middle-aged female lying in bed in no distress. Respiratory system: Unlabored breathing, decreased intensity of breath sounds. No wheeze. Heart: S1, S2. Regular rate and rhythm. Abdomen soft. No tenderness. LABORATORY DATA: Hemoglobin is 11.1, white count 11.4, creatinine is up to 2.1. DIAGNOSTIC IMPRESSION AND PLAN: Patient with a complicated urinary tract infection with underlying obstructive stone scheduled for procedure possibly tomorrow. Patient is covered with daptomycin and V- fen to continue while monitoring clinical course closely. Continue supportive care. MMODL / IJN: [id number] /
[2021-07-03 07:41] LABS: Glucose,Whole Blood 88 mg/dL (75-99)
[2021-07-03] MEDS: INSULIN ASPART (NovoLOG) 100 UNIT/ML VIAL SQ SCH ×4 (07:59→21:05)
[2021-07-03] MEDS: PREGABALIN 100 MG CAP PO SCH ×2 (08:10→21:11)
[2021-07-03] MEDS: FAMOTIDINE 20 MG TAB PO SCH (08:10)
[2021-07-03] MEDS: VORICONAZOLE 200 MG TAB PO SCH ×2 (08:10→20:14)
[2021-07-03] MEDS: SENNOSIDES 8.6 MG TAB PO SCH ×2 (08:10→21:11)
[2021-07-03] MEDS: APIXABAN 5 MG TAB PO SCH ×2 (08:10→21:11)
[2021-07-03] MEDS: FUROSEMIDE 40 MG TAB PO SCH (08:10)
[2021-07-03] MEDS: METOPROLOL TARTRATE 25 MG TAB PO SCH ×2 (08:10→21:10)
[2021-07-03] MEDS: ASPIRIN 81 MG PO SCH (08:10)
[2021-07-03 11:29] LABS: Glucose,Whole Blood 84 mg/dL (75-99)
[2021-07-03] MEDS ORDERED: bisacodyL 10 MG SUPP RECTAL STA (12:47)
--- NOTE | 2021-07-03 12:51 | P.DS ---
Providers Date of admission: 06/30/21 10:24 Attending physician: Deepali Bryan MD Consults: 06/27/21 20:44 Consult Physician Routine Consulting Provider: Maria M Bruce Consult Reason/Comments: uti, multiresistant organism Do you want consulting provider notified?: Yes 06/28/21 15:22 Consult Physician Routine Consulting Provider: Mani Olivo Consult Reason/Comments: flank pain , recent procedure Do you want consulting provider notified?: Yes Primary care physician: Stated None Hospital Course: 55 years old patient of [facility] with past medical history of diastolic congestive heart failure, history of pulmonary embolism in 2013, previous history of DVT involving left lower extremity, diabetes, hypertension, GERD, chronic back pain on Eliquis, moderate pulmonary hypertension, history of medication noncompliance, recently admitted for bilateral pneumonia and discharged on June 23 with history of right renal stone for which patient underwent staged right ureteroscopy on June 16 with further plan of surgery on July 03. Repeat urine culture were obtained on June 23 to see if patient has cleared her infection during her last hospitalization. Patient was noted to have VRE on June 24 urine culture in the patient's recent ER visit , was treated with oral antibiotics. Since the bacteria was only susceptible to IV antibiotic patient was called by the hospital to get admitted for IV antibiotics. On assessment today patient complains of significant pain in the right flank. She does document fever, chills but denies any burning micturition. Patient denies any blood in the urine. Denies any abdominal pain, nausea or vomiting. Urine cultures were not obtained in the ER. Repeat urine cultures and blood culture ordered. Patient initiated on daptomycin followed by the culture findings. Patient is afebrile pulse 78 and respiratory rate 16 blood pressure 1:15/71 oxygen saturation 92% on room air. Labs suggestive leukocytosis of 17, BUN 30 creatinine 1.1, UA suggestive of large leukocyte esterase and 124 WBC patient initiated on daptomycin. Renal ultrasound ordered. Patient is ALLERGIC to morphine with swelling involving mouth and tongue. Jamel paulino has tolerated Toradol but is currently on Eliquis and has high risk of bleeding on it. Patient initiated on tramadol every 6 hour which patient is able to tolerate. Urology consult placed 06/29 patient examined bedside. Patient denies any significant discomfort in the lower back. No fever or chills overnight. Vitals are stable temperature is 90 pulse 81 respiratory rate 16 blood pressure 153/978 oxygen saturation 91% on room air labs are reviewed patient has a creatinine 1.7 increased from 1.1 BUN 33 WBC has improved to 12 from 17th hemoglobins are decreased from 12 to 10.7. Urine cultures are currently pending renal ultrasound was negative for any high- dose nephrosis. Urology has seen the patient recommend patient staying in the hospital to get IV antibiotics and the patient is scheduled for the procedure on the July 03. Infectious disease consulted for IV antibiotic recommendation continue patient on daptomycin and voriconazole for VRE and Lesa glabrata. We will discontinue IV fluids today and encourage oral intake of fluids. KUB O ordered by urology to assess the stent 06/30 patient examined bedside. She denies any nausea or vomiting or abdominal pain. She does have flank pain on the right. Patient denies any chest pain or breathing difficulty. Vitals are stable with a temperature 98.4 pulse 67 and respiratory rate 16 blood pressure 125/71 oxygen saturation 93% on room air. No new labs to compare. Continue his to receive daptomycin and worried, resolved. No side effects noted. Blood pressure controlled on the current regimen of lisinopril and metoprolol. Continue Lasix 40 twice a day. KUB revealed suggestive of 8 mm calculi proximal to the stent additional smaller calculi sugg esting underlying lower pole of the right kidney measuring 1.1 cm. Plan for Ureteroscopy with Dr. Olivo on jul 0307/01 patient examined bedside. She denies any fever or chills overnight. Patient still have tenderness involving the right upper quadrant. Denies anymore nausea or vomiting or abdominal pain. Bowel movements are affected. Patient has constipation for the past 3 days. Bowel regimen is initiated. Vitals reviewed suggested to 98.3 pulse 77 respiratory rate 18 blood pressure 138/91. No labs to review we'll repeat labs ordered for tomorrow. Continue daptomycin and voriconazole. Patient is a [facility] patient and may need assistance with medication. She would need voriconazole and Zyvox on discharge for 10 days. If management consult 07/02 patient examined at bedside. Endorses constipation even on the bowel regimen initiated. Didn't denies any nausea vomiting still has some tenderness involving the right upper quadrant. Patient has been afebrile pulse 75 respiratory rate 18 blood pressure 97/61 oxygen saturation 93% on room air. Patient continues to have leukocytosis sodium 136 potassium 4 BUN 31 creatinine 0.18 slightly increased from baseline. We will reduce Lasix to 40 once a day and hold lisinopril. Urine culture positive for Lesa VRE not seen. Blood cultures negative 07/03 patient examined bedside. Continues to have constipation for the past 1 week. No improvement with the Dulcolax, senna, Colace. Patient is a one dose of Dulcolax suppository yesterday with no bowel movement. She denies any bloating but does have abdominal pain involving the right flank. Patient is undergoing procedure today with Dr. Sheth. Urine culture is positive for Lesa glabrata of which is susceptible to voriconazole 300 twice a day for 7 days. Infectious disease recommendations appreciated. Patient to be discharged once okay with urology ROS Constitutional: Endorses chills, endorses fever, Denies lethargy, Denies malaise, Denies poor appetite, Denies weakness, Denies weight loss Eyes: denies decreased vision, denies diplopia, denies discharge, denies pain Ears: deny: decreased hearing Ears, nose, mouth and throat: Denies dental pain, Denies headache, Denies nasal discharge, Denies nose pain Cardiovascular: Denies chest pain, Denies decreased exercise tolerance, Denies edema, Denies high blood pressure, Denies irregular heart beat, Denies palpitations, Denies paroxysmal nocturnal dyspnea, Denies rapid heart beat, Denies shortness of breath Respiratory: Denies congestion, Denies cough, Denies cough with sputum, Denies dyspnea, Denies home oxygen, Denies wheezing Gastrointestinal: Denies abdominal pain, Denies change in bowel habits, Denies coffee ground emesis, Denies early satiety, Denies excessive gas, Denies heartburn, Denies hematemesis, Denies hematochezia, Denies loss of appetite, Denies nausea, Denies vomiting Genitourinary: Denies dysuria, endorses flank pain, endorses kidney stones, Denies menorrhagia, Denies urgency, Denies urinary frequency Musculoskeletal: Denies gait dysfunction, Denies limitation of motion, Denies morning stiffness, Denies muscle cramps Integumentary: Denies rash, Denies wounds, Denies brittle nails, Denies change in hair/nails, Denies darkening of skin Physical exam - Constitutional General appearance: cooperative, mild acute distress, obese - EENT Eyes: anicteric sclerae, PERRLA, normal appearance ENT: hearing grossly normal - Neck Neck: no lymphadenopathy, normal ROM, no other, no rigidity, no stridor, no thyromegaly - Respiratory Respiratory: bilateral: CTA, negative: diminished, dullness, rales, rhonchi - Cardiovascular Rhythm: regular Heart sounds: normal: S1, S2 Abnormal Heart Sounds: no systolic murmur, no diastolic murmur, no rub, no S3 Gallop, no S4 Gallop, no click, peripheral edema 1+ with purplish discolored discoloration of the toes pulses are palpable A - Gastrointestinal General gastrointestinal: normal bowel sounds, soft tender in the right flank - Integumentary Integumentary: no rash - Neurologic Neurologic: CNII-XII intact - Musculoskeletal Musculoskeletal: gait normal, strength equal bilaterally - Psychiatric Psychiatric: A&O x's 3, appropriate affect Assessment and plan #1 acute complicated UTI with sepsis Urine culture negative of VRE and positive for Lesa. #2 history of renal stones status post right ureterostomy, June 16. repeat on July 03. Repeat KUB- 8 mm calculi right proximal to stent and additional stone in the lower pole of the kidney #3 history of diastolic congestive heart failure #4 type 2 diabetes #5 GERD #6 history of DVT and pulmonary embolism on Eliquis #7 hypertension #8 mild CAD #9 chronic back pain Disposition: Discharged to home with self-care. Patient has no insurance and has no alternative to the current medication regimen. manager multicultural consulted to help with medication Patient Condition at Discharge: Serious Plan - Discharge Summary New Discharge Prescriptions: New Voriconazole [Vfend] 300 mg PO Q12HR #20 tablet Docusate [Colace] 100 mg PO DAILY PRN cap PRN Reason: Constipation Furosemide [Lasix] 40 mg PO DAILY tab Sennosides [Senokot] 8.6 mg PO BID tab Continue Apixaban [Eliquis] 5 mg PO BID Pregabalin [Lyrica] 200 mg PO BID Ferrous Sulfate [Iron] 325 mg PO DAILY Metoprolol Tartrate [Lopressor] 75 mg PO BID traMADol HCL [Ultram] 50 mg PO Q6HR PRN 3 Days #12 tab PRN Reason: Pain Aspirin 81 mg PO DAILY #30 chew polyethylene glycoL 3350 [Miralax] 17 gm PO HS #30 powd.pack Discontinued Cholecalciferol [Vitamin D3 (25 Mcg = 1000 Iu)] 50 mcg PO DAILY Furosemide [Lasix] 40 mg PO BID #60 tab metFORMIN HCL [Glucophage] 500 mg PO BID lisinopriL [Zestril] 5 mg PO DAILY #30 tab Discharge Medication List Apixaban [Eliquis] 5 mg PO BID 06/12/21 [History] Ferrous Sulfate [Iron] 325 mg PO DAILY 06/12/21 [History] Metoprolol Tartrate [Lopressor] 75 mg PO BID 06/12/21 [History] Pregabalin [Lyrica] 200 mg PO BID 06/12/21 [History] traMADol HCL [Ultram] 50 mg PO Q6HR PRN 3 Days #12 tab 06/16/21 [Rx] Aspirin 81 mg PO DAILY #30 chew 06/23/21 [Rx] polyethylene glycoL 3350 [Miralax] 17 gm PO HS #30 powd.pack 06/23/21 [Rx] Voriconazole [Vfend] 300 mg PO Q12HR #20 tablet 07/01/21 [Rx] Docusate [Colace] 100 mg PO DAILY PRN cap 07/03/21 [Rx] Furosemide [Lasix] 40 mg PO DAILY tab 07/03/21 [Rx] Sennosides [Senokot] 8.6 mg PO BID tab 07/03/21 [Rx] Follow up Appointment(s)/Referral(s): None,Stated [Primary Care Provider] - 1 Week Discharge Disposition: HOME SELF-CARE
[2021-07-03 13:30] LABS: ALT 10 U/L (4-34); AST 29 U/L (14-36); African American GFR (CKD) 34 (>60 ml/min/1.73 sqM); Albumin/Globulin Ratio 0.8; Alkaline Phosphatase 90 U/L (38-126); Anion Gap 4 mmol/L; Blood Urea Nitrogen 35 mg/dL (7-17); Calcium 8.6 mg/dL (8.4-10.2); Carbon Dioxide 31 mmol/L (22-30); Chloride 100 mmol/L (98-107); Globulin 3.8 g/dL; Glucose 73 mg/dL (74-99); Non-African American GFR(CKD) 30 (>60 ml/min/1.73 sqM); Potassium 4.7 mmol/L (3.5-5.1); Sodium 135 mmol/L (137-145); Total Bilirubin 1.1 mg/dL (0.2-1.3); Total Protein 6.8 g/dL (6.3-8.2)
[2021-07-03 13:46] VITALS: BMI 33.3
[2021-07-03] MEDS ORDERED: LACTATED RINGERS 1,000 ML IV ONE (16:29)
[2021-07-03 16:34] LABS: Glucose,Whole Blood 78 mg/dL (75-99)
[2021-07-03] MEDS ORDERED: ONDANSETRON 4 MG/2 ML VIAL IVP ONE (16:38)
[2021-07-03] MEDS ORDERED: DEXAMETHASONE SOD PHOSPHATE 4 MG/ML 1 ML VIAL IVP ONE (16:39)
[2021-07-03] MEDS ORDERED: fentaNYL (PF) 50 MCG/ML 2 ML AMP IVP ONE (16:39)
[2021-07-03] MEDS ORDERED: fentaNYL (PF) 50 MCG/ML 2 ML AMP ONE (18:00)
[2021-07-03] MEDS ORDERED: PROPOFOL 10 MG/ML 20 ML VIAL IV ONE (18:00)
[2021-07-03] MEDS ORDERED: NEOSTIGMINE 1 MG/ML 10 ML VIAL ONE (18:00)
[2021-07-03] MEDS ORDERED: SUCCINYLCHOLINE CHLORIDE 100 MG/5 ML SYR IV ONE (18:00)
[2021-07-03] MEDS ORDERED: PHENYLEPHRINE-0.9% NACL SYG 1,000 MCG/10 ML SYRINGE ONE (18:00)
[2021-07-03] MEDS ORDERED: ROCURONIUM 10 MG/ML (5 ML VIAL) IV ONE (18:00)
[2021-07-03] MEDS ORDERED: GENTAMICIN 40 MG/ML 2 ML VIAL ONE (18:00)
[2021-07-03] MEDS ORDERED: LIDOCAINE 1% INJ 10MG/ML (20 ML MDV) ONE (18:00)
[2021-07-03] MEDS ORDERED: GLYCOPYRROLATE 0.2 MG/ML 2 ML VIAL ONE (18:00)
[2021-07-03] MEDS ORDERED: IOPAMIDOL-370 50ML BTL MISCELLANE ONE (18:28)
--- NOTE | 2021-07-03 18:31 | PN ---
PROGRESS NOTE DATE OF SERVICE: 07/03/2021 REASON FOR FOLLOWUP: Complicated urinary tract infection. INTERVAL HISTORY: The patient is afebrile. The patient is currently breathing comfortably. Denies having any chest pain or shortness of breath or cough. No abdominal pain or diarrhea. PHYSICAL EXAMINATION: Her blood pressure is 117/58 with a pulse of 74, temperature 98.6. She is 98% on room air. GENERAL DESCRIPTION: General description is a middle-aged female up in the bed in no distress. RESPIRATORY SYSTEM: Unlabored breathing. Clear to auscultation anteriorly. HEART: S1, S2. Regular rate and rhythm. ABDOMEN: Soft. No tenderness. LABS: BUN of 35, creatinine 1.90. Repeat urine is showing Lesa glabrata. DIAGNOSTIC IMPRESSION AND PLAN: Patient with complicated urinary tract infection. Cultures with Lesa glabrata. Consider a short course of oral voriconazole in the outpatient setting and close outpatient followup. Discussed with the admitting physician. MMODL / IJN: [id number] /
--- NOTE | 2021-07-03 19:08 | P.OP ---
Date of Procedure: 07/03/21 Preoperative Diagnosis: Right renal calculi Postoperative Diagnosis: Same Procedure(s) Performed: cystoscopy, Right ureteroscopy, holmium laser lithotripsy, stone basketing, retrograde pyelogram and stent removal Implants: none Anesthesia: FRANCO Surgeon: Mani Olivo Estimated Blood Loss (ml): 5 Pathology: other (right reanal stone) Condition: stable Disposition: PACU Indications for Procedure: This is a 55-year-old female history of 2.1 cm right renal stone for which patient underwent staged right ureteroscopy on June 16, she admitted back to the hospital with VRE and leanne UTI, she is currently on daptomycin and voriconazole. She presents today for second stage ureteroscopy. Discussed with her risk which includes but not limited to bleeding, infection, injury to the ureter. Discussed with her that if there is no significant residual stone then we'll remove the stent, but if there is significant residual stones then we'll plan on placing a new stent. She understood all the risk and agreed to proceed Operative Findings: Multiple small stones within the renal pelvis, > 100 small stones in the lower pole all smaller than 2 mm in size Description of Procedure: She was brought to the operating room, general anesthesia was induced. She was prepped and draped in sterile fashion and placed in dorsal lithotomy position. Cystoscopy fitted with 21-Bur[place] sheath was inserted per urethra, cystoscopy was performed which showed no abnormality within the bladder. Attention was then carried to the right ureteral orifice, the stent was grasped and removed to the meatus. A sensor wire was advanced through the stent and the stent was removed with the wire in place. Next an open-ended catheter was passed over the wire, the wire was removed with an open-ended catheter in place. Retrograde pyelogram was performed through the catheter which showed a questionable filling defect in the mid ureter, but no additional filling defects. At this time a semirigid ureteroscope was inserted, ureteroscopy was performed which showed no evidence of stones along the course of the ureter. Pullback ureteroscopy was performed showed no injury to the ureter or any ureteral stone. As the ureteroscope was withdrawn and a sensor wire was advanced through. Next a 1214 [place] access sheath was passed over the wire under fluoroscopy into the proximal ureter. The flexible ureteroscope was inserted through the access sheath, renoscopy was performed which showed multiple small stones within the renal pelvis. The stones were fragmented into small fragments, sizable fragments were removed and sent for analysis. Renoscopy of the lower pole also showed multiple small stones, all measured smaller than 2 mm, and the were consistent with stasis stones. Using the holmium laser the stones were popcorned into smaller fragments. Repeat renoscopy showed no sizable fragments or any injury to the kidney. Pullback ureteroscopy was performed showed no injury to ureter or any ureteral stone. There was no ureteral edema, thus the stent was not placed. Patient tolerated the procedure well was taken to PACU in stable condition
--- NOTE | 2021-07-03 19:09 | P.PN ---
Subjective Progress Note Date: 07/03/21 No acute overnight events, denies any dysuria or gross hematuria. Objective - Vital Signs Vital signs: Vital Signs Temp 98.6 F 07/03/21 16:09 Pulse 74 07/03/21 16:55 Resp 16 07/03/21 16:55 BP 117/58 07/03/21 16:09 Pulse Ox 92 L 07/03/21 16:55 Intake & Output 07/03/21 07/03/21 07/04/21 06:59 18:59 06:59 Intake Total 840 1560 Output Total 2 Balance 840 1558 Weight 99.337 kg Intake: IV 600 Oral 840 960 Output: Estimated Blood Loss 2 Other: Voiding Method Toilet Toilet # Voids 2 2 - Labs CBC & Chem 7: 07/02/21 05:25 07/03/21 13:00 Labs: Abnormal Lab Results - Last 24 Hours (Table) 07/02/21 07/03/21 Range/Units 20:11 13:00 Sodium 135 L (137-145) mmol/L Carbon Dioxide 31 H (22-30) mmol/L BUN 35 H (7-17) mg/dL Creatinine 1.90 H (0.52-1.04) mg/dL Glucose 73 L (74-99) mg/dL POC Glucose (mg/dL) 139 H (75-99) mg/dL Albumin 3.0 L (3.5-5.0) g/dL Microbiology - Last 24 Hours (Table) 06/28/21 12:29 Blood Culture - Preliminary Blood No Growth after 120 hours Assessment and Plan Assessment: 55-year-old female status post staged right-sided ureteroscopy on June 16. Admitted to the hospital with VRE UTI, currently on daptomycin. ID is onboard. She scheduled to undergo a second stage ureteroscopy today -Or for right-sided ureteroscopy, okay for discharge from your standpoint after surgery
[2021-07-03 19:13] LABS: Glucose,Whole Blood 110 mg/dL (75-99)
[2021-07-03] MEDS ORDERED: ALBUTEROL NEBULIZED 2.5 MG/3 ML INHALATION ONE (19:37)
[2021-07-03] MEDS: DAPTOmycin 500 MG in SODIUM CHLORIDE 0.9% 50 ML IVPB SCH (20:15)
[2021-07-03] MEDS: polyethylene glycoL 3350 17 GM POWD.PACK PO SCH (21:11)
[2021-07-03] MEDS ORDERED: FUROSEMIDE 10 MG/ML 4 ML VIAL IV STA (21:28)
--- NOTE | 2021-07-03 22:08 | XR ---
EXAMINATION TYPE: XR chest 1V portable DATE OF EXAM: 07/03/2021 COMPARISON: 06/24/2021 HISTORY: Short of breath TECHNIQUE: FINDINGS: Heart is enlarged. There is some mild infiltrate and atelectasis left lung base. There is p oor inspiration. There is no definite pleural effusion. IMPRESSION: Inspiration decreased compared to recent exam. There is some new infiltrate and atelectas is left lower lobe compared to old exam. No obvious heart failure.
[2021-07-03 23:16] VITALS: TEMP 98.2
[2021-07-03 23:26] VITALS: RESP 18
[2021-07-04 04:25] VITALS: BP 118/78
[2021-07-04 07:25] LABS: Glucose,Whole Blood 162 mg/dL (75-99)
[2021-07-04 08:09] VITALS: PULSE 66
[2021-07-04] MEDS: METOPROLOL TARTRATE 25 MG TAB PO SCH (08:16)
[2021-07-04] MEDS: APIXABAN 5 MG TAB PO SCH (08:16)
[2021-07-04] MEDS: VORICONAZOLE 200 MG TAB PO SCH (08:16)
[2021-07-04] MEDS: PREGABALIN 100 MG CAP PO SCH (08:16)
[2021-07-04] MEDS: FAMOTIDINE 20 MG TAB PO SCH (08:16)
[2021-07-04] MEDS: FUROSEMIDE 40 MG TAB PO SCH (08:16)
[2021-07-04] MEDS: SENNOSIDES 8.6 MG TAB PO SCH (08:17)
[2021-07-04] MEDS: ASPIRIN 81 MG PO SCH (08:17)
--- NOTE | 2021-07-04 08:21 | FL ---
EXAMINATION TYPE: FL urography retrograde DATE OF EXAM: 07/03/2021 COMPARISON: NONE HISTORY: Fluoroscopy time TECHNIQUE: Fluoroscopy. FINDINGS: Fluoroscopic guidance was provided during procedure of 31 seconds IMPRESSION: As Above.
[2021-07-04] MEDS: INSULIN ASPART (NovoLOG) 100 UNIT/ML VIAL SQ SCH (10:58)
--- NOTE | 2021-07-04 16:39 | P.DS ---
Providers Date of admission: 06/30/21 10:24 Attending physician: Deepali Bryan MD Consults: 06/27/21 20:44 Consult Physician Routine Consulting Provider: Maria M Bruce Consult Reason/Comments: uti, multiresistant organism Do you want consulting provider notified?: Yes 06/28/21 15:22 Consult Physician Routine Consulting Provider: Mani Olivo Consult Reason/Comments: flank pain , recent procedure Do you want consulting provider notified?: Yes Primary care physician: Stated None Hospital Course: 55 years old patient of [facility] with past medical history of diastolic congestive heart failure, history of pulmonary embolism in 2013, previous history of DVT involving left lower extremity, diabetes, hypertension, GERD, chronic back pain on Eliquis, moderate pulmonary hypertension, history of medication noncompliance, recently admitted for bilateral pneumonia and discharged on June 23 with history of right renal stone for which patient underwent staged right ureteroscopy on June 16 with further plan of surgery on July 03. Repeat urine culture were obtained on June 23 to see if patient has cleared her infection during her last hospitalization. Patient was noted to have VRE on June 24 urine culture in the patient's recent ER visit , was treated with oral antibiotics. Since the bacteria was only susceptible to IV antibiotic patient was called by the hospital to get admitted for IV antibiotics. On assessment today patient complains of significant pain in the right flank. She does document fever, chills but denies any burning micturition. Patient denies any blood in the urine. Denies any abdominal pain, nausea or vomiting. Urine cultures were not obtained in the ER. Repeat urine cultures and blood culture ordered. Patient initiated on daptomycin followed by the culture findings. Patient is afebrile pulse 78 and respiratory rate 16 blood pressure 1:15/71 oxygen saturation 92% on room air. Labs suggestive leukocytosis of 17, BUN 30 creatinine 1.1, UA suggestive of large leukocyte esterase and 124 WBC patient initiated on daptomycin. Renal ultrasound ordered. Patient is ALLERGIC to morphine with swelling involving mouth and tongue. Jamel paulino has tolerated Toradol but is currently on Eliquis and has high risk of bleeding on it. Patient initiated on tramadol every 6 hour which patient is able to tolerate. Urology consult placed 06/29 patient examined bedside. Patient denies any significant discomfort in the lower back. No fever or chills overnight. Vitals are stable temperature is 90 pulse 81 respiratory rate 16 blood pressure 153/978 oxygen saturation 91% on room air labs are reviewed patient has a creatinine 1.7 increased from 1.1 BUN 33 WBC has improved to 12 from 17th hemoglobins are decreased from 12 to 10.7. Urine cultures are currently pending renal ultrasound was negative for any high- dose nephrosis. Urology has seen the patient recommend patient staying in the hospital to get IV antibiotics and the patient is scheduled for the procedure on the July 03. Infectious disease consulted for IV antibiotic recommendation continue patient on daptomycin and voriconazole for VRE and Lesa glabrata. We will discontinue IV fluids today and encourage oral intake of fluids. KUB O ordered by urology to assess the stent 06/30 patient examined bedside. She denies any nausea or vomiting or abdominal pain. She does have flank pain on the right. Patient denies any chest pain or breathing difficulty. Vitals are stable with a temperature 98.4 pulse 67 and respiratory rate 16 blood pressure 125/71 oxygen saturation 93% on room air. No new labs to compare. Continue his to receive daptomycin and worried, resolved. No side effects noted. Blood pressure controlled on the current regimen of lisinopril and metoprolol. Continue Lasix 40 twice a day. KUB revealed suggestive of 8 mm calculi proximal to the stent additional smaller calculi sugg esting underlying lower pole of the right kidney measuring 1.1 cm. Plan for Ureteroscopy with Dr. Olivo on jul 0307/01 patient examined bedside. She denies any fever or chills overnight. Patient still have tenderness involving the right upper quadrant. Denies anymore nausea or vomiting or abdominal pain. Bowel movements are affected. Patient has constipation for the past 3 days. Bowel regimen is initiated. Vitals reviewed suggested to 98.3 pulse 77 respiratory rate 18 blood pressure 138/91. No labs to review we'll repeat labs ordered for tomorrow. Continue daptomycin and voriconazole. Patient is [facility] and may need assistance with medication. She would need voriconazole and Zyvox on discharge for 10 days. If management consult 07/02 patient examined at bedside. Endorses constipation even on the bowel regimen initiated. Didn't denies any nausea vomiting still has some tenderness involving the right upper quadrant. Patient has been afebrile pulse 75 respiratory rate 18 blood pressure 97/61 oxygen saturation 93% on room air. Patient continues to have leukocytosis sodium 136 potassium 4 BUN 31 creatinine 0.18 slightly increased from baseline. We will reduce Lasix to 40 once a day and hold lisinopril. Urine culture positive for Lesa VRE not seen. Blood cultures negative 07/03 patient examined bedside. Continues to have constipation for the past 1 week. No improvement with the Dulcolax, senna, Colace. Patient is a one dose of Dulcolax suppository yesterday with no bowel movement. She denies any bloating but does have abdominal pain involving the right flank. Patient is undergoing procedure today with Dr. Sheth. Urine culture is positive for Lesa glabrata of which is susceptible to voriconazole 300 twice a day for 7 days. Infectious disease recommendations appreciated. Patient to be discharged once okay with urology 07/04 patient examined bedside. Patient would not be discharged yesterday due to hypoxia postoperatively patient was on 4 L of oxygen. Patient underwent right uteroscope E lithotripsy, stone basketing and pyelogram with removal of the stent. Multiple small stones within the renal panel. Pelvis more than 100 small stone in the lower pole all smaller than 2 mm noted. Chest x-ray was obtained postoperatively that suggested new infiltrate and atelectasis in the left lower lobe. Patient will be discharged on levofloxacin for 7 days along with voriconazole. Hospital is painful patient's voriconazole since patient has no insurance. ROS Constitutional: Endorses chills, endorses fever, Denies lethargy, Denies malaise, Denies poor appetite, Denies weakness, Denies weight loss Eyes: denies decreased vision, denies diplopia, denies discharge, denies pain Ears: deny: decreased hearing Ears, nose, mouth and throat: Denies dental pain, Denies headache, Denies nasal discharge, Denies nose pain Cardiovascular: Denies chest pain, Denies decreased exercise tolerance, Denies edema, Denies high blood pressure, Denies irregular heart beat, Denies palpitations, Denies paroxysmal nocturnal dyspnea, Denies rapid heart beat, Denies shortness of breath Respiratory: Denies congestion, Denies cough, Denies cough with sputum, Denies dyspnea, Denies home oxygen, Denies wheezing Gastrointestinal: Denies abdominal pain, Denies change in bowel habits,constipation improved Denies coffee ground emesis, Denies early satiety, Denies excessive gas, Denies heartburn, Denies hematemesis, Denies hematochezia, Denies loss of appetite, Denies nausea, Denies vomiting Genitourinary: Denies dysuria,flank pain and kidney stones resolved, Denies menorrhagia, Denies urgency, Denies urinary frequency Musculoskeletal: Denies gait dysfunction, Denies limitation of motion, Denies morning stiffness, Denies muscle cramps Integumentary: Denies rash, Denies wounds, Denies brittle nails, Denies change in hair/nails, Denies darkening of skin Physical exam - Constitutional General appearance: cooperative, mild acute distress, obese - EENT Eyes: anicteric sclerae, PERRLA, normal appearance ENT: hearing grossly normal - Neck Neck: no lymphadenopathy, normal ROM, no other, no rigidity, no stridor, no thyromegaly - Respiratory Respiratory: bilateral: CTA,crackles noted in the left lower lobei - Cardiovascular Rhythm: regular Heart sounds: normal: S1, S2 Abnormal Heart Sounds: no systolic murmur, no diastolic murmur, no rub, no S3 Gallop, no S4 Gallop, no click, peripheral edema 1+ with purplish discolored discoloration of the toes pulses are palpable A - Gastrointestinal General gastrointestinal: normal bowel sounds,improved pain in the right flank - Integumentary Integumentary: no rash - Neurologic Neurologic: CNII-XII intact - Musculoskeletal Musculoskeletal: gait normal, strength equal bilaterally - Psychiatric Psychiatric: A&O x's 3, appropriate affect Assessment and plan #1 acute complicated UTI with sepsis Urine culture negative of VRE and positive for Lesa. #2 history of renal stones status post right ureterostomy, June 16. repeat on July 03. Repeat KUB- 8 mm calculi right proximal to stent and additional stone in the lower pole of the kidney #3 history of diastolic congestive heart failure #4 type 2 diabetes #5 GERD #6 history of DVT and pulmonary embolism on Eliquis #7 hypertension #8 mild CAD #9 chronic back pain #10 hospital-acquired pneumonia levofloxacin 500 mg by mouth daily for 7 days Disposition: Discharged to home with self-care. Patient has no insurance and has no alternative to the current medication regimen. environmental services project manager consulted, Hospital is painful patient's voriconazole. Patient Condition at Discharge: Serious Plan - Discharge Summary New Discharge Prescriptions: New Voriconazole [Vfend] 300 mg PO Q12HR #20 tablet Docusate [Colace] 100 mg PO DAILY PRN cap PRN Reason: Constipation Levofloxacin [Levaquin] 500 mg PO DAILY 7 Days #1 tab Furosemide [Lasix] 40 mg PO DAILY tab Sennosides [Senokot] 8.6 mg PO BID tab Continue Apixaban [Eliquis] 5 mg PO BID Pregabalin [Lyrica] 200 mg PO BID Ferrous Sulfate [Iron] 325 mg PO DAILY Metoprolol Tartrate [Lopressor] 75 mg PO BID traMADol HCL [Ultram] 50 mg PO Q6HR PRN 3 Days #12 tab PRN Reason: Pain Aspirin 81 mg PO DAILY #30 chew polyethylene glycoL 3350 [Miralax] 17 gm PO HS #30 powd.pack Discontinued Cholecalciferol [Vitamin D3 (25 Mcg = 1000 Iu)] 50 mcg PO DAILY Furosemide [Lasix] 40 mg PO BID #60 tab metFORMIN HCL [Glucophage] 500 mg PO BID lisinopriL [Zestril] 5 mg PO DAILY #30 tab Discharge Medication List Apixaban [Eliquis] 5 mg PO BID 06/12/21 [History] Ferrous Sulfate [Iron] 325 mg PO DAILY 06/12/21 [History] Metoprolol Tartrate [Lopressor] 75 mg PO BID 06/12/21 [History] Pregabalin [Lyrica] 200 mg PO BID 06/12/21 [History] traMADol HCL [Ultram] 50 mg PO Q6HR PRN 3 Days #12 tab 06/16/21 [Rx] Aspirin 81 mg PO DAILY #30 chew 06/23/21 [Rx] polyethylene glycoL 3350 [Miralax] 17 gm PO HS #30 powd.pack 06/23/21 [Rx] Voriconazole [Vfend] 300 mg PO Q12HR #20 tablet 07/01/21 [Rx] Docusate [Colace] 100 mg PO DAILY PRN cap 07/03/21 [Rx] Furosemide [Lasix] 40 mg PO DAILY tab 07/03/21 [Rx] Sennosides [Senokot] 8.6 mg PO BID tab 07/03/21 [Rx] Levofloxacin [Levaquin] 500 mg PO DAILY 7 Days #1 tab 07/04/21 [Rx] Follow up Appointment(s)/Referral(s): Mani Olivo MD [STAFF PHYSICIAN] - 07/15/21 9:00 am None,Stated [Primary Care Provider] - 1 Week Discharge Disposition: HOME SELF-CARE
== END 2021-07-04 12:20 | disposition home or self-care (01) | DRG 854 ==
LOC: EC 16:13 → 6NMEDSUR 20:43 → 5NMEDONC 21:05 → OBSVTOIN 06-30 10:24
PROVIDERS: ADMIT Internal Medicine; ATTEND Internal Medicine
PROC: 0TC38ZZ Extirpation of Matter from Right Kidney Pelvis, Via Natural or Artificial Opening Endoscopic (ICD-10-PCS; principal; 2021-07-03 16:15)
PROC: BT1D1ZZ Fluoroscopy of Right Kidney, Ureter and Bladder using Low Osmolar Contrast (ICD-10-PCS; 2021-07-03 16:15)
PROC: 0T9B80Z Drainage of Bladder with Drainage Device, Via Natural or Artificial Opening Endoscopic (ICD-10-PCS; 2021-07-03 16:15)
DX: A41.81 Sepsis due to Enterococcus (principal); I50.32 Chronic diastolic (congestive) heart failure; Z16.21 Resistance to vancomycin; N12 Tubulo-interstitial nephritis, not specified as acute or chronic; B37.7 Candidal sepsis; E11.9 Type 2 diabetes mellitus without complications; G89.29 Other chronic pain; H91.90 Unspecified hearing loss, unspecified ear; I11.0 Hypertensive heart disease with heart failure; I25.10 Atherosclerotic heart disease of native coronary artery without angina pectoris; I25.2 Old myocardial infarction; I27.20 Pulmonary hypertension, unspecified; Z20.822 Contact with and (suspected) exposure to COVID-19; K21.9 Gastro-esophageal reflux disease without esophagitis; K59.00 Constipation, unspecified; Z79.01 Long term (current) use of anticoagulants; Z79.899 Other long term (current) drug therapy; Z86.711 Personal history of pulmonary embolism; Z86.718 Personal history of other venous thrombosis and embolism; Z79.82 Long term (current) use of aspirin; Z87.442 Personal history of urinary calculi; Z87.891 Personal history of nicotine dependence; Z88.5 Allergy status to narcotic agent; Z91.14 Patient's other noncompliance with medication regimen; Z87.01 Personal history of pneumonia (recurrent); Z88.0 Allergy status to penicillin; Z86.2 Personal history of diseases of the blood and blood-forming organs and certain disorders involving the immune mechanism; Z88.6 Allergy status to analgesic agent; Z88.1 Allergy status to other antibiotic agents; Z91.030 Bee allergy status; Z91.02 Food additives allergy status
CPT/HCPCS: 36415; 71045; 74018; 76770; 80053; 81001; 82365; 83735; 85025; 87040; 87086; 94760; 96374; 99285

== ENCOUNTER 2021-07-06 21:31 | Inpatient (IN) | payer OTHER ==
[2021-07-06] MEDS ORDERED: SODIUM CHLORIDE 0.9% 1,000 ML IV STA (21:56)
[2021-07-06 22:20] LABS: Basophils # (A) 0.1 k/uL (0-0.2); Basophils % (A) 1 %; Eosinophils # (A) 0.2 k/uL (0-0.7); Eosinophils % (A) 2 %; HCT 38.2 % (34.0-46.0); HGB 11.9 gm/dL (11.4-16.0); Hypochromasia Moderate; Lymphocytes # (A) 2.4 k/uL (1.0-4.8); Lymphocytes % (A) 22 %; MCH 28.4 pg (25.0-35.0); MCHC 31.3 g/dL (31.0-37.0); MCV 90.6 fL (80.0-100.0); Monocytes # (A) 0.7 k/uL (0-1.0); Monocytes % (A) 7 %; Neutrophils # (A) 7.2 k/uL (1.3-7.7); Neutrophils % (A) 67 %; Platelet Count 252 k/uL (150-450); RBC 4.21 m/uL (3.80-5.40); RDW 15.5 % (11.5-15.5); WBC 10.8 k/uL (3.8-10.6)
--- NOTE | 2021-07-06 22:25 | ED ---
General Adult HPI - General Chief complaint: Weakness Stated complaint: weakness, dizziness Time Seen by Provider: 07/06/21 21:43 Source: patient, family Mode of arrival: ambulatory Limitations: no limitations - History of Present Illness Initial comments: Margaret is a 55-year-old female with extensive past medical history most significant for recent admission for CHF, and STEMI, pneumonia and antibiotic resistant urinary tract infections. Patient was discharged 2 days ago after her UTI admission. She states that throughout the day today she's been feeling weak, short of breath she checked her pulse ox with her sisters oximeter and noted that her oxygen saturation was dipping to the 60s. She began wearing her sister supplemental oxygen decision was made to come back to the ER. Patient is a smoker but denies any diagnosis of COPD. She doesn't use any breathing treatments she is not on steroids. She does have a history of pulmonary hyper tension and pulmonary embolism. She is on L [place]. - Related Data Home Medications Medication Instructions Recorded Confirmed Apixaban [Eliquis] 5 mg PO BID 06/12/21 07/06/21 Ferrous Sulfate [Iron] 325 mg PO DAILY 06/12/21 07/06/21 Metoprolol Tartrate [Lopressor] 75 mg PO BID 06/12/21 07/06/21 Pregabalin [Lyrica] 200 mg PO BID 06/12/21 07/06/21 Furosemide [Lasix] 40 mg PO DAILY PRN 07/06/21 07/06/21 Previous Rx's Medication Instructions Recorded traMADol HCL [Ultram] 50 mg PO Q6HR PRN 3 Days #12 tab 06/16/21 Aspirin 81 mg PO DAILY #30 chew 06/23/21 polyethylene glycoL 3350 [Miralax] 17 gm PO HS #30 powd.pack 06/23/21 Voriconazole [Vfend] 300 mg PO Q12HR #20 tablet 07/01/21 Levofloxacin [Levaquin] 500 mg PO DAILY 7 Days #1 tab 07/04/21 Allergies Allergy/AdvReac Type Severity Reaction Status Date / Time bee venom protein (honey bee) Allergy Severe Swelling Verified 07/06/21 22:15 acetaminophen [From Tylenol] Allergy Anaphylaxis Verified 07/06/21 22:15 morphine Allergy Swelling Verified 07/06/21 22:15 Penicillins Allergy Rash/Hives Verified 07/06/21 22:15 all citrus Allergy Anaphylaxis Uncoded 07/06/21 22:15 Review of Systems ROS Statement: Those systems with pertinent positive or pertinent negative responses have been documented in the HPI. ROS Other: All systems not noted in ROS Statement are negative. Past Medical History Past Medical History: Diabetes Mellitus, GERD/Reflux, Hypertension, Myocardial Infarction ([place]), Pulmonary Embolus ([place]) Additional Past Medical History / Comment(s): Previous history of pulmonary embolism in 2013, obesity, previous history of DVT involving the left lower extremity, diabetes mellitus, hypertension, acid reflux, chronic back pain, normal coronaries based on a cardiac catheterization from June 2015 Last Myocardial Infarction Date:: 06/16/2021 History of Any Multi-Drug Resistant Organisms: VRE Date of last positivie culture/infection: 06/24/21 MDRO Source:: VRE URINE Past Surgical History: Orthopedic Surgery Additional Past Surgical History / Comment(s): Rt shoulder rotator cuff repair Past Anesthesia/Blood Transfusion Reactions: No Reported Reaction Additional Past Anesthesia/Blood Transfusion Reaction / Comment(s): STATES HAS BEHAVIOR CHANGES POST OP Past Psychological History: No Psychological Hx Reported Smoking Status: Former smoker Past Alcohol Use History: None Reported Past Drug Use History: None Reported - Past Family History Father Family Medical History: No Reported History Mother Family Medical History: No Reported History General Exam - General Exam Comments Initial Comments: Physical Exam GENERAL: Chronically ill appearing Odor of tobacco smoke HENT: Normocephalic, Atraumatic. EYES: PERRL, EOMI PULMONARY: Tachypnic No wheezing CARDIOVASCULAR: There is a regular rate and rhythm without any murmurs gallops or rubs. ABDOMEN: Soft and nontender with normal bowel sounds. SKIN: Skin is clear with no lesions or rashes and otherwise unremarkable. : Deferred NEUROLOGIC: Patient is alert and oriented x3. Moving all extremities spontaneously MUSCULOSKELETAL: Normal extremities with adequate strength and full range of motion. No lower extremity swelling or edema. No calf tenderness. PSYCHIATRIC: Normal psychiatric evaluation.a Limitations: no limitations Course Vital Signs 07/06/21 21:31 Temperature 98.4 F Pulse Rate 72 Respiratory 20 Rate Blood Pressure 119/72 O2 Sat by Pulse 94 L Oximetry EKG Findings - EKG Comments: EKG Findings:: EKG was obtained due to shortness of breath EKG was obtained 2145 rate is 71 rhythm is sinus normal axis, normal intervals no acute ST elevations or depressions no evidence of ischemia or infarction Medical Decision Making - Medical Decision Making The patient was seen and evaluated, patient with hypoxia home, question saturation 88% on room air upon arrival, patient was placed on 2 L nasal cannula Labs and imaging was ordered Chest x-ray redemonstrates lower lobe infiltrates, she was recently treated for pneumonia, we'll plan to treat for pneumonia, continue oxygen Patient not a candidate for CT pulmonary embolism study due to low GFR however patient is on Eliquis due to previous PE and DVT Patient care was discussed with Dr. Hill who accepts the admission - Lab Data Result diagrams: 07/06/21 22:04 07/06/21 22:04 Lab Results 07/06/21 07/06/21 07/06/21 Range/Units 22:04 22:04 22:04 WBC 10.8 H (3.8-10.6) k/uL RBC 4.21 (3.80-5.40) m/uL Hgb 11.9 (11.4-16.0) gm/dL Hct 38.2 (34.0-46.0) % MCV 90.6 (80.0-100.0) fL MCH 28.4 (25.0-35.0) pg MCHC 31.3 (31.0-37.0) g/dL RDW 15.5 (11.5-15.5) % Plt Count 252 (150-450) k/uL MPV 10.0 Neutrophils % 67 % Lymphocytes % 22 % Monocytes % 7 % Eosinophils % 2 % Basophils % 1 % Neutrophils # 7.2 (1.3-7.7) k/uL Lymphocytes # 2.4 (1.0-4.8) k/uL Monocytes # 0.7 (0-1.0) k/uL Eosinophils # 0.2 (0-0.7) k/uL Basophils # 0.1 (0-0.2) k/uL Hypochromasia Moderate PT 12.3 H (9.0-12.0) sec INR 1.2 H (<1.2) APTT 29.5 (22.0-30.0) sec Sodium 137 (137-145) mmol/L Potassium 4.5 (3.5-5.1) mmol/L Chloride 104 (98-107) mmol/L Carbon Dioxide 27 (22-30) mmol/L Anion Gap 6 mmol/L BUN 37 H (7-17) mg/dL Creatinine 1.36 H (0.52-1.04) mg/dL Est GFR (CKD-EPI)AfAm 51 (>60 ml/min/1.73 sqM) Est GFR (CKD-EPI)NonAf 44 (>60 ml/min/1.73 sqM) Glucose 113 H (74-99) mg/dL Plasma Lactic Acid Vincent (0.7-2.0) mmol/L Calcium 8.4 (8.4-10.2) mg/dL Magnesium 2.2 (1.6-2.3) mg/dL Total Bilirubin 0.6 (0.2-1.3) mg/dL AST 26 (14-36) U/L ALT 10 (4-34) U/L Alkaline Phosphatase 89 (38-126) U/L Troponin I (0.000-0.034) ng/mL Total Protein 6.4 (6.3-8.2) g/dL Albumin 2.8 L (3.5-5.0) g/dL Coronavirus (PCR) (Not Detectd) 07/06/21 07/06/21 07/06/21 Range/Units 22:04 22:04 22:04 WBC (3.8-10.6) k/uL RBC (3.80-5.40) m/uL Hgb (11.4-16.0) gm/dL Hct (34.0-46.0) % MCV (80.0-100.0) fL MCH (25.0-35.0) pg MCHC (31.0-37.0) g/dL RDW (11.5-15.5) % Plt Count (150-450) k/uL MPV Neutrophils % % Lymphocytes % % Monocytes % % Eosinophils % % Basophils % % Neutrophils # (1.3-7.7) k/uL Lymphocytes # (1.0-4.8) k/uL Monocytes # (0-1.0) k/uL Eosinophils # (0-0.7) k/uL Basophils # (0-0.2) k/uL Hypochromasia PT (9.0-12.0) sec INR (<1.2) APTT (22.0-30.0) sec Sodium (137-145) mmol/L Potassium (3.5-5.1) mmol/L Chloride (98-107) mmol/L Carbon Dioxide (22-30) mmol/L Anion Gap mmol/L BUN (7-17) mg/dL Creatinine (0.52-1.04) mg/dL Est GFR (CKD-EPI)AfAm (>60 ml/min/1.73 sqM) Est GFR (CKD-EPI)NonAf (>60 ml/min/1.73 sqM) Glucose (74-99) mg/dL Plasma Lactic Acid Vincent 1.6 (0.7-2.0) mmol/L Calcium (8.4-10.2) mg/dL Magnesium (1.6-2.3) mg/dL Total Bilirubin (0.2-1.3) mg/dL AST (14-36) U/L ALT (4-34) U/L Alkaline Phosphatase (38-126) U/L Troponin I <0.012 (0.000-0.034) ng/mL Total Protein (6.3-8.2) g/dL Albumin (3.5-5.0) g/dL Coronavirus (PCR) Not Detected (Not Detectd) Disposition Clinical Impression: Pneumonia, Congestive heart failure, Hypertension Disposition: ADMITTED IP TO THIS HOSP Condition: Stable Is patient prescribed a controlled substance at d/c from ED?: No Referrals: [facility] [Primary Care Provider] - 1-2 days
--- NOTE | 2021-07-06 22:30 | XR ---
EXAMINATION TYPE: XR chest 1V DATE OF EXAM: 07/06/2021 COMPARISON: 07/03/2021 HISTORY: Hypoxemia TECHNIQUE: FINDINGS: There is no heart failure. There is coarsening of the interstitial markings in the lower nancie ng shah. There is mild interstitial infiltrate and atelectasis in the lower lobes. There are chest leads. IMPRESSION: Lower lobe pulmonary interstitial infiltrates and atelectasis which is not significantly different than recent exam.
[2021-07-06 22:31] LABS: INR 1.2 (<1.2); Partial Thromboplastin Time 29.5 sec (22.0-30.0); Prothrombin Time 12.3 sec (9.0-12.0)
[2021-07-06 22:38] LABS: Albumin 2.8 g/dL (3.5-5.0); Calcium 8.4 mg/dL (8.4-10.2); Magnesium 2.2 mg/dL (1.6-2.3); Potassium 4.5 mmol/L (3.5-5.1); Total Bilirubin 0.6 mg/dL (0.2-1.3); Total Protein 6.4 g/dL (6.3-8.2)
[2021-07-06] MEDS ORDERED: cefTRIAXone IN SWFI 1,000 MG/10 ML SYRINGE IVP STA (22:44)
[2021-07-06] MEDS ORDERED: AZITHROMYCIN 500 MG in SODIUM CHLORIDE 0.9% 250 ML IVPB STA (22:45)
[2021-07-06] MEDS ORDERED: PNEUMONIA PROTOCOL UTILIZED 1 EACH MISC PO PRN (23:02)
[2021-07-07] MEDS ORDERED: traMADol 50 MG TAB PO PRN (11:03)
[2021-07-07] MEDS ORDERED: FUROSEMIDE 40 MG TAB PO PRN (11:03)
[2021-07-07] MEDS ORDERED: LEVOFLOXACIN 500 MG TAB PO SCH (11:15)
[2021-07-07] MEDS: METOPROLOL TARTRATE 25 MG TAB PO SCH ×2 (11:59→20:53)
[2021-07-07] MEDS: APIXABAN 5 MG TAB PO SCH ×2 (11:59→20:53)
[2021-07-07] MEDS: PREGABALIN 100 MG CAP PO SCH ×2 (12:00→20:53)
[2021-07-07] MEDS: VORICONAZOLE 200 MG TAB PO SCH ×2 (12:00→21:40)
[2021-07-07] MEDS: ASPIRIN 81 MG PO SCH (12:00)
[2021-07-07 12:19] LABS: Glucose,Whole Blood 109 mg/dL (75-99)
--- NOTE | 2021-07-07 12:49 | P.CNPUL ---
History of Present Illness Consult date: 07/07/21 Requesting physician: [facility] Reason for consult: other Chief complaint: Weakness, fatigue, sleepiness, and dizziness. History of present illness: Pulmonary consultation dated 07/07/2021. 55-year-old female, who looks much older than her stated age, with significant past medical history for CHF, STEMI, pneumonia, and antibiotic resistant urinary tract infections. The patient was recently discharged from the hospital with a vancomycin-resistant enterococcal urinary tract infection, and also apparently had Lesa glabrata in the urine as well. She apparently was sent home on Levaquin and voriconazole. The patient re-presents to the emergency department on July 06 complaining of weakness, dizziness, and just feeling very tired. She's not a particularly good historian. She denies all pulmonary complaints including cough, phlegm production, shortness of breath, wheezing, or any other complaints for that matter. Apparently her saturations were low at home, and that was one of the reasons why she came into the hospital as well. She did stop smoking for a period of time, but resumed smoking recently. She apparently does have a history of underlying COPD. She was admitted with a diagnosis of "pneumonia". Looking at her chest x-ray, there is some minimal basilar atele ctasis, but nothing that would suggest pneumonia. In addition, nothing about her symptoms suggest pneumonia either. She has a history of diabetes, gastroesophageal reflux disease, hypertension, myocardial infarction, [place] embolism, obesity, DVT, acid reflux disease, and chronic back pain to name a few things. 8, hemoglobin 11.9, hematocrit 38.2, and platelet count was normal. PT 12.3, INR 1.2, sodium 137, potassium 4.5, chlorides 104, CO2 27, anion gap 6, BUN 37, and creatinine 1.36. COVID testing was negative. In my opinion, chest x-ray shows small lung volumes, and basilar atelectasis, without maddi infiltrate. Review of Systems REVIEW OF SYSTEMS: CONSTITUTIONAL: Fatigue and weakness. NEUROLOGIC: Dizziness. HEENT: [ Negative.] CARDIAC: [Negative.] PULMONARY: Apparent low saturations by pulse oximetry. GI: [Negative.] : [Negative.] RHEUMATOLOGIC: [ Negative.] IMMUNOLOGIC: [ Negative.] ENDOCRINE: [Negative. ] DERMATOLOGIC: [Negative.] Past Medical History Past Medical History: Diabetes Mellitus, GERD/Reflux, Hypertension, Myocardial Infarction ([place]), Pulmonary Embolus ([place]), Sleep Apnea/CPAP/BIPAP Additional Past Medical History / Comment(s): Previous history of pulmonary embolism in 2013, obesity, previous history of DVT involving the left lower extremity, diabetes mellitus, hypertension, acid reflux, chronic back pain, normal coronaries based on a cardiac catheterization from June 2015 Last Myocardial Infarction Date:: 06/16/2021 History of Any Multi-Drug Resistant Organisms: VRE Date of last positivie culture/infection: 06/24/21 MDRO Source:: VRE URINE Past Surgical History: Orthopedic Surgery Additional Past Surgical History / Comment(s): Rt shoulder rotator cuff repair Past Anesthesia/Blood Transfusion Reactions: No Reported Reaction Additional Past Anesthesia/Blood Transfusion Reaction / Comment(s): STATES HAS BEHAVIOR CHANGES POST OP Past Psychological History: No Psychological Hx Reported Smoking Status: Former smoker Past Alcohol Use History: None Reported Past Drug Use History: None Reported - Past Family History Father Family Medical History: No Reported History Mother Family Medical History: No Reported History Medications and Allergies Home Medications Medication Instructions Recorded Confirmed Type Apixaban [Eliquis] 5 mg PO BID 06/12/21 07/06/21 History Ferrous Sulfate [Iron] 325 mg PO DAILY 06/12/21 07/06/21 History Metoprolol Tartrate [Lopressor] 75 mg PO BID 06/12/21 07/06/21 History Pregabalin [Lyrica] 200 mg PO BID 06/12/21 07/06/21 History traMADol HCL [Ultram] 50 mg PO Q6HR PRN 3 Days #12 tab 06/16/21 07/06/21 Rx Aspirin 81 mg PO DAILY #30 chew 06/23/21 07/06/21 Rx polyethylene glycoL 3350 [Miralax] 17 gm PO HS #30 powd.pack 06/23/21 07/06/21 Rx Voriconazole [Vfend] 300 mg PO Q12HR #20 tablet 07/01/21 07/06/21 Rx Levofloxacin [Levaquin] 500 mg PO DAILY 7 Days #1 tab 07/04/21 07/06/21 Rx Furosemide [Lasix] 40 mg PO DAILY PRN 07/06/21 07/06/21 History Allergies Allergy/AdvReac Type Severity Reaction Status Date / Time bee venom protein (honey bee) Allergy Severe Swelling Verified 07/06/21 22:15 acetaminophen [From Tylenol] Allergy Anaphylaxis Verified 07/06/21 22:15 morphine Allergy Swelling Verified 07/06/21 22:15 Penicillins Allergy Rash/Hives Verified 07/06/21 22:15 all citrus Allergy Anaphylaxis Uncoded 07/06/21 22:15 Physical Exam Osteopathic Statement: *. No significant issues noted on an osteopathic structural exam other than those noted in the History and Physical/Consult. Vitals: Vital Signs Temp Pulse Pulse Resp BP BP Pulse Ox 07/07/21 08:00 20 07/07/21 07:25 98.9 F 71 20 137/74 90 L 07/07/21 02:44 93 L 07/07/21 01:22 98.6 F 67 17 129/75 93 L 07/07/21 00:04 67 17 07/06/21 23:29 64 20 138/81 94 L 07/06/21 21:31 98.4 F 72 20 119/72 94 L Intake and Output 07/06/21 07/07/21 07/07/21 22:59 06:59 14:59 Other: # Voids 2 # Bowel Movements 0 Weight 90.718 kg 90.718 kg No acute distress, oriented 3. Nasal O2 in place at 3 L. Saturations are in the mid 90s. No obvious respiratory distress. HEENT examination is grossly unremarkable. Neck supple. Full range of motion. No adenopathy thyromegaly or neck vein distention. Cardiovascular examination reveals regular rhythm rate. S1-S2 normal. No S3 or S4. No discernible murmur noted. Heart rate 71 bpm. Lungs reveal clear but diminished breath sounds. No wheezes or rhonchi. Slight prolongation on forced maneuver. No crackles. Breath sounds are equal bilaterally. Abdomen soft bowel sounds are heard. No masses or tenderness. Extremities are intact. No cyanosis clubbing or edema. Skin is without rash or lesion. Neurologic examination is brief but nonfocal. Results - Laboratory Findings CBC and BMP: 07/06/21 22:04 07/06/21 22:04 PT/INR, D-dimer PT 12.3 sec (9.0-12.0) H 07/06/21 22:04 INR 1.2 (<1.2) H 08/29/21 22:04 Abnormal lab findings: Abnormal Labs 07/06/21 07/06/21 07/06/21 22:04 22:04 22:04 WBC 10.8 H PT 12.3 H INR 1.2 H BUN 37 H Creatinine 1.36 H Glucose 113 H POC Glucose (mg/dL) Albumin 2.8 L 07/07/21 12:17 WBC PT INR BUN Creatinine Glucose POC Glucose (mg/dL) 109 H Albumin - Diagnostic Findings Chest x-ray: image reviewed Assessment and Plan Assessment: Weakness, fatigue, and dizziness, of unclear etiology. No evidence of pneumonia in my opinion on chest x-ray, nor does patient have symptoms of pneumonia. Recent admission for a vancomycin-resistant enterococcal urinary tract infection, as well as urinary Lesa glabrata. Patient was discharged on Levaquin and voriconazole, which she is completing currently. History of diabetes mellitus. History of gastroesophageal reflux disease. History of hypertension. History of myocardial infarction. History of DVT/pulmonary embolism. History of chronic back pain. History of obesity. Plan: Plan dated 07/07/2021. The patient should complete her Levaquin and voriconazole as per recommendation previously from infectious diseases. From the pulmonary standpoint, in my opinion, she is stable. She apparently had low saturations at home prior to being seen in the emergency department. Currently, she denies any shortness of breath, chest tightness, cough, wheezing, or phlegm production. She may have a component of underlying COPD from previous tobacco use. We will be happy to see her in the office, post discharge for pulmonary function testing. One other thought might be some of her symptoms could relate to her Lyrica, which may cau se fatigue and weakness. Time with Patient: Greater than 30
--- NOTE | 2021-07-07 14:59 | P.HPIM ---
History of Present Illness H&P Date: 07/07/21 HISTORY OF PRESENT ILLNESS This is a 55-year-old female patient of [facility] with past medical history of chronic diastolic heart failure, pulmonary embolism in 2013, history of DVD of the left lower extremity, diabetes mellitus type 2, hypertension, gastroesophageal reflux disease, chronic back pain, moderate pulmonary hypertension. Patient had 2 recent hospitalizations June 18 through June 23 at which time patient was treated for acute diastolic heart failure, acute respiratory failure and elevated troponin secondary to type II AZ secondary to urinary tract infection and worsening renal failure. Patient was subsequently admitted on June 28 through July 03 at which time she was treated for acute complicated UTI and sepsis, renal stones status post right ureterostomy on June 16 and repeat done on July 03. Patient now complains of feeling weak, shortness of breath and low pulse ox which she checked with her sister's oximetry. Patient states that oxygen saturation was dropping down to 60% and she decided to come back in the hospital. Patient was found to be afebrile, heart rate 72, blood pressure 119/72, pulse ox initially 88% on room air on arrival and pulse ox 94% on 2 L. EKG was a sinus rhythm with no acute ST changes at rate of 71 bpm. WBC 10.8, hemoglobin 11.9, platelet count 252. Lites were within normal limits. BUN 37 and creatinine 1.36. Liver function tests normal. Lactic acid 1.6. COVID-19 not detected. Troponin negative. Chest x-ray reveals lower lobe pulmonary interstitial infiltrates and atelectasis which is not significantly different from recent exam. Patient admitted to the [facility] floor and consults requested with pulmonary medicine. REVIEW OF SYSTEMS Constitutional: No fever, no chills, no night sweats. No weight change. No weakness, fatigue or lethargy. No daytime sleepiness. EENT: No headache. No blurred vision or double vision, no loss of vision. No loss of Hearing, no ringing in the ears, no dizziness. No nasal drainage or congestion. No epistaxis. No sore throat. Lungs: No shortness of breath, cough, no sputum production. No wheezing. Cardiovascular: No chest pain, no lower extremity edema. No palpitations. No paroxysmal nocturnal dyspnea. No orthopnea. No lightheadedness or dizziness. No syncopal episodes. Abdominal: No abdominal pain. No nausea, vomiting. No diarrhea. No constipation. No bloody or tarry stools.. No loss of appetite. Genitourinary: No dysuria, increased frequency, urgency. No urinary retention. Musculoskeletal: No myalgias. No muscle weakness, no gait dysfunction, no frequent falls. No back pain. No neck pain. Integumentary: No wounds, no lesions. No rash or pruritus. No unusual bruising. No change in hair or nails. Neurologic: No aphasia. No facial droop. No change in mentation. No head injury. No headache. No paralysis. No paresthesia. Psychiatric: No depression. No anxiety. No mood swings. Endocrine: No abnormal blood sugars. No weight change. No excessive sweating or thirst. No cold intolerance. SOCIAL HISTORY Patient was a former smoker, no alcohol use, no illicit drug use. FAMILY HISTORY Mother is alive at age 88 with no major medical problems. Father is alive at age 86. Patient does not have any siblings. Patient has one daughter age 33 with no major medical problems. PHYSICAL EXAMINATION Gen: This is a 55-year-old obese female. Patient is resting in chair and appears to be comfortable and in no acute distress. HEENT: Head is atraumatic, normocephalic. Pupils equal, round. Sclerae is anicteric. NECK: Supple. No JVD. No lymphadenopathy. No thyromegaly. LUNGS: Diminished bilaterally but otherwise clear to auscultation. No wheezes or rhonchi. No intercostal retractions. HEART: Regular rate and rhythm. No murmur. ABDOMEN: Soft. Bowel sounds are present. No masses. No tenderness. EXTREMITIES: No pedal edema. No calf tenderness. NEUROLOGICAL: Patient is awake, alert and oriented x3. Cranial nerves 2 through 12 are grossly intact. ASSESSMENT AND PLAN 1. Acute hypoxic respiratory failure requiring oxygen. Consult with pulmonary medicine appreciated, pneumonia ruled out. Pro-calcitonin, continue oxygen therapy. 2. Recent hospitalization for VRE and leanne UTI. Continue Levaquin and voriconazole. 3. Chronic diastolic heart failure, stable. Continue Lasix 40 mg daily as needed. 4. History of pulmonary embolism in 2013 and DVT history. Continue eliquis. 5. Diabetes mellitus type 2. Continue consistent carb diet, NovoLog scale b efore meals and at bedtime 6. Hypertension. Continue metoprolol. 7. Gastroesophageal reflux disease. Protonix 40 mg daily. 8. Chronic back pain. Continue Lyrica 200 mg twice daily, Ultram 50 mg every 6 hours as needed 9. History of recent type II AZ secondary to renal failure. Continue aspirin 81 mg daily, Lopressor 75 mg twice daily 10. DVT prophylaxis. Eliquis. Patient will be admitted to the hospital for a minimum of 2 night stay. DISCHARGE PLAN Home Impression and plan of care have been directed as dictated by the signing physician. Alysia Crook nurse practitioner acting as scribe for signing physician. Past Medical History Past Medical History: Diabetes Mellitus, GERD/Reflux, Hypertension, Myocardial Infarction (AZ), Pulmonary Embolus (PE), Sleep Apnea/CPAP/BIPAP Additional Past Medical History / Comment(s): Previous history of pulmonary embolism in 2013, obesity, previous history of DVT involving the left lower extremity, diabetes mellitus, hypertension, acid reflux, chronic back pain, normal coronaries based on a cardiac catheterization from June 2015 Last Myocardial Infarction Date:: 06/16/2021 History of Any Multi-Drug Resistant Organisms: VRE Date of last positivie culture/infection: 06/24/21 MDRO Source:: VRE URINE Past Surgical History: Orthopedic Surgery Additional Past Surgical History / Comment(s): Rt shoulder rotator cuff repair Past Anesthesia/Blood Transfusion Reactions: No Reported Reaction Additional Past Anesthesia/Blood Transfusion Reaction / Comment(s): STATES HAS BEHAVIOR CHANGES POST OP Past Psychological History: No Psychological Hx Reported Smoking Status: Former smoker Past Alcohol Use History: None Reported Past Drug Use History: None Reported - Past Family History Father Family Medical History: No Reported History Mother Family Medical History: No Reported History Medications and Allergies Home Medications Medication Instructions Recorded Confirmed Type Apixaban [Eliquis] 5 mg PO BID 06/12/21 07/06/21 History Ferrous Sulfate [Iron] 325 mg PO DAILY 06/12/21 07/06/21 History Metoprolol Tartrate [Lopressor] 75 mg PO BID 06/12/21 07/06/21 History Pregabalin [Lyrica] 200 mg PO BID 06/12/21 07/06/21 History traMADol HCL [Ultram] 50 mg PO Q6HR PRN 3 Days #12 tab 06/16/21 07/06/21 Rx Aspirin 81 mg PO DAILY #30 chew 06/23/21 07/06/21 Rx polyethylene glycoL 3350 [Miralax] 17 gm PO HS #30 powd.pack 06/23/21 07/06/21 Rx Voriconazole [Vfend] 300 mg PO Q12HR #20 tablet 07/01/21 07/06/21 Rx Levofloxacin [Levaquin] 500 mg PO DAILY 7 Days #1 tab 07/04/21 07/06/21 Rx Furosemide [Lasix] 40 mg PO DAILY PRN 07/06/21 07/06/21 History Allergies Allergy/AdvReac Type Severity Reaction Status Date / Time bee venom protein (honey bee) Allergy Severe Swelling Verified 07/06/21 22:15 acetaminophen [From Tylenol] Allergy Anaphylaxis Verified 07/06/21 22:15 morphine Allergy Swelling Verified 07/06/21 22:15 Penicillins Allergy Rash/Hives Verified 07/06/21 22:15 all citrus Allergy Anaphylaxis Uncoded 07/06/21 22:15 Physical Exam Vitals: Vital Signs Temp Pulse Pulse Resp BP BP Pulse Ox 07/07/21 07:25 98.9 F 71 20 137/74 90 L 07/07/21 02:44 93 L 07/07/21 01:22 98.6 F 67 17 129/75 93 L 07/07/21 00:04 67 17 07/06/21 23:29 64 20 138/81 94 L 07/06/21 21:31 98.4 F 72 20 119/72 94 L Intake and Output 07/06/21 07/07/21 07/07/21 22:59 06:59 14:59 Other: # Voids 2 # Bowel Movements 0 Weight 90.718 kg 90.718 kg Results CBC & Chem 7: 07/06/21 22:04 07/06/21 22:04 Labs: Abnormal Lab Results - Last 24 Hours (Table) 07/06/21 07/06/21 07/06/21 Range/Units 22:04 22:04 22:04 WBC 10.8 H (3.8-10.6) k/uL PT 12.3 H (9.0-12.0) sec INR 1.2 H (<1.2) BUN 37 H (7-17) mg/dL Creatinine 1.36 H (0.52-1.04) mg/dL Glucose 113 H (74-99) mg/dL Albumin 2.8 L (3.5-5.0) g/dL Thrombosis Risk Factor Assmnt - Choose All That Apply Each Factor Represents 1 point: Age 41-60 years, Obesity (BMI >25) Each Risk Factor Represents 3 Points: History of DVT/PE Thrombosis Risk Factor Assessment Total Risk Factor Score: 5 Thrombosis Risk Factor Assessment Level: High Risk
[2021-07-07 16:45] LABS: Glucose,Whole Blood 119 mg/dL (75-99)
[2021-07-07] MEDS: INSULIN ASPART (NovoLOG) 100 UNIT/ML VIAL SQ SCH ×2 (16:52→21:01)
[2021-07-07 20:50] LABS: Glucose,Whole Blood 151 mg/dL (75-99)
[2021-07-07] MEDS: polyethylene glycoL 3350 17 GM POWD.PACK PO SCH (20:53)
[2021-07-08 01:02] VITALS: PULSE 73
[2021-07-08] MEDS: polyethylene glycoL 3350 17 GM POWD.PACK PO SCH (06:20)
[2021-07-08 06:57] LABS: Glucose,Whole Blood 78 mg/dL (75-99)
[2021-07-08] MEDS: INSULIN ASPART (NovoLOG) 100 UNIT/ML VIAL SQ SCH (07:16)
[2021-07-08 08:08] VITALS: BP 158/91; RESP 20; TEMP 98.7
[2021-07-08] MEDS: PREGABALIN 100 MG CAP PO SCH (08:22)
[2021-07-08] MEDS: ASPIRIN 81 MG PO SCH (08:23)
[2021-07-08] MEDS: METOPROLOL TARTRATE 25 MG TAB PO SCH (08:23)
[2021-07-08] MEDS: APIXABAN 5 MG TAB PO SCH (08:23)
[2021-07-08] MEDS: VORICONAZOLE 200 MG TAB PO SCH (08:23)
[2021-07-08] MEDS ORDERED: FERROUS SULFATE 325 MG TAB PO SCH (09:00)
[2021-07-08] MEDS ORDERED: LEVOFLOXACIN 250 MG TAB PO SCH (12:00)
--- NOTE | 2021-07-08 14:26 | PN ---
PROGRESS NOTE PULMONARY/CRITICAL CARE PROGRESS NOTE: DATE OF SERVICE: 07/08/2021 This is a 55-year-old female that we saw yesterday in consultation. She was admitted with the diagnosis of weakness, fatigue, and dizziness, of unclear etiology. The patient was recently admitted with a diagnosis of vancomycin-resistant enterococcal urinary tract infection, as well as urinary Lesa glabrata. She was discharged on Levaquin and voriconazole. She is currently completing those medications. She was thought to have possible pneumonia, but in actuality, she was not having any pneumonic symptoms, and likely did not have pneumonia on this admission. Clinically, she was doing well. She had no particular complaints. PHYSICAL EXAMINATION: VITAL SIGNS: Current vital signs include a temperature 98.7, heart rate 73, respiratory rate 20, blood pressure 158/91, and saturations of 93% on 3.5 L of O2. HEENT examination is grossly unremarkable. NECK: Supple. CARDIOVASCULAR examination reveals regular rhythm and rate. Heart rate 73 beats per minute. S1, S2 normal. No S3, S4, or murmur. Heart sounds are distant. LUNGS: Reveal scattered rhonchi. No wheezes or crackles. Breath sounds equal but diminished. ABDOMEN: Soft. Bowel sounds are heard. EXTREMITIES are intact. No cyanosis, clubbing, or edema. SKIN: Without rash. NEUROLOGIC: Examination is nonfocal. LABS: Reviewed. Nothing new from the . Microbiology is currently negative. Chest x-ray on this admission showed some bibasilar atelectasis without infiltrate. Medications are reviewed. ASSESSMENT: 1. Weakness, fatigue, and dizziness, of unclear etiology. 2. No evidence of pneumonia on chest x-ray or symptoms of pneumonia. 3. Recent admission for a vancomycin-resistant enterococcal urinary tract infection as well as urinary Lesa glabrata. Patient discharged on Levaquin and voriconazole, which she is currently completing. 4. History of diabetes mellitus. 5. History of gastroesophageal reflux disease. 6. History of hypertension. 7. History of myocardial infarction. 8. History of DVT/pulmonary embolism. 9. History of chronic back pain. 10.History of obesity. 11.History of probable chronic obstructive pulmonary disease and ongoing tobacco use. PLAN: The patient is doing well. From the pulmonary standpoint, the patient could be considered for possible discharge. No additional recommendations are made. Prognosis is thought to be generally good. She is counseled about the importance of smoking cessation. MMODL / IJN: [id number] /
--- NOTE | 2021-07-08 15:12 | P.DS ---
Providers Date of admission: 07/06/21 23:02 Expected date of discharge: 07/08/21 Attending physician: [place] Consults: 07/07/21 11:02 Consult Physician Routine Consulting Provider: Nicola Howard Consult Reason/Comments: hypoxia, copd, pn Do you want consulting provider notified?: Yes Primary care physician: [facility] Course: HISTORY OF PRESENT ILLNESS This is a 55-year-old female patient of [facility] with past medical history of chronic diastolic heart failure, pulmonary embolism in 2013, history of DVD of the left lower extremity, diabetes mellitus type 2, hypertension, gastroesophageal reflux disease, chronic back pain, moderate pulmonary hypertension. Patient had 2 recent hospitalizations June 18 through June 23 at which time patient was treated for acute diastolic heart failure, acute respiratory failure and elevated troponin secondary to type II MT secondary to urinary tract infection and worsening renal failure. Patient was subsequently admitted on June 28 through July 03 at which time she was treated for acute complicated UTI and sepsis, renal stones status post right ureterostomy on June 16 and repeat done on July 03. Patient now complains of feeling weak, shortness of breath and low pulse ox which she checked with her sister's oximetry. Patient states that oxygen saturation was dropping down to 60% and she decided to come back in the hospital. Patient was found to be afebrile, heart rate 72, blood pressure 119/72, pulse ox initially 88% on room air on arrival and pulse ox 94% on 2 L. EKG was a sinus rhythm with no acute ST changes at rate of 71 bpm. WBC 10.8, hemoglobin 11.9, platelet count 252. Lites were within normal limits. BUN 37 and creatinine 1.36. Liver function tests normal. Lactic acid 1.6. COVID-19 not detected. Troponin negative. Chest x-ray reveals lower lobe pulmonary interstitial infiltrates and atelectasis which is not significantly different from recent exam. Patient admitted to the [facility] floor and consults requested with pulmonary medicine. 07/08: Patient has been seen by Dr. Howard this morning is cleared for discharge home. Patient does not require home oxygen therapy. Patient has been afebrile, heart rate 73, blood pressure 158/91, pulse ox 93% on 4 L nasal cannula. Capillary blood glucose running between 78 and 151. Patient denies having shortness of breath, chest pain, lightheadedness or dizziness. Patient will be discharged home today in stable condition. ASSESSMENT AND PLAN 1. Acute hypoxic respiratory failure requiring oxygen. 2. Recent hospitalization for VRE and leanne UTI. 3. Chronic diastolic heart failure, stable. 4. History of pulmonary embolism in 2013 and DVT history. 5. Diabetes mellitus type 2. 6. Hypertension. 7. Gastroesophageal reflux disease. 8. Chronic back pain. 9. History of recent type II MT secondary to renal failure. DISCHARGE PLAN Home Impression and plan of care have been directed as dictated by the signing physician. Alysia Crook nurse practitioner acting as scribe for signing physician. Patient Condition at Discharge: Good Plan - Discharge Summary Discharge Rx Participant: Yes New Discharge Prescriptions: Continue Apixaban [Eliquis] 5 mg PO BID Pregabalin [Lyrica] 200 mg PO BID Ferrous Sulfate [Iron] 325 mg PO DAILY Voriconazole [Vfend] 300 mg PO Q12HR #20 tablet Levofloxacin [Levaquin] 500 mg PO DAILY 7 Days #1 tab Metoprolol Tartrate [Lopressor] 75 mg PO BID traMADol HCL [Ultram] 50 mg PO Q6HR PRN 3 Days #12 tab PRN Reason: Pain Aspirin 81 mg PO DAILY #30 chew polyethylene glycoL 3350 [Miralax] 17 gm PO HS #30 powd.pack Furosemide [Lasix] 40 mg PO DAILY PRN PRN Reason: Edema Discharge Medication List Apixaban [Eliquis] 5 mg PO BID 06/12/21 [History] Ferrous Sulfate [Iron] 325 mg PO DAILY 06/12/21 [History] Metoprolol Tartrate [Lopressor] 75 mg PO BID 06/12/21 [History] Pregabalin [Lyrica] 200 mg PO BID 06/12/21 [History] traMADol HCL [Ultram] 50 mg PO Q6HR PRN 3 Days #12 tab 06/16/21 [Rx] Aspirin 81 mg PO DAILY #30 chew 06/23/21 [Rx] polyethylene glycoL 3350 [Miralax] 17 gm PO HS #30 powd.pack 06/23/21 [Rx] Voriconazole [Vfend] 300 mg PO Q12HR #20 tablet 07/01/21 [Rx] Levofloxacin [Levaquin] 500 mg PO DAILY 7 Days #1 tab 07/04/21 [Rx] Furosemide [Lasix] 40 mg PO DAILY PRN 07/06/21 [History] Follow up Appointment(s)/Referral(s): [facility] [Primary Care Provider] - 1 Week (please call to make appointment ) Patient Instructions/Handouts: Viral Pneumonia (DC) Discharge Disposition: HOME SELF-CARE
== END 2021-07-08 11:31 | disposition home or self-care (01) | DRG 189 ==
LOC: EC 21:31 → 4SSUR 23:02
PROVIDERS: ADMIT Internal Medicine Geriatric Medicine; ATTEND Internal Medicine Geriatric Medicine
PROC: 3E0F7SF Introduction of Other Gas into Respiratory Tract, Via Natural or Artificial Opening (ICD-10-PCS; principal; 2021-07-06)
DX: J96.01 Acute respiratory failure with hypoxia (principal); I50.32 Chronic diastolic (congestive) heart failure; J98.11 Atelectasis; E11.9 Type 2 diabetes mellitus without complications; G89.29 Other chronic pain; M54.9 Dorsalgia, unspecified; I11.0 Hypertensive heart disease with heart failure; J44.9 Chronic obstructive pulmonary disease, unspecified; I25.2 Old myocardial infarction; I27.20 Pulmonary hypertension, unspecified; K21.9 Gastro-esophageal reflux disease without esophagitis; Z20.822 Contact with and (suspected) exposure to COVID-19; Z79.01 Long term (current) use of anticoagulants; Z79.82 Long term (current) use of aspirin; Z79.899 Other long term (current) drug therapy; Z86.711 Personal history of pulmonary embolism; Z86.718 Personal history of other venous thrombosis and embolism; Z87.442 Personal history of urinary calculi; Z91.030 Bee allergy status; Z88.5 Allergy status to narcotic agent; Z87.440 Personal history of urinary (tract) infections; Z87.891 Personal history of nicotine dependence; Z88.6 Allergy status to analgesic agent; Z88.0 Allergy status to penicillin; Z91.02 Food additives allergy status
CPT/HCPCS: 36415; 71045; 80053; 83605; 83735; 84145; 84484; 85025; 85610; 85730; 87635; 93005; 94760; 96360; 99285

== ENCOUNTER 2021-08-03 00:23 | Emergency (ER) | payer OTHER ==
[2021-08-03 00:58] VITALS: BP 176/84; PULSE 85; RESP 22; TEMP 99.7
[2021-08-03] MEDS ORDERED: SULFAMETHOX-TMP 800-160MG 1 EACH TAB PO STA (01:59)
[2021-08-03] MEDS ORDERED: CEPHALEXIN 500 MG CAP PO STA (02:00)
[2021-08-03] MEDS ORDERED: cloNIDine HCL 0.1 MG TAB PO STA (02:03)
--- NOTE | 2021-08-03 02:04 | ED ---
Recheck HPI - General Chief Complaint: Recheck/Abnormal Lab/Rx Stated Complaint: high BP Time Seen by Provider: 08/03/21 01:45 Source: patient Mode of arrival: wheelchair Limitations: no limitations - History of Present Illness Initial Comments: This patient is a 56-year-old woman with history of hypertension and other chronic medical conditions who presents with complaint that her blood pressure has been higher than usual. The patient also has been having some chest pain but believes this is related to rib fracture she had sustained a recent fall. She does have some mild headache associated with the blood pressure. Patient denies significant dyspnea. No neurologic symptoms. MD Complaint: other (Blood pressure) -: hour(s) Initial Visit For: other Returns Today for: other (Elevated blood pressure) Symptoms Since Prior Visit: no new symptoms Associated Symptoms: none - Related Data Home Medications Medication Instructions Recorded Confirmed Apixaban [Eliquis] 5 mg PO BID 06/12/21 07/06/21 Ferrous Sulfate [Iron] 325 mg PO DAILY 06/12/21 07/06/21 Metoprolol Tartrate [Lopressor] 75 mg PO BID 06/12/21 07/06/21 Pregabalin [Lyrica] 200 mg PO BID 06/12/21 07/06/21 Furosemide [Lasix] 40 mg PO DAILY PRN 07/06/21 07/06/21 Previous Rx's Medication Instructions Recorded traMADol HCL [Ultram] 50 mg PO Q6HR PRN 3 Days #12 tab 06/16/21 Aspirin 81 mg PO DAILY #30 chew 06/23/21 polyethylene glycoL 3350 [Miralax] 17 gm PO HS #30 powd.pack 06/23/21 Voriconazole [Vfend] 300 mg PO Q12HR #20 tablet 07/01/21 Levofloxacin [Levaquin] 500 mg PO DAILY 7 Days #1 tab 07/04/21 Cephalexin [Keflex] 500 mg PO Q6HR #28 cap 08/03/21 Sulfamethox-Tmp 800-160Mg [Bactrim 1 each PO Q12HR #28 tab 08/03/21 Ds] Allergies Allergy/AdvReac Type Severity Reaction Status Date / Time bee venom protein (honey bee) Allergy Severe Swelling Verified 08/03/21 00:59 acetaminophen [From Tylenol] Allergy Anaphylaxis Verified 08/03/21 00:59 morphine Allergy Swelling Verified 08/03/21 00:59 Penicillins Allergy Rash/Hives Verified 08/03/21 00:59 all citrus Allergy Anaphylaxis Uncoded 08/03/21 00:59 Review of Systems ROS Statement: Those systems with pertinent positive or pertinent negative responses have been documented in the HPI. ROS Other: All systems not noted in ROS Statement are negative. Constitutional: Denies: fever, chills Eyes: Denies: eye pain, vision change Respiratory: Denies: cough, dyspnea, wheezes Cardiovascular: Reports: as per HPI, chest pain, edema. Denies: palpitations, orthopnea, syncope Gastrointestinal: Denies: abdominal pain, nausea, vomiting, diarrhea Genitourinary: Denies: dysuria Musculoskeletal: Denies: back pain Skin: Denies: rash Neurological: Reports: headache. Denies: weakness, numbness Past Medical History Past Medical History: Diabetes Mellitus, GERD/Reflux, Hypertension, Myocardial Infarction ([place]), Pulmonary Embolus (PE), Sleep Apnea/CPAP/BIPAP Additional Past Medical History / Comment(s): Previous history of pulmonary embolism in 2013, obesity, previous history of DVT involving the left lower extremity, diabetes mellitus, hypertension, acid reflux, chronic back pain, normal coronaries based on a cardiac catheterization from June 2015 Last Myocardial Infarction Date:: 06/16/2021 History of Any Multi-Drug Resistant Organisms: VRE Date of last positivie culture/infection: 06/24/21 MDRO Source:: VRE URINE Past Surgical History: Orthopedic Surgery Additional Past Surgical History / Comment(s): Rt shoulder rotator cuff repair Past Anesthesia/Blood Transfusion Reactions: No Reported Reaction Additional Past Anesthesia/Blood Transfusion Reaction / Comment(s): STATES HAS BEHAVIOR CHANGES POST OP Past Psychological History: No Psychological Hx Reported Smoking Status: Former smoker Past Alcohol Use History: None Reported Past Drug Use History: None Reported - Past Family History Father Family Medical History: No Reported History Mother Family Medical History: No Reported History General Exam Limitations: no limitations General appearance: alert, in no apparent distress Head exam: Present: atraumatic, normocephalic Eye exam: Present: normal appearance. Absent: scleral icterus, conjunctival injection Neck exam: Present: normal inspection, full ROM. Absent: tenderness Respiratory exam: Present: normal lung sounds bilaterally, chest wall tenderness. Absent: respiratory distress, wheezes, rales, rhonchi, stridor Cardiovascular Exam: Present: regular rate, normal rhythm, normal heart sounds. Absent: systolic murmur, diastolic murmur, rubs, gallop GI/Abdominal exam: Present: soft. Absent: distended, tenderness, guarding, rebound, rigid, mass Extremities exam: Present: normal inspection, normal capillary refill, pedal edema. Absent: calf tenderness Neurological exam: Present: alert Skin exam: Present: warm, dry, intact, erythema. Absent: rash Course Vital Signs 08/03/21 00:53 Temperature 99.7 F H Pulse Rate 85 Respiratory 22 Rate Blood Pressure 176/84 O2 Sat by Pulse 94 L Oximetry Medical Decision Making - Medical Decision Making She is 56-year-old woman with a number of complaints including elevated blood pressure. In addition there does appear to be some cellulitis going on. At the initial history and physical I did recommend that the patient have some lab testing, but the patient states that she does not want to have any IV start or i njections. She states that she was hoping to just take something for blood pressure and she will return if it was not helping. Discussed that a number of her symptoms are concerning and that they cannot be fully evaluated without additional workup, but the patient is refusing at this point. She states she will come back if she is not feeling better or if there is any worsening in her condition. Disposition Clinical Impression: Hypertension, Cellulitis Disposition: HOME SELF-CARE Condition: Serious Instructions (If sedation given, give patient instructions): Diabetic Foot Ulcers (ED), Hypertension (ED) Prescriptions: Sulfamethox-Tmp 800-160Mg [Bactrim Ds] 1 each PO Q12HR #28 tab Cephalexin [Keflex] 500 mg PO Q6HR #28 cap Is patient prescribed a controlled substance at d/c from ED?: No Referrals: [facility] [Primary Care Provider] - 1-2 days
== END 2021-08-03 02:30 | disposition home or self-care (01) ==
LOC: EC 00:23
DX: I10 Essential (primary) hypertension (principal); L03.90 Cellulitis, unspecified; E11.9 Type 2 diabetes mellitus without complications; K21.9 Gastro-esophageal reflux disease without esophagitis; I25.2 Old myocardial infarction; Z79.01 Long term (current) use of anticoagulants; Z79.82 Long term (current) use of aspirin; Z88.0 Allergy status to penicillin; Z88.5 Allergy status to narcotic agent; Z88.6 Allergy status to analgesic agent; Z86.711 Personal history of pulmonary embolism; Z86.718 Personal history of other venous thrombosis and embolism; Z87.891 Personal history of nicotine dependence
CPT/HCPCS: 99284

== ENCOUNTER → 2021-09-17 | Outpatient (CLI) | payer OTHER | END | disposition home or self-care (01) | LOC: LABWHC1 12:18 | PROVIDERS: ATTEND Family Medicine | DX: Z20.822 Contact with and (suspected) exposure to COVID-19 (principal); J06.9 Acute upper respiratory infection, unspecified | CPT/HCPCS: 87502; 87635; C9803 ==

== ENCOUNTER → 2022-03-12 | Outpatient (CLI) | payer OTHER ==
--- NOTE | 2022-03-12 11:20 | XR ---
EXAMINATION TYPE: XR Hip Bilateral and AP pelvis DATE OF EXAM: 03/12/2022 COMPARISON: NONE HISTORY: Pain TECHNIQUE: A single AP view of the pelvis is obtained. Two views of the bilateral hip are obtained. FINDINGS: There is no acute fracture/dislocation. SI joints are symmetric with mild sclerosis. Mild sacroiliitis is not excluded. There is hypertrophic changes of the acetabulum and mild/moderate narro wing the joint space of the hips. Vascular calcifications noted. IMPRESSION: 1. Mild to moderate facet arthropathy correlate for femoral acetabular impingement. 2. Bilateral SI joint arthropathy.
== END | disposition home or self-care (01) ==
LOC: RADXRMAIN 10:43
PROVIDERS: ATTEND Family Medicine
DX: M12.852 Other specific arthropathies, not elsewhere classified, left hip (principal); M12.851 Other specific arthropathies, not elsewhere classified, right hip; M46.1 Sacroiliitis, not elsewhere classified
CPT/HCPCS: 73521

== ENCOUNTER → 2022-10-09 | Outpatient (CLI) | payer OTHER ==
[2022-10-09 14:25] LABS: Basophils # (A) 0.04 X 10*3/uL (0.00-0.10); Basophils % (A) 0.4 %; Eosinophils # (A) 0.17 X 10*3/uL (0.04-0.35); Eosinophils % (A) 1.7 %; HCT 45.9 % (37.2-46.3); HGB 13.9 g/dL (12.0-15.0); Immature Grans, Automated 0.4 %; Lymphocytes # (A) 1.79 X 10*3/uL (0.90-5.00); Lymphocytes % (A) 18.1 %; MCHC 30.3 g/dL (32.0-37.0); MCV 89.1 fL (80.0-97.0); Mean Platelet Volume 12.9 fL (9.5-12.2); Monocytes # (A) 0.81 X 10*3/uL (0.20-1.00); Monocytes % (A) 8.2 %; NRBC Per 100 WBC 0 /100 WBCS (0.0-0.0); Neutrophils # (A) 7.05 X 10*3/uL (1.80-7.70); Neutrophils % (A) 71.2 %; Platelet Count 146 X 10*3/uL (140-440); RBC 5.15 X 10*6/uL (4.10-5.20); RDW 15.1 % (11.5-14.5)
[2022-10-09 14:50] LABS: ALT 12 U/L (8-44); AST 31 U/L (13-35); African American GFR (CKD) 44.7 (60.0-200.0); Albumin 3.5 g/dL (3.8-4.9); Albumin/Globulin Ratio 0.92 (1.60-3.17); Alkaline Phosphatase 91 U/L (41-126); Blood Urea Nitrogen 21.3 mg/dL (9.0-27.0); Carbon Dioxide 26.2 mmol/L (20.0-27.5); Chloride 104 mmol/L (96-109); Chol/HDL Ratio 5.13 Ratio; Globulin 3.8 g/dL (1.6-3.3); Glucose 90 mg/dL (70-110); LDL Cholesterol,Calculated 79.9 mg/dL (0.0-131.0); Non-African American GFR(CKD) 38.5 (60.0-200.0); Potassium 4.9 mmol/L (3.5-5.5); Sodium 139 mmol/L (135-145); Total Protein 7.3 g/dL (6.2-8.2)
== END | disposition home or self-care (01) ==
LOC: LABWHC1 09:02
PROVIDERS: ATTEND Family Medicine
DX: E11.22 Type 2 diabetes mellitus with diabetic chronic kidney disease (principal); N18.9 Chronic kidney disease, unspecified
CPT/HCPCS: 36415; 80053; 80061; 83036; 85025

== ENCOUNTER 2023-02-10 11:25 | Emergency (ER) | payer OTHER ==
[2023-02-10 11:34] VITALS: BP 137/59; PULSE 72; RESP 20; TEMP 98.4
[2023-02-10] MEDS ORDERED: IBUPROFEN 600 MG TAB PO STA (12:04)
[2023-02-10] MEDS ORDERED: traMADol 50 MG TAB PO STA (12:04)
[2023-02-10] MEDS ORDERED: DIPH,PERTUS(ACELL)TETVAC-LF 0.5 ML VIAL IM ONE (12:05)
--- NOTE | 2023-02-10 12:16 | ED ---
Skin/Abscess/FB HPI - General Chief complaint: Skin/Abscess/Foreign Body Stated complaint: Left leg wound Time Seen by Provider: 02/10/23 11:31 Source: patient, RN notes reviewed Mode of arrival: wheelchair Limitations: no limitations - History of Present Illness Initial comments: This is a 57-year-old female who presents to the emergency department for a cat scratch. States that 3 days ago, her cat scratched her left lower leg. This was her own cat. Her cat does not have its rabies vaccine, however she is not concerned about rabies and declines the need for this. Tetanus status is not up-to-date. Currently complaining of pain and burning to the leg. She is still able to walk without difficulty. Denies any fevers or chills. She's not had any drainage from the site. Denies any fevers, chills, sore throat, cough, dyspnea, chest pain, palpitations, abdominal pain, nausea, vomiting, diarrhea, back pain, or headaches. MD complaint: other (cat scratch) Onset/Timin -: days(s) Tetanus Up to Date: no - Related Data Home Medications Medication Instructions Recorded Confirmed Apixaban [Eliquis] 5 mg PO BID 06/12/21 02/10/23 Metoprolol Tartrate [Lopressor] 50 mg PO BID 06/12/21 02/10/23 Pregabalin [Lyrica] 200 mg PO BID 06/12/21 02/10/23 Atorvastatin [Lipitor] 40 mg PO DAILY 02/10/23 02/10/23 Citalopram Hydrobromide 10 mg PO DAILY 02/10/23 02/10/23 [Citalopram HBr] Cyclobenzaprine [Flexeril] 5 mg PO BID 02/10/23 02/10/23 Fenofibrate [Lofibra] 160 mg PO DAILY 02/10/23 02/10/23 [place]-3/Dha/Epa/Fish Oil [Fish Oil 1 cap PO DAILY 02/10/23 02/10/23 1,000 mg Softgel] Pantoprazole [Protonix] 40 mg PO DAILY 02/10/23 02/10/23 Pregabalin [Lyrica] 100 mg PO HS 02/10/23 02/10/23 lisinopriL [Zestril] 5 mg PO DAILY 02/10/23 02/10/23 Previous Rx's Medication Instructions Recorded traMADol HCL [Ultram] 50 mg PO Q6HR PRN 3 Days #12 tab 06/16/21 Clindamycin [Cleocin] 450 mg PO Q6H 7 Days #84 cap 02/10/23 Allergies Allergy/AdvReac Type Severity Reaction Status Date / Time bee venom protein (honey bee) Allergy Severe Swelling Verified 02/10/23 12:20 acetaminophen [From Tylenol] Allergy Anaphylaxis Verified 02/10/23 12:20 morphine Allergy Swelling Verified 02/10/23 12:20 Penicillins Allergy Rash/Hives Verified 02/10/23 12:20 all citrus Allergy Anaphylaxis Uncoded 02/10/23 12:20 Review of Systems ROS Statement: Those systems with pertinent positive or pertinent negative responses have been documented in the HPI. ROS Other: All systems not noted in ROS Statement are negative. Past Medical History Past Medical History: Diabetes Mellitus, GERD/Reflux, Hypertension, Myocardial Infarction (VT), Pulmonary Embolus (PE), Sleep Apnea/CPAP/BIPAP Additional Past Medical History / Comment(s): Previous history of pulmonary embolism in 2013, obesity, previous history of DVT involving the left lower extremity, diabetes mellitus, hypertension, acid reflux, chronic back pain, normal coronaries based on a cardiac catheterization from June 2015 Last Myocardial Infarction Date:: 06/16/2021 History of Any Multi-Drug Resistant Organisms: VRE Date of last positivie culture/infection: 06/24/21 MDRO Source:: VRE URINE Past Surgical History: Orthopedic Surgery Additional Past Surgical History / Comment(s): Rt shoulder rotator cuff repair. lithoptrisy Past Anesthesia/Blood Transfusion Reactions: No Reported Reaction Additional Past Anesthesia/Blood Transfusion Reaction / Comment(s): STATES HAS BEHAVIOR CHANGES POST OP Past Psychological History: No Psychological Hx Reported Smoking Status: Current every day smoker Past Alcohol Use History: None Reported Past Drug Use History: None Reported - Past Family History Father Family Medical History: No Reported History Mother Family Medical History: No Reported History General Exam Limitations: no limitations General appearance: alert, in no apparent distress Head exam: Present: atraumatic, normocephalic, normal inspection Neck exam: Absent: lymphadenopathy Respiratory exam: Present: normal lung sounds bilaterally. Absent: respiratory distress, wheezes, rales, rhonchi, stridor Cardiovascular Exam: Present: regular rate, normal rhythm, normal heart sounds. Absent: systolic murmur, diastolic murmur, rubs, gallop, clicks Extremities exam: Present: other (3-4 superficial scratches to the distal aspect of the left tib-fib. Surrounding erythema and swelling. Minor overlying tenderness and increased heat. No active drainage.) Neurological exam: Present: alert, oriented X3, CN II-XII intact Psychiatric exam: Present: normal affect, normal mood Course Vital Signs 02/10/23 11:29 Temperature 98.4 F Pulse Rate 72 Respiratory 20 Rate Blood Pressure 137/59 O2 Sat by Pulse 96 Oximetry Medical Decision Making - Medical Decision Making This is a 57-year-old female who presents to the emergency department for a cat scratch. Was pt. sent in by a medical professional or institution? @ -No Did you speak to anyone other than the patient for history? @ -No Did you review nursing and triage notes? @ -Yes, and I agree, it is accurate with regards to the patient's symptoms. Were old charts reviewed? @ -No Differential Diagnosis? @ -Differential Cat Scratch: Cellulitis, abscess, gout, this is not meant to be an all-inclusive list. X-rays interpreted by me (1pt min.)? @ -X-ray of the left tib-fib obtained. My interpretation identifies no evidence of subcutaneous gas formation or osseous destruction. What testing was considered but not performed? (CT, X-rays, U/S, labs)? Why? @ -None What meds were considered but not given? Why? @ -None Did you discuss the management of the patient with other professionals? @ -No Did you reconcile home meds? @ -No Was smoking cessation discussed for >3mins.? @ -No Was critical care preformed (if so, how long)? @ -No Were there social determinants of health that impacted care today? How? (Homelessness, low income, unemployed, alcoholism, drug addiction, transportation, low edu. Level, literacy, decrease access to med. care, usp, rehab)? @ -No Was there de-escalation of care discussed even if they declined? (Discuss DNR or withdrawal of care, Hospice)? @ -No What co-morbidities impacted this encounter? (DM, HTN, Smoking, COPD, CAD, Cancer, CVA, Hep., AIDS, mental health diagnosis, sleep apnea, morbid obesity)? @ -DM, morbid obesity Was patient admitted / discharged? @ -Discharged. X-ray of the left tib-fib obtained revealing no acute findings. Patient is afebrile and not tachycardic. Erythema and swelling are localized to the distal aspect of the left tib-fib around the scratches. Patient's tetanus status was updated. Rabies vaccine was offered, however the patient declined. She has a penicillin allergy and a prescription for clindamycin was provided with dosing instructions reviewed. Advised ibuprofen as needed for pain relief. She will follow up with her primary care provider to reevaluate the wound and ensure that it is healing. Undiagnosed new problem with uncertain prognosis? @ -None Drug Therapy requiring intensive monitoring for toxicity (Heparin, Nitro, Insulin, Cardizem)? @ -None Were any procedures done? @ -None Diagnosis/symptom? @ -Cat scratch of left lower leg Acute, or Chronic, or Acute on Chronic? @ -Acute Uncomplicated (without systemic symptoms) or Complicated (systemic symptoms)? @ -Uncomplicated Side effects of treatment? @ -None Exacerbation, Progression, or Severe Exacerbation] @ -Not applicable Poses a threat to life or bodily function? @ -No Return precautions reviewed in depth, the patient is instructed to return to the emergency department with any new, worsening, or concerning symptoms. Patient verbalized understanding. This case was discussed in detail with the attending ED physician, Dr. Sheldon. Presentation, findings, and treatment plan discussed in detail as well. - Radiology Data Radiology results: report reviewed, image reviewed Disposition Clinical Impression: Cat scratch of left lower leg Disposition: HOME SELF-CARE Instructions (If sedation given, give patient instructions): Cellulitis (ED) Additional Instructions: Return to the emergency department with any new, worsening, or concerning symptoms, especially if you develop fevers or swelling in your lymph nodes. Take the antibiotic as prescribed for 7 days. You can take ibuprofen or another [id number] anti-inflammatory as needed. Follow up with your primary care provider in 1-2 days. Prescriptions: Clindamycin [Cleocin] 450 mg PO Q6H 7 Days #84 cap Is patient prescribed a controlled substance at d/c from ED?: No Referrals: Tirso Alves MD [Primary Care Provider] - 1-2 days
--- NOTE | 2023-02-10 12:26 | XR ---
EXAMINATION TYPE: XR tibia fibula LT DATE OF EXAM: 02/10/2023 COMPARISON: NONE HISTORY: Pain and swelling TECHNIQUE: Two views are submitted. FINDINGS: The osseous structures are intact. The joint spaces are preserved. Diffuse osteopenia. Spurs involv ing the calcaneus. Vascular calcifications. Soft tissue edema noted. Arthropathy of the knee joint. N o destructive change. IMPRESSION: 1. No acute osseous abnormality. Correlate for soft tissue edema.
[2023-02-10] MEDS ORDERED: traMADol 50 MG STARTER PACK 3 TAB BTL PO STA (12:37)
== END 2023-02-10 13:10 | disposition home or self-care (01) ==
LOC: EC 11:25
DX: S80.812A Abrasion, left lower leg, initial encounter (principal); E11.9 Type 2 diabetes mellitus without complications; K21.9 Gastro-esophageal reflux disease without esophagitis; E78.5 Hyperlipidemia, unspecified; I25.2 Old myocardial infarction; G47.30 Sleep apnea, unspecified; F17.200 Nicotine dependence, unspecified, uncomplicated; Z86.711 Personal history of pulmonary embolism; Z79.01 Long term (current) use of anticoagulants; Z79.899 Other long term (current) drug therapy; Z91.030 Bee allergy status; Z88.5 Allergy status to narcotic agent; Z88.6 Allergy status to analgesic agent; Z88.0 Allergy status to penicillin; Z91.018 Allergy to other foods; Z23 Encounter for immunization; W55.03XA Scratched by cat, initial encounter
CPT/HCPCS: 90471; 90715; 99284

== ENCOUNTER → 2023-02-25 | Outpatient (CLI) | payer OTHER ==
--- NOTE | 2023-02-25 12:25 | XR ---
Exam: Lumbosacral spine 5 views Date: 02/25/2023 Comparison: CT 06/07/2018 Clinical History: Low back pain Technique: Multiple views of the lumbosacral spine were obtained per protocol. Findings: There is no significant lateral curvature of the lumbar spine. There is no asymmetric widening of the sacroiliac joints. The visualized sacral lines are symmetric and contiguous. There are no obvious pa rs defects. There is subtle right superior endplate depression at L3, which appears to be new when co mpared to previous examination. The remaining vertebral body heights are within normal limits. Alignm ent is normal there are multilevel degenerative changes of the disc spaces and facets. There are athe romatous changes of the aorta. Impression: 1. Subtle superior endplate depression of L3. This finding could relate to a Schmorl's node or compre ssion fracture deformity. If clinically indicated, further evaluation with MRI could be considered. 2. Multilevel lumbar spondylosis without spondylolisthesis.
== END | disposition home or self-care (01) ==
LOC: RADXRMAIN 09:43
PROVIDERS: ATTEND Family Medicine
DX: M47.816 Spondylosis without myelopathy or radiculopathy, lumbar region (principal)
CPT/HCPCS: 72110

== ENCOUNTER → 2023-04-28 | Outpatient (CLI) | payer OTHER ==
[2023-04-28 12:17] LABS: ALT 23 U/L (4-34); AST 35 U/L (14-36); African American GFR (CKD) 63 (>60 ml/min/1.73 sqM); Albumin/Globulin Ratio 0.8; Alkaline Phosphatase 68 U/L (38-126); Anion Gap 5 mmol/L; Blood Urea Nitrogen 16 mg/dL (7-17); Calcium 8.3 mg/dL (8.4-10.2); Carbon Dioxide 28 mmol/L (22-30); Chloride 108 mmol/L (98-107); Globulin 3.6 g/dL; Glucose 99 mg/dL (74-99); Non-African American GFR(CKD) 55 (>60 ml/min/1.73 sqM); Sodium 141 mmol/L (137-145); Total Bilirubin 0.8 mg/dL (0.2-1.3); Total Protein 6.6 g/dL (6.3-8.2)
[2023-04-28 12:28] LABS: Basophils % (A) 1 %; Eosinophils # (A) 0.2 k/uL (0-0.7); Eosinophils % (A) 2 %; HGB 13.7 gm/dL (11.4-16.0); Hypochromasia Slight; Lymphocytes # (A) 1.4 k/uL (1.0-4.8); Lymphocytes % (A) 22 %; MCH 28.5 pg (25.0-35.0); MCHC 31.8 g/dL (31.0-37.0); MCV 89.5 fL (80.0-100.0); Mean Platelet Volume 11.7; Monocytes # (A) 0.5 k/uL (0-1.0); Monocytes % (A) 8 %; Neutrophils # (A) 4.3 k/uL (1.3-7.7); Neutrophils % (A) 66 %; Platelet Count 117 k/uL (150-450); RBC 4.81 m/uL (3.80-5.40); RDW 14.5 % (11.5-15.5); WBC 6.5 k/uL (3.8-10.6)
[2023-04-28 22:52] LABS: Chol/HDL Ratio 5.45 Ratio; LDL Cholesterol,Calculated 55.7 mg/dL (0.0-131.0)
== END | disposition home or self-care (01) ==
LOC: LABWHC1 10:12
PROVIDERS: ATTEND Family Medicine
DX: E11.22 Type 2 diabetes mellitus with diabetic chronic kidney disease (principal); N18.32 Chronic kidney disease, stage 3b
CPT/HCPCS: 36415; 80053; 80061; 83036; 84443; 85025

== ENCOUNTER → 2023-05-13 | Outpatient (CLI) | payer OTHER ==
[2023-05-13 16:31] LABS: HCT 45.7 % (37.2-46.3); HGB 13.9 d/dL (12.0-15.0); MCH 27.7 pg (27.0-32.0); MCHC 30.4 d/dL (32.0-37.0); NRBC Per 100 WBC 0 X 10*3/uL (0.00-0.01); Platelet Count 151 X 10*3/uL (140-440); RBC 5.02 X 10*6/uL (4.10-5.20); RDW 14.9 % (11.5-14.5)
[2023-05-13 16:32] LABS: Basophils # (A) 0.05 X 10*3/uL (0.00-0.10); Basophils % (A) 0.8 %; Eosinophils # (A) 0.18 X 10*3/uL (0.04-0.35); Eosinophils % (A) 2.8 %; Lymphocytes # (A) 1.71 X 10*3/uL (0.90-5.00); Lymphocytes % (A) 26.7 %; Monocytes # (A) 0.47 X 10*3/uL (0.20-1.00); Monocytes % (A) 7.3 %; Neutrophils # (A) 3.97 X 10*3/uL (1.80-7.70); Neutrophils % (A) 62.1 %
== END | disposition home or self-care (01) ==
LOC: LABWHC1 09:36
PROVIDERS: ATTEND Family Medicine
DX: E78.5 Hyperlipidemia, unspecified (principal)
CPT/HCPCS: 36415; 85025

== ENCOUNTER → 2023-05-20 | Outpatient (CLI) | payer OTHER ==
--- NOTE | 2023-05-21 15:34 | MM ---
Reason for Exam: Screening (asymptomatic). Patient History: Menarche at age 13. First Full-Term at age 22. Postmenopausal. Risk Values: Tanya 5 year model risk: 1.1%. NCI Lifetime model risk: 7.2%. Tissue Density: There are scattered fibroglandular densities. Findings: Analyzed By CAD. Pattern appears symmetrical. Benign spherical calcifications are present bilaterally. No suspicious groups of microcalcifications, spiculated or lobular masses, architectural distortion or other secondary signs of malignancy are mammographically apparent. Overall Assessment: Benign, BI-RAD 2 Management: Screening Mammogram of both breasts in 1 year. A negative mammogram report should not preclude additional follow up of suspicious palpable abnormalities. Patient should continue monthly self breast exam. A clinical breast exam by your physician is recommended on an annual basis and results should be correlated with mammographic findings. Electronically signed and approved by: Delbert Ferguson D.O. Radiologis
== END | disposition home or self-care (01) ==
LOC: RADMAMWWP 08:07
PROVIDERS: ATTEND Family Medicine
DX: Z12.31 Encounter for screening mammogram for malignant neoplasm of breast (principal); Z78.0 Asymptomatic menopausal state
CPT/HCPCS: 77063; 77067

== ENCOUNTER → 2023-12-17 | Outpatient (CLI) | payer OTHER ==
--- NOTE | 2023-12-17 09:47 | XR ---
EXAMINATION TYPE: XR Hip Bilateral and AP pelvis DATE OF EXAM: 12/17/2023 COMPARISON: 03/12/2022 HISTORY: Pain TECHNIQUE: A single AP view of the pelvis is obtained. Two views of the bilateral hip are obtained. FINDINGS: There is no acute fracture/dislocation evident in the pelvis. Bilateral SI joint arthropat hy similar to prior exam.. The overlying soft tissue appears unremarkable. There is bilateral mild to moderate hypertrophic arthropathy correlate for femoral acetabular impinge ment. No erosive changes. Mild diffuse osteopenia. Degenerative changes lower lumbar spine. Vascular calcifications. IMPRESSION: 1. Mild to moderate bilateral hypertrophic hip arthropathy correlate for femoral acetabular impingeme nt. 2. Bilateral SI joint arthropathy.
== END | disposition home or self-care (01) ==
LOC: RADXRMAIN 09:06
PROVIDERS: ATTEND Family Medicine
DX: M16.0 Bilateral primary osteoarthritis of hip (principal)
CPT/HCPCS: 73521

== ENCOUNTER 2024-01-19 09:13 | Emergency (ER) | payer MEDICARE, OTHER ==
--- NOTE | 2024-01-19 09:24 | ED ---
General Adult HPI - General Chief complaint: Extremity Problem,Nontraumatic Stated complaint: FOOT PAIN Time Seen by Provider: 01/19/24 09:20 Source: patient Mode of arrival: wheelchair Limitations: no limitations - History of Present Illness Initial comments: A 58-year-old female, with a history of neuropathy, presents emergency department chief complaint of bilateral lower extremity paresthesias. States that she has not taken her prescribed Lyrica over the past 2 days becuase she has been unable to make an appoint with her primary care provider. Patient states that she attempted to schedule an appointment with her PCP, but was informed that they no longer accept her insurance. Patient states that she has been on Lyrica over the past 2 years for her peripheral neuropathy. She denies chest pain, palpitations, dizziness, headaches, shortness of breath, loss of sensation or numbness in bilateral lower extremities. - Related Data Home Medications Medication Instructions Recorded Confirmed Apixaban [Eliquis] 5 mg PO BID 06/12/21 02/10/23 Metoprolol Tartrate [Lopressor] 50 mg PO BID 06/12/21 02/10/23 Pregabalin [Lyrica] 200 mg PO BID 06/12/21 02/10/23 Atorvastatin [Lipitor] 40 mg PO DAILY 02/10/23 02/10/23 Citalopram Hydrobromide 10 mg PO DAILY 02/10/23 02/10/23 [Citalopram HBr] Cyclobenzaprine [Flexeril] 5 mg PO BID 02/10/23 02/10/23 Fenofibrate [Lofibra] 160 mg PO DAILY 02/10/23 02/10/23 [place]-3/Dha/Epa/Fish Oil [Fish Oil 1 cap PO DAILY 02/10/23 02/10/23 1,000 mg Softgel] Pantoprazole [Protonix] 40 mg PO DAILY 02/10/23 02/10/23 Pregabalin [Lyrica] 100 mg PO HS 02/10/23 02/10/23 lisinopriL [Zestril] 5 mg PO DAILY 02/10/23 02/10/23 Previous Rx's Medication Instructions Recorded traMADol HCL [Ultram] 50 mg PO Q6HR PRN 3 Days #12 tab 06/16/21 Clindamycin [Cleocin] 450 mg PO Q6H 7 Days #84 cap 02/10/23 Allergies Allergy/AdvReac Type Severity Reaction Status Date / Time bee venom protein (honey bee) Allergy Severe Swelling Verified 02/10/23 12:20 acetaminophen [From Tylenol] Allergy Anaphylaxis Verified 02/10/23 12:20 morphine Allergy Swelling Verified 02/10/23 12:20 Penicillins Allergy Rash/Hives Verified 02/10/23 12:20 all citrus Allergy Anaphylaxis Uncoded 02/10/23 12:20 Review of Systems ROS Statement: Those systems with pertinent positive or pertinent negative responses have been documented in the HPI. ROS Other: All systems not noted in ROS Statement are negative. Past Medical History Past Medical History: Diabetes Mellitus, GERD/Reflux, Hypertension, Myocardial Infarction (LA), Pulmonary Embolus (PE), Sleep Apnea/CPAP/BIPAP Additional Past Medical History / Comment(s): Previous history of pulmonary embolism in 2013, obesity, previous history of DVT involving the left lower extremity, diabetes mellitus, hypertension, acid reflux, chronic back pain, normal coronaries based on a cardiac catheterization from June 2015 Last Myocardial Infarction Date:: 06/16/2021 History of Any Multi-Drug Resistant Organisms: VRE Date of last positivie culture/infection: 06/24/21 MDRO Source:: VRE URINE Past Surgical History: Orthopedic Surgery Additional Past Surgical History / Comment(s): Rt shoulder rotator cuff repair. lithoptrisy Past Anesthesia/Blood Transfusion Reactions: No Reported Reaction Additional Past Anesthesia/Blood Transfusion Reaction / Comment(s): STATES HAS BEHAVIOR CHANGES POST OP Past Psychological History: No Psychological Hx Reported Smoking Status: Current every day smoker Past Alcohol Use History: None Reported Past Drug Use History: None Reported - Past Family History Father Family Medical History: No Reported History Mother Family Medical History: No Reported History General Exam Limitations: no limitations General appearance: alert, in no apparent distress Head exam: Present: atraumatic, normocephalic, normal inspection Eye exam: Present: normal appearance, PERRL, EOMI. Absent: scleral icterus, conjunctival injection, periorbital swelling ENT exam: Present: normal exam, mucous membranes moist Neck exam: Present: normal inspection. Absent: tenderness, meningismus, lymphadenopathy Respiratory exam: Present: normal lung sounds bilaterally. Absent: respiratory distress, wheezes, rales, rhonchi, stridor Cardiovascular Exam: Present: regular rate, normal rhythm, normal heart sounds. Absent: systolic murmur, diastolic murmur, rubs, gallop, clicks GI/Abdominal exam: Present: soft, normal bowel sounds. Absent: distended, tenderness, guarding, rebound, rigid Extremities exam: Present: full ROM, other (bilateral lower extremity paresthesias) Right Lower Leg exam: Present: swelling (2+ pitting edema bilaterally) Back exam: Present: normal inspection Neurological exam: Present: alert, oriented X3, CN II-XII intact Psychiatric exam: Present: normal affect, normal mood Course Vital Signs 01/19/24 09:14 Temperature 97.8 F Pulse Rate 75 Respiratory 16 Rate Blood Pressure 148/84 O2 Sat by Pulse 98 Oximetry Medical Decision Making - Medical Decision Making Was pt. sent in by a medical professional or institution (, PA, MACHINE QUILT STUFFER, urgent care, hospital, or [place] [facility] facility...) When possible be specific @ -No Did you speak to anyone other than the patient for history (EMS, parent, family, police, friend...)? What history was obtained from this source @ -No Did you review nursing and triage notes (agree or disagree)? Why? @ -I reviewed and agree with nursing and triage notes Were old charts reviewed (outside hosp., previous admission, EMS record, old EKG, old radiological studies, urgent care reports/EKG's, [place] health care facility records)? Report findings @ -No old charts were reviewed Differential Diagnosis (chest pain, altered mental status, abdominal pain women, abdominal pain men, vaginal bleeding, weakness, fever, dyspnea, syncope, headache, dizziness, GI bleed, back pain, seizure, CVA, palpatations, mental health, musculoskeletal)? @ -Differential Musculoskeletal Muscular strain, contusion, ligament sprain, fracture, arthritis, septic arthritis, bursitis, cellulitis, muscle spasm, nerve compression, DVT, arterial occlusion, herpes zoster, electrolyte abnormality, tumor.... This is not meant to be in all inclusive list EKG interpreted by me (3pts min.). @ -None X-rays interpreted by me (1pt min.). @ -None done CT interpreted by me (1pt min.). @ -None done U/S interpreted by me (1pt. min.). @ -None done What testing was considered but not performed or refused? (CT, X-rays, U/S, labs)? Why? @ -None What meds were considered but not given or refused? Why? @ -None Did you discuss the management of the patient with other professionals (professionals i.e. , PA, MACHINE QUILT STUFFER, lab, RT, psych nurse, social director, croze cutter, teacher, textile technical officer, manager case management)? Give summary @ -No Was smoking cessation discussed for >3mins.? @ -No Was critical care preformed (if so, how long)? @ -No Were there social determinants of health that impacted care today? How? (Homelessness, low income, unemployed, alcoholism, drug addiction, transportation, low edu. Level, literacy, decrease access to med. care, half-way, re hab)? @ -No Was there de-escalation of care discussed even if they declined (Discuss DNR or withdrawal of care, Hospice)? DNR status @ -No What co-morbidities impacted this encounter? (DM, HTN, Smoking, COPD, CAD, Cancer, CVA, ARF, Chemo, Hep., AIDS, mental health diagnosis, sleep apnea, morbid obesity)? @ -None Was patient admitted / discharged? Hospital course, mention meds given and route, prescriptions, significant lab abnormalities, going to OR and other pertinent info. @ -discharged. 58-year-old female presents to the emergency department with chief complaint of bilateral lower extremity paresthesias. [facility] controlled substance history reviewed, previous 3-month prescription for Lyrica was prescribed in October. patient be discharged with 1 week supply of Lyrica, and instruct patient to call insurance company to determine which primary care provider is within her network. Undiagnosed new problem with uncertain prognosis? @ -No Drug Therapy requiring intensive monitoring for toxicity (Heparin, Nitro, Insulin, Cardizem)? @ -No Were any procedures done? @ -No Diagnosis/symptom? @ -Paresthesias, neuropathy Acute, or Chronic, or Acute on Chronic? @ -Chronic Uncomplicated (without systemic symptoms) or Complicated (systemic symptoms)? @ -Uncomplicated Side effects of treatment? @ -No Exacerbation, Progression, or Severe Exacerbation? @ -No Poses a threat to life or bodily function? How? (Chest pain, [place], [place], pneumonia, PE, COPD, DKA, ARF, appy, cholecystitis, CVA, Diverticulitis, Homicidal, Suicidal, threat to staff... and all critical care pts) @ -No Disposition Clinical Impression: Neuropathy Narrative: Please return to the Emergency Department if symptoms worsen or any other concerns. Patient to call insurance company to determine which primary care providers are within network for further controlled substance prescription. Disposition: HOME SELF-CARE Condition: Good Is patient prescribed a controlled substance at d/c from ED?: Yes When asked, does pt state using other controlled substances?: No If prescribed controlled substance>3 days was [facility] reviewed?: Yes Referrals: None,Stated [Primary Care Provider] - 1-2 days Decision Time: 10:00
[2024-01-19 09:25] VITALS: RESP 16
[2024-01-19 10:36] VITALS: BP 141/82; PULSE 71; TEMP 97.9
== END 2024-01-19 10:43 | disposition home or self-care (01) ==
LOC: EC 09:13
DX: E11.42 Type 2 diabetes mellitus with diabetic polyneuropathy (principal); F17.200 Nicotine dependence, unspecified, uncomplicated; Z91.030 Bee allergy status; Z88.0 Allergy status to penicillin; Z88.2 Allergy status to sulfonamides; Z88.8 Allergy status to other drugs, medicaments and biological substances
CPT/HCPCS: 99283

== ENCOUNTER → 2024-05-23 | Outpatient (CLI) | payer MEDICARE ==
--- NOTE | 2024-05-23 16:05 | BD ---
EXAMINATION TYPE: Axial Bone Density DATE OF EXAM: 05/23/2024 CLINICAL HISTORY: 58 years old Female. ICD-10 CODE: Z78.0 ASYMP MENOPAUSAL Height: 64 Weight: 212 FRAX RISK QUESTIONS: Family History (Parent hip fracture): no History of Fracture in Adulthood: yes Secondary Osteoporosis: no Rheumatoid Arthritis: no Current Tobacco Use: yes RISK FACTORS HISTORY OF: Hip Fracture (Right/Left): yes When: 2019 History of Rt Wrist Fracture: yes When: 2017 Surgery to Spine/Hip(right/left)/Wrist (right/left): no MEDICATIONS: Thyroid Medications: no Osteoporosis Medications: no EXAM MEASUREMENTS: Bone mineral densitometry was performed using the [employer] System. Bone mineral density as measured about the Lumbar spine is: ----- L1-L4(G/cm2): 0.985 T Score Values are as follows: ----- L1: -1.8 ----- L2: -1.7 ----- L3: -1.2 ----- L4: -1.9 ----- L1-L4: -1.6 Z Score Values are as follows: ----- L1: -1.8 ----- L2: -1.7 ----- L3: -1.3 ----- L4: -1.9 ----- L1-L4: -1.6 Bone mineral density has: baseline Bone mineral density about the R hip (g/cm2): 0.721 Bone mineral density about the L hip (g/cm2): 0.771 T Score values are as follows: -----R Neck: -3.6 -----L Neck: -3.0 -----R Total: -2.3 -----L Total: -1.9 Z Score values are as follows: -----R Neck: -3.2 -----L Neck: -2.5 -----R Total: -2.2 -----L Total: -1.8 Bone mineral density baseline FRAX%s: The graph provided illustrates a 16.6% chance for a major osteoporotic fx and a 6.5% chance f or the hips probability for fx in 10 years time. IMPRESSION: Osteoporosis (T Score less than -2.5). There is increased fracture risk and therapy is usually indicated based on age. Re-Screen 1-2 years. NOTE: T-SCORE=SD OF THE YOUNG ADULT MEAN.
--- NOTE | 2024-05-23 22:09 | USS ---
EXAMINATION TYPE: US Screening Carotids/Aorta DATE OF EXAM: 05/23/2024 COMPARISON: NONE CLINICAL INDICATION: Female, 58 years old with history of Z13.6 AAA SCR; No family history, no sympto ms TECHNIQUE: Multiple sonographic images of the abdominal aorta are obtained. FINDINGS: EXAM MEASUREMENTS: Abdominal Aorta: Proximal: 2.5 x 2.5cm Mid: 1.8 x 2.2cm Distal: 1.8 x 1.4cm Bifurcation: Right Iliac: 1.1cm Left Iliac: 1.3cm DOLL REPAIRER NOTES: Normal caliper aorta IMPRESSION: 1. Aorta tapers normally through its visualized course. No suspicious aneurysmal dilatation or fusifo rm prominence on screening ultrasound
--- NOTE | 2024-05-28 12:07 | MM ---
Reason for Exam: Screening (asymptomatic). Last screening mammogram was performed 12 month(s) ago. Patient History: Menarche at age 13. First Full-Term at age 22. Postmenopausal. Risk Values: Tanya 5 year model risk: 1.1%. NCI Lifetime model risk: 7.1%. Prior Study Comparison: 05/20/2023 Bilateral MG 3D screening mammo w/cad, [facility]. Tissue Density: There are scattered areas of fibroglandular density. Findings: Analyzed By CAD. The pattern is symmetrical. Benign spherical and punctate calcifications are present bilaterally. No suspicious groups of microcalcifications, spiculated or lobular masses, architectural distortion or other secondary signs of malignancy are mammographically apparent. Overall Assessment: Benign, BI-RAD 2 Management: Screening Mammogram of both breasts in 1 year. A negative mammogram report should not preclude additional follow up of suspicious palpable abnormalities. Patient should continue monthly self breast exam. A clinical breast exam by your physician is recommended on an annual basis and results should be correlated with mammographic findings. Note on Tanya scores and lifetime risk: 1. A Tanya score greater than 3% is considered moderate risk. If this is the case, consider specialist referral to assess eligibility for a risk reducing agent. 2. If overall lifetime risk for the development of breast cancer is 20% or higher, the patient may qualify for future screening with alternating mammogram and breast MRI. Electronically signed and approved by: Delbert Ferguson D.O. Radiologis
== END | disposition home or self-care (01) ==
LOC: RADUSWWP 07:51
PROVIDERS: ATTEND Family Medicine
DX: Z12.31 Encounter for screening mammogram for malignant neoplasm of breast (principal); Z86.79 Personal history of other diseases of the circulatory system; Z13.6 Encounter for screening for cardiovascular disorders; Z78.0 Asymptomatic menopausal state; M81.0 Age-related osteoporosis without current pathological fracture
CPT/HCPCS: 76706; 76999; 77063; 77067; 77080; 93998

== ENCOUNTER 2024-07-09 08:01 | Emergency (ER) | payer MEDICARE ==
--- NOTE | 2024-07-09 08:19 | ED ---
Extremity Problem HPI - General Chief complaint: Extremity Problem,Nontraumatic Stated complaint: L Leg Swelling Time Seen by Provider: 07/09/24 08:17 Source: patient, RN notes reviewed Mode of arrival: wheelchair Limitations: no limitations - History of Present Illness Initial comments: 58-year-old female presenting to the ER with a chief complaint of left calf pain. Patient has a past medical history significant of DVTs and is currently taking Eliquis. She states for approximately 1 week she has noticed pain to her distal left calf. She noticed couple of days ago with some drainage from a wound. Drainage was clear in nature. She denies any injuries or traumas. Denies any shortness of breath, chest pain, fevers, chills, nausea, vomiting. Denies any history of heart failure or cellulitis. - Related Data Home Medications Medication Instructions Recorded Confirmed Apixaban [Eliquis] 5 mg PO BID 06/12/21 02/10/23 Metoprolol Tartrate [Lopressor] 50 mg PO BID 06/12/21 02/10/23 Pregabalin [Lyrica] 200 mg PO BID 06/12/21 02/10/23 Atorvastatin [Lipitor] 40 mg PO DAILY 02/10/23 02/10/23 Citalopram Hydrobromide 10 mg PO DAILY 02/10/23 02/10/23 [Citalopram HBr] Cyclobenzaprine [Flexeril] 5 mg PO BID 02/10/23 02/10/23 Fenofibrate [Lofibra] 160 mg PO DAILY 02/10/23 02/10/23 [place]-3/Dha/Epa/Fish Oil [Fish Oil 1 cap PO DAILY 02/10/23 02/10/23 1,000 mg Softgel] Pantoprazole [Protonix] 40 mg PO DAILY 02/10/23 02/10/23 Pregabalin [Lyrica] 100 mg PO HS 02/10/23 02/10/23 lisinopriL [Zestril] 5 mg PO DAILY 02/10/23 02/10/23 Previous Rx's Medication Instructions Recorded traMADol HCL [Ultram] 50 mg PO Q6HR PRN 3 Days #12 tab 06/16/21 Clindamycin [Cleocin] 450 mg PO Q6H 7 Days #84 cap 02/10/23 Pregabalin [Lyrica] 100 mg PO QID #7 cap 01/19/24 Pregabalin [Lyrica] 200 mg PO BID #14 capsule 01/19/24 Cephalexin [Keflex] 500 mg PO Q6HR #40 cap 07/09/24 Sulfamethox-Tmp 800-160Mg [Bactrim 1 each PO Q12HR #20 tab 07/09/24 Ds] Allergies Allergy/AdvReac Type Severity Reaction Status Date / Time bee venom protein (honey bee) Allergy Severe Swelling Verified 07/09/24 08:06 acetaminophen [From Tylenol] Allergy Anaphylaxis Verified 07/09/24 08:06 morphine Allergy Swelling Verified 07/09/24 08:06 Penicillins Allergy Rash/Hives Verified 07/09/24 08:06 all citrus Allergy Anaphylaxis Uncoded 02/10/23 12:20 Review of Systems ROS Statement: Those systems with pertinent positive or pertinent negative responses have been documented in the HPI. ROS Other: All systems not noted in ROS Statement are negative. Past Medical History Past Medical History: Diabetes Mellitus, GERD/Reflux, Hypertension, Myocardial Infarction (DE), Pulmonary Embolus (PE), Sleep Apnea/CPAP/BIPAP Additional Past Medical History / Comment(s): Previous history of pulmonary embolism in 2013, obesity, previous history of DVT involving the left lower extremity, diabetes mellitus, hypertension, acid reflux, chronic back pain, normal coronaries based on a cardiac catheterization from June 2015 Last Myocardial Infarction Date:: 06/16/2021 History of Any Multi-Drug Resistant Organisms: VRE Date of last positivie culture/infection: 06/24/21 MDRO Source:: VRE URINE Past Surgical History: Orthopedic Surgery Additional Past Surgical History / Comment(s): Rt shoulder rotator cuff repair. lithoptrisy Past Anesthesia/Blood Transfusion Reactions: No Reported Reaction Additional Past Anesthesia/Blood Transfusion Reaction / Comment(s): STATES HAS BEHAVIOR CHANGES POST OP Past Psychological History: No Psychological Hx Reported Smoking Status: Current every day smoker Past Alcohol Use History: None Reported Past Drug Use History: None Reported - Past Family History Father Family Medical History: No Reported History Mother Family Medical History: No Reported History General Exam Limitations: no limitations General appearance: alert, in no apparent distress Respiratory exam: Present: normal lung sounds bilaterally. Absent: respiratory distress, wheezes, rales, rhonchi, stridor Cardiovascular Exam: Present: regular rate, normal rhythm, normal heart sounds. Absent: systolic murmur, diastolic murmur, rubs, gallop, clicks Extremities exam: Present: normal inspection, full ROM, normal capillary refill, calf tenderness (left. Induration and erythema to left distal lower extremity. There is clear drainage with small abrasion. 2+ left dorsalis pedis pulse. Minimal pedal edema). Absent: tenderness, pedal edema, joint swelling Neurological exam: Present: alert, oriented X3, CN II-XII intact Skin exam: Present: warm, dry, intact, normal color. Absent: rash Course Vital Signs 07/09/24 07/09/24 08:03 10:55 Temperature 98.5 F 97.9 F Pulse Rate 83 65 Respiratory 16 18 Rate Blood Pressure 144/81 135/83 O2 Sat by Pulse 93 L 97 Oximetry Medical Decision Making - Medical Decision Making Was pt. sent in by a medical professional or institution (, PA, MANAGER [employer], urgent care, hospital, or group home...) When possible be specific @ -No Did you speak to anyone other than the patient for history (EMS, parent, family, police, friend...)? What history was obtained from this source @ -No Did you review nursing and triage notes (agree or disagree)? Why? @ -I reviewed and agree with nursing and triage notes Were old charts reviewed (outside hosp., previous admission, EMS record, old EKG, old radiological studies, urgent care reports/EKG's, group home records)? Report findings @ -No old charts were reviewed Differential Diagnosis (chest pain, altered mental status, abdominal pain women, abdominal pain men, vaginal bleeding, weakness, fever, dyspnea, syncope, head ache, dizziness, GI bleed, back pain, seizure, CVA, palpatations, mental health, musculoskeletal)? @ -Differential Musculoskeletal: Muscular strain, contusion, ligament sprain, fracture, arthritis, septic arthritis, bursitis, cellulitis, muscle spasm, nerve compression, DVT, arterial occlusion, herpes zoster, electrolyte abnormality, tumor.... This is not meant to be in all inclusive list EKG interpreted by me (3pts min.). @ -None X-rays interpreted by me (1pt min.). @ -None done CT interpreted by me (1pt min.). @ -None done U/S interpreted by me (1pt. min.). @ -Ultrasound venous Doppler left lower extremity negative for evidence of DVT. What testing was considered but not performed or refused? (CT, X-rays, U/S, labs)? Why? @ -None What meds were considered but not given or refused? Why? @ -None Did you discuss the management of the patient with other professionals (professionals i.e. DrGardenia, PA, MA[employer], lab, RT, psych nurse, social work associate, probate lawyer, teacher, uniform patrol police officer, test case developer)? Give summary @ -No Was smoking cessation discussed for >3mins.? @ -No Was critical care preformed (if so, how long)? @ -No Were there social determinants of health that impacted care today? How? (Homelessness, low income, unemployed, alcoholism, drug addiction, transportation, low edu. Level, literacy, decrease access to med. care, residential, rehab)? @ -No Was there de-escalation of care discussed even if they declined (Discuss DNR or withdrawal of care, Hospice)? DNR status @ -No What co-morbidities impacted this encounter? (DM, HTN, Smoking, COPD, CAD, Cancer, CVA, ARF, Chemo, Hep., AIDS, mental health diagnosis, sleep apnea, morbid obesity)? @ -Obese, Hx heart failure, diabetes, history of DVT currently on Eliquis Was patient admitted / discharged? Hospital course, mention meds given and route, prescriptions, significant lab abnormalities, going to OR and other pertinent info. @ -Discharge. 58-year-old female presented to the ER with chief complaint of left lower extremity erythema and edema. History and physical exam completed. Vitals within normal limits. Patient in no signs of acute distress and nontoxic-appearing. Left lower extremity neurovascular intact. There is edema and erythema to distal calf with tenderness to palpitation. Patient has full active range of motion and is able to ambulate. Ultrasound obtained to rule out DVT is negative. Patient will be started on Keflex and Bactrim due to concern of overlying cellulitis. I advised close follow-up with PCP. Strict return parameters discussed. Patient discharged stable condition. Patient verbally expressed understanding agreement care plan. Case discussed with ED attending, Dr. Arzate. Undiagnosed new problem with uncertain prognosis? @ -No Drug Therapy requiring intensive monitoring for toxicity (Heparin, Nitro, Insulin, Cardizem)? @ -No Were any procedures done? @ -No Diagnosis/symptom? @ -Cellulitis Acute, or Chronic, or Acute on Chronic? @ -Acute Uncomplicated (without systemic symptoms) or Complicated (systemic symptoms)? @ -Uncomplicated Side effects of treatment? @ -No Exacerbation, Progression, or Severe Exacerbation? @ -No Poses a threat to life or bodily function? How? (Chest pain, [place], [place], pneumonia, PE, COPD, DKA, ARF, appy, cholecystitis, CVA, Diverticulitis, Homicidal, Suicidal, threat to staff... and all critical care pts) @ -No - Radiology Data Radiology results: report reviewed, image reviewed Disposition Clinical Impression: Cellulitis Disposition: HOME SELF-CARE Condition: Stable Instructions (If sedation given, give patient instructions): Cellulitis (ED) Additional Instructions: Complete full course of antibiotics. Follow-up with PCP. Return to the ER for any new or worsening concerns. Prescriptions: Sulfamethox-Tmp 800-160Mg [Bactrim Ds] 1 each PO Q12HR #20 tab Cephalexin [Keflex] 500 mg PO Q6HR #40 cap Is patient prescribed a controlled substance at d/c from ED?: No Referrals: Tirso Alves MD [Primary Care Provider] - 1-2 days Time of Disposition: 10:58
--- NOTE | 2024-07-09 10:27 | US ---
EXAMINATION TYPE: US venous doppler duplex LE LT DATE OF EXAM: 07/09/2024 8:58 AM COMPARISON: NONE CLINICAL INDICATION: Female, 58 years old with history of calf tenderness; red lower left leg that is weeping, on Eliquis and has h/o dvt in right leg 2018 SIDE PERFORMED: Left TECHNIQUE: The lower extremity deep venous system is examined utilizing real time linear array sonog gege with graded compression, doppler sonography and color-flow sonography. VESSELS IMAGED: Common Femoral Vein Deep Femoral Vein Greater Saphenous Vein * Femoral Vein Popliteal Vein Small Saphenous Vein * Proximal Calf Veins (* superficial vessels) Left Leg: Negative for DVT IMPRESSION: 1. Left lower extremity ultrasound negative for deep venous thrombosis
[2024-07-09 10:55] VITALS: BP 135/83; PULSE 65; RESP 18; TEMP 97.9
== END 2024-07-09 11:07 | disposition home or self-care (01) ==
LOC: EC 08:01
DX: L03.116 Cellulitis of left lower limb (principal); F17.200 Nicotine dependence, unspecified, uncomplicated; Z88.6 Allergy status to analgesic agent; Z88.0 Allergy status to penicillin; Z86.718 Personal history of other venous thrombosis and embolism; Z79.01 Long term (current) use of anticoagulants; Z86.711 Personal history of pulmonary embolism; Z91.030 Bee allergy status; Z88.8 Allergy status to other drugs, medicaments and biological substances
CPT/HCPCS: 99283